=== PATIENT | female | born 1975 | race Caucasian/White ===

== ENCOUNTER 2019-07-29 11:54 | Inpatient (IN) | payer MEDICARE, MEDICAID, SELFPAY ==
[2019-07-29 12:06] VITALS: BP 152/84; PULSE 78; RESP 16; TEMP 36.3; O2SAT 100; BMI 25.4
--- NOTE | 2019-07-29 12:33 | ED_ITS ---
HPI - General Adult General: Chief complaint: General Medical Stated complaint: PAINS AND HEADACHE Time Seen by Provider: 07/29/19 12:10 Source: patient Mode of arrival: ambulatory Limitations: no limitations History of Present Illness: HPI narrative: Patient is a 43-year-old female who presents to ED today with complaints of muscle aches to her bilateral lower extremities and a headache that began yesterday; patient tells me she does have a history of migraine headaches; she has not noticed any swelling, weakness, color/temperature changes, numbness/tingling to her legs; reports they just feel achy ; patient denies fever/chills; she has no vomiting or diarrhea; reports previous history of kidney disease in which she follows up with Dr. Gonzáles, nephrology, for Onset (ago): day(s) (yesterday) Associated symptoms: Deny chest pain, dyspnea, malaise, nausea, rash, palpitations, syncope or vomiting Review of Systems Const: Denies: fever, chills, body aches, fatigue or malaise Eyes: Denies: change in vision or blurry vision ENMT: Denies: enlarged tonsils or painful swallowing Card: Denies: chest pain, palpitations, irregular heart rhythm, lightheadedness, syncope or shortness of breath on exertion Resp: Denies: shortness of breath, productive cough or pain on inspiration GI: Denies: abdominal pain, nausea, vomiting, heartburn/indigestion or diarrhea : Denies: difficulty urinating, painful urination, urinary frequency or urinary urgency Musc: Reports: extremity pain (bilateral LE achy ); Denies: neck pain, back pain or joint pain Skin/Breast: Denies: rash PFSH ED PFSH: Statuses (acute, chronic, etc) shown below reflect problem list status as previously entered and may not be historically accurate Social History Smoking and tobacco status: never smoked Physical Exam Const: COMMON NORMALS: no apparent distress, average body habitus, oriented x 3, no limitations, healthy appearing, alert and well nourished ORIENTATION/CONSCIOUSNESS: Yes oriented to person, Yes oriented to place and Yes oriented to time HENMT: COMMON NORMALS: normocephalic and head/scalp atraumatic HEAD & S CALP: normocephalic and atraumatic Eye: COMMON NORMALS: no scleral icterus Neck/C-Spine: COMMON NORMALS: full ROM, no lymphadenopathy, supple and no meningeal signs Resp: COMMON NORMALS: normal respiratory effort and clear to auscultation bilaterally AUSCULTATION: clear to auscultation bilaterally Cardio: COMMON NORMALS: regular rate and regular rhythm RATE: regular rate RHYTHM: regular rhythm GI: COMMON NORMALS: normal to inspection, nondistended, normoactive bowel sounds, soft to palpation and non-tender PALPATION: Yes soft : COMMON NORMALS: Yes no CVA tenderness BLADDER/KIDNEY EXAM: Yes no CVA tenderness Back/Pelvis: COMMON NORMALS: no CVA tenderness and thoracic and lumbar spine normal to inspection Extremity: COMMON NORMALS: normal to inspection, full ROM, normal capillary refill, no joint enlargement, no clubbing, cyanosis or edema and no pedal edema OTHER: just reports legs feel achy ; no physical abnormalities noted Neuro: SUMI COMA SCALE: document GCS findings Sumi coma scale eye opening: Spontaneous Henderson coma scale verbal response: Orientated Sumi coma scale motor response: Obey commands Henderson coma scale total score: 15 COMMON NORMALS: oriented x3, CN's II-XII intact bilaterally, moves all extremities, no focal motor deficits and no sensory deficits noted SENSORIUM/ORIENTATION: Yes alert, Yes oriented to person, Yes oriented to place and Yes oriented to time MENINGEAL SIGNS: Yes no meningeal signs Skin: COMMON NORMALS: no rashes or lesions noted GENERAL SKIN EXAM: no rashes or lesions noted Course Vital Signs: Vital signs: Vital Signs Temperature 97.4 F L 07/29/19 12:06 Pulse Rate 78 07/29/19 12:06 Respiratory Rate 16 07/29/19 12:06 Blood Pressure 152/84 07/29/19 12:06 Pulse Oximetry 100 07/29/19 12:06 MDM - General Adult MDM Narrative: Medical decision making narrative: Patient noted to have a BUN/Cr of 74/6.2. She is hypercalcemic at 15.4. She has no EKG changes at this time. We will add an ionized calcium onto her lab work. Spoke to Dr. Main who will speak to hospitalist for admission. Lab Data: Labs: Lab Results 07/29/19 07/29/19 07/29/19 Range/Units 12:55 12:55 13:12 WBC 8.4 (4.0-10.0) 10^3/ uL RBC 3.18 L (4.1-5.3) 10^6/u L Hgb 8.5 L (11.5-15.3) g/dL Hct 27.4 L (37.0-47.0) % MCV 86.2 (81-99) fL MCH 26.7 L (28.0-34.0) pg MCHC 31.0 (30.0-36.0) g/dL RDW 13.2 (12.1-15.1) % Plt Count 299 (130-400) 10^3/c mm MPV 9.2 (7.4-10.4) fL Neut % (Auto) 73.5 % Lymph % (Auto) 10.9 % Montgomery % (Auto) 11.0 % Eos % (Auto) 3.9 % Baso % (Auto) 0.5 % Neut # (Auto) 6.2 (1.8-7.7) 10^3/u L Lymph # (Auto) 0.9 (0.8-4.8) 10^3/u L Montgomery # (Auto) 0.9 (0.2-0.9) 10^3/u L Eos # (Auto) 0.3 (0.0-0.8) 10^3/u L Baso # (Auto) 0.0 (0.0-0.1) 10^3/u L Nucleated RBC % (a uto) 0 % Nucleated RBCs # 0.0 /100WBC Sodium 134 L (136-145) mmol/L Potassium 5.1 (3.5-5.1) mmol/L Chloride 94 L (98-107) mmol/L Carbon Dioxide 24 (22-29) mmol/L Anion Gap 21.1 H (5-19) BUN 74 H (6-20) mg/dL Creatinine 6.2 H* (0.5-0.9) mg/dL GFR Calculation 7.3 L (90-130) mL/min Glucose 110 H (74-109) mg/dL Calcium 15.4 H* (8.5-10.5) mg/dL Ionized Calcium Me as (1.1-1.4) mmol/L Magnesium 2.8 H (1.7-2.3) mg/dL Total Bilirubin 0.3 (0.15-1.2) mg/dL AST 16 (0-32) U/L ALT 17 (0-33) U/L Alkaline Phosphata se 73 (35-105) IU/L Total Protein 9.1 H (6.6-8.7) g/dL Albumin 4.1 (3.5-5.2) g/dL Globulin 5.0 H (1.3-4.6) g/dL Urine Color Yellow (Yellow) Urine Appearance Sl hazy (CLEAR) Urine pH 8 H (5-7) Ur Specific Gravit y 1.010 (1.005-1.030) Urine Protein Trace (Negative) Urine Glucose (UA) 2+ (Normal) Urine Ketones Negative (Negative) Urine Occult Blood 2+ H (Negative) Urine Nitrate Negative (Negative) Urine Bilirubin Neg (NEGATIVE) Prot Sulfosalicyli c Acd Trace Urine Urobilinogen Norm (Negative) mg/dL Ur Leukocyte Diana ase Negative (Negative) Urine RBC None (0-2) /hpf Urine WBC None (0-5) /hpf Ur Squamous Epith Cells 10-15 H (0-5) Amorphous Sediment 1+ Urine Bacteria Trace (NONE) Urine Mucus Trace 07/29/19 Range/Units 14:13 WBC (4.0-10.0) 10^3/ uL RBC (4.1-5.3) 10^6/u L Hgb (11.5-15.3) g/dL Hct (37.0-47.0) % MCV (81-99) fL MCH (28.0-34.0) pg MCHC (30.0-36.0) g/dL RDW (12.1-15.1) % Plt Count (130-400) 10^3/c mm MPV (7.4-10.4) fL Neut % (Auto) % Lymph % (Auto) % Montgomery % (Auto) % Eos % (Auto) % Baso % (Auto) % Neut # (Auto) (1.8-7.7) 10^3/u L Lymph # (Auto) (0.8-4.8) 10^3/u L Montgomery # (Auto) (0.2-0.9) 10^3/u L Eos # (Auto) (0.0-0.8) 10^3/u L Baso # (Auto) (0.0-0.1) 10^3/u L Nucleated RBC % (a uto) % Nucleated RBCs # /100WBC Sodium (136-145) mmol/L Potassium (3.5-5.1) mmol/L Chloride (98-107) mmol/L Carbon Dioxide (22-29) mmol/L Anion Gap (5-19) BUN (6-20) mg/dL Creatinine (0.5-0.9) mg/dL GFR Calculation (90-130) mL/min Glucose (74-109) mg/dL Calcium (8.5-10.5) mg/dL Ionized Calcium Me as 1.8 H (1.1-1.4) mmol/L Magnesium (1.7-2.3) mg/dL Total Bilirubin (0.15-1.2) mg/dL AST (0-32) U/L ALT (0-33) U/L Alkaline Phosphata se (35-105) IU/L Total Protein (6.6-8.7) g/dL Albumin (3.5-5.2) g/dL Globulin (1.3-4.6) g/dL Urine Color (Yellow) Urine Appearance (CLEAR) Urine pH (5-7) Ur Specific Gravit y (1.005-1.030) Urine Protein (Negative) Urine Glucose (UA) (Normal) Urine Ketones (Negative) Urine Occult Blood (Negative) Urine Nitrate (Negative) Urine Bilirubin (NEGATIVE) Prot Sulfosalicyli c Acd Urine Urobilinogen (Negative) mg/dL Ur Leukocyte Diana ase (Negative) Urine RBC (0-2) /hpf Urine WBC (0-5) /hpf Ur Squamous Epith Cells (0-5) Amorphous Sediment Urine Bacteria (NONE) Urine Mucus Discharge Plan Discharge Patient Disposition: Admitted As Inpatient Clinical Impression: Hypercalcemia Acute renal failure Qualifiers: Acute renal failure type: unspecified Qualified Code(s): N17.9 - Acute kidney failure, unspecified Condition: Stable Coding Level of Care Code ED Profiling Machine Set Up Operator Tool for Jori Beasley Exam Problem Focused
[2019-07-29 13:25] LABS: Basophils % 0.5 %; Eosinophils # 0.3 10^3/uL (0.0-0.8); Eosinophils % 3.9 %; Hematocrit 27.4 % (37.0-47.0); Hemoglobin 8.5 g/dL (11.5-15.3); Lymphocytes # 0.9 10^3/uL (0.8-4.8); Lymphocytes % 10.9 %; Mean Corpuscular Hemoglobin 26.7 pg (28.0-34.0); Mean Corpuscular Volume 86.2 fL (81-99); Mean Platelet Volume 9.2 fL (7.4-10.4); Monocytes # 0.9 10^3/uL (0.2-0.9); Neutrophils # 6.2 10^3/uL (1.8-7.7); Neutrophils % 73.5 %; Nucleated Red Blood Cells % 0 %; Platelet Count 299 10^3/cmm (130-400); Red Blood Count 3.18 10^6/uL (4.1-5.3); Red Cell Distribution Width 13.2 % (12.1-15.1); White Blood Count 8.4 10^3/uL (4.0-10.0)
[2019-07-29] MEDS: sodium chloride 0.9% 1,000 ML 500 ML IV (13:35)
[2019-07-29 13:42] LABS: Alanine Aminotransferase 17 U/L (0-33); Albumin Level 4.1 g/dL (3.5-5.2); Alkaline Phosphatase 73 IU/L (35-105); Anion Gap 21.1 (5-19); Aspartate Amino Transferase 16 U/L (0-32); Blood Urea Nitrogen 74 mg/dL (6-20); Carbon Dioxide 24 mmol/L (22-29); Chloride 94 mmol/L (98-107); Glomerular Filtration Rate 7.3 mL/min (90-130); Glucose 110 mg/dL (74-109); Magnesium 2.8 mg/dL (1.7-2.3); Potassium 5.1 mmol/L (3.5-5.1); Sodium 134 mmol/L (136-145); Total Bilirubin 0.3 mg/dL (0.15-1.2); Total Protein 9.1 g/dL (6.6-8.7)
[2019-07-29 13:50] LABS: Calcium 15.4 mg/dL (8.5-10.5)
--- NOTE | 2019-07-29 13:53 | ECG_ITS ---
Measurements Intervals [place] Rate: 72 P: 63 ID: [id number] QRS: 11 QRSD: 89 T: 30 QT: 318 QTc: 349 SINUS RHYTHM LOW QRS VOLTAGE IN PRECORDIAL LEADS [QRS DEFLECTION < 1.0 mV IN CHEST LEADS] WARNING: DATA QUALITY MAY AFFECT INTERPRETATION INTERPRETATION BASED ON A DEFAULT AGE OF 40 YEARS No previous ECG available for comparison Electronically Signed On 07-30-2019 21:03:49 MANAGER STRATEGIC by Ariadna Myles M.D. [email or web address]
[2019-07-29 13:54] LABS: Urine Appearance SL Hazy (CLEAR); Urine Color Yellow (Yellow); pH Urine 8 (5-7)
[2019-07-29 13:55] LABS: Add Urine Microscopic? YES; Bilirubin Urine Neg (NEGATIVE); Blood Urine 2+ (Negative); Glucose Urine UA 2+ (Normal); Ketones Urine Negative (Negative); Leukocyte Esterase Urine Negative (Negative); Nitrate Urine Negative (Negative); Protein Urine Trace (Negative); Urobilinogen Urine Norm (Negative)
[2019-07-29 14:05] LABS: Sulfosalicylic Acid Urine Trace
[2019-07-29 14:06] LABS: Amorphous Sediment Urine 1+; Bacteria Urine TRACE; Mucus Urine TRACE
[2019-07-29 14:07] LABS: Add Urine Culture? No
[2019-07-29 14:30] LABS: Ionized Calcium 1.8 mmol/L (1.1-1.4)
[2019-07-29 15:34] VITALS: BP 148/63; PULSE 74; RESP 18; O2SAT 100
[2019-07-29 15:52] VITALS: BP 157/83; PULSE 80; RESP 20; TEMP 37.4; O2SAT 100
[2019-07-29] MEDS: sodium chloride 0.9% 1,000 ML 150 ML IV (16:23)
--- NOTE | 2019-07-29 19:30 | PC.NURSE ---
Introduction of staff and report received, aidet.
--- NOTE | 2019-07-29 19:36 | PM.HP ---
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 Patient is stating that her symptoms started yesterday when she started having diffuse muscle cramps, she thought she got flu, she was trying to hydrate herself but her symptoms were not getting better, she felt weaker, she lives alone and that is why she decided to come to ER for further evaluation. She is denying any fever, chest pain, shortness of breath, dysuria, change in bowel movements. However she had sinus congestion, her eyes are red which are not new she has a history of uveitis and glaucoma and uses eyedrops. Patient is stating that she just used her first dose of Simponi subcutaneous few days back which was prescribed by Dr. Malave examiner rating clerk. Diagnostics in ER showed normal hemodynamics, abnormal creatinine of 6 and calcium of 15, I will give her 2 L normal saline bolus Calcitonin 100 mg subcutaneous x1 Repeat BMP Review of Systems Const: Reports: body aches, fatigue and malaise; Denies: fever, chills or change in appetite Eyes: Reports: change in vision, blurry vision, photophobia, eye discharge and eye redness ENMT: Denies: throat pain Card: Denies: chest pain Resp: Denies: shortness of breath GI: Denies: abdominal pain, nausea or vomiting : Denies: flank pain or difficulty urinating Musc: Reports: muscle cramps and muscle weakness Skin/Breast: Denies: rash or itching Neuro: Denies: headache Psych: Denies: anxiety Endo: Denies: excessive urination Juan/Lymph: Denies: easy bruising All/Imm: Denies: hives Medications/Allergies Home Medications Medication Instructions Recorded Confirmed Last Taken Type Simponi See Rx Instructions .ROUTE .COMPLEX 07/29/19 07/29/19 Unknown History amlodipine 2.5 mg PO DAILY 07/29/19 07/29/19 07/28/19 History azathioprine 50 mg PO DAILY 07/29/19 07/29/19 07/28/19 History brimonidine-timolol [Combigan] 1 drp OPHTHALMIC (EYE) BID 07/29/19 07/29/19 07/29/19 History calcium carbonate-vitamin D3 1 tab PO DAILY 07/29/19 07/29/19 07/29/19 History [Calcium 500 + D] desipramine 50 mg PO BEDTIME 07/29/19 07/29/19 07/28/19 History desonide See Rx Instructions .ROUTE .COMPLEX 07/29/19 07/29/19 Unknown History gabapentin 300 mg PO BEDTIME 07/29/19 07/29/19 07/28/19 History loteprednol etabonate [Lotemax] 1 drp OPHTHALMIC (EYE) DAILY 07/29/19 07/29/19 07/29/19 History medroxyprogesterone See Rx Instructions .ROUTE .COMPLEX 07/29/19 07/29/19 Unknown History metoprolol tartrate 50 mg PO BID 07/29/19 07/29/19 07/29/19 History multivitamin [Multiple Vitamins] 1 tab PO DAILY 07/29/19 07/29/19 07/29/19 History olopatadine [Pataday] 1 drp OPHTHALMIC (EYE) DAILY 07/29/19 07/29/19 07/29/19 History omeprazole 10 mg PO DAILY 07/29/19 07/29/19 07/29/19 History sodium bicarbonate 1,950 mg PO BID 07/29/19 07/29/19 07/29/19 History venlafaxine 75 mg PO QAM 07/29/19 07/29/19 07/29/19 History Allergies Allergy/AdvReac Type Severity Reaction Status Date / Time Penicillins Allergy Intermediate swelling Verified 07/29/19 12:14 PFSH Acute PFSH: Statuses (acute, chronic, etc) shown below reflect problem list status as previously entered and may not be historically accurate Medical History (Updated 07/29/19 @ 19:49 by Buck Bennett MD) Avascular necrosis (Acute) Chronic kidney disease (Acute) Baseline creatinine 1.5-1.9 Depression (Acute) GERD (gastroesophageal reflux disease) (Acute) Juvenile rheumatoid arthritis (Acute) Diagnosed 1978 Migraine headache (Acute) Osteoarthritis of shoulder (Acute) Osteopenia (Acute) Uveitis (Acute) Surgical History (Updated 07/29/19 @ 19:41 by Buck Bennett MD) H/O foot surgery (Acute) H/O wrist surgery (Acute) Hx of total knee arthroplasty (Acute) Family History (Updated 07/29/19 @ 19:51 by Buck Bennett MD) Grandfather No problems noted. Father Stroke Father had Parkinson's and a stroke Other Hypertension Social History (Updated 07/29/19 @ 19:52 by Buck Bennett MD) Smoking and tobacco status: never smoked Alcohol intake: never Substance/Drug Use: never Vitals/I&O/Wt Last Vital Signs Temp 99.3 F 07/29/19 15:52 Pulse 80 07/29/19 15:52 Resp 20 H 07/29/19 15:52 BP 157/83 07/29/19 15:52 Pulse Ox 100 07/29/19 15:52 07/29/19 07/29/19 07/29/19 06:59 14:59 22:59 Intake Total 650 / 650 Balance 650 / 650 Weight last 48 hrs Weight 58.967 kg Physical Exam Narrative: EXAM NARRATIVE: Patient is lying comfortably in her bed She seems dehydrated with dry cracked lips She has scar garcia of multiple surgeries of her arms and hands and ankles She has joint deformities secondary to rheumatoid arthritis S1, S2 no signs of JVD or heart failure Saturating well on room air, breath sounds are clear to auscultation without adventitial sounds Abdomen soft nontender nondistended Lower extremity shows with deformity secondary to rheumatological disorder No active sign ischemia gangrene ulcer of lower extremity Hyperemic conjunctivo-patient is stating that these are chronic changes due to glaucoma and uveitis She has chronic visual changes Not able to feel any nodularity around thyroid gland Data : 07/29/19 12:55 07/29/19 12:55 A&P Assessment and plan (1) Hypercalcemia: Status: Acute Code(s): E83.52 - Hypercalcemia (2) Acute renal failure: Status: Acute Qualifiers: Acute renal failure type: unspecified Qualified Code(s): N17.9 - Acute kidney failure, unspecified Code(s): N17.9 - Acute kidney failure, unspecified Additional A&P Information Hypercalcemia with myalgias No signs of psychosis, abdominal pain, Previous calcium level was around 9 She has been taking vitamin D and calcium tablets Recently started Simponi, I checked literature Simponi is not associated with hypercalcemia I would hold calcium ottoman D tablets, check vitamin D, PTH, Recheck calcium today My target will be to give her 2 to 4 L of normal saline bolus With target urine output 150 mL/h Closely monitor for fluid overload and use Lasix after 10 to 12 hours if his calcium is not improving with fluid resuscitation I would use calcitonin twice a day Renal consult if calcium is not improving on above-mentioned regimen Acute on chronic kidney disease Chronic kidney disease secondary to use of methotrexate and Humira in the past She is voiding urine, her potassium is normal, she is not acidotic, Close monitor for electrolyte imbalance if her creatinine and calcium is worsening she will need hemodialysis History of uveitis and glaucoma Continue her eyedrops Juvenile rheumatoid arthritis: Currently she is on Simponi that was prescribed by Dr. Malave which is her examiner rating clerk DVT prophylaxis: Heparin Full code GI prophylaxis: Protonix Attestations Medical Necessity Statement*: Anticipating her stay to cross more than 2 midnights because of hypercalcemia and chronic kidney disease Time Spent in Patient Care: 60 Coding Level of Care Code Acute Emergency Room Specialist for Jori Beasley Diagnoses Hypercalcemia E83.52 Acute renal failure N17.9 Acute renal failure type: unspecified
[2019-07-29 20:00] VITALS: BP 144/78; PULSE 81; RESP 18; TEMP 37.1; O2SAT 100
[2019-07-29] MEDS: calcitonin,salmon 200 unit/mL SDV 2mL 100 UNIT SUBCUT (21:14)
[2019-07-29] MEDS: sodium chloride 0.9% 2,000 ML 999 ML IV (21:28)
[2019-07-29 21:30] LABS: Anion Gap 19.3 (5-19); Blood Urea Nitrogen 80 mg/dL (6-20); Calcium 13.4 mg/dL (8.5-10.5); Carbon Dioxide 21 mmol/L (22-29); Chloride 104 mmol/L (98-107); Glomerular Filtration Rate 7.3 mL/min (90-130); Glucose 103 mg/dL (74-109); Osmolality Calculated 290 mOsm/kg (285-295); Phosphorus 5.6 mg/dL (2.5-4.5); Potassium 4.3 mmol/L (3.5-5.1); Sodium 140 mmol/L (136-145)
[2019-07-29] MEDS: olopatadine 0.1% Op Soln 5 mL Btl 1 DROP EYE-BOTH (21:31)
[2019-07-29] MEDS: heparin 5,000 unit/mL INJ 1 mL 5000 UNIT SUBCUT (21:32)
[2019-07-29 22:13] LABS: Calcium 13.1 mg/dL (8.5-10.5)
[2019-07-29] MEDS: metoprolol tartrate 50 mg Tablet PO (22:53)
[2019-07-29 23:14] VITALS: RESP 17
[2019-07-29] MEDS: morphine IR 15 mg Tablet PO (23:14)
[2019-07-29] MEDS: amlodipine 5 mg Tablet 2.5 MG PO (23:45)
[2019-07-29] MEDS: pantoprazole DR 40 mg Tablet PO (23:45)
[2019-07-29] MEDS: sodium bicarbonate 650 mg Tablet 1950 MG PO (23:46)
[2019-07-30] VITALS: BP 142/80; PULSE 84; RESP 20; TEMP 36.8; O2SAT 97
[2019-07-30] MEDS: gabapentin 100 mg Capsule PO ×2 (00:33→21:17)
[2019-07-30 00:44] LABS: 25 Hydroxy Vitamin D 7 ng/mL (30-100)
[2019-07-30] MEDS: sodium chloride 0.9% 1,000 ML 200 ML IV ×5 (01:50→21:17)
[2019-07-30 04:00] VITALS: BP 136/72; PULSE 85; RESP 20; TEMP 36.6; O2SAT 100
[2019-07-30 05:27] LABS: Basophils % 0.4 %; Eosinophils # 0.3 10^3/uL (0.0-0.8); Eosinophils % 4.1 %; Hematocrit 24.4 % (37.0-47.0); Hemoglobin 7.1 g/dL (11.5-15.3); Lymphocytes # 0.8 10^3/uL (0.8-4.8); Lymphocytes % 10.4 %; Mean Corpuscular HGB Conc 29.1 g/dL (30.0-36.0); Mean Corpuscular Volume 89.4 fL (81-99); Mean Platelet Volume 9.4 fL (7.4-10.4); Monocytes # 0.9 10^3/uL (0.2-0.9); Monocytes % 11.7 %; Neutrophils # 5.5 10^3/uL (1.8-7.7); Nucleated Red Blood Cells % 0 %; Platelet Count 264 10^3/cmm (130-400); Red Blood Count 2.73 10^6/uL (4.1-5.3); Red Cell Distribution Width 13.4 % (12.1-15.1); White Blood Count 7.6 10^3/uL (4.0-10.0)
[2019-07-30 05:47] LABS: Anion Gap 18.4 (5-19); Blood Urea Nitrogen 61 mg/dL (6-20); Calcium 11.1 mg/dL (8.5-10.5); Carbon Dioxide 16 mmol/L (22-29); Chloride 110 mmol/L (98-107); Glomerular Filtration Rate 8.1 mL/min (90-130); Glucose 99 mg/dL (74-109); Osmolality Calculated 289 mOsm/kg (285-295); Potassium 4.4 mmol/L (3.5-5.1); Sodium 140 mmol/L (136-145)
[2019-07-30] MEDS: heparin 5,000 unit/mL INJ 1 mL 5000 UNIT SUBCUT ×3 (06:09→21:17)
--- NOTE | 2019-07-30 07:00 | XR_ITS ---
WS: [id number] CHEST XRAY TECHNIQUE: Portable chest. CLINICAL INFORMATION: fluid status COMPARISON: November 15, 2017 FINDINGS: Heart: Normal cardiac silhouette. Lungs: Chronic emphysematous changes. No acute pulmonary infiltrates. No focal pneumonia. Bones: Postoperative right TSA. XR/XR chest 1V portable [id number] IMPRESSION: No acute chest findings. No focal pneumonia.
[2019-07-30 07:45] VITALS: BP 128/78; PULSE 87; RESP 18; TEMP 36.7
[2019-07-30] MEDS: pantoprazole DR 40 mg Tablet PO (08:18)
[2019-07-30] MEDS: olopatadine 0.1% Op Soln 5 mL Btl 1 DROP EYE-BOTH (08:18)
[2019-07-30] MEDS: venlafaxine ER (24HR) 75 mg Capsule PO (08:18)
[2019-07-30] MEDS: metoprolol tartrate 50 mg Tablet PO ×2 (08:18→18:03)
[2019-07-30] MEDS: calcitonin,salmon 200 unit/mL SDV 2mL SUBCUT ×2 (09:06→18:02)
[2019-07-30 11:18] VITALS: BP 136/77; PULSE 85; RESP 16; TEMP 36.8
[2019-07-30 11:41] LABS: Thyroid Stimulating Hormone 1.96 uIU/mL (0.27-4.20)
[2019-07-30] MEDS: ondansetron 2 mg/ML SDV 2 mL 4 MG IVP ×2 (12:20→19:18)
--- NOTE | 2019-07-30 12:23 | PM.PN ---
Subjective Subjective: Interval history: Patient reports mild nonspecific across left and right chest pain that she thinks started yesterday and is constant without any alleviating or aggravating factors. She reports minimal shortness of breath. She denies abdominal pain or problems with bowel movement. Denies melena or hematochezia. Reports that in the last 2 days she noticed some burning on urination. Reports upper extremity swelling and she is getting her IV fluids through right arm. No erythema noted. Denies cough. PTH and vitamin D is low. She denies taking large amount of vitamin A. She does take 1 multivitamin tablet daily. Reports that she wants to go home as soon as possible as she is missing her dogs. Vitals/I&O/Wt Last Vital Signs Temp 98.2 F 07/30/19 11:18 Pulse 85 07/30/19 11:18 Resp 16 07/30/19 11:18 BP 136/77 07/30/19 11:18 Pulse Ox 100 07/30/19 04:00 07/29/19 07/30/19 07/30/19 22:59 06:59 14:59 Intake Total 1412.5 / 1412.5 4313.333 / 5725.833 430 / 430 Output Total 2320 / 2320 700 / 700 Balance 1412.5 / 1412.5 1993.333 / 3405.833 -270 / -270 Weight last 48 hrs Weight 64.728 kg Weight 63.276 kg Weight 58.967 kg Physical Exam Const: COMMON NORMALS: no apparent distress, oriented x3 and healthy appearing Resp: COMMON NORMALS: normal respiratory effort and clear to auscultation bilaterally AUSCULTATION: clear to auscultation bilaterally Cardio: COMMON NORMALS: regular rate, regular rhythm and S2 normal heart sound RATE: regular rate RHYTHM: regular rhythm HEART SOUNDS: S2 normal GI: COMMON NORMALS: normal to inspection, nondistended, normoactive bowel sounds, soft to palpation and non-tender PALPATION: Yes soft Extremity: OTHER: No lower extremity edema. Neuro: COMMON NORMALS: oriented x3 Data : 07/30/19 04:34 07/30/19 04:34 A&P Assessment and plan (1) Hypercalcemia: Check PTH related peptide, TSH, SPEP/UPEP and initial anemia work-up. Obtain CT scan of the chest. Malignancy and/or myeloma currently considered. Status: Acute Code(s): E83.52 - Hypercalcemia (2) Acute renal failure: Myeloma kidney is definitely of concern along with dehydration. I will request nephrology consultation. Status: Acute Qualifiers: Acute renal failure type: unspecified Qualified Code(s): N17.9 - Acute kidney failure, unspecified Code(s): N17.9 - Acute kidney failure, unspecified (3) Acute anemia: Check check initial anemia work-up as well as haptoglobin. GI bleed felt highly unlikely. Status: Acute Code(s): D64.9 - Anemia, unspecified Additional A&P Information Acute on chronic kidney disease Chronic kidney disease secondary to use of methotrexate and Humira in the past She is voiding urine, her potassium is normal, she is not acidotic, Close monitor for electrolyte imbalance if her creatinine and calcium is worsening she will need hemodialysis History of uveitis and glaucoma Continue her eyedrops Juvenile rheumatoid arthritis: Currently she is on Simponi that was prescribed by Dr. Malave which is her gambling broker DVT prophylaxis: Heparin Full code GI prophylaxis: Protonix Attestations Medical Necessity Statement*: Patient with hypercalcemia and acute kidney injury requires close inpatient monitoring and treatment Time Spent in Patient Care: Greater than 35 minutes Coding Level of Care Code Acute President Sales And Marketing for Chg Fwd Diagnoses Hypercalcemia E83.52 Acute renal failure N17.9 Acute renal failure type: unspecified Acute anemia D64.9
--- NOTE | 2019-07-30 12:28 | CT_ITS ---
WS: [id number] CT CHEST TECHNIQUE: Noncontrast CT of the chest with coronal and sagittal reformatted images. CLINICAL INFORMATION: Chest pain, concerning for malignancy and possible myeloma (hypercalcemia COMPARISON: None. DLP: 431.[address] scans at [facility] use at least one of these dose optimization techniques: automat ed exposure control; mA and/or kV adjustment per patient size (includes targeted exams where dose is matched to clinical indication); or iterative reconstruction. FINDINGS: Normal caliber thoracic aorta. No mediastinal or hilar lymphadenopathy. Mild chronic emphysematous ch anges. No acute pulmonary infiltrates. No suspicious pulmonary parenchymal opacities. Small right ple ural effusion. Subsegmental atelectasis right lung base. Trace left pleural fluid. No axillary lymphadenopathy. Mild thoracic kyphosis. Mild thoracic curve. Normal visualized bony stru ctures. No other significant findings. CT/CT chest wo con [id number] IMPRESSION: 1. Mild chronic emphysematous changes. No acute pulmonary infiltrates. 2. Small right greater than left pleural effusions with subsegmental atelectas is right lung base. 3. No focal pneumonia. 4. No mediastinal or hilar lymphadenopathy. 5. No evidence of myelomatous lesions.
[2019-07-30 13:14] LABS: Ferritin 155 ng/mL (15-150); Iron 53 ug/dL (37-145); Percent Saturation 25.1 % (20-50); Total Iron Binding Capacity 211 mcg/dl; Unsaturated Iron Binding 158 ug/dL (112-347)
--- NOTE | 2019-07-30 13:35 | PC.CHAP ---
Pastoral Care Encounter/Spiritual Assessment Type of Contact [] Declined pool finisher visit [] Patient/Family/Request visit [] Outpatient visit [] Follow-up visit [] Physician referral [] Code/Alert [x] Routine visit [] Staff referral [] Actively dying [] Patient sleeping [] Family support [] [] Out of room [] Palliative care [] [] Receiving care in room [] Pre-surgical visit [] Trauma [] Long length of stay [] ICU visit [] Other: Relational/Emotional Strength [] Patient feels connected with others/family/visitors/staff [] Distress [] Loneliness/isolation [] Abandonment Spirituality of Patient [] Person of Carrie [] Attends Scientology of their Carrie [] Believes in Prayer [] Reads Bible or Yazidi materials [] There are Spiritual issues to be addressed Tar Heater Interventions [] Prayer [x] Active listening [x] Non-anxious presence [] Spiritual/emotional support [] Crisis/trauma care [] Spiritual counseling [] Bereavement support [] Provided bereavement packet [] Provided Bible/devotional materials [] Provided toy/stuffed animal, coloring book to patient or family member [] Provided Communion [] Anointing/Abbott [] Salvation [] Completed spiritual assessment [] Other: Impact on Illness or Injury [] Angry [] Fearful [] Anxious [] Often cries [] Exhaustion [] Unable to work [] Unable to attend moravian [] Unable to walk/stand [] Unable to read [] Unable to drive [] Unable to eat/drink [] Unable to sleep [] Unable to be with family [] Patient intubated [] Other: Summary Patient declined prayer and stated that there wasn't anything that she wanted from the chaplains. Visited by Tar Heater Kyle Akers Time spent with patient 5 minutes
--- NOTE | 2019-07-30 13:57 | P.CONIM_ITS ---
Providers/Reason For Consult Consulting Physican/Specialty*: Nephrology Reason for Consult*: SEAN and hypercalcemia Attending Physician: Carson Sellers MD History of Present Illness History of Present Illness Dia Paredes is a 43 year old female Thank you for consultation. This pleasant lady came into our facility with c ramping which had occurred on Tuesday. The only recent change in her medical care is the introduction of the immunotherapy, Simponi. On arrival basic lab tests demonstrated that she did have is elevated serum creatinine of 6.2. This is in siddiqui contrast to the creatinine of 3.1 that we see back in March. She follows with Dr. Gonzáles in the outpatient nephrology clinic. She believes she has stage IV chronic kidney disease but she is not aware of the absolute numbers. She was also found to have an elevated calcium in the 15 range. She does take calcium/vitamin D pill daily and once every few days she takes Tums, however, does not use the supplements anymore than this. She attributes her chronic kidney disease to prime methotrexate exposure which has now been stopped. She's been on methotrexate for roughly 30 years, stopping at roughly the age of 39. She denies use of diuretics. She denies bone pain. She denies any history of parathyroid disease and her parathyroid level is low. She denies any extremity edema, shortness of breath or the volume associated symptoms. She denies any exposed to new potentially nephrotoxic substances, however she does take omeprazole. Review of Systems General: Reports: 10 or more systems reviewed and unremarkable except in HPI and below Meds/Allergies Home Medications and Allergies Home Medications Medication Instructions Recorded Confirmed Type Simponi See Rx Instructions .ROUTE .COMPLEX 07/29/19 07/29/19 History amlodipine 2.5 mg PO DAILY 07/29/19 07/29/19 History azathioprine 50 mg PO DAILY 07/29/19 07/29/19 History brimonidine-timolol [Combigan] 1 drp OPHTHALMIC (EYE) BID 07/29/19 07/29/19 History calcium carbonate-vitamin D3 1 tab PO DAILY 07/29/19 07/29/19 History [Calcium 500 + D] desipramine 50 mg PO BEDTIME 07/29/19 07/29/19 History desonide See Rx Instructions .ROUTE .COMPLEX 07/29/19 07/29/19 History gabapentin 300 mg PO BEDTIME 07/29/19 07/29/19 History loteprednol etabonate [Lotemax] 1 drp OPHTHALMIC (EYE) DAILY 07/29/19 07/29/19 History medroxyprogesterone See Rx Instructions .ROUTE .COMPLEX 07/29/19 07/29/19 History metoprolol tartrate 50 mg PO BID 07/29/19 07/29/19 History multivitamin [Multiple Vitamins] 1 tab PO DAILY 07/29/19 07/29/19 History olopatadine [Pataday] 1 drp OPHTHALMIC (EYE) DAILY 07/29/19 07/29/19 History omeprazole 10 mg PO DAILY 07/29/19 07/29/19 History sodium bicarbonate 1,950 mg PO BID 07/29/19 07/29/19 History venlafaxine 75 mg PO QAM 07/29/19 07/29/19 History Allergies Allergy/AdvReac Type Severity Reaction Status Date / Time Penicillins Allergy Intermediate swelling Verified 07/29/19 12:14 Current Medications Current Medications Generic Name Dose Route Start Last Admin Trade Name Freq PRN Reason Stop Dose Admin Amlodipine Besylate 2.5 mg 07/29/19 23:15 07/29/19 23:45 Norvasc PO 2.5 mg QPM CHRISSY Administration Calcitonin [place] 200 unit 07/30/19 09:00 07/30/19 09:06 Miacalcin SUBCUT 200 unit BID CHRISSY Administration Gabapentin 100 mg 07/30/19 00:08 07/30/19 00:33 Neurontin PO 100 mg DAILY@2100 CHRISSY Administration Heparin Sodium (Beef Lung) 5,000 unit 07/29/19 20:00 07/30/19 12:20 Heparin SUBCUT 5,000 unit Q8H CHRISSY Administration Sodium Chloride 1,000 mls @ 200 mls/hr 07/29/19 20:00 07/30/19 08:21 Sodium Chloride 0.9% IV 200 mls/hr .Q5H CHRISSY Administration Metoprolol Tartrate 50 mg 07/30/19 09:00 07/30/19 08:18 Lopressor PO 50 mg BID CHRISSY Administration Olopatadine HCl 1 drop 07/29/19 20:30 07/30/19 08:18 Patanol EYE-BOTH 1 applic DAILY CHRISSY Administration Ondansetron HCl 4 mg 07/30/19 12:02 07/30/19 12:20 Zofran IVP 4 mg Q4H PRN Administration NAUSEA AND VOMITING Pantoprazole Sodium 40 mg 07/29/19 23:15 07/30/19 08:18 Protonix PO 40 mg DAILY CHRISSY Administration Venlafaxine HCl 75 mg 07/30/19 09:00 07/30/19 08:18 Effexor Xr PO 75 mg DAILY CHRISSY Administration PFSH Acute PFSH: Statuses (acute, chronic, etc) shown below reflect problem list status as previously entered and may not be historically accurate Medical History (Updated 07/30/19 @ 12:30 by Carson Sellers MD) Avascular necrosis (Acute) Chronic kidney disease (Acute) Baseline creatinine 1.5-1.9 Depression (Acute) GERD (gastroesophageal reflux disease) (Acute) Juvenile rheumatoid arthritis (Acute) Diagnosed 1978 Migraine headache (Acute) Osteoarthritis of shoulder (Acute) Osteopenia (Acute) Uveitis (Acute) Surgical History (Updated 07/29/19 @ 19:41 by Buck Bennett MD) H/O foot surgery (Acute) H/O wrist surgery (Acute) Hx of total knee arthroplasty (Acute) Family History (Updated 07/29/19 @ 19:51 by Buck Bennett MD) Grandfather No problems noted. Father Stroke Father had Parkinson's and a stroke Other Hypertension Social History (Updated 07/29/19 @ 19:52 by Buck Bennett MD) Smoking and tobacco status: never smoked Alcohol intake: never Substance/Drug Use: never Vitals/I&O/Wt Last Vital Signs Temp 98.2 F 07/30/19 11:18 Pulse 85 07/30/19 11:18 Resp 16 07/30/19 11:18 BP 136/77 07/30/19 11:18 Pulse Ox 100 07/30/19 04:00 07/29/19 07/30/19 07/30/19 22:59 06:59 14:59 Intake Total 1412.5 / 1412.5 4313.333 / 5725.833 430 / 430 Output Total 2320 / 2320 700 / 700 Balance 1412.5 / 1412.5 1993.333 / 3405.833 -270 / -270 Weight last 48 hrs Weight 64.728 kg Weight 63.276 kg Weight 58.967 kg Physical Exam Const: COMMON NORMALS: no apparent distress and average body habitus Chest: COMMONS NORMALS: inspection of chest normal and palpation of chest normal Resp: COMMON NORMALS: normal respiratory effort, no retractions and no use of accessory muscles GI: COMMON NORMALS: normal to inspection, nondistended, normoactive bowel sounds INSPECTION: Yes normal to inspection Extremity: COMMON NORMALS: normal to inspection and no clubbing, cyanosis or edema GENERAL: Yes normal exam except as noted A&P Additional A&P Information 1. Acute on chronic kidney disease. It appears a baseline serum creatinine is 3.1, with the acute component likely secondary to hypercalcemia. Hypercalcemia causes both vasoconstriction and natriuresis to cause an acute kidney injury. Currently her creatinine is slowly drifting down and she has an excellent urine output and so she has no indication for hemodialysis today. As her renal function is improving, no further testing is required at this time for the acute kidney injury per se. Further testing for hypercalcemia as outlined below. Of note Simponi is not known to cause hypercalcemia or acute kidney injury. Avoid the usual nephrotoxic agents continue aggressive IV hydration with saline at 200 mL/hr dose medications for GFR less than 15 2. Hypercalcemia - unclear etiology, with some worrisome findings. She does have a very large gamma gap, raising the possibility of monoclonal gammopathy with bone involvement. Given her chronic inflammation this may also account for large iraida. Parathyroid levels are properly suppressed. It appears that exogenous intake is been relatively low to typically cause this. I agree with serum protein electrophoresis, CT scan of abdomen and pelvis. Would consider bone scan, parathyroid hormone -related peptide, would also consider vit D profile as well. 3. Hypertension. Blood pressure looks well-controlled at this time. Consult Attestations Medical Necessity Statement: eval for renal failure and hyperCa Coding Level of Care Code Acute Hotel Maintenance Technician for Jori Beasley
[2019-07-30 15:17] VITALS: BP 125/67; PULSE 91; RESP 16; TEMP 36.9; O2SAT 97
[2019-07-30] MEDS: amlodipine 5 mg Tablet 2.5 MG PO (18:03)
--- NOTE | 2019-07-30 19:00 | PC.NURSE ---
Introduction of staff and report received, aidet.
[2019-07-30 20:00] VITALS: BP 134/74; PULSE 90; RESP 16; TEMP 36.9; O2SAT 97
[2019-07-31] VITALS (9 sets, daily range): BP systolic 133–165; BP diastolic 71–84; PULSE 86–102; RESP 14–32; TEMP 36.5–36.9; O2SAT 92–99
[2019-07-31] MEDS: ondansetron 2 mg/ML SDV 2 mL 4 MG IVP ×3 (00:57→12:07)
[2019-07-31] MEDS: sodium chloride 0.9% 1,000 ML 200 ML IV ×5 (02:07→20:27)
[2019-07-31] MEDS: heparin 5,000 unit/mL INJ 1 mL 5000 UNIT SUBCUT (04:57)
[2019-07-31 09:33] LABS: PROTEIN, TOTAL 6.2 g/dL (6.1-8.1)
[2019-07-31] MEDS: olopatadine 0.1% Op Soln 5 mL Btl 1 DROP EYE-BOTH (10:02)
[2019-07-31] MEDS: calcitonin,salmon 200 unit/mL SDV 2mL SUBCUT ×2 (10:02→17:39)
[2019-07-31] MEDS: metoprolol tartrate 50 mg Tablet PO ×2 (10:03→17:38)
[2019-07-31] MEDS: pantoprazole 40 mg SDV IVP ×2 (10:03→21:00)
[2019-07-31] MEDS: venlafaxine ER (24HR) 75 mg Capsule PO (10:03)
[2019-07-31] MEDS: sodium bicarbonate 650 mg Tablet 1950 MG PO (10:04)
[2019-07-31 10:07] LABS: Basophils % 0.5 %; Eosinophils # 0.1 10^3/uL (0.0-0.8); Eosinophils % 1.5 %; Hematocrit 26.3 % (37.0-47.0); Hemoglobin 7.8 g/dL (11.5-15.3); Lymphocytes # 0.8 10^3/uL (0.8-4.8); Lymphocytes % 11.1 %; Mean Corpuscular HGB Conc 29.7 g/dL (30.0-36.0); Mean Corpuscular Hemoglobin 27.9 pg (28.0-34.0); Mean Corpuscular Volume 93.9 fL (81-99); Mean Platelet Volume 8.7 fL (7.4-10.4); Monocytes # 0.6 10^3/uL (0.2-0.9); Monocytes % 7.5 %; Neutrophils # 5.9 10^3/uL (1.8-7.7); Neutrophils % 78.9 %; Nucleated Red Blood Cells % 0 %; Platelet Count 254 10^3/cmm (130-400); Red Cell Distribution Width 14.1 % (12.1-15.1); White Blood Count 7.5 10^3/uL (4.0-10.0)
[2019-07-31 10:17] LABS: Alanine Aminotransferase 17 U/L (0-33); Albumin Level 3.7 g/dL (3.5-5.2); Alkaline Phosphatase 56 IU/L (35-105); Anion Gap 20.6 (5-19); Aspartate Amino Transferase 21 U/L (0-32); Blood Urea Nitrogen 44 mg/dL (6-20); Calcium 10.4 mg/dL (8.5-10.5); Carbon Dioxide 13 mmol/L (22-29); Chloride 117 mmol/L (98-107); Creatinine Clr Calc Pharmacy 13.0934; Globulin 4.5 g/dL (1.3-4.6); Glomerular Filtration Rate 10.4 mL/min (90-130); Glucose 102 mg/dL (74-109); Potassium 4.6 mmol/L (3.5-5.1); Sodium 146 mmol/L (136-145); Total Bilirubin 0.2 mg/dL (0.15-1.2); Total Protein 8.2 g/dL (6.6-8.7)
--- NOTE | 2019-07-31 12:11 | PC.NURSE ---
Pt with small emesis x1. PRN zofran given
--- NOTE | 2019-07-31 12:18 | P.PN_ITS ---
Subjective Subjective: Interval history: Feels fine, wants to go home. Eating and drinking ok with some mild nausea this morning. No edema and no other volume assoc Sx. Vitals/I&O/Wt Last Vital Signs Temp 98.2 F 07/31/19 11:11 Pulse 86 07/31/19 11:11 Resp 14 07/31/19 11:11 BP 153/80 07/31/19 11:11 Pulse Ox 97 07/31/19 11:11 07/30/19 07/31/19 07/31/19 22:59 06:59 14:59 Intake Total 1000 / 2430 2303.334 / 4733.334 1470 / 1470 Output Total 750 / 2450 3320 / 5770 1000 / 1000 Balance 250 / -20 -1016.666 / -1036.666 470 / 470 Weight last 48 hrs Weight 65.227 kg Weight 64.609 kg Weight 64.728 kg Weight 63.276 kg Physical Exam Const: COMMON NORMALS: no apparent distress and average body habitus Chest: COMMONS NORMALS: inspection of chest normal and palpation of chest normal Resp: COMMON NORMALS: normal respiratory effort, no retractions and no use of accessory muscles GI: COMMON NORMALS: normal to inspection, nondistended, normoactive bowel sounds INSPECTION: Yes normal to inspection Extremity: COMMON NORMALS: normal to inspection and no clubbing, cyanosis or edema GENERAL: Yes normal exam except as noted Data : 07/31/19 09:50 07/31/19 09:50 A&P Additional A&P Information 1. Acute on chronic kidney disease. It appears a baseline serum creatinine is 3.1, with the acute component likely secondary to hypercalcemia. Hypercalcemia causes both vasoconstriction and natriuresis to cause an acute kidney injury. Currently her creatinine is slowly drifting down and she has an excellent urine output and so she has no indication for hemodialysis today. As her renal function is improving, no further testing is required at this time for the acute kidney injury per se. Further testing for hypercalcemia as outlined below. Of note Simponi is not known to cause hypercalcemia or acute kidney injury. Avoid the usual nephrotoxic agents Renal function is getting better and so no n dose medications for GFR less than 15 2. Hypercalcemia - unclear etiology, with some worrisome findings. She does have a very large gamma gap, raising the possibility of monoclonal gammopathy with bone involvement. Given her chronic inflammation this may also account for large iraida. Parathyroid levels are properly suppressed and vit D levels are low. It appears that exogenous intake is been relatively low to typically cause this but may have contributed. I agree with serum protein electrophoresis and this is pending. CT scans have not been so far revealing. 3. Hypertension. Blood pressure looks well-controlled at this time. - renal function is dropping and so acute renal issues are resolving. I will follow peripherally at this time. - thanks Attestations Medical Necessity Statement*: shanti for SEAN Coding Level of Care Code Acute Forest Fire Warden for Jori Beasley
[2019-07-31] MEDS: HYDROcodone-acetaminophen 5-325 mg Tablet 1 TAB PO ×2 (13:07→17:43)
--- NOTE | 2019-07-31 13:17 | ANES.PREANE2 ---
Pre-Anesthetic Assessment Pre-Anesthetic Assessment: Height/Weight: Height 1.52 m Weight 65.227 kg Temp Pulse Resp BP Pulse Ox 98.2 F 86 14 153/80 97 07/31/19 11:11 07/31/19 11:11 07/31/19 11:11 07/31/19 11:11 07/31/19 11:11 Preop Diagnosis: Gi bleed Proposed Procedure: EGD/ Colon Familial anesthetic complications: Hx of difficult intubation in 2005 Social: Social History: No alcohol and No tobacco Exam: Pre-Anes Outpt Exam: alert, oriented x 3, clear to auscultation bilaterally and regular rate & rhythm Airway: Cervical ROM: Other (RA since age 2 - s/p occiptal-cervical fusion with minor subluxations of C4 on 5 and C5 on C6 seen on CT neck in 2008) MP: 4 Additional comments: missing teeth Pulmonary: Comments: I have small lungs hx of bronchitis, not on oxygen, no SOB, infrequent use of inhalers CV/HEM: CV/HEM: None reported Comments: anemia - concern for possible GI bleed : : Chronic renal failure Comments: SEAN on CKD stage IV due to terminal worker methotrexate use Hepatic: Hepatic: None reported GI: GI: GERD Comments: currently vomiting with nausea Metabolic: Metabolic: None reported Comments: hypercalcemia Musc/skel: Musc/skel: RA Comments: Severe RA affecting neck and hands Neuropsych: Comments: denies numbness, tingling Anesthetic Plan: ASA status: IV Other: Patient has note stating she is difficult airway from [facility], no mention of difficult mask ventilation. She has fused upper cervical vertebrae and minor subluxation of lower cervical vertebrae per CT scan in 2008. She will need to have any procedure performed in OR, preferably earlier in the day when adequate help is more likely to be available. If she is not actively vomiting, EGD/colon may be attempted with MAC in OR with difficult airway equipment availlable in room. If she is still nauseated, she is aspiration risk and would thus likely require intubation. Patient declining to sign any anesthesia consents at the moment until she has better idea of what will be done.. Meds/Allergies Current Medications: Current Medications Generic Name Dose Route Start Last Admin Trade Name Freq PRN Reason Stop Dose Admin Hydrocodone Bitart /Acetaminophen 1 tab 07/31/19 12:41 07/31/19 13:07 [place] 5-325 Mg PO 1 tab Q4H PRN Administration MODERATE PAIN Amlodipine Besylat e 2.5 mg 07/29/19 23:15 07/30/19 18:03 Norvasc PO 2.5 mg QPM CHRISSY Administration Calcitonin [place] 200 unit 07/30/19 09:00 07/31/19 10:02 Miacalcin SUBCUT 200 unit BID CHRISSY Administration Gabapentin 100 mg 07/30/19 00:08 07/30/19 21:17 Neurontin PO 100 mg DAILY@2100 CHRISSY Administration Sodium Chloride 1,000 mls @ 200 m ls/hr 07/29/19 20:00 07/31/19 10:09 Sodium Chloride 0.9% IV 200 mls/hr .Q5H CHRISSY Administration Metoprolol Tartrat e 50 mg 07/30/19 09:00 07/31/19 10:03 Lopressor PO 50 mg BID CHRISSY Administration Non-Formulary Medi cation 1 drop 07/30/19 09:00 07/31/19 10:08 Brimonidine-[place] lol [Combigan] EYE-BOTH Not Given BID CHRISSY Non-Formulary Medi cation 50 mg 07/29/19 21:00 07/30/19 21:25 Desipramine PO Not Given BEDTIME CHRISSY Non-Formulary Medi cation 1 drop 07/30/19 09:00 07/31/19 10:08 Loteprednol Etab libby [Lotemax] ophthalmic (eye) Not Given DAILY CHRISSY Olopatadine HCl 1 drop 07/29/19 20:30 07/31/19 10:02 Patanol EYE-BOTH 1 applic DAILY CHRISSY Administration Ondansetron HCl 4 mg 07/30/19 12:02 07/31/19 12:07 Zofran IVP 4 mg Q4H PRN Administration NAUSEA AND VOMITI NG Pantoprazole [place] m 40 mg 07/31/19 09:00 07/31/19 10:03 Protonix IVP 40 mg Q12H CHRISSY Administration Sodium Bicarbonate 1,950 mg 07/31/19 09:00 07/31/19 10:04 Sodium Bicarbona te PO 1,950 mg DAILY CHRISSY Administration Venlafaxine HCl 75 mg 07/30/19 09:00 07/31/19 10:03 Effexor Xr PO 75 mg DAILY CHRISSY Administration PFSH Anesthesia PFSH: Medical History (Updated 07/30/19 @ 12:30 by Carson Sellers MD) Avascular necrosis (Acute) Chronic kidney disease (Acute) Baseline creatinine 1.5-1.9 Depression (Acute) GERD (gastroesophageal reflux disease) (Acute) Juvenile rheumatoid arthritis (Acute) Diagnosed 1978 Migraine headache (Acute) Osteoarthritis of shoulder (Acute) Osteopenia (Acute) Uveitis (Acute) Surgical History (Updated 07/29/19 @ 19:41 by Buck Bennett MD) H/O foot surgery (Acute) H/O wrist surgery (Acute) Hx of total knee arthroplasty (Acute) Family History (Updated 07/29/19 @ 19:51 by Buck Bennett MD) Grandfather No problems noted. Father Stroke Father had Parkinson's and a stroke Other Hypertension Social History (Updated 07/29/19 @ 19:52 by Buck Bennett MD) Smoking and tobacco status: never smoked Alcohol intake: never Substance/Drug Use: never Data Anesthesia CBC & Chem 7: 07/31/19 09:50 07/31/19 09:50 Other Labs: Laboratory Results - last 48 hr 07/29/19 07/29/19 07/29/19 12:55 12:55 13:12 WBC 8.4 RBC 3.18 L Hgb 8.5 L Hct 27.4 L MCV 86.2 MCH 26.7 L MCHC 31.0 RDW 13.2 Plt Count 299 MPV 9.2 Neut % (Auto) 73.5 Lymph % (Auto) 10.9 [place] % (Auto) 11.0 Eos % (Auto) 3.9 Baso % (Auto) 0.5 Neut # (Auto) 6.2 Lymph # (Auto) 0.9 [place] # (Auto) 0.9 Eos # (Auto) 0.3 Baso # (Auto) 0.0 Nucleated RBC % (auto) 0 Nucleated RBCs # 0.0 Haptoglobin Sodium 134 L Potassium 5.1 Chloride 94 L Carbon Dioxide 24 Anion Gap 21.1 H BUN 74 H Creatinine 6.2 H* GFR Calculation 7.3 L Glucose 110 H Calculated Osmolality Calcium 15.4 H* Ionized Calcium Hema Phosphorus Magnesium 2.8 H Iron TIBC % Saturation Unsat Iron Binding Ferritin Total Bilirubin 0.3 AST 16 ALT 17 Alkaline Phosphatase 73 Total Protein 9.1 H Albumin 4.1 Globulin 5.0 H 25-OH Vitamin D Total TSH PTH Intact Calcium (PTH Intact) Urine Color Yellow Urine Appearance Sl hazy Urine pH 8 H Ur Specific Check 1.010 Urine Protein Trace Urine Glucose (UA) 2+ Urine Ketones Negative Urine Occult Blood 2+ H Urine Nitrate Negative Urine Bilirubin Neg Prot Sulfosalicylic Acd Trace Urine Urobilinogen Norm Ur Leukocyte Esterase Negative Urine RBC None Urine WBC None Ur Squamous Epith Cells 10-15 H Amorphous Sediment 1+ Urine Bacteria Trace Urine Mucus Trace 07/29/19 07/29/19 07/29/19 14:13 20:38 20:38 WBC RBC Hgb Hct MCV MCH MCHC RDW Plt Count MPV Neut % (Auto) Lymph % (Auto) [place] % (Auto) Eos % (Auto) Baso % (Auto) Neut # (Auto) Lymph # (Auto) [place] # (Auto) Eos # (Auto) Baso # (Auto) Nucleated RBC % (auto) Nucleated RBCs # Haptoglobin Sodium Potassium Chloride Carbon Dioxide Anion Gap BUN Creatinine GFR Calculation Glucose Calculated Osmolality Calcium Ionized Calcium Hema 1.8 H Phosphorus Magnesium Iron TIBC % Saturation Unsat Iron Binding Ferritin Total Bilirubin AST ALT Alkaline Phosphatase Total Protein Albumin Globulin 25-OH Vitamin D Total 7 L TSH PTH Intact 6.0 L Calcium (PTH Intact) 13.1 H Urine Color Urine Appearance Urine pH Ur Specific Check Urine Protein Urine Glucose (UA) Urine Ketones Urine Occult Blood Urine Nitrate Urine Bilirubin Prot Sulfosalicylic Acd Urine Urobilinogen Ur Leukocyte Esterase Urine RBC Urine WBC Ur Squamous Epith Cells Amorphous Sediment Urine Bacteria Urine Mucus 07/29/19 07/30/19 07/30/19 20:38 04:34 04:34 WBC 7.6 RBC 2.73 L Hgb 7.1 L Hct 24.4 L MCV 89.4 MCH 26.0 L MCHC 29.1 L D RDW 13.4 Plt Count 264 MPV 9.4 Neut % (Auto) 73.0 Lymph % (Auto) 10.4 [place] % (Auto) 11.7 Eos % (Auto) 4.1 Baso % (Auto) 0.4 Neut # (Auto) 5.5 Lymph # (Auto) 0.8 [place] # (Auto) 0.9 Eos # (Auto) 0.3 Baso # (Auto) 0.0 Nucleated RBC % (auto) 0 Nucleated RBCs # 0.0 Haptoglobin Sodium 140 140 Potassium 4.3 4.4 Chloride 104 110 H Carbon Dioxide 21 L 16 L Anion Gap 19.3 H 18.4 BUN 80 H 61 H Creatinine 6.2 H* 5.7 H* GFR Calculation 7.3 L 8.1 L Glucose 103 99 Calculated Osmolality 290 289 Calcium 13.4 H 11.1 H Ionized Calcium Hema Phosphorus 5.6 H Magnesium Iron TIBC % Saturation Unsat Iron Binding Ferritin Total Bilirubin AST ALT Alkaline Phosphatase Total Protein Albumin Globulin 25-OH Vitamin D Total TSH PTH Intact Calcium (PTH Intact) Urine Color Urine Appearance Urine pH Ur Specific Check Urine Protein Urine Glucose (UA) Urine Ketones Urine Occult Blood Urine Nitrate Urine Bilirubin Prot Sulfosalicylic Acd Urine Urobilinogen Ur Leukocyte Esterase Urine RBC Urine WBC Ur Squamous Epith Cells Amorphous Sediment Urine Bacteria Urine Mucus 07/30/19 07/30/19 07/30/19 04:34 12:33 12:33 WBC RBC Hgb Hct MCV MCH MCHC RDW Plt Count MPV Neut % (Auto) Lymph % (Auto) [place] % (Auto) Eos % (Auto) Baso % (Auto) Neut # (Auto) Lymph # (Auto) [place] # (Auto) Eos # (Auto) Baso # (Auto) Nucleated RBC % (auto) Nucleated RBCs # Haptoglobin 264.0 H Sodium Potassium Chloride Carbon Dioxide Anion Gap BUN Creatinine GFR Calculation Glucose Calculated Osmolality Calcium Ionized Calcium Hema Phosphorus Magnesium Iron 53 TIBC 211 % Saturation 25.1 Unsat Iron Binding 158 Ferritin 155 H Total Bilirubin AST ALT Alkaline Phosphatase Total Protein 6.2 Albumin Globulin 25-OH Vitamin D Total TSH 1.96 PTH Intact Calcium (PTH Intact) Urine Color Urine Appearance Urine pH Ur Specific Check Urine Protein Urine Glucose (UA) Urine Ketones Urine Occult Blood Urine Nitrate Urine Bilirubin Prot Sulfosalicylic Acd Urine Urobilinogen Ur Leukocyte Esterase Urine RBC Urine WBC Ur Squamous Epith Cells Amorphous Sediment Urine Bacteria Urine Mucus 07/31/19 07/31/19 09:50 09:50 WBC 7.5 RBC 2.80 L Hgb 7.8 L Hct 26.3 L MCV 93.9 MCH 27.9 L MCHC 29.7 L RDW 14.1 Plt Count 254 MPV 8.7 Neut % (Auto) 78.9 Lymph % (Auto) 11.1 [place] % (Auto) 7.5 Eos % (Auto) 1.5 Baso % (Auto) 0.5 Neut # (Auto) 5.9 Lymph # (Auto) 0.8 [place] # (Auto) 0.6 Eos # (Auto) 0.1 Baso # (Auto) 0.0 Nucleated RBC % (auto) 0 Nucleated RBCs # 0.0 Haptoglobin Sodium 146 H Potassium 4.6 Chloride 117 H Carbon Dioxide 13 L Anion Gap 20.6 H BUN 44 H Creatinine 4.6 H GFR Calculation 10.4 L Glucose 102 Calculated Osmolality Calcium 10.4 Ionized Calcium Hema Phosphorus Magnesium Iron TIBC % Saturation Unsat Iron Binding Ferritin Total Bilirubin 0.2 AST 21 ALT 17 Alkaline Phosphatase 56 Total Protein 8.2 Albumin 3.7 Globulin 4.5 25-OH Vitamin D Total TSH PTH Intact Calcium (PTH Intact) Urine Color Urine Appearance Urine pH Ur Specific Check Urine Protein Urine Glucose (UA) Urine Ketones Urine Occult Blood Urine Nitrate Urine Bilirubin Prot Sulfosalicylic Acd Urine Urobilinogen Ur Leukocyte Esterase Urine RBC Urine WBC Ur Squamous Epith Cells Amorphous Sediment Urine Bacteria Urine Mucus Cardiac Studies: No Data to Display
[2019-07-31 14:26] LABS: ALPHA 1 GLOBULIN 0.4 g/dL (0.2-0.3); ALPHA 2 GLOBULIN 0.8 g/dL (0.5-0.9); BETA 1 GLOBULIN 0.4 g/dL (0.4-0.6); BETA 2 GLOBULIN 0.5 g/dL (0.2-0.5); GAMMA GLOBULIN 1.1 g/dL (0.8-1.7)
[2019-07-31 14:56] LABS: KAPPA LIGHT CHAIN, FREE, SERUM 88.9 mg/L (3.3-19.4); KAPPA/LAMBDA LIGHT CHAINS FREE 1.44 (0.26-1.65); LAMBDA LIGHT CHAIN, FREE, SERU 61.9 mg/L (5.7-26.3)
--- NOTE | 2019-07-31 15:46 | PM.PN ---
Subjective Subjective: Interval history: Patient denies shortness of breath or chest pain this morning. She denies abdominal pain. Her hemoglobin is up to 7.8. Creatinine and calcium further improved. Light chain ratio is in normal limits. Patient reports that long time ago she had FINISHER MACHINE related bleeding episodes which was controlled with Depo shot. She denies any vaginal bleeding currently. Denies melena or hematochezia. We did discuss potential GI bleed and she agrees for further evaluation with EGD and colonoscopy. She had history of difficult airway and therefore anesthesiology was consulted and patient was evaluated by Dr. Browne. Discussed case with Dr. Sandoval who will proceed with EGD colonoscopy tomorrow. Vitals/I&O/Wt Last Vital Signs Temp 98.2 F 07/31/19 11:11 Pulse 86 07/31/19 11:11 Resp 14 07/31/19 11:11 BP 153/80 07/31/19 11:11 Pulse Ox 97 07/31/19 11:11 07/31/19 07/31/19 07/31/19 06:59 14:59 22:59 Intake Total 2303.334 / 4733.334 1950 / 1950 Output Total 3320 / 5770 1000 / 1000 Balance -1016.666 / -1036.666 950 / 950 Weight last 48 hrs Weight 65.227 kg Weight 64.609 kg Weight 64.728 kg Weight 63.276 kg Physical Exam Const: COMMON NORMALS: no apparent distress and oriented x3 Resp: COMMON NORMALS: normal respiratory effort and clear to auscultation bilaterally AUSCULTATION: clear to auscultation bilaterally Cardio: COMMON NORMALS: regular rate, regular rhythm and S2 normal heart sound RATE: regular rate RHYTHM: regular rhythm HEART SOUNDS: S2 normal OTHER: No lower extremity edema GI: COMMON NORMALS: normal to inspection, nondistended, normoactive bowel sounds, soft to palpation and non-tender PALPATION: Yes soft Neuro: COMMON NORMALS: oriented x3 and no focal motor deficits Data : 07/31/19 09:50 07/31/19 09:50 A&P Assessment and plan (1) Hypercalcemia: Check PTH related peptide, TSH, SPEP/UPEP and initial anemia work-up. Obtain CT scan of the chest. Malignancy and/or myeloma currently considered. Status: Acute Code(s): E83.52 - Hypercalcemia (2) Acute renal failure: Myeloma kidney is definitely of concern along with dehydration. I will request nephrology consultation. Status: Acute Qualifiers: Acute renal failure type: unspecified Qualified Code(s): N17.9 - Acute kidney failure, unspecified Code(s): N17.9 - Acute kidney failure, unspecified (3) Acute anemia: Check check initial anemia work-up as well as haptoglobin. GI bleed felt highly unlikely. Status: Acute Code(s): D64.9 - Anemia, unspecified Additional A&P Information Acute on chronic kidney disease Chronic kidney disease secondary to use of methotrexate and Humira in the past Continue aggressive IV hydration. History of uveitis and glaucoma Continue her eyedrops Juvenile rheumatoid arthritis: Currently she is on Simponi that was prescribed by Dr. 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 Coding Level of Care Code Acute Traffic Operator for g Fwd Diagnoses Hypercalcemia E83.52 Acute renal failure N17.9 Acute renal failure type: unspecified Acute anemia D64.9
[2019-07-31 16:40] LABS: Creatinine, Random Urine 17 mg/dL (20-275); Protein, Total, Random 38 mg/dL (5-24); Protein/Creatinine Ratio 2.235 (0.021-0.161); Protein/Creatinine Ratio 2235 mg/g creat (21-161)
[2019-07-31] MEDS: amlodipine 5 mg Tablet 2.5 MG PO (17:39)
[2019-07-31] MEDS: hydrocortisone 1% cream 28 gm 1 APPLIC TOPICAL (17:40)
--- NOTE | 2019-07-31 19:00 | PC.NURSE ---
INTRODUCTION OF STAFF AND REPORT RECEIVED, AIDET.
[2019-07-31] MEDS: gabapentin 100 mg Capsule PO (20:26)
[2019-08-01] VITALS (10 sets, daily range): BP systolic 136–173; BP diastolic 74–94; PULSE 78–88; RESP 18–24; TEMP 36.3–36.8; O2SAT 92–97; BMI 29.0
[2019-08-01] MEDS: sodium chloride 0.9% 1,000 ML 200 ML IV ×4 (01:20→22:59)
[2019-08-01] MEDS: HYDROcodone-acetaminophen 5-325 mg Tablet 1 TAB PO ×4 (03:47→20:02)
--- NOTE | 2019-08-01 04:46 | PC.NURSE ---
Pt wants to talk to the Dr who will do the EGD, states she really doesn't want to do the scope. states no one here knows how to put to put the tube in my throat right. Explained to pt that the Dr's would be in to talk to her about the procedures before they do them. pt has not had orders to be prepped as of yet.
--- NOTE | 2019-08-01 09:50 | PC.SOCIAL ---
Pg 2 of IMM Pg 2 of IMM was explained to and signed by patient, copy was provided, and form placed in chart. She verbalized understanding and had no questions.
[2019-08-01 09:58] LABS: Basophils % 0.3 %; Eosinophils # 0.2 10^3/uL (0.0-0.8); Eosinophils % 1.7 %; Hematocrit 26.7 % (37.0-47.0); Hemoglobin 7.5 g/dL (11.5-15.3); Lymphocytes % 10.3 %; Mean Corpuscular HGB Conc 28.1 g/dL (30.0-36.0); Mean Corpuscular Hemoglobin 26.8 pg (28.0-34.0); Mean Corpuscular Volume 95.4 fL (81-99); Mean Platelet Volume 8.9 fL (7.4-10.4); Monocytes # 0.9 10^3/uL (0.2-0.9); Monocytes % 9.3 %; Neutrophils # 7.4 10^3/uL (1.8-7.7); Nucleated Red Blood Cells % 0 %; Platelet Count 257 10^3/cmm (130-400); Red Cell Distribution Width 14.3 % (12.1-15.1); White Blood Count 9.5 10^3/uL (4.0-10.0)
[2019-08-01] MEDS: NON-FORMULARY MEDICATION (Brimonidine-Timolol [Combigan] 1 DROP) 1 EACH EYE-BOTH ×2 (10:05→18:50)
[2019-08-01] MEDS: LOTEPREDNOL ETABONATE 1 EACH ophthalmic (eye) (10:06)
[2019-08-01] MEDS: calcitonin,salmon 200 unit/mL SDV 2mL SUBCUT ×2 (10:06→18:50)
[2019-08-01] MEDS: hydrocortisone 1% cream 28 gm 1 APPLIC TOPICAL ×2 (10:07→18:51)
[2019-08-01] MEDS: metoprolol tartrate 50 mg Tablet PO ×2 (10:08→18:48)
[2019-08-01] MEDS: pantoprazole 40 mg SDV IVP ×2 (10:08→21:19)
[2019-08-01] MEDS: venlafaxine ER (24HR) 75 mg Capsule PO (10:08)
[2019-08-01] MEDS: sodium bicarbonate 650 mg Tablet 1950 MG PO (10:08)
[2019-08-01] MEDS: olopatadine 0.1% Op Soln 5 mL Btl 1 DROP EYE-BOTH (10:09)
[2019-08-01 10:16] LABS: Alanine Aminotransferase 16 U/L (0-33); Albumin Level 3.6 g/dL (3.5-5.2); Alkaline Phosphatase 63 IU/L (35-105); Anion Gap 22.4 (5-19); Aspartate Amino Transferase 21 U/L (0-32); Blood Urea Nitrogen 38 mg/dL (6-20); Calcium 9.8 mg/dL (8.5-10.5); Carbon Dioxide 10 mmol/L (22-29); Chloride 116 mmol/L (98-107); Globulin 4.5 g/dL (1.3-4.6); Glomerular Filtration Rate 11.8 mL/min (90-130); Glucose 94 mg/dL (65-115); Potassium 4.4 mmol/L (3.5-5.1); Sodium 144 mmol/L (136-145); Total Bilirubin 0.3 mg/dL (0.15-1.2); Total Protein 8.1 g/dL (6.6-8.7)
--- NOTE | 2019-08-01 12:33 | PM.CONSULT ---
Providers/Reason For Consult Consulting Physican/Specialty*: Dr. Sellers hospitalist service Reason for Consult*: Anemia for panendoscopy Attending Physician: Carson Sellers MD History of Present Illness History of Present Illness Dia Paredes is a 43 year old female who presented to the ER with muscle cramps. Patient has a history of polyarticular rheumatoid arthritis. She was noted to have acute renal failure and was therefore admitted for further management. During work-up she was noted to be anemic. Patient denies any abdominal pain, nausea, vomiting, hematemesis, melena or hematochezia. No prior EGD or colonoscopy. Denies any history of peptic ulcer disease. She had been previously treated with controls for heavy periods Review of Systems General: Reports: 10 or more systems reviewed and unremarkable except in HPI and below Meds/Allergies Home Medications and Allergies Home Medications Medication Instructions Recorded Confirmed Type Simponi See Rx Instructions .ROUTE .COMPLEX 07/29/19 07/29/19 History amlodipine 2.5 mg PO DAILY 07/29/19 07/29/19 History azathioprine 50 mg PO DAILY 07/29/19 07/29/19 History brimonidine-timolol [Combigan] 1 drp OPHTHALMIC (EYE) BID 07/29/19 07/29/19 History calcium carbonate-vitamin D3 1 tab PO DAILY 07/29/19 07/29/19 History [Calcium 500 + D] desipramine 50 mg PO BEDTIME 07/29/19 07/29/19 History desonide See Rx Instructions .ROUTE .COMPLEX 07/29/19 07/29/19 History gabapentin 300 mg PO BEDTIME 07/29/19 07/29/19 History loteprednol etabonate [Lotemax] 1 drp OPHTHALMIC (EYE) DAILY 07/29/19 07/29/19 History medroxyprogesterone See Rx Instructions .ROUTE .COMPLEX 07/29/19 07/29/19 History metoprolol tartrate 50 mg PO BID 07/29/19 07/29/19 History multivitamin [Multiple Vitamins] 1 tab PO DAILY 07/29/19 07/29/19 History olopatadine [Pataday] 1 drp OPHTHALMIC (EYE) DAILY 07/29/19 07/29/19 History omeprazole 10 mg PO DAILY 07/29/19 07/29/19 History sodium bicarbonate 1,950 mg PO BID 07/29/19 07/29/19 History venlafaxine 75 mg PO QAM 07/29/19 07/29/19 History Allergies Allergy/AdvReac Type Severity Reaction Status Date / Time Penicillins Allergy Intermediate swelling Verified 07/29/19 12:14 Current Medications Current Medications Generic Name Dose Route Start Last Admin Trade Name Freq PRN Reason Stop Dose Admin Hydrocodone Bitart/Acetaminophen 1 tab 07/31/19 12:41 08/01/19 11:57 [place] 5-325 Mg PO 1 tab Q4H PRN Administration MODERATE PAIN Amlodipine Besylate 2.5 mg 07/29/19 23:15 07/31/19 17:39 Norvasc PO 2.5 mg QPM CHRISSY Administration Calcitonin [place] 200 unit 07/30/19 09:00 08/01/19 10:06 Miacalcin SUBCUT 200 unit BID CHRISSY Administration Gabapentin 100 mg 07/30/19 00:08 07/31/19 20:26 Neurontin PO 100 mg DAILY@2100 CHRISSY Administration Hydrocortisone 1 applic 07/31/19 18:00 08/01/19 10:07 Hydrocortisone 1% TOPICAL 1 applic BID CHRISSY Administration Sodium Chloride 1,000 mls @ 200 mls/hr 07/29/19 20:00 08/01/19 06:29 Sodium Chloride 0.9% IV 200 mls/hr .Q5H CHRISSY Administration Metoprolol Tartrate 50 mg 07/30/19 09:00 08/01/19 10:08 Lopressor PO 50 mg BID CHRISSY Administration Non-Formulary Medication 1 drop 07/30/19 09:00 08/01/19 10:05 Brimonidine-Timolol [Combigan] EYE-BOTH 1 drop BID CHRISSY Administration Non-Formulary Medication 50 mg 07/29/19 21:00 08/01/19 01:21 Desipramine PO Not Given BEDTIME CHRISSY Non-Formulary Medication 1 drop 07/30/19 09:00 08/01/19 10:06 Loteprednol Etabonate [Lotemax] ophthalmic (eye) 1 drop DAILY CHRISSY Administration Olopatadine HCl 1 drop 07/29/19 20:30 08/01/19 10:09 Patanol EYE-BOTH 1 applic DAILY CHRISSY Administration Ondansetron HCl 4 mg 07/30/19 12:02 07/31/19 12:07 Zofran IVP 4 mg Q4H PRN Administration NAUSEA AND VOMITING Pantoprazole Sodium 40 mg 07/31/19 09:00 08/01/19 10:08 Protonix IVP 40 mg Q12H CHRISSY Administration Sodium Bicarbonate 1,950 mg 07/31/19 09:00 08/01/19 10:08 Sodium Bicarbonate PO 1,950 mg DAILY CHRISSY Administration Venlafaxine HCl 75 mg 07/30/19 09:00 08/01/19 10:08 Effexor Xr PO 75 mg DAILY CHRISSY Administration PFSH Acute PFSH: Statuses (acute, chronic, etc) shown below reflect problem list status as previously entered and may not be historically accurate Medical History Avascular necrosis (Acute) Chronic kidney disease (Acute) Baseline creatinine 1.5-1.9 Depression (Acute) GERD (gastroesophageal reflux disease) (Acute) Juvenile rheumatoid arthritis (Acute) Diagnosed 1977 Migraine headache (Acute) Osteoarthritis of shoulder (Acute) Osteopenia (Acute) Uveitis (Acute) Surgical History H/O foot surgery (Acute) H/O wrist surgery (Acute) Hx of total knee arthroplasty (Acute) Family History Grandfather No problems noted. Father Stroke Father had Parkinson's and a stroke Other Hypertension Social History Smoking and tobacco status: never smoked Alcohol intake: never Substance/Drug Use: never Vitals/I&O/Wt Last Vital Signs Temp 98.3 F 08/01/19 12:00 Pulse 79 08/01/19 12:00 Resp 20 H 08/01/19 12:00 BP 146/79 08/01/19 12:00 Pulse Ox 92 08/01/19 12:00 07/31/19 08/01/19 08/01/19 22:59 06:59 14:59 Intake Total 3103.333 / 7030.000 1976.667 / 7030.000 Output Total 1500 / 5100 2600 / 5100 1000 / 1000 Balance 1603.333 / 1930.000 -623.333 / 1930.000 -1000 / -1000 Weight last 48 hrs Weight 148 lb 6 oz Weight 148 lb 6 oz Weight 143 lb 12.8 oz Weight 142 lb 7 oz Physical Exam Narrative: EXAM NARRATIVE: HEENT: Normocephalic Eye: Sclera /conjunctiva normal Respiratory and chest: Bilateral clear breath sounds on auscultation Cardiovascular: Normal S1 and S2 heart sounds Abdomen: Soft to palpation Neurological: Oriented to place person and time Skin: Intact, no lesions appreciated on gross exam A&P Assessment and plan (1) Acute anemia: Plan for EGD/colonoscopy under MAC tomorrow Procedure, risks, benefits and alternatives have been discussed with the patient who wishes to proceed with surgery. Status: Acute Code(s): D64.9 - Anemia, unspecified Coding Level of Care Code Acute Hotbed Operator for [facility] Diagnoses Acute anemia D64.9
--- NOTE | 2019-08-01 13:07 | P.PN_ITS ---
Subjective Subjective: Interval history: Patient reports being short of breath with movements. Her hemoglobin is down to 7.5. I have discussed with patient regarding blood transfusion given the fact that she is short of breath with minimal movement and she agreed to proceed. Risks and benefits including potential infection although risk of infection is quite low were discussed with patient. Plan is to proceed with preparation and EGD/colonoscopy in the morning. Creatinine further improved and down to 4.1. Patient shows no evidence of iron deficiency. Patient reports that [place] improves her back pain but does not last long. We have discussed that she can always request more if pain comes back. Vitals/I&O/Wt Last Vital Signs Temp 98.3 F 08/01/19 12:00 Pulse 79 08/01/19 12:00 Resp 20 H 08/01/19 12:00 BP 146/79 08/01/19 12:00 Pulse Ox 92 08/01/19 12:00 07/31/19 08/01/19 08/01/19 22:59 06:59 14:59 Intake Total 3103.333 / 5053.333 1976.667 / 7030.000 Output Total 1500 / 2500 2600 / 5100 1000 / 1000 Balance 1603.333 / 2553.333 -623.333 / 1930.000 -1000 / -1000 Weight last 48 hrs Weight 67.302 kg Weight 67.302 kg Weight 65.227 kg Weight 64.609 kg Physical Exam Const: COMMON NORMALS: no apparent distress, oriented x3 and healthy appearing Resp: COMMON NORMALS: normal respiratory effort and clear to auscultation bilaterally AUSCULTATION: clear to auscultation bilaterally Cardio: COMMON NORMALS: regular rate, regular rhythm and S2 normal heart sound RATE: regular rate RHYTHM: regular rhythm HEART SOUNDS: S2 normal OTHER: No lower extremity edema GI: COMMON NORMALS: normal to inspection, nondistended, normoactive bowel sounds, soft to palpation and non-tender PALPATION: Yes soft Extremity: OTHER: No lower extremity edema. Neuro: COMMON NORMALS: oriented x3 and no focal motor deficits Data : 08/01/19 09:48 08/01/19 09:48 A&P Assessment and plan (1) Hypercalcemia: Check PTH related peptide, TSH, SPEP/UPEP and initial anemia work-up. Obtain CT scan of the chest. Malignancy and/or myeloma currently considered. Status: Acute Code(s): E83.52 - Hypercalcemia (2) Acute renal failure: Myeloma kidney is definitely of concern along with dehydration. I will request nephrology consultation. Status: Acute Qualifiers: Acute renal failure type: unspecified Qualified Code(s): N17.9 - Acute kidney failure, unspecified Code(s): N17.9 - Acute kidney failure, unspecified (3) Acute anemia: I have discussed with patient regarding potential causes of acute anemia and although initially GI bleed felt unlikely I think it is important to have EGD and colonoscopy performed for further evaluation and patient agreed to proceed. She does understand potential anesthesia/procedure related complications especially in view of underlying rheumatoid arthritis. We have discussed regarding alternatives including monitoring and not doing procedure if patient has any concerns and she will let us know. At this point she is okay to proceed with colon preparation. She does not have gross hematuria. So far I do not have any other explanations of acute drop of hemoglobin from 11.5 on admission to 7.5 today. Medication induced including Simponi related anemia felt highly unlikely. Status: Acute Code(s): D64.9 - Anemia, unspecified Additional A&P Information Acute on chronic kidney disease Chronic kidney disease secondary to use of methotrexate and Humira in the past Continue aggressive IV hydration. History of uveitis and glaucoma Continue her eyedrops Juvenile rheumatoid arthritis: Currently she is on Simponi that was prescribed by Dr. 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 Time Spent in Patient Care: Greater than 35 minutes Coding Level of Care Code Acute Trade Union Secretary for Chg Fwd Diagnoses Hypercalcemia E83.52 Acute renal failure N17.9 Acute renal failure type: unspecified Acute anemia D64.9
[2019-08-01] MEDS: magnesium citrate Btl 296 mL PO ×2 (14:55→20:07)
[2019-08-01] MEDS: bisacodyl 5 mg Tablet 40 MG PO (14:56)
[2019-08-01 16:47] LABS: Albumin,Urine Random 19 %; Alpha-1-Globulins Urine Random 4 %; Alpha-2-Globulins Urine Random 23 %; Beta-Globulin,Urine Random 13 %; Gamma Globulin,Urine Random 41 %
[2019-08-01] MEDS: amlodipine 5 mg Tablet 2.5 MG PO (18:48)
[2019-08-01] MEDS: sodium chloride 0.9% 100 ML 150 ML (18:48)
--- NOTE | 2019-08-01 19:00 | PC.NURSE ---
Introduction of staff and report received, aidet.
[2019-08-01] MEDS: gabapentin 100 mg Capsule PO (20:01)
[2019-08-02] VITALS (20 sets, daily range): BP systolic 146–184; BP diastolic 78–112; PULSE 81–99; RESP 18–27; TEMP 36.4–37.5; O2SAT 87–100
[2019-08-02] MEDS: HYDROcodone-acetaminophen 5-325 mg Tablet 1 TAB PO ×2 (00:10→04:26)
[2019-08-02] MEDS: lanolin oint 7 gm 1 APPLIC TOPICAL (01:04)
[2019-08-02] MEDS: sodium chloride 0.9% 1,000 ML 200 ML IV ×2 (04:28→12:36)
[2019-08-02] MEDS: NON-FORMULARY MEDICATION (Brimonidine-Timolol [Combigan] 1 DROP) 1 EACH EYE-BOTH ×2 (09:03→17:55)
[2019-08-02] MEDS: olopatadine 0.1% Op Soln 5 mL Btl 1 DROP EYE-BOTH (09:05)
[2019-08-02] MEDS: LOTEPREDNOL ETABONATE 1 EACH ophthalmic (eye) (09:06)
[2019-08-02] MEDS: hydrocortisone 1% cream 28 gm 1 APPLIC TOPICAL ×2 (09:07→17:56)
[2019-08-02] MEDS: pantoprazole 40 mg SDV IVP (09:08)
[2019-08-02] MEDS: metoprolol tartrate 50 mg Tablet PO ×2 (09:12→17:57)
[2019-08-02 09:53] LABS: OR HCG Qualitative Urine Negative (Negative)
[2019-08-02] MEDS: sodium chloride 0.9% 1,000 ML 30 ML (10:04)
[2019-08-02] MEDS: ipratropium 0.5 mg/2.5 mL Neb INHALATION (11:03)
--- NOTE | 2019-08-02 12:01 | PC.NURSE ---
Patient arrived to [facility] from GI Lab at approximately 1200. Upon entering room, patient stated she needed to pee. Patient was unable to void and returned to bed. Patient began having stridor, audible wheezing, and labored breathing. VS were obtained. O2 saturations were 88% on RA, patient was placed on 2L NC and recovered to 98%. Patient took a drink of water and wheezing subsided. BP was 171/ 101. Dr. Coy was notified. Physician instructed nurse to recheck in 30 minutes. Patient continued to be unable to void. Nurse called physician and received verbal order to bladder scan and straight cath patient prn. 600 ml of urine scanned. patient was straight cath'd with a return 550 ml of urine. BP now 172/97. Patient now in chair eating lunch. Nurse to continue to monitor.
--- NOTE | 2019-08-02 12:05 | SUR.PHASEI ---
1056 PT TO PACU AWAKE UP IN BED AUDIBLE WHEEZES PT WAS A MAC BUT IMMEDIATE ALBUTEROL TX STARTED IN PACU PT REFUSED TO KEEP MASK ON PT UP IN BED STATES (I HAVE TO PEE NOW!!) STILL WITH AUDIBLE INSP STRIDOR AND EXP WHEEZE 1103 PT ASSISTED ON BEDPAN, ATROVENT ADDED TO NEBULIZER ORDERED BY DR REID AT BEDSIDE RESP RAPID AND AUDIBLE STRIDOR NOTED ANESTHESIA AT BEDSIDE DECADRON 10MG IVP GIVEN PER ANESTH. 1015 PT OFF BEDPAN, PT WITH APPROX 30 ML URINE AND BM NOTED JUAN CARE GIVEN, PT BACK UP IN BED AT 45 DEGREES RESP LESS LABORED AND ONLY OCC STRIDOR NOTED PT TAKING ICE CHIPS AND STATES THAT (HELPS) 1030 PT ON RA SITTING UP IN BED ALERT STRIDOR GONE, PT TAKING ICE CHIPS SATS 98% ON RA. REPORT CALLED AND PT TO FLOOR NO FAMILY IN WR. 1045 PT TO ROOM UP AND WALKED TO BR, PT ALERT AND TALKATIVE WITH NURSE CALIX IN ROOM
[2019-08-02] MEDS: sodium bicarbonate 650 mg Tablet 1950 MG PO (12:36)
[2019-08-02] MEDS: venlafaxine ER (24HR) 75 mg Capsule PO (12:37)
[2019-08-02 12:53] LABS: Basophils % 0.4 %; Eosinophils # 0.1 10^3/uL (0.0-0.8); Eosinophils % 0.7 %; Hematocrit 33.8 % (37.0-47.0); Lymphocytes # 0.5 10^3/uL (0.8-4.8); Lymphocytes % 5.4 %; Mean Corpuscular HGB Conc 29.6 g/dL (30.0-36.0); Mean Corpuscular Hemoglobin 27.8 pg (28.0-34.0); Mean Corpuscular Volume 93.9 fL (81-99); Mean Platelet Volume 9.1 fL (7.4-10.4); Monocytes # 0.3 10^3/uL (0.2-0.9); Monocytes % 3.1 %; Neutrophils # 7.5 10^3/uL (1.8-7.7); Neutrophils % 89.9 %; Nucleated Red Blood Cells % 0 %; Platelet Count 238 10^3/cmm (130-400); Red Cell Distribution Width 15.4 % (12.1-15.1); White Blood Count 8.4 10^3/uL (4.0-10.0)
[2019-08-02 13:20] LABS: Albumin Level 4.3 g/dL (3.5-5.2); Alkaline Phosphatase 96 IU/L (35-105); Blood Urea Nitrogen 40 mg/dL (6-20); Calcium 9.2 mg/dL (8.5-10.5); Chloride 123 mmol/L (98-107); Globulin 3.7 g/dL (1.3-4.6); Glomerular Filtration Rate 11.8 mL/min (90-130); Glucose 74 mg/dL (65-115); Sodium 146 mmol/L (136-145); Total Bilirubin 0.3 mg/dL (0.15-1.2)
[2019-08-02 13:21] LABS: Alanine Aminotransferase 25 U/L (0-33); Anion Gap 20.3 (5-19); Aspartate Amino Transferase 38 U/L (0-32); Potassium 5.3 mmol/L (3.5-5.1)
[2019-08-02 13:26] LABS: Carbon Dioxide 8 mmol/L (22-29)
[2019-08-02 15:32] LABS: Vit D 1,25 (Oh)2, Total 53 pg/mL (18-72); Vit D2 1,25 (Oh)2 <8 pg/mL; Vit D3 1,25 (Oh)2 53 pg/mL
[2019-08-02] MEDS: FUROsemide 10 mg/mL SDV 2mL 20 MG IVP (15:48)
--- NOTE | 2019-08-02 16:14 | PM.PN ---
Subjective Subjective: Interval history: Patient today seen post EGD. She denies of having any nausea, vomiting, headache, dizziness but patient reports being short of breath with movements. She is complaining of mild lower abdominal pain. Bladder scan shows urine retention of more than 600 cc. Labs reviewed. Hemoglobin improved to 10 today. Creatinine stable at 4.1 but metabolic acidosis slightly worsened today. Patient shows no evidence of iron deficiency. Patient reports that [place] improves her back pain but does not last long. We have discussed that she can always request more if pain comes back. Vitals/I&O/Wt Last Vital Signs Temp 97.8 F 08/02/19 14:55 Pulse 95 08/02/19 14:55 Resp 24 H 08/02/19 14:55 BP 159/89 08/02/19 14:55 Pulse Ox 94 08/02/19 14:55 08/02/19 08/02/19 08/02/19 06:59 14:59 22:59 Intake Total 2310 / 4826.666 1906.667 / 1906.667 155 / 2061.667 Output Total 1500 / 3960 1250 / 1250 675 / 1925 Balance 810 / 866.666 656.667 / 656.667 -520 / 136.667 Weight last 48 hrs Weight 66.877 kg Weight 67.302 kg Weight 67.302 kg Physical Exam Narrative: EXAM NARRATIVE: General: No acute distress, AO x3 HEENT: PERRLA, pupils bilaterally equal and reactive Chest: Normal vesicular breath sounds, lower zone fine crackles, equal good air entry bilaterally CVS: S1-S2 regular, no murmurs, no tachycardia, no gallops, no rubs Abdomen: Soft, nontender, no organomegaly, bowel sounds present Neuro: No focal deficits, no facial deformity, AO x3, power 5/5 in all limbs Urinary Catheter Management^: Duncan: Cath Placed During This Visit: yes Urethral Indwelling: Yes Reason for Continuing Indwelling Catheter: Acute Urinary Retention or Obstruction Urinary Catheter Date of Insertion: 08/02/19 Urinary Catheter Time of Insertion: 15:50 Data : 08/02/19 12:39 08/02/19 12:39 A&P Assessment and plan (1) Hypercalcemia: Check PTH related peptide, TSH, SPEP/UPEP and initial anemia work-up. Obtain CT scan of the chest. Malignancy and/or myeloma currently considered. Status: Acute Code(s): E83.52 - Hypercalcemia (2) Acute renal failure: Myeloma kidney is definitely of concern along with dehydration. I will request nephrology consultation. 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 Given her chronic inflammation this may also account for large iraida. Parathyroid levels are properly suppressed and vit D levels are low. It appears that exogenous intake is been relatively low to typically cause this but may have contributed. Calcium today morning improving to 9.2. Continue with calcitonin for now. We will discuss with nephrology for discharge planning. Urinary retention: Most likely due to MAC for EGD having extended effect due to CKD and hypercalcemia. We will do straight cath for now and rescan later in the day. If still more than 300 will go ahead and do Duncan catheter and reassess for removal tomorrow morning. Acute on chronic kidney disease/hyponatremia/metabolic acidosis: Chronic kidney disease secondary to use of methotrexate and Humira in the past We will decrease IV hydration to 50 cc/h given the shortness of breath. We will switch IV fluids to half NS in view of hypernatremia. Continue with sodium bicarbonate at current dose. We will reconsult nephrology. Anemia: Patient is post EGD. No active bleed on EGD. Hemoglobin today 10. Iron panel reviewed and within normal limits. Continue with Protonix at 40 mg daily p.o. Shortness of breath: Most likely due to mild fluid overload given aggressive hydration. We will decrease the IV fluid rate to 50 cc/h. IV Lasix 20 mg stat as patient is Lasix na?ve. Strict intake and output charting. History of uveitis and glaucoma Continue her eye drops Juvenile rheumatoid arthritis: Currently she is on Simponi that was prescribed by Dr. 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 DVT prophylaxis: SCDs. We will hold off on therapeutic prophylaxis given anemia. Full code GI prophylaxis: Protonix Attestations Medical Necessity Statement*: Needs controlled hospitalization for resolving hypercalcemia and acute on chronic disease. Time Spent in Patient Care: Greater than 35 minutes Coding Level of Care Code Acute Certified Hearing Instrument Dispenser for Chg Fwd Diagnoses Hypercalcemia E83.52 Acute renal failure N17.9 Acute renal failure type: unspecified Acute anemia D64.9
[2019-08-02] MEDS: amlodipine 5 mg Tablet 2.5 MG PO (17:55)
[2019-08-02] MEDS: calcitonin,salmon 200 unit/mL SDV 2mL SUBCUT (17:56)
[2019-08-02] MEDS: gabapentin 100 mg Capsule PO (22:00)
[2019-08-03] VITALS: BP 165/94; PULSE 88; RESP 19; TEMP 36.9; O2SAT 93
[2019-08-03 04:00] VITALS: BP 169/82; PULSE 89; RESP 18; TEMP 36.5; O2SAT 100
[2019-08-03 07:43] LABS: Alanine Aminotransferase 35 U/L (0-33); Albumin Level 3.9 g/dL (3.5-5.2); Alkaline Phosphatase 106 IU/L (35-105); Anion Gap 26.6 (5-19); Aspartate Amino Transferase 39 U/L (0-32); Blood Urea Nitrogen 39 mg/dL (6-20); Chloride 113 mmol/L (98-107); Globulin 3.3 g/dL (1.3-4.6); Glomerular Filtration Rate 11.8 mL/min (90-130); Glucose 80 mg/dL (65-115); Potassium 4.6 mmol/L (3.5-5.1); Sodium 141 mmol/L (136-145); Total Bilirubin 0.3 mg/dL (0.15-1.2); Total Protein 7.2 g/dL (6.6-8.7)
[2019-08-03 07:44] LABS: Basophils % 0.2 %; Eosinophils % 0.2 %; Hematocrit 34.3 % (37.0-47.0); Hemoglobin 10.2 g/dL (11.5-15.3); Lymphocytes # 1.1 10^3/uL (0.8-4.8); Lymphocytes % 9.1 %; Mean Corpuscular HGB Conc 29.7 g/dL (30.0-36.0); Mean Corpuscular Volume 90.7 fL (81-99); Mean Platelet Volume 9.6 fL (7.4-10.4); Monocytes # 1.4 10^3/uL (0.2-0.9); Monocytes % 11.5 %; Neutrophils # 9.4 10^3/uL (1.8-7.7); Neutrophils % 78.3 %; Nucleated Red Blood Cells % 0 %; Platelet Count 231 10^3/cmm (130-400); Red Blood Count 3.78 10^6/uL (4.1-5.3); Red Cell Distribution Width 15.4 % (12.1-15.1)
[2019-08-03 07:46] LABS: Carbon Dioxide 6 mmol/L (22-29)
--- NOTE | 2019-08-03 08:29 | PC.NURSE ---
Upon 0700 rounding, patient states, my family is on the way to come get me you need to take this catheter and IV out of me. Nurse explained the risks of leaving AMA to patient and notified physician. Patient verbalized understanding of the risk and verbalized she didn't care and was going to leave regardless.
--- NOTE | 2019-08-03 08:40 | PM.PN ---
Subjective Subjective: Interval history: Patient left AMA before will be seen today morning. Nursing staff taking care of the patient in morning today cried multiple times to ask patient to stay till seen by the physician. But patient was reluctant to stay and signed AMA. It was reported to me that patient did not have any overnight events. Vitals/I&O/Wt Last Vital Signs Temp 97.7 F 08/03/19 04:00 Pulse 89 08/03/19 04:00 Resp 18 08/03/19 04:00 BP 169/82 08/03/19 04:00 Pulse Ox 100 08/03/19 04:00 08/02/19 08/03/19 08/03/19 22:59 06:59 14:59 Intake Total 575 / 2481.667 1999 / 4481.667 Output Total 2125 / 3375 1900 / 5275 Balance -1550 / -893.333 100 / -793.333 Weight last 48 hrs Weight 66.877 kg Weight 67.302 kg Physical Exam Narrative: EXAM NARRATIVE: Left before could be seen today Urinary Catheter Management^: Duncan: Cath Placed During This Visit: yes, but has since been removed by the nurse Urethral Indwelling: Yes Reason for Continuing Indwelling Catheter: Acute Urinary Retention or Obstruction Urinary Catheter Date of Insertion: 08/02/19 Urinary Catheter Time of Insertion: 15:50 Date Urinary Catheter Removed: 08/03/19 Time Urinary Catheter Discontinued: 08:29 Data : 08/03/19 06:43 08/03/19 06:43 A&P Assessment and plan (1) Hypercalcemia: Check PTH related peptide, TSH, SPEP/UPEP and initial anemia work-up. Obtain CT scan of the chest. Malignancy and/or myeloma currently considered. Status: Acute Code(s): E83.52 - Hypercalcemia (2) Acute renal failure: Myeloma kidney is definitely of concern along with dehydration. I will request nephrology consultation. 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 Given her chronic inflammation this may also account for large iraida. Parathyroid levels are properly suppressed and vit D levels are low. It appears that exogenous intake is been relatively low to typically cause this but may have contributed. Calcium today morning improving to 9.2. Continue with calcitonin for now. We will discuss with nephrology for discharge planning. Urinary retention: Most likely due to MAC for EGD having extended effect due to CKD and hypercalcemia. We will do straight cath for now and rescan later in the day. If still more than 300 will go ahead and do Duncan catheter and reassess for removal tomorrow morning. Acute on chronic kidney disease/hyponatremia/metabolic acidosis: Chronic kidney disease secondary to use of methotrexate and Humira in the past We will decrease IV hydration to 50 cc/h given the shortness of breath. We will switch IV fluids to half NS in view of hypernatremia. Continue with sodium bicarbonate at current dose. We will reconsult nephrology. Anemia: Patient is post EGD. No active bleed on EGD. Hemoglobin today 10. Iron panel reviewed and within normal limits. Continue with Protonix at 40 mg daily p.o. Shortness of breath: Most likely due to mild fluid overload given aggressive hydration. We will decrease the IV fluid rate to 50 cc/h. IV Lasix 20 mg stat as patient is Lasix na?ve. Strict intake and output charting. History of uveitis and glaucoma Continue her eye drops Juvenile rheumatoid arthritis: Currently she is on Simponi that was prescribed by Dr. Malave which is her automation manager. DVT prophylaxis: SCDs. We will hold off on therapeutic prophylaxis given anemia. Full code GI prophylaxis: Protonix Attestations Medical Necessity Statement*: Left AMA Coding Level of Care Code Acute Deputy Sheriff Lieutenant for Chg Fwd Diagnoses Hypercalcemia E83.52 Acute renal failure N17.9 Acute renal failure type: unspecified Acute anemia D64.9
--- NOTE | 2019-08-03 13:20 | P.DS_ITS ---
Discharge Providers Date of Admission: 07/29/19 14:26 Date of Discharge: Aug 03 2019 Attending Provider at Admission: Carson Sellers MD Attending Provider at Discharge: Chava Coy MD Diagnoses at Discharge Discharge Diagnosis (1) Hypercalcemia: Status: Acute (2) Acute renal failure: Status: Acute Qualifiers: Acute renal failure type: unspecified Qualified Code(s): N17.9 - Acute kidney failure, unspecified (3) Acute anemia: Status: Acute Reason for Visit Reason for Visit: Reason For Visit: PAINS AND HEADACHE Hospital Course 2 Discharge Summary: See my progress note from the day Physical Exam Urinary Catheter Management^: Duncan: Cath Placed During This Visit: yes, but has since been removed by the nurse Urethral Indwelling: Yes Reason for Continuing Indwelling Catheter: Acute Urinary Retention or Obstruction Urinary Catheter Date of Insertion: 08/02/19 Urinary Catheter Time of Insertion: 15:50 Date Urinary Catheter Removed: 08/03/19 Time Urinary Catheter Discontinued: 08:29 Discharge Data Data Completed and Pending: Completed Studies During Hospitalization Category Date Time Status CT chest wo con 7 1250 Routine Cat Scan 07/30/19 12:28 Completed XR chest 1V bradley ble [id number] Routine Exams 07/30/19 07:00 Completed Vitals: Last Vital Signs Temp 97.7 F 08/03/19 04:00 Pulse 89 08/03/19 04:00 Resp 18 08/03/19 04:00 BP 169/82 08/03/19 04:00 Pulse Ox 100 08/03/19 04:00 Discharge Plan Discharge Patient Disposition: Left Against Medical Advice Condition: Fair Prescriptions: No Action venlafaxine 75 mg capsule,extended release 24hr 75 mg PO QAM Qty: 30 RF: 2 Multiple Vitamins Tablet 1 tab PO DAILY RF: 0 desonide 0.05 % cream See Rx Instructions .ROUTE .COMPLEX RF: 0 amlodipine 2.5 mg tablet 2.5 mg PO DAILY RF: 0 azathioprine 50 mg tablet 50 mg PO DAILY RF: 0 omeprazole 10 mg capsule,delayed release(DR/EC) 10 mg PO DAILY RF: 0 desipramine 50 mg tablet 50 mg PO BEDTIME RF: 0 sodium bicarbonate 650 mg tablet 1,950 mg PO BID RF: 0 metoprolol tartrate 50 mg tablet 50 mg PO BID RF: 0 gabapentin 300 mg capsule 300 mg PO BEDTIME RF: 0 medroxyprogesterone 150 mg/mL suspension See Rx Instructions .ROUTE .COMPLEX RF: 0 Calcium 500 + D 500 mg(1,250mg) -200 unit Tablet 1 tab PO DAILY RF: 0 Pataday 0.2 % Drops 1 drp OPHTHALMIC (EYE) DAILY RF: 0 Combigan 0.2-0.5 % drops 1 drp ophthalmic (eye) BID RF: 0 Lotemax 0.5 % drops,gel 1 drp ophthalmic (eye) DAILY RF: 0 Simponi See Rx Instructions .ROUTE .COMPLEX RF: 0 Discharge Date/Time: 08/03/19 08:15 Discharge Attestations Time Spent in Discharge Care*: less than 30 min Quality Metrics Clinical Quality Measures During this hospital stay, did patient experience: None Coding Level of Care Code Acute Nuclear Criticality Safety Engineer for Chg Fwd Diagnoses Hypercalcemia E83.52 Acute renal failure N17.9 Acute renal failure type: unspecified Acute anemia D64.9
[2019-08-03 16:06] LABS: PTH Related Peptide (Protein) 20 pg/mL (14-27)
== END 2019-08-03 08:15 | disposition left against medical advice (07) | DRG 641 ==
LOC: ER 14:20 → MEDSURG 14:57
PROVIDERS: Anesthesiology; Family Medicine; Internal Medicine; Surgery; Admitting Provider Internal Medicine; Emergency Provider Physician Assistant; Visit Provider Student in an Organized Health Care Education/Training Program
PROC: 0DJD8ZZ Inspection of Lower Intestinal Tract, Via Natural or Artificial Opening Endoscopic (ICD-10-PCS; CPT 45378; principal; 2019-08-02 10:00)
PROC: 0DJ08ZZ Inspection of Upper Intestinal Tract, Via Natural or Artificial Opening Endoscopic (ICD-10-PCS; CPT 43235; 2019-08-02 10:00)
DX: E83.52 Hypercalcemia (principal); N17.9 Acute kidney failure, unspecified; R07.9 Chest pain, unspecified; N18.9 Chronic kidney disease, unspecified; H40.9 Unspecified glaucoma; M08.00 Unspecified juvenile rheumatoid arthritis of unspecified site; D64.9 Anemia, unspecified; Z79.899 Other long term (current) drug therapy; Z88.0 Allergy status to penicillin; M19.019 Primary osteoarthritis, unspecified shoulder
CPT/HCPCS: 12345; 36415; 36416; 36430; 51702; 51798; 71045; 71250; 80048; 80053; 81001; 82306; 82310; 82330; 82542; 82652; 82728; 83010; 83540; 83550; 83735; 83883; 83970; 84100; 84155; 84165; 84443; 84703; 85025; 86850; 86900; 93005; 96360; 96361; 96365; 96372; 96375; 99283; A9270; C9113; J0630; J1644; J1940; J2001; J2250; J2405; J2704; J3490; J7030; J7611; J7644; P9016; Q3014

== ENCOUNTER → 2019-08-10 11:36 | Outpatient (BNVA) | payer MEDICARE, MEDICAID, SELFPAY | PROVIDERS: PCP Nurse Practitioner Family; Referring Provider Family Medicine; Visit Provider Nurse Practitioner Family | DX: I10 Essential (primary) hypertension (principal); J90 Pleural effusion, not elsewhere classified | CPT/HCPCS: 71046; 80053; 85025 ==

== ENCOUNTER → 2019-08-17 14:30 | Outpatient (BNVA) | payer MEDICARE, MEDICAID, SELFPAY | PROVIDERS: PCP Nurse Practitioner Family; Visit Provider Nurse Practitioner Family | DX: J10.1 Influenza due to other identified influenza virus with other respiratory manifestations (principal); N17.9 Acute kidney failure, unspecified; R05 Cough | CPT/HCPCS: 87804 ==

== ENCOUNTER → 2019-10-10 11:32 | Outpatient (BNVA) | payer MEDICARE, MEDICAID, SELFPAY | PROVIDERS: PCP Nurse Practitioner Family; Visit Provider Internal Medicine Rheumatology | DX: M08.00 Unspecified juvenile rheumatoid arthritis of unspecified site (principal); Z79.899 Other long term (current) drug therapy; Z11.59 Encounter for screening for other viral diseases; L40.9 Psoriasis, unspecified; Z72.89 Other problems related to lifestyle | CPT/HCPCS: 36415; 80076; 82565; 85025; 85651; 86140; 86480; 86704; 86803; 87340 ==

== ENCOUNTER → 2019-11-14 15:37 | Outpatient (BNVA) | payer MEDICARE, MEDICAID, SELFPAY | PROVIDERS: PCP Nurse Practitioner Family; Visit Provider Internal Medicine Rheumatology | DX: M08.00 Unspecified juvenile rheumatoid arthritis of unspecified site (principal); Z79.899 Other long term (current) drug therapy; L40.8 Other psoriasis; M19.212 Secondary osteoarthritis, left shoulder; N18.5 Chronic kidney disease, stage 5 | CPT/HCPCS: 80076; 82565; 85025; 85651; 86140; G0463 ==

== ENCOUNTER → 2020-01-16 09:34 | Outpatient (BNVA) | payer MEDICARE, MEDICAID, SELFPAY | PROVIDERS: PCP Nurse Practitioner Family; Visit Provider Nurse Practitioner Women's Health | DX: Z01.419 Encounter for gynecological examination (general) (routine) without abnormal findings (principal); N93.9 Abnormal uterine and vaginal bleeding, unspecified | CPT/HCPCS: 88175 ==

== ENCOUNTER 2020-02-19 09:52 | Outpatient (CLI) | payer MEDICARE, MEDICAID, SELFPAY ==
--- NOTE | 2020-02-19 09:59 | MM_ITS ---
WS: [id number] SCREENING DIGITAL MAMMOGRAM WITH CAD HISTORY: SCREENING COMPARISON: 09/12/2018 and 08/08/2017 Bilateral CC and MLO views submitted. Computer aided detection analyzed. Breast composition: The breasts are heterogeneously dense, which may obscure small masses. No suspici ous masses, microcalcifications or architectural distortion. Dense coarse calcification upper-outer q uadrant LEFT breast. MM/[place] [id number] IMPRESSION: BI-RADS: 2-Benign FOLLOW UP: 1 Year Follow-up
== END 2020-02-19 09:53 | disposition home or self-care (01) ==
LOC: RADSHAW 09:56
PROVIDERS: PCP Nurse Practitioner Family; Visit Provider Nurse Practitioner Women's Health
DX: Z12.31 Encounter for screening mammogram for malignant neoplasm of breast (principal)
CPT/HCPCS: 77067

== ENCOUNTER → 2020-02-29 11:04 | Outpatient (BNVA) | payer MEDICARE, MEDICAID, SELFPAY | PROVIDERS: PCP Nurse Practitioner Family; Visit Provider Nurse Practitioner Family | DX: I10 Essential (primary) hypertension (principal) | CPT/HCPCS: 80053; 80061; 84443; 85025 ==

== ENCOUNTER → 2020-04-29 14:42 | Outpatient (BNVA) | payer MEDICARE, MEDICAID, SELFPAY | PROVIDERS: PCP Nurse Practitioner Family; Visit Provider Internal Medicine Rheumatology | DX: Z79.899 Other long term (current) drug therapy (principal) | CPT/HCPCS: 36415; 80076; 82565; 85025; 85651; 86140 ==

== ENCOUNTER 2020-05-26 09:34 | Observation (INO) | payer MEDICARE, MEDICAID, SELFPAY ==
[2020-05-26] VITALS (15 sets, daily range): BP systolic 114–153; BP diastolic 64–83; PULSE 73–84; RESP 16–22; TEMP 36.6–37.3; O2SAT 97–100; BMI 26.4
--- NOTE | 2020-05-26 10:01 | US_ITS ---
WS: [id number] ULTRASOUND PELVIS TECHNIQUE: Transabdominal and transvaginal. ULTRASOUND PELVIS TECHNIQUE: Transabdominal. CLINICAL INFORMATION: pelvic pain LMP: 5 years : No. COMPARISON: FINDINGS: Retroverted uterus Orientation: Anteverted. Size: 6.8 cm x 5.4 cm x 4.3 cm. Cervix: 2.8 cm. Endometrium: Abnormally thickened and heterogeneous measuring up to 21 mm with cystic change. Finding s suspicious for neoplasia/hyperplasia. Endometrium thickness: 2.1 cm. Adnexa: Normal. Right ovary size: 2.6 cm x 1.9 cm x 1.3 cm. Right ovary volume: 3.3 ccm3. Left ovary size: 3.5 cm x 3.2 cm x 1.5 cm. Left ovary volume: 8.9 ccm3 Free fluid: None. Other findings: None. US/US pelvic with transvaginal IMPRESSION: 1. Retroverted uterus. 2. Abnormal thickened heterogeneous lobulated endometrium measuring 21 mm with cystic change. Recommend further evaluation with hysteroscopy to evaluate for neoplasia/hyperplasia. 3. Normal ovaries bilaterally.
[2020-05-26 10:26] LABS: Basophils % 0.3 %; Eosinophils # 0.4 10^3/uL (0.0-0.8); Lymphocytes # 1.3 10^3/uL (0.8-4.8); Lymphocytes % 11.1 %; Mean Corpuscular HGB Conc 29.9 g/dL (30.0-36.0); Mean Corpuscular Hemoglobin 27.4 pg (28.0-34.0); Mean Corpuscular Volume 91.5 fL (81-99); Mean Platelet Volume 9.2 fL (7.4-10.4); Monocytes # 0.8 10^3/uL (0.2-0.9); Monocytes % 6.4 %; Neutrophils # 9.16 10^3/uL (1.8-7.7); Neutrophils % 78.6 %; Nucleated Red Blood Cells % 0 %; Platelet Count 285 10^3/cmm (130-400); Red Blood Count 2.23 10^6/uL (4.1-5.3); Red Cell Distribution Width 13.8 % (12.1-15.1); White Blood Count 11.7 10^3/uL (4.0-10.0)
[2020-05-26 10:34] LABS: Hematocrit 20.4 % (37.0-47.0); Hemoglobin 6.1 g/dL (11.5-15.3)
[2020-05-26 10:46] LABS: Add Urine Microscopic? YES; Bilirubin Urine Neg (Negative); Blood Urine 3+ (Negative); Glucose Urine UA 2+ (Normal); Ketones Urine Negative (Negative); Leukocyte Esterase Urine Negative (Negative); Nitrate Urine Negative (Negative); Protein Urine 1+ (Negative); RBC Urine 25-40 /hpf (0-2); Squamous Epithelial Cell Urine RARE /hpf (0-5); Urine Appearance Clear (CLEAR); Urine Color Straw (Yellow); Urobilinogen Urine Norm (Negative); WBC Urine 0-4 /hpf (0-5); pH Urine 9 (5-7)
[2020-05-26 10:47] LABS: Add Urine Culture? Yes; Bacteria Urine TRACE /hpf; Sulfosalicylic Acid Urine Positive (Negative)
[2020-05-26 10:48] LABS: Alanine Aminotransferase 16 U/L (0-33); Albumin Level 4.3 g/dL (3.5-5.2); Alkaline Phosphatase 83 IU/L (35-105); Anion Gap 18.2 (5-19); Aspartate Amino Transferase 14 U/L (0-32); Blood Urea Nitrogen 53 mg/dL (6-20); Calcium 9.6 mg/dL (8.5-10.5); Carbon Dioxide 21 mmol/L (22-29); Chloride 100 mmol/L (98-107); Globulin 3.7 g/dL (1.3-4.6); Glomerular Filtration Rate 10.1 mL/min (90-130); Glucose 92 mg/dL (65-115); Osmolality Calculated 294 mOsm/kg (285-295); Potassium 4.2 mmol/L (3.5-5.1); Sodium 135 mmol/L (136-145); Total Bilirubin 0.2 mg/dL (0.15-1.2)
--- NOTE | 2020-05-26 11:04 | ED_ITS ---
HPI - Female Genitourinary General: Chief complaint: Vaginal Bleeding Stated complaint: Menstrual Bleeding for 5 weeks Time Seen by Provider: 05/26/20 09:36 Source: patient Mode of arrival: ambulatory Limitations: no limitations History of Present Illness: HPI Narrative: 44-year-old female patient presents to the emergency department complaining of vaginal bleeding x5 weeks. Patient states she has seen her physician for this and states that they put her on some medicine to slow the bleeding down but states it is just progressively worsened over the last 5 weeks. Patient states she is very weak dizzy and lightheaded. Patient states she is in end-stage renal failure. Patient denies any abdominal pain but does states she has some pelvic cramping and fullness. Patient denies any urinary symptoms. Patient denies any chest pain or shortness of breath. Patient denies any back pain or flank pain. MD elicited complaint: vaginal bleeding Associated symptoms: Deny abdominal pain, headache(s), nausea or syncope Date of Last Menstrual Period: 05/26/20 Review of Systems Const: Denies: fever(s), chills or body aches Eyes: Denies: change in vision ENMT: Denies: throat pain Card: Reports: lightheadedness; Denies: chest pain, palpitations, irregular heart rhythm, swelling of feet/ankles, syncope or dyspnea on exertion Resp: Denies: dyspnea, productive cough, wheezing, stridor or pain on inspiration GI: Reports: bloating; Denies: abdominal pain, nausea, vomiting, hematemesis, coffee ground emesis, dysphagia or heartburn : Reports: vaginal bleeding and change in menstrual flow; Denies: flank pain, difficulty voiding, dysuria or urinary frequency Musc: Denies: neck pain or back pain Skin/Breast: Denies: rash Neuro: Reports: dizziness; Denies: headache(s), numbness in extremities or weakness in extremities Psych: Denies: anxiety, depression, suicidal ideation or homicidal ideation PFSH ED PFSH: Medical History Avascular necrosis Osteoarthritis of shoulder Surgical History H/O cataract extraction both eyes H/O esophagogastroduodenoscopy 08/02/2019: Normal H/O foot surgery H/O joint surgery Due to arthritis Neck, knees, shoulder, knuckle, wrists H/O wrist surgery Hx of total knee arthroplasty both Status post colonoscopy 08/02/2019: Poor prep, normal Family History Grandfather No problems noted. Father Stroke Father had Parkinson's and a stroke Hypertension Mother Hypertension Family/Other Breast cancer Cousin Ovarian cancer Maternal aunt Family history of thyroid problem Maternal aunt Other CAD (coronary artery disease) Chronic kidney disease (CKD) Rheumatoid arthritis Denies family history of Colon cancer Diabetes Hyperlipidemia Systemic lupus erythematosus (SLE) in adult Uterine cancer Social History Smoking and tobacco status: never smoked Alcohol intake: never Lives independently: Yes Marital status: Single History of recent travel: No Additional social history: - Tobacco use: Denies Alcohol use: Denies Drug use: Denies Female Reproductive History: Date of last menstrual period: 05/26/20 Physical Exam Const: COMMON NORMALS: no acute distress, average body habitus, patient oriented x3, no limitations and alert; negative for healthy appearing HENMT: COMMON NORMALS: normocephalic and atraumatic HEAD & SCALP: normocephalic and atraumatic Eye: COMMON NORMALS: Equal, round and reactive pupils present, EOMs intact bilaterally, conjunctivae normal and no scleral icterus (Jaundice sclera) CONJUNCTIVA: Yes conjunctivae normal PUPIL: Yes Equal, round and reactive pupils present Neck/C-Spine: COMMON NORMALS: full ROM, no lymphadenopathy, supple and no meningeal signs Resp: COMMON NORMALS: normal respiratory effort, No retractions, No use of accessory muscles and clear to auscultation bilaterally AUSCULTATION: clear to auscultation bilaterally Cardio: COMMON NORMALS: regular rate and regular rhythm RATE: regular rate RHYTHM: regular rhythm GI: COMMON NORMALS: Normal to inspection, nondistended, normoactive bowel sounds present, Soft to palpation, non-tender and No hepatosplenomegaly present PALPATION: Yes Soft to palpation and Yes No hepatosplenomegaly present : COMMON NORMALS: Yes no CVA tenderness BLADDER/KIDNEY EXAM: Yes no CVA tenderness Back/Pelvis: COMMON NORMALS: no CVA tenderness, thoracic and lumbar spine normal to inspection, no thoracic nor lumbar tenderness and thoraco-lumbar ROM normal Extremity: COMMON NORMALS: normal to inspection (Patient has rheumatoid arthritis and has contractures to upper extremity) and capillary refill normal Neuro: COMMON NORMALS: patient oriented x3, CN's II-XII intact bilaterally, moves all extremities, no focal motor deficits and no sensory deficits noted SENSORIUM/ORIENTATION: Yes alert MENINGEAL SIGNS: Yes no meningeal signs Psych: COMMON NORMALS: denies homicidal ideation and denies suicidal ideation Skin: COMMON NORMALS: no rashes or lesions noted and no wounds GENERAL SKIN EXAM: no rashes or lesions noted Course Vital Signs: Vital signs: Vital Signs Temperature 98.2 F 05/26/20 09:43 Pulse Rate 77 05/26/20 09:43 Respiratory Rate 18 05/26/20 09:43 Blood Pressure 137/75 05/26/20 09:43 Pulse Oximetry 100 05/26/20 09:43 MDM - Female MDM Narrative: Medical decision making narrative: Patient presents with lightheadedness and dizziness as well as 5 weeks of menstrual bleeding. Patient is end-stage renal failure. Patient's hemoglobin reveals 6.1 given these findings I will type and screen patient and start 2 units of packed red blood cells. I will hand over care to Dr. Vasquez at this time as patient will need to be admitted. I discussed findings of ultrasound with patient and advised patient will need to have a PAPER WOOD CUTTER follow-up regarding these findings. Lab Data: Labs: Lab Results 05/26/20 05/26/20 05/26/20 Range/Units 10:12 10:12 10:16 WBC 11.7 H (4.0-10.0) 10^3/ uL RBC 2.23 L (4.1-5.3) 10^6/u L Hgb 6.1 L* (11.5-15.3) g/dL Hct 20.4 L* (37.0-47.0) % MCV 91.5 (81-99) fL MCH 27.4 L (28.0-34.0) pg MCHC 29.9 L (30.0-36.0) g/dL RDW 13.8 (12.1-15.1) % Plt Count 285 (130-400) 10^3/c mm MPV 9.2 (7.4-10.4) fL Neut % (Auto) 78.6 % Lymph % (Auto) 11.1 % Travis % (Auto) 6.4 % Eos % (Auto) 3.0 % Baso % (Auto) 0.3 % Neut # (Auto) 9.16 H (1.8-7.7) 10^3/u L Lymph # (Auto) 1.3 (0.8-4.8) 10^3/u L Travis # (Auto) 0.8 (0.2-0.9) 10^3/u L Eos # (Auto) 0.4 (0.0-0.8) 10^3/u L Baso # (Auto) 0.0 (0.0-0.1) 10^3/u L Nucleated RBC % (a uto) 0 % Nucleated RBCs # 0.0 /100WBC Sodium 135 L (136-145) mmol/L Potassium 4.2 (3.5-5.1) mmol/L Chloride 100 (98-107) mmol/L Carbon Dioxide 21 L (22-29) mmol/L Anion Gap 18.2 (5-19) BUN 53 H (6-20) mg/dL Creatinine 4.7 H (0.5-0.9) mg/dL GFR Calculation 10.1 L (90-130) mL/min Glucose 92 (65-115) mg/dL Calculated Osmolal ity 294 (285-295) mOsm/k g Calcium 9.6 (8.5-10.5) mg/dL Total Bilirubin 0.2 (0.15-1.2) mg/dL AST 14 (0-32) U/L ALT 16 (0-33) U/L Alkaline Phosphata se 83 (35-105) IU/L Total Protein 8.0 (6.6-8.7) g/dL Albumin 4.3 (3.5-5.2) g/dL Globulin 3.7 (1.3-4.6) g/dL Urine Color Straw (Yellow) Urine Appearance Clear (CLEAR) Urine pH 9 H (5-7) Ur Specific Gravit y 1.010 (1.005-1.030) Urine Protein 1+ H (Negative) Urine Glucose (UA) 2+ (Normal) Urine Ketones Negative (Negative) Urine Blood 3+ H (Negative) Urine Nitrate Negative (Negative) Urine Bilirubin Neg (Negative) Prot Sulfosalicyli c Acd Positive (Negative) Urine Urobilinogen Norm (Negative) mg/dL Ur Leukocyte Diana ase Negative (Negative) Urine RBC 25-40 H (0-2) /hpf Urine WBC 0-4 H (0-5) /hpf Ur Squamous Epith Cells Rare (0-5) /hpf Amorphous Sediment Not Reportable Urine Bacteria Trace (NONE) /hpf Blood Type Rho(D) Type Antibody Screen Crossmatch 05/26/20 Range/Units 11:10 WBC (4.0-10.0) 10^3/ uL RBC (4.1-5.3) 10^6/u L Hgb (11.5-15.3) g/dL Hct (37.0-47.0) % MCV (81-99) fL MCH (28.0-34.0) pg MCHC (30.0-36.0) g/dL RDW (12.1-15.1) % Plt Count (130-400) 10^3/c mm MPV (7.4-10.4) fL Neut % (Auto) % Lymph % (Auto) % Travis % (Auto) % Eos % (Auto) % Baso % (Auto) % Neut # (Auto) (1.8-7.7) 10^3/u L Lymph # (Auto) (0.8-4.8) 10^3/u L Travis # (Auto) (0.2-0.9) 10^3/u L Eos # (Auto) (0.0-0.8) 10^3/u L Baso # (Auto) (0.0-0.1) 10^3/u L Nucleated RBC % (a uto) % Nucleated RBCs # /100WBC Sodium (136-145) mmol/L Potassium (3.5-5.1) mmol/L Chloride (98-107) mmol/L Carbon Dioxide (22-29) mmol/L Anion Gap (5-19) BUN (6-20) mg/dL Creatinine (0.5-0.9) mg/dL GFR Calculation (90-130) mL/min Glucose (65-115) mg/dL Calculated Osmolal ity (285-295) mOsm/k g Calcium (8.5-10.5) mg/dL Total Bilirubin (0.15-1.2) mg/dL AST (0-32) U/L ALT (0-33) U/L Alkaline Phosphata se (35-105) IU/L Total Protein (6.6-8.7) g/dL Albumin (3.5-5.2) g/dL Globulin (1.3-4.6) g/dL Urine Color (Yellow) Urine Appearance (CLEAR) Urine pH (5-7) Ur Specific Gravit y (1.005-1.030) Urine Protein (Negative) Urine Glucose (UA) (Normal) Urine Ketones (Negative) Urine Blood (Negative) Urine Nitrate (Negative) Urine Bilirubin (Negative) Prot Sulfosalicyli c Acd (Negative) Urine Urobilinogen (Negative) mg/dL Ur Leukocyte Diana ase (Negative) Urine RBC (0-2) /hpf Urine WBC (0-5) /hpf Ur Squamous Epith Cells (0-5) /hpf Amorphous Sediment Urine Bacteria (NONE) /hpf Blood Type O Positive Rho(D) Type Positive Antibody Screen Negative Crossmatch See Detail Discharge Plan Discharge Prescriptions: No Action famotidine [Pepcid] 40 mg tablet 40 mg PO BID Qty: 60 RF: 2 medroxyprogesterone 150 mg/mL suspension See Rx Instructions .ROUTE .COMPLEX Qty: 1 RF: 3 desipramine 50 mg tablet 50 mg PO BEDTIME Qty: 30 RF: 5 venlafaxine 75 mg capsule,extended release 24hr See Rx Instructions .ROUTE .COMPLEX Qty: 90 RF: 1 amlodipine 2.5 mg tablet 2.5 mg PO DAILY Qty: 90 RF: 1 metoprolol tartrate 50 mg tablet 50 mg PO BID Qty: 180 RF: 1 Simponi 50 mg/0.5 mL pen injector 50 mg SUBCUT .Qmonthly Qty: 0.5 RF: 0 gabapentin 300 mg capsule 300 mg PO BEDTIME Qty: 30 RF: 0 sodium bicarbonate 650 mg tablet See Rx Instructions .ROUTE .COMPLEX Qty: 270 RF: 1 estradiol 0.5 mg tablet 0.5 mg PO DAILY Qty: 30 RF: 0 multivitamin [Multiple Vitamins] Tablet 1 tab PO DAILY RF: 0 triamcinolone acetonide 0.1 % ointment See Rx Instructions .ROUTE .COMPLEX RF: 0 Otezla 30 mg tablet 30 mg PO BID RF: 0 timolol maleate 0.5 % drops See Rx Instructions .ROUTE .COMPLEX RF: 0 Coding Level of Care Code ED Machine Rope Maker for Jori Beasley
[2020-05-26] MEDS: sodium chloride 0.9% 1,000 ML 999 ML IV (13:12)
--- NOTE | 2020-05-26 18:06 | PM.HP ---
Providers/Chief Complaint Admitting Physician: Jack Barrera Primary Care Provider: GHADA Nam Chief Complaint: Menstrual Bleeding for 5 weeks History of Present Illness Very pleasant 44-year-old lady comes into ER with recurrent/persistent vaginal bleeding which she states started with spotting about 5 weeks previously, but I see prior to condition on and off since 2015. She has been treated by her service worker helper with combined oral contraceptives with improvement, but bleeding appears to have come back. Subsequently transition to Depo-Provera in April 2017. She denies any abdominal pain. Denies use of any blood thinners or antiplatelet medications. In ER her hemoglobin is 6.1. She is transfused 1 unit, and another unit is ordered. She is assessed by gynecology. Placement to obseravation for blood transfusion, reassessment of hemoglobin is requested from ER. Gynecology is going to adjust her medications. Would like to see her in office to reassess and discuss more definitive therapy. Review of Systems Const: Denies: fever(s), chills, body aches or malaise Eyes: Denies: change in vision or eye redness ENMT: Denies: throat pain, oral sores or ear or mastoid pain Card: Denies: chest pain, edema, pre-syncope or dyspnea on exertion Resp: Denies: dyspnea, productive cough, change in phlegm color or hemoptysis GI: Denies: abdominal pain, nausea, vomiting, diarrhea, constipation, hematochezia or melena : Reports: vaginal bleeding; Denies: flank pain, urinary frequency or hematuria Musc: Denies: back pain, joint swelling or joint redness Skin/Breast: Denies: rash, sores or new lesions Neuro: Denies: headache(s), numbness in extremities, weakness in extremities, dizziness, confusion or seizure-like activity Endo: Denies: polyuria or polydipsia Juan/Lymph: Denies: easy bleeding or purpura All/Imm: Denies: urticaria, throat swelling or tongue swelling Medications/Allergies Home Medications Medication Instructions Recorded Confirmed Last Taken Type multivitamin [Multiple Vitamins] 1 tab PO DAILY 07/29/19 05/26/20 05/26/20 History medroxyprogesterone 150 mg/mL See Rx Instructions .ROUTE 01/16/20 05/26/20 05/03/20 Rx intramuscular suspension .COMPLEX #1 ml amlodipine 2.5 mg tablet 2.5 mg PO DAILY #90 tab 02/29/20 05/26/20 05/25/20 Rx desipramine 50 mg tablet 50 mg PO BEDTIME #30 tab 02/29/20 05/26/20 05/25/20 Rx metoprolol tartrate 50 mg tablet 50 mg PO BID #180 tab 02/29/20 05/26/20 05/26/20 Rx venlafaxine 75 mg capsule,extended See Rx Instructions .ROUTE 02/29/20 05/26/20 05/26/20 Rx release 24 hr .COMPLEX #90 cap golimumab 50 mg/0.5 mL 50 mg SUBCUT .Qmonthly #0.5 ml 05/05/20 05/26/20 Unknown Rx subcutaneous pen injector famotidine 40 mg tablet 40 mg PO BID #60 tab 05/09/20 05/26/20 05/26/20 Rx gabapentin 300 mg capsule 300 mg PO BEDTIME #30 cap 05/19/20 05/26/20 05/25/20 Rx sodium bicarbonate 650 mg tablet See Rx Instructions .ROUTE 05/19/20 05/26/20 05/26/20 Rx .COMPLEX #270 tab estradiol 0.5 mg tablet 0.5 mg PO DAILY #30 tab 05/21/20 05/26/20 05/26/20 Rx apremilast [Otezla] 30 mg PO BID 05/26/20 05/26/20 05/26/20 History timolol maleate See Rx Instructions .ROUTE .COMPLEX 05/26/20 05/26/20 05/26/20 History triamcinolone acetonide See Rx Instructions .ROUTE .COMPLEX 05/26/20 05/26/20 Unknown History Allergies Allergy/AdvReac Type Severity Reaction Status Date / Time Penicillins Allergy Intermediate swelling Verified 05/26/20 09:49 PFSH Acute PFSH: Medical History (Updated 05/26/20 @ 18:11 by Jack Barrera MD) Avascular necrosis Osteoarthritis of shoulder Surgical History H/O cataract extraction both eyes H/O esophagogastroduodenoscopy 08/02/2019: Normal H/O foot surgery H/O joint surgery Due to arthritis Neck, knees, shoulder, knuckle, wrists H/O wrist surgery Hx of total knee arthroplasty both Status post colonoscopy 08/02/2019: Poor prep, normal Family History Grandfather No problems noted. Father Stroke Father had Parkinson's and a stroke Hypertension Mother Hypertension Family/Other Breast cancer Cousin Ovarian cancer Maternal aunt Family history of thyroid problem Maternal aunt Other CAD (coronary artery disease) Chronic kidney disease (CKD) Rheumatoid arthritis Denies family history of Colon cancer Diabetes Hyperlipidemia Systemic lupus erythematosus (SLE) in adult Uterine cancer Social History Smoking and tobacco status: never smoked Alcohol intake: never Lives independently: Yes Marital status: Single History of recent travel: No Additional social history: - Tobacco use: Denies Alcohol use: Denies Drug use: Denies Female Reproductive History: Date of last menstrual period: 05/26/20 Vitals/I&O/Wt Last Vital Signs Temp 98.3 F 05/26/20 18:00 Pulse 77 05/26/20 18:00 Resp 16 05/26/20 18:00 BP 131/83 05/26/20 18:00 Pulse Ox 100 05/26/20 18:00 05/26/20 05/26/20 05/26/20 06:59 14:59 22:59 Intake Total 0 / 0 470 / 470 Balance 0 / 0 470 / 470 Weight last 48 hrs Weight 61.235 kg Physical Exam Const: COMMON NORMALS: no acute distress, patient oriented x3 and alert ORIENTATION/CONSCIOUSNESS: Yes awake OTHER: Pleasant, conversant. HENMT: COMMON NORMALS: oropharynx normal Neck/C-Spine: COMMON NORMALS: no JVD Resp: COMMON NORMALS: normal respiratory effort and clear to auscultation bilaterally AUSCULTATION: clear to auscultation bilaterally Cardio: COMMON NORMALS: no JVD, regular rhythm, S1 normal heart sound present, S2 normal heart sound present and No murmurs present (Cardio) RHYTHM: regular rhythm HEART SOUNDS: S1 normal heart sound present and S2 normal heart sound present GI: COMMON NORMALS: Normal to inspection, nondistended, normoactive bowel sounds present, Soft to palpation and non-tender PALPATION: Yes Soft to palpation Extremity: COMMON NORMALS: no joint enlargement and no pedal edema OTHER: Short limbs. Neuro: COMMON NORMALS: patient oriented x3 and moves all extremities Skin: COMMON NORMALS: no rashes or lesions noted GENERAL SKIN EXAM: no rashes or lesions noted Data : 05/26/20 10:12 05/26/20 10:12 A&P Assessment and plan (1) Acute blood loss anemia: Recurrent uterine bleeding, on Depo-Provera, estradiol. Hemoglobin 6.1. Received 20 is not transfusion in ER. Request is made for placement to outpatient bed to allow for additional unit. Received transfusion, reassessment of hemoglobin. In ER she is seen by gynecology as well. Her medications will be adjusted for abnormal uterine bleeding and they would like to see her back in office for reassessment and considerations of definitive therapy. She does not take any antiplatelets or anticoagulation. Does not take NSAIDs. She is on quite a few medications. Her RA medication should not be contributing to hemorrhage. However, venlafaxine in some instances can cause hemorrhage. This is not necessarily the cause in this instance, but consideration may be given to taper off this medication to avoid contribution. She has been on it since 2019, same dose of 75 mg, and so this would need to be done slowly. Discussed with her also other possible causes of bleeding may be uremic platelet dysfunction given progressive renal failure. She states she follows with Dr. Aquino in [place], and they begin considering hemodialysis, but states she has not required it yet. Her BUN appears to be similar and actually less than previous at 53. I am not sure that this is high enough to cause uremic bleeding, however, this may need to be kept under consideration. Status: Acute (2) Abnormal uterine bleeding (AUB): Status: Acute (3) Chronic kidney disease: Status: Acute Qualifiers: Chronic kidney disease stage: stage 4 (severe) Qualified Code(s): N18.4 - Chronic kidney disease, stage 4 (severe) Additional A&P Information Rheumatoid arthritis Psoriasis Depression HTN Migraine headaches Other chronic conditions noted. Attestations Medical Necessity Statement*: Observation for blood transfusion for acute blood loss anemia, recheck hemomglobin. Coding Level of Care Code Acute Quantitative Analyst Marketing for [facility] Diagnoses Acute blood loss anemia D62 Abnormal uterine bleeding (AUB) N93.9 Chronic kidney disease N18.4 Chronic kidney disease stage: stage 4 (severe)
--- NOTE | 2020-05-26 19:24 | PC.NURSE ---
ROUNDING Resting quietly. Denies pain or SOB. Says was a little dizzy when she got up this am but denies now. Has 2nd unit of PRBC's infusing. Tells me she has had vaginal bleeding for about 5 weeks. Says started as spotting then just kept getting heavier with some clots. Denies abd tenderness. Says really just here for blood and will go home in the morning. Instructed on need to monitor I&O.
[2020-05-26] MEDS: gabapentin 300 mg Capsule PO (20:18)
--- NOTE | 2020-05-26 20:49 | P.CONIM_ITS ---
Providers/Reason For Consult Consulting Physican/Specialty*: Sherly Maldonado/ OB-AUDIO VISUAL DIRECTOR Reason for Consult*: Chronic vaginal bleeding with anemia Attending Physician: Jack Barrera Primary Care Provider: GHADA Nam History of Present Illness History of Present Illness HISTORY AND PHYSICAL: ER consult for vaginal bleeding and anemia Chief Complaint: I am having persistent vaginal bleeding History of present illness: Ms. Paredes is a 44-year-old nulligravida with an LMP of March 2020 who presented to the ER for further management of not feeling well and persistent vaginal bleeding. She states that she has been on Depo-Provera since 2015 and really has not had any vaginal bleeding. She states that she started bleeding in March for the first time and contacted her primary electrogalvanizing machine operator nurse practitioner Heather Rodrigues. Because of the longstanding duration of being on Depo-Provera this bleeding was thought to be due to breakthrough bleeding and she was given estrogen tablets. She took the estrogen and while this did decrease some of the bleeding she has continued to bleed although less heavily. She has been bleeding for about 6 weeks right now. She presented to the emergency room because she was not feeling well and felt that she needed a blood transfusion. History significant for chronic kidney disease and she states that she is going to be scheduled for starting dialysis. She has been chronically anemic with a hemoglobin usually between 8 and 10. -She states that in the last 48 hours she has may be saturated 1 pad a day. Obstetric History: Nulligravida Gynecological history: see below Past medical history: -Chronic kidney disease-Per patient she is going to be scheduled for dialysis -Chronic hypertension -Chronic anemia likely secondary to chronic renal disease -Rheumatoid arthritis Physical exam: General: well developed, small, Neuro/Psych: alert, oriented to time, place and person. Neck: No thyromegaly Heart: S1-S2 heard, regular rate and rhythm. Lungs: Clear to auscultation bilaterally. Breast: Patient declined Legs: Trace bilateral pitting pedal edema no calf tenderness. Negative Homans sign Back: No CVA tenderness Skin: Normal over abdomen Pelvic exam: patient declined pelvic exam today as she is not bleeding heavily Assessment and Plan: 1) acute vaginal bleeding: --- Based on her history of bleeding is likely secondary to breakthrough bleeding from Depo-Provera and it sounds like they estrogen that she was taking is already started working and her bleeding is already very minimal at this time. I think her hemoglobin is low at this time because of her chronic anemia with superimposed acute bleeding. She is already receiving a blood transfusion to the emergency room and from a bleeding standpoint does not require any admission. No indication to perform surgery or for high-dose estrogen given that bleeding is minimal at this time. -She will definitely require follow-up as an outpatient with Heather Rodrigues to maybe adjust the kind of progesterone that she is on to decrease some of this breakthrough bleeding. -Patient has questions about her hysterectomy and I discussed that this is not indicated at this time especially since her bleeding is better. Discussed the difference between planned an emergency hysterectomy and the risk of complications and all her questions were answered -Patient to continue estrogen for now and follow-up in the next 1 week with women's health care -Continue transfusion as per ER and management of chronic kidney disease as per hospitalist -No indication for admission from a vaginal bleeding standpoint I spent a total of 40 minutes with the patient and in coordination of care today Review of Systems General: Reports: 10 or more systems reviewed and unremarkable except in HPI and below Const: Denies: fever(s), chills, change in appetite, change in weight, fatigue, malaise or change in sleep pattern Eyes: Denies: change in vision, eye discomfort, eye discharge or seeing flashes ENMT: Denies: throat pain, odynophagia, hoarseness, bleeding gums, ear discharge, nasal discharge or nasal congestion Card: Denies: chest pain, irregular heart rhythm, edema, swelling of feet/ankles, dyspnea on exertion or leg pain with exertion Resp: Denies: dyspnea, productive cough, wheezing or chest congestion GI: Denies: abdominal pain, nausea, vomiting, heartburn, diarrhea, constipation, change in bowel habits or hematochezia : Reports: vaginal bleeding, dysmenorrhea and change in menstrual flow; Denies: flank pain, dysuria, urinary frequency, urinary urgency, urinary incontinence, genital lesions, vaginal odor, vaginal discharge, prolapse symptoms, dyspareunia or sexual dysfunction Musc: Denies: neck pain, back pain, joint pain, joint swelling or muscle cramps Skin/Breast: Denies: rash, pruritus, breast tenderness, nipple discharge or breast mass Neuro: Denies: headache(s), numbness in extremities or seizure-like activity Psych: Denies: anxiety, depression, mood swings or change in appetite Endo: Denies: cold intolerance, flushing, hot flashes or change in body appearance Juan/Lymph: Denies: easy bruising, easy bleeding or enlarged lymph nodes All/Imm: Denies: urticaria, tongue swelling, acute wheezing or itchy eyes Meds/Allergies Home Medications and Allergies Home Medications Medication Instructions Recorded Confirmed Last Taken Type multivitamin [Multiple Vitamins] 1 tab PO DAILY 07/29/19 05/30/20 05/26/20 History amlodipine 2.5 mg tablet 2.5 mg PO DAILY #90 tab 02/29/20 05/30/20 05/25/20 Rx desipramine 50 mg tablet 50 mg PO BEDTIME #30 tab 02/29/20 05/30/20 05/25/20 Rx venlafaxine 75 mg capsule,extended See Rx Instructions .ROUTE 02/29/20 05/30/20 05/26/20 Rx release 24 hr .COMPLEX #90 cap famotidine 40 mg tablet 40 mg PO BID #60 tab 05/09/20 05/30/20 05/26/20 Rx sodium bicarbonate 650 mg tablet See Rx Instructions .ROUTE 05/19/20 05/30/20 05/26/20 Rx .COMPLEX #270 tab Otezla 30 mg PO BID 05/26/20 05/30/20 05/26/20 History timolol maleate See Rx Instructions .ROUTE .COMPLEX 05/26/20 05/30/20 05/26/20 History triamcinolone acetonide See Rx Instructions .ROUTE .COMPLEX 05/26/20 05/30/20 Unknown History norethindrone acetate 5 mg tablet 5 mg PO DAILY #30 tab 05/31/20 05/31/20 Unknown Rx gabapentin 300 mg capsule 300 mg PO BEDTIME #30 cap 06/18/20 Unknown Rx golimumab 50 mg/0.5 mL 50 mg SUBCUT .Qmonthly #0.5 ml 06/18/20 Unknown Rx subcutaneous pen injector metoprolol tartrate 50 mg tablet 50 mg PO BID #180 tab 06/23/20 Unknown Rx Allergies Allergy/AdvReac Type Severity Reaction Status Date / Time Penicillins Allergy Intermediate swelling Verified 06/05/20 09:11 Current Medications Current Medications Generic Name Dose Route Start Last Admin Trade Name Freq PRN Reason Stop Dose Admin Gabapentin 300 mg 05/26/20 21:00 05/26/20 20:18 Gabapentin 300 Mg Capsule PO 300 mg BEDTIME CHRISSY Administration Non-Formulary Medication 30 mg 05/26/20 18:47 05/26/20 19:23 Apremilast [Otezla] PO 30 mg BID CHRISSY Administration PFSH Acute PFSH: Medical History (Updated 07/06/20 @ 12:44 by Sherly Townsend MD) Chronic anterior uveitis of both eyes Chronic kidney disease Seropositive rheumatoid arthritis of multiple sites Surgical History H/O cataract extraction both eyes H/O esophagogastroduodenoscopy 08/02/2019: Normal H/O foot surgery H/O joint surgery Due to arthritis Neck, knees, shoulder, knuckle, wrists H/O wrist surgery Hx of total knee arthroplasty both Status post colonoscopy 08/02/2019: Poor prep, normal Family History Grandfather No problems noted. Father Stroke Father had Parkinson's and a stroke Hypertension Hypercholesteremia Mother Hypertension Hypercholesteremia Family/Other Breast cancer Cousin-- dx age unknown Ovarian cancer Maternal aunt-- dx age unknown Diabetes Maternal Aunt/Uncle Denies family history of Colon cancer Uterine cancer Social History Additional social history: - Tobacco use: Denies Alcohol use: Denies Drug use: Denies Female Reproductive History: Date of last menstrual period: 05/26/20 PFSH: Medical History (Updated 07/06/20 @ 12:44 by Sherly Townsend MD) Chronic anterior uveitis of both eyes Chronic kidney disease Seropositive rheumatoid arthritis of multiple sites Surgical History H/O cataract extraction both eyes H/O esophagogastroduodenoscopy 08/02/2019: Normal H/O foot surgery H/O joint surgery Due to arthritis Neck, knees, shoulder, knuckle, wrists H/O wrist surgery Hx of total knee arthroplasty both Status post colonoscopy 08/02/2019: Poor prep, normal Family History Grandfather No problems noted. Father Stroke Father had Parkinson's and a stroke Hypertension Hypercholesteremia Mother Hypertension Hypercholesteremia Family/Other Breast cancer Cousin-- dx age unknown Ovarian cancer Maternal aunt-- dx age unknown Diabetes Maternal Aunt/Uncle Denies family history of Colon cancer Uterine cancer Social History Additional social history: - Tobacco use: Denies Alcohol use: Denies Drug use: Denies Other Female Reproductive History: Menstrual History Comment: Menarche: 15 years old Length: 28 days Duration: 4 days Sexual History: Sexual History Comment: Lifetime partners: 1 Currently active: no Preference: Heterosexual STD History Comment: None Contraception: Contraception History Comment: She has used control pills for several years, she then started bleeding in between her cycles and was eventually transitioned onto Depo provera. She has been amenorrheic with this. She has been on depo provera since Apr 2017. Vitals/I&O/Wt Last Vital Signs Temp 98.1 F 05/26/20 20:19 Pulse 74 05/26/20 20:19 Resp 20 H 05/26/20 20:19 BP 144/77 05/26/20 20:19 Pulse Ox 97 05/26/20 20:19 05/26/20 05/26/20 05/26/20 06:59 14:59 22:59 Intake Total 0 / 0 470 / 470 Balance 0 / 0 470 / 470 Weight last 48 hrs Weight 135 lb Coding Level of Care Code Acute All Round Logger for Chg Fwd Results PAP 01/16/2020--([facility])--- NILM, NEG HPV 02/25/2017: NILM 02/06/16: NILM 2014: Normal AUDIO VISUAL DIRECTOR Ultrasound 05/26/2020--[facility]-----> AUB-------------------------> 1. Retroverted uterus. 2. Abnormal thickened heterogeneous lobulated endometrium measuring 21 mm with cystic change. Recommend further evaluation with hysteroscopy to evaluate for neoplasia/hyperplasia. 3. Normal ovaries bilaterally. 06/16/16: ([facility])---Menorrhagia PRELIMINARY Uterus measures 6.63 x 3.6 x 5.03 cm. Endometrial lining measures 0.8mm. Rt ovary measures 3.36 x 1.6 x 1.48 cm. Lt ovary measures 2.6 x 1.16 x 1.45 cm. Potential debris vs polyp within the cervix. FF present. Mammogram 02/19/2020: BI-RADS: 2-Benign; Follow ip in one year 08/15/2018: BI-RADS: 2-Benign; Follow up: 1 Year Follow-up 08/08/2017: BI-RADS: 2-Benign; Follow up: 1 Year Follow-up 02/17/16: BI-RADS 2 benign History History History 0 Term 0 Miscarriages/Ectopic 0 0 Living Children 0
[2020-05-26] MEDS: sodium chloride 0.9% 1,000 ML 150 ML IV (21:10)
[2020-05-26] MEDS: sodium bicarbonate 650 mg Tablet 1950 MG PO (21:13)
[2020-05-26] MEDS: famotidine 20 mg Tablet 40 MG PO (21:13)
[2020-05-26] MEDS: timolol 0.5% Op Soln 5 mL Btl EYE-BOTH (21:14)
[2020-05-26 23:10] LABS: Hemoglobin 8.7 g/dL (11.5-15.3)
[2020-05-27 00:19] VITALS: BP 131/67; PULSE 68; RESP 18; TEMP 37.1; O2SAT 97
[2020-05-27] MEDS: sodium chloride 0.9% 1,000 ML 150 ML IV ×2 (00:54→08:28)
[2020-05-27 04:00] VITALS: BP 135/74; PULSE 72; RESP 18; TEMP 37.1; O2SAT 98
[2020-05-27 05:28] LABS: Basophils # 0.1 10^3/uL (0.0-0.1); Basophils % 0.6 %; Eosinophils # 0.4 10^3/uL (0.0-0.8); Hemoglobin 8.4 g/dL (11.5-15.3); Lymphocytes # 1.5 10^3/uL (0.8-4.8); Lymphocytes % 17.7 %; Mean Corpuscular HGB Conc 31.5 g/dL (30.0-36.0); Mean Corpuscular Hemoglobin 28.1 pg (28.0-34.0); Mean Corpuscular Volume 89.3 fL (81-99); Mean Platelet Volume 8.9 fL (7.4-10.4); Monocytes # 0.7 10^3/uL (0.2-0.9); Neutrophils % 69.2 %; Nucleated Red Blood Cells % 0 %; Platelet Count 207 10^3/cmm (130-400); Red Blood Count 2.99 10^6/uL (4.1-5.3); Red Cell Distribution Width 14.5 % (12.1-15.1); White Blood Count 8.7 10^3/uL (4.0-10.0)
[2020-05-27 05:39] LABS: Hematocrit 26.7 % (37.0-47.0)
[2020-05-27 05:50] LABS: Anion Gap 16.3 (5-19); Blood Urea Nitrogen 45 mg/dL (6-20); Calcium 8.3 mg/dL (8.5-10.5); Carbon Dioxide 18 mmol/L (22-29); Chloride 110 mmol/L (98-107); Glomerular Filtration Rate 11.1 mL/min (90-130); Glucose 101 mg/dL (65-115); Osmolality Calculated 304 mOsm/kg (285-295); Potassium 3.3 mmol/L (3.5-5.1); Sodium 141 mmol/L (136-145)
--- NOTE | 2020-05-27 06:09 | PC.NURSE ---
SHIFT SUMMARY Has rested well tonight. Small amt vag bleeding on pads. Received total 2 units PRBC's 05/26/20. Hmg this am 8.4. Says is supposed to be going home today. Has denied any pain or discomfort. IV fluids infusing at 150ml/hr rate. Urinating well
[2020-05-27 07:08] VITALS: BP 132/78; PULSE 77; RESP 17; TEMP 37.3; O2SAT 99
[2020-05-27] MEDS: estradiol 1 mg Tablet 0.5 MG PO (08:29)
[2020-05-27] MEDS: sodium bicarbonate 650 mg Tablet 1950 MG PO (08:30)
[2020-05-27] MEDS: famotidine 20 mg Tablet 40 MG PO (08:31)
[2020-05-27] MEDS: venlafaxine ER (24HR) 75 mg Capsule PO (08:31)
[2020-05-27] MEDS: timolol 0.5% Op Soln 5 mL Btl EYE-BOTH (08:33)
--- NOTE | 2020-05-27 10:05 | PC.CHAP ---
Pastoral Care Encounter/Spiritual Assessment Type of Contact [] Declined it infrastructure consultant visit [] Patient/Family/Request visit [] Outpatient visit [] Follow-up visit [] Physician referral [] Code/Alert [] Routine visit [] Staff referral [] Actively dying [] Patient sleeping [] Family support [] [] Out of room [] Palliative care [] [] Receiving care in room [] Pre-surgical visit [] Trauma [] Long length of stay [] ICU visit [] Other: Relational/Emotional Strength [] Patient feels connected with others/family/visitors/staff [] Distress [] Loneliness/isolation [] Abandonment Spirituality of Patient [] Person of Carrie [] Attends Tenriism of their [place] [] Believes in Prayer [] Reads Bible or Latter Day materials [] There are Spiritual issues to be addressed Religion Department Chair Interventions [] Prayer [] Active listening [] Non-anxious presence [] Spiritual/emotional support [] Crisis/trauma care [] Spiritual counseling [] Bereavement support [] Provided bereavement packet [] Provided Bible/devotional materials [] Provided toy/stuffed animal, coloring book to patient or family member [] Provided Communion [] Anointing/[place] [] Salvation [] Completed spiritual assessment [] Other: Impact on Illness or Injury [] Angry [] Fearful [] Anxious [] Often cries [] Exhaustion [] Unable to work [] Unable to attend congregational [] Unable to walk/stand [] Unable to read [] Unable to drive [] Unable to eat/drink [] Unable to sleep [] Unable to be with family [] Patient intubated [] Other: Summary refused prayer Time spent with patient 10 min
[2020-05-27 11:09] VITALS: BP 138/73; PULSE 82; RESP 18; TEMP 36.8; O2SAT 97
--- NOTE | 2020-05-27 11:24 | PM.DCS ---
Discharge Providers Date of Admission: 05/26/20 15:18 Date of Discharge: May 27, 2020 Attending Provider at Admission: Jack Barrera Attending Provider at Discharge: Jack Barrera Primary Care Provider: GHADA Nam Diagnoses at Discharge Discharge Diagnosis (1) Acute blood loss anemia: Status: Acute (2) Abnormal uterine bleeding (AUB): Status: Acute Permanent problem details: With noted US finding of Abnormal thickened heterogeneous lobulated endometrium measuring 21 mm with cystic change. Recommend further evaluation with hysteroscopy to evaluate for neoplasia/hyperplasia. (3) Chronic kidney disease: Status: Acute Qualifiers: Chronic kidney disease stage: stage 4 (severe) Qualified Code(s): N18.4 - Chronic kidney disease, stage 4 (severe) Reason for Visit Reason for Visit: Menstrual Bleeding for 5 weeks Hospital Course Hospital Course Very pleasant 44-year-old lady with recurrent vaginal bleeding following with gynecology returned to the hospital due to symtpmatic anemia. She received 2 units PRBC transfusion with improvement in hemoglobin up to 8.4. Resolution of symptoms. Today she is feeling well, feels ready to return home. She was seen by gynecology yesterday in ER to discuss recurrent anemia and additional findings of abnormal thickened heterogenous lobulated endometrium on ultrasound, 21 mm thickness with cystic change. This will need additional evaluation. Difficulty would like to see her in office. Her medications will be adjusted as per gynecology recommendations with increase in estradiol dose to 1 mg/day, request for her to make an appointment with them 5-7 days in gynecology clinic. Discussed with her also consideration may be given if case of recurrent bleeding despite gynecologic assessment intervention to tapering off venlafaxine which in rare cases may have adverse effect of bleeding, although in this case probably less likely given alternative cause is available. At this time she would like to continue. Given she has been on the medication long-term this would have to be done slowly. Physical Exam Const: COMMON NORMALS: no acute distress, patient oriented x3 and alert ORIENTATION/CONSCIOUSNESS: Yes awake OTHER: Pleasant, conversant. No complaints today. Asking to go home. HENMT: COMMON NORMALS: oropharynx normal Neck/C-Spine: COMMON NORMALS: no JVD Resp: COMMON NORMALS: normal respiratory effort and clear to auscultation bilaterally AUSCULTATION: clear to auscultation bilaterally Cardio: COMMON NORMALS: no JVD, regular rhythm, S1 normal heart sound present, S2 normal heart sound present and No murmurs present (Cardio) RHYTHM: regular rhythm HEART SOUNDS: S1 normal heart sound present and S2 normal heart sound present GI: COMMON NORMALS: Normal to inspection, nondistended, normoactive bowel sounds present, Soft to palpation and non-tender PALPATION: Yes Soft to palpation Extremity: COMMON NORMALS: no joint enlargement and no pedal edema OTHER: Short limbs. Neuro: COMMON NORMALS: patient oriented x3 and moves all extremities SENSORIUM/ORIENTATION: Yes alert Skin: COMMON NORMALS: no rashes or lesions noted GENERAL SKIN EXAM: no rashes or lesions noted Discharge Data Data Completed and Pending: Completed Studies During Hospitalization Category Date Time Status US pelvic with tr ansvaginal Urgent Ultrasound 05/26/20 10:01 Completed Pending at discharge Category Date Time Status Urine Culture Sta t Lab 05/26/20 10:16 Received Labs from last 24 hours 05/27/20 05/27/20 05/26/20 04:57 04:57 23:00 WBC 8.7 RBC 2.99 L Hgb 8.4 L 8.7 L D Hct 26.7 L D MCV 89.3 MCH 28.1 MCHC 31.5 D RDW 14.5 Plt Count 207 MPV 8.9 Neut % (Auto) 69.2 Lymph % (Auto) 17.7 [place] % (Auto) 8.0 Eos % (Auto) 4.0 Baso % (Auto) 0.6 Neut # (Auto) 6.00 Lymph # (Auto) 1.5 [place] # (Auto) 0.7 Eos # (Auto) 0.4 Baso # (Auto) 0.1 Nucleated RBC % (a uto) 0 Nucleated RBCs # 0.0 Sodium 141 Potassium 3.3 L Chloride 110 H Carbon Dioxide 18 L Anion Gap 16.3 BUN 45 H Creatinine 4.3 H GFR Calculation 11.1 L Glucose 101 Calculated Osmolal ity 304 H Calcium 8.3 L Blood Type Rho(D) Type Antibody Screen Crossmatch 05/26/20 11:10 WBC RBC Hgb Hct MCV MCH MCHC RDW Plt Count MPV Neut % (Auto) Lymph % (Auto) [place] % (Auto) Eos % (Auto) Baso % (Auto) Neut # (Auto) Lymph # (Auto) [place] # (Auto) Eos # (Auto) Baso # (Auto) Nucleated RBC % (a uto) Nucleated RBCs # Sodium Potassium Chloride Carbon Dioxide Anion Gap BUN Creatinine GFR Calculation Glucose Calculated Osmolal ity Calcium Blood Type O Positive Rho(D) Type Positive Antibody Screen Negative Crossmatch See Detail Vitals: Last Vital Signs Temp 98.3 F 05/27/20 11:09 Pulse 82 05/27/20 11:09 Resp 18 05/27/20 11:09 BP 138/73 05/27/20 11:09 Pulse Ox 97 05/27/20 11:09 Discharge Plan Discharge Patient Disposition: Home Condition: Stable Prescriptions: Continued famotidine [Pepcid] 40 mg tablet 40 mg PO BID Qty: 60 RF: 2 medroxyprogesterone 150 mg/mL suspension See Rx Instructions .ROUTE .COMPLEX Qty: 1 RF: 3 desipramine 50 mg tablet 50 mg PO BEDTIME Qty: 30 RF: 5 venlafaxine 75 mg capsule,extended release 24hr See Rx Instructions .ROUTE .COMPLEX Qty: 90 RF: 1 amlodipine 2.5 mg tablet 2.5 mg PO DAILY Qty: 90 RF: 1 metoprolol tartrate 50 mg tablet 50 mg PO BID Qty: 180 RF: 1 Simponi 50 mg/0.5 mL pen injector 50 mg SUBCUT .Qmonthly Qty: 0.5 RF: 0 gabapentin 300 mg capsule 300 mg PO BEDTIME Qty: 30 RF: 0 sodium bicarbonate 650 mg tablet See Rx Instructions .ROUTE .COMPLEX Qty: 270 RF: 1 multivitamin [Multiple Vitamins] Tablet 1 tab PO DAILY RF: 0 triamcinolone acetonide 0.1 % ointment See Rx Instructions .ROUTE .COMPLEX RF: 0 Otezla 30 mg tablet 30 mg PO BID RF: 0 timolol maleate 0.5 % drops See Rx Instructions .ROUTE .COMPLEX RF: 0 Changed estradiol 0.5 mg tablet 1 mg PO DAILY Qty: 30 RF: 0 Discharge Orders: Discharge Order (Routine); Ordered 05/27/20 Ordered By: Jack Barrera Referrals: Sherly Townsend MD [Physician] - 4-7 days Hyacinth Fernández FNP [Primary Care Provider] - 4-7 days Ruben Thorpe MD [Referring] - 1 week (CKD, recurrent bleeding) Discharge Diet: Usual diet Discharge Activity: Increase activity as tolerated Patient Instructions: Anemia, Abnormal Uterine Bleeding Activity Restrictions/Additional Instructions: If you experience heavy bleeding, feel lightheaded or faint, have shortness of breath, chest pain, or any other concerning symptoms please call 911. If bleeding is recurrent despite gynecologic intervention, discuss also with your primary care doctor consideration of tapering off venlafaxine which ins some rare instances can be a cause of bleeding. call gynecology office for appointment within 5-7 days. Increase estradiol to 1mg per day. Discharge Attestations Time Spent in Discharge Care*: greater than 30 min Quality Metrics Clinical Quality Measures During this hospital stay, did patient experience: None Coding Level of Care Code Acute Animal Ecologist for Chg Fwd Exam Comprehensive Diagnoses Acute blood loss anemia D62 Abnormal uterine bleeding (AUB) N93.9 Chronic kidney disease N18.4 Chronic kidney disease stage: stage 4 (severe)
[2020-05-27] MEDS: potassium chloride ER 20 mEq Tablet 40 MEQ PO (11:25)
[2020-05-27 12:39] VITALS: BP 138/73; PULSE 82; RESP 18; TEMP 36.8; O2SAT 97
--- NOTE | 2020-05-27 13:06 | PC.NURSE ---
Patient anxious to discharge. Her ride is waiting on her downstairs. Patient requested that she be able to call and make her own follow up appointments to be seen. Patient is alert and oriented x4 and capable of doing so. Discharge paperwork provided with education.
== END 2020-05-27 13:24 | disposition home or self-care (01) ==
LOC: ER 15:27 → MEDSURG 15:54
PROVIDERS: Registered Nurse; Admitting Provider Internal Medicine; Emergency Provider Family Medicine; PCP Nurse Practitioner Family; Visit Provider Internal Medicine
DX: D62 Acute posthemorrhagic anemia (principal); N93.9 Abnormal uterine and vaginal bleeding, unspecified; N18.4 Chronic kidney disease, stage 4 (severe)
CPT/HCPCS: 12345; 36415; 36430; 76830; 76856; 80048; 80053; 81001; 85018; 85025; 86850; 86900; 86920; 87086; 96360; 96361; 99283; 99285; 99291; G0378; J7030; J8499; P9016

== ENCOUNTER → 2020-05-30 16:31 | Outpatient (BNVA) | payer MEDICARE, MEDICAID, SELFPAY | PROVIDERS: PCP Nurse Practitioner Family; Visit Provider Nurse Practitioner Women's Health | DX: N93.9 Abnormal uterine and vaginal bleeding, unspecified (principal) | CPT/HCPCS: 88305 ==

== ENCOUNTER → 2020-06-05 08:47 | Outpatient (BNVA) | payer MEDICARE, MEDICAID, SELFPAY | PROVIDERS: PCP Nurse Practitioner Family; Visit Provider Internal Medicine Rheumatology | DX: M08.00 Unspecified juvenile rheumatoid arthritis of unspecified site (principal); H20.13 Chronic iridocyclitis, bilateral; H21.501 Unspecified adhesions of iris, right eye; M19.212 Secondary osteoarthritis, left shoulder; Z79.899 Other long term (current) drug therapy; N18.5 Chronic kidney disease, stage 5 | CPT/HCPCS: 99215 ==

== ENCOUNTER 2020-07-09 12:29 | Outpatient (CLI) | payer MEDICARE, MEDICAID, SELFPAY ==
[2020-07-09 12:40] VITALS: PULSE 80; RESP 16; TEMP 37.2; O2SAT 99
[2020-07-09] MEDS: diphenhydrAMINE 25 mg Capsule PO (12:45)
--- NOTE | 2020-07-09 13:31 | PC.NURSE ---
1312 Infusion started at 16ml/hr.
--- NOTE | 2020-07-09 13:32 | PC.NURSE ---
Infusion increased to 20ml/hr. Tolerating without complaints. Resting in recliner.
--- NOTE | 2020-07-09 13:57 | PC.NURSE ---
Infusion increased to 80ml/hr
--- NOTE | 2020-07-09 14:11 | PC.NURSE ---
increased rate to 150ml/hr
[2020-07-09 14:25] VITALS: BP 127/68; PULSE 79; RESP 16
[2020-07-09 14:30] VITALS: BMI 25.2
--- NOTE | 2020-07-09 14:31 | PC.NURSE ---
Infusion increased to 200ml/hr
--- NOTE | 2020-07-09 15:24 | PC.NURSE ---
Infusion complete. Pt reading in recliner. Denies complaints.
[2020-07-09 15:47] VITALS: BP 137/78; PULSE 83; RESP 16; O2SAT 98
== END 2020-07-09 12:30 | disposition home or self-care (01) ==
LOC: RHEOACUTE 12:31
PROVIDERS: PCP Nurse Practitioner Family; Visit Provider Internal Medicine Rheumatology
DX: H20.13 Chronic iridocyclitis, bilateral (principal); M08.00 Unspecified juvenile rheumatoid arthritis of unspecified site
CPT/HCPCS: 96365; 96366; 96375; J1745; J2920; J7050

== ENCOUNTER 2020-07-30 10:46 | Outpatient (CLI) | payer MEDICARE, MEDICAID, SELFPAY ==
[2020-07-30] VITALS (7 sets, daily range): BP systolic 124–138; BP diastolic 68–74; PULSE 75–89; RESP 16; TEMP 36.5–37.3; O2SAT 99–100
[2020-07-30] MEDS: sodium chloride 0.9% 250 ML 999 ML IV (11:28)
[2020-07-30] MEDS: diphenhydrAMINE 25 mg Capsule PO (11:30)
[2020-07-30 11:44] LABS: Basophils # 0.1 10^3/uL (0.0-0.1); Basophils % 0.7 %; Eosinophils # 0.2 10^3/uL (0.0-0.8); Eosinophils % 2.5 %; Hematocrit 27.4 % (37.0-47.0); Hemoglobin 8.2 g/dL (11.5-15.3); Lymphocytes # 1.2 10^3/uL (0.8-4.8); Lymphocytes % 12.5 %; Mean Corpuscular HGB Conc 29.9 g/dL (30.0-36.0); Mean Corpuscular Hemoglobin 26.1 pg (28.0-34.0); Mean Corpuscular Volume 87.3 fL (81-99); Mean Platelet Volume 9.1 fL (7.4-10.4); Monocytes # 0.7 10^3/uL (0.2-0.9); Monocytes % 6.8 %; Neutrophils # 7.38 10^3/uL (1.8-7.7); Neutrophils % 77.1 %; Nucleated Red Blood Cells % 0 %; Platelet Count 374 10^3/cmm (130-400); Red Blood Count 3.14 10^6/uL (4.1-5.3); Red Cell Distribution Width 13.7 % (12.1-15.1); White Blood Count 9.6 10^3/uL (4.0-10.0)
[2020-07-30 12:20] LABS: Alanine Aminotransferase 153 U/L (0-33); Aspartate Amino Transferase 70 U/L (0-32); Glomerular Filtration Rate 9.6 mL/min (90-130)
--- NOTE | 2020-08-26 08:38 | PC.NURSE ---
Due to an administrative issue we are doing a late entry for clarity of the medical record. The infusion case was routine and the approximate stop time was 1350 based upon the start time of 1150.
== END 2020-07-30 10:47 | disposition home or self-care (01) ==
PROVIDERS: Internal Medicine Rheumatology; PCP Nurse Practitioner Family; Visit Provider Internal Medicine Medical Oncology
DX: M05.79 Rheumatoid arthritis with rheumatoid factor of multiple sites without organ or systems involvement (principal); H20.13 Chronic iridocyclitis, bilateral; R93.89 Abnormal findings on diagnostic imaging of other specified body structures
CPT/HCPCS: 76830; 82565; 84450; 84460; 85025; 96365; 96366; 96375; J1745; J2920; J7050

== ENCOUNTER 2020-08-27 10:52 | Outpatient (CLI) | payer MEDICARE, MEDICAID, SELFPAY ==
[2020-08-27 11:05] VITALS: BP 145/70; PULSE 71; RESP 18; TEMP 37.1; O2SAT 95
[2020-08-27] MEDS: sodium chloride 0.9% (100 ml) 100 ML 75 ML (11:53)
[2020-08-27 14:00] VITALS: BP 129/76; PULSE 80; RESP 18; TEMP 37.1; O2SAT 99
[2020-08-27] MEDS: diphenhydrAMINE 25 mg Capsule PO (15:57)
== END 2020-08-27 10:53 | disposition home or self-care (01) ==
LOC: ONCMED 10:55
PROVIDERS: PCP Nurse Practitioner Family; Visit Provider Internal Medicine Rheumatology
DX: M08.00 Unspecified juvenile rheumatoid arthritis of unspecified site (principal); H20.13 Chronic iridocyclitis, bilateral
CPT/HCPCS: 96365; 96366; 96375; J1745; J2920; J7050

== ENCOUNTER → 2020-08-28 11:30 | Outpatient (BNVA) | payer MEDICARE, MEDICAID, SELFPAY | PROVIDERS: PCP Nurse Practitioner Family; Visit Provider Nurse Practitioner Family | DX: I10 Essential (primary) hypertension (principal); N18.4 Chronic kidney disease, stage 4 (severe); F32.9 Major depressive disorder, single episode, unspecified; L40.9 Psoriasis, unspecified; N18.5 Chronic kidney disease, stage 5; K21.9 Gastro-esophageal reflux disease without esophagitis | CPT/HCPCS: 80053; 80061; 82310; 83970; 84100; 84443; 85025 ==

== ENCOUNTER 2020-08-31 16:27 | Emergency (ER) | payer MEDICARE, MEDICAID, SELFPAY ==
[2020-08-31 16:30] VITALS: BP 145/83; PULSE 103; RESP 18; TEMP 36.6; O2SAT 99; BMI 24.4
--- NOTE | 2020-08-31 17:27 | XRR_ITS ---
PROCEDURE INFORMATION: Exam: XR Chest Exam date and time: 08/31/2020 5:35 PM Age: 44 years old Clinical indication: Cough; Additional info: Cough, chills TECHNIQUE: Imaging protocol: XR of the chest Views: 1 view. COMPARISON: CR XR chest 2V* [id number] 08/10/2019 11:41 AM FINDINGS: The lungs are clear of infiltrate. There are no pleural effusions or pneumothorax. The heart size and pulmonary vascularity are normal. Again noted is a right shoulder replacement as well as degenerative changes of the left shoulder. XR/XR chest 1V portable [id number] IMPRESSION: No active disease.
--- NOTE | 2020-08-31 17:27 | W.ED.GENADLT ---
HPI - General Adult General: Chief complaint: Nausea/Vomiting/Diarrhea Stated complaint: N/V, throwing up all day Time Seen by Provider: 08/31/20 17:23 History of Present Illness: HPI narrative: His chronic renal failure patient that has had a sore throat for a couple of days. Started with vomiting this morning. Has chills. Denies any exposure to any sickness. Does have sinus drainage. Onset (ago): day(s) Associated symptoms: Reports cough and fevers/chills; Deny chest pain, dyspnea, headache(s), nausea, rash or vomiting Review of Systems Const: Reports: chills; Denies: fever(s) or body aches Eyes: Denies: change in vision or blurry vision ENMT: Reports: throat pain and nasal congestion Card: Denies: chest pain or dyspnea on exertion Resp: Reports: non-productive cough; Denies: dyspnea or productive cough GI: Denies: abdominal pain, nausea or vomiting Musc: Denies: extremity pain Skin/Breast: Denies: rash Neuro: Denies: headache(s) Psych: Denies: anxiety or depression Juan/Lymph: Denies: easy bruising PFSH ED PFSH: Medical History Chronic anterior uveitis of both eyes Chronic kidney disease Seropositive rheumatoid arthritis of multiple sites Surgical History H/O cataract extraction both eyes H/O esophagogastroduodenoscopy 08/02/2019: Normal H/O foot surgery H/O joint surgery Due to arthritis Neck, knees, shoulder, knuckle, wrists H/O wrist surgery Hx of total knee arthroplasty both Status post colonoscopy 08/02/2019: Poor prep, normal Family History Grandfather No problems noted. Father Stroke Father had Parkinson's and a stroke Hypertension Hypercholesteremia Mother Hypertension Hypercholesteremia Family/Other Breast cancer Cousin-- dx age unknown Ovarian cancer Maternal aunt-- dx age unknown Diabetes Maternal Aunt/Uncle Denies family history of Colon cancer Uterine cancer Social History Smoking and tobacco status: never smoked Second hand smoke exposure: No Alcohol intake: never Lives independently: Yes Marital status: Single service: No Current occupational status: disabled History of recent travel: No Current gender identity: Female Additional social history: - Tobacco use: Denies Alcohol use: Denies Drug use: Denies Female Reproductive History: Date of last menstrual period: 05/26/20 Physical Exam Const: COMMON NORMALS: no acute distress, average body habitus and patient oriented x3 HENMT: COMMON NORMALS: normocephalic HEAD & SCALP: normal to inspection and normocephalic FACE & SINUS: normal facial exam Eye: COMMON NORMALS: conjunctivae normal GENERAL EYE: appearance normal, both eyes and all related structures CONJUNCTIVA: Yes conjunctivae normal Neck/C-Spine: COMMON NORMALS: no JVD Chest: COMMONS NORMALS: normal inspection of the chest Resp: COMMON NORMALS: normal respiratory effort and clear to auscultation bilaterally AUSCULTATION: clear to auscultation bilaterally Cardio: COMMON NORMALS: no JVD, regular rate and regular rhythm RATE: regular rate RHYTHM: regular rhythm GI: COMMON NORMALS: Normal to inspection, nondistended, normoactive bowel sounds present Extremity: COMMON NORMALS: normal to inspection and full ROM Neuro: COMMON NORMALS: patient oriented x3 Course Vital Signs: Vital signs: Vital Signs Temperature 98.4 F 08/31/20 20:23 Pulse Rate 85 08/31/20 21:27 Respiratory Rate 16 08/31/20 21:27 Blood Pressure 135/79 08/31/20 21:27 Pulse Oximetry 100 08/31/20 21:27 MDM - General Adult MDM Narrative: Medical decision making narrative: Patient with history of chronic renal disease. Has a possible nephritis based on CT and urine lab results some mild elevation of white count patient's BUN/creatinine consistent with the previous labs. Patient tolerating fluids well will follow primary care provider on Tuesday or Tuesday Lab Data: Labs: Lab Results 08/31/20 08/31/20 08/31/20 Range/Units 18:15 18:25 19:26 WBC (4.0-10.0) 10^3/ uL RBC (4.1-5.3) 10^6/u L Hgb (11.5-15.3) g/dL Hct (37.0-47.0) % MCV (81-99) fL MCH (28.0-34.0) pg MCHC (30.0-36.0) g/dL RDW (12.1-15.1) % Plt Count (130-400) 10^3/c mm MPV (7.4-10.4) fL Neut % (Auto) % Lymph % (Auto) % [place] % (Auto) % Eos % (Auto) % Baso % (Auto) % Neut # (Auto) (1.8-7.7) 10^3/u L Lymph # (Auto) (0.8-4.8) 10^3/u L [place] # (Auto) (0.2-0.9) 10^3/u L Eos # (Auto) (0.0-0.8) 10^3/u L Baso # (Auto) (0.0-0.1) 10^3/u L Nucleated RBC % (a uto) % Nucleated RBCs # /100WBC Sodium (136-145) mmol/L Potassium (3.5-5.1) mmol/L Chloride (98-107) mmol/L Carbon Dioxide (22-29) mmol/L Anion Gap (5-19) BUN (6-20) mg/dL Creatinine (0.5-0.9) mg/dL GFR Calculation (90-130) mL/min Glucose (65-115) mg/dL POC Glucose 100 (70-110) mg/dL Calculated Osmolal ity (285-295) mOsm/k g Calcium (8.5-10.5) mg/dL Total Bilirubin (0.15-1.2) mg/dL AST (0-32) U/L ALT (0-33) U/L Alkaline Phosphata se (35-105) IU/L Total Protein (6.6-8.7) g/dL Albumin (3.5-5.2) g/dL Globulin (1.3-4.6) g/dL Lipase (13-60) U/L Urine Color Straw (Yellow) Urine Appearance Sl hazy (CLEAR) Urine pH 7 (5-7) Ur Specific Gravit y 1.005 (1.005-1.030) Urine Protein 1+ H (Negative) Urine Glucose (UA) 2+ (Normal) Urine Ketones 1+ H (Negative) Urine Blood 3+ H (Negative) Urine Nitrate Negative (Negative) Urine Bilirubin Neg (Negative) Urine Urobilinogen Norm (Negative) mg/dL Ur Leukocyte Diana ase Negative (Negative) Urine RBC 10-15 H (0-2) /hpf Urine WBC 5-10 H (0-5) /hpf Ur Squamous Epith Cells 0-4 H (0-5) /hpf Amorphous Sediment Not Reportable Urine Bacteria 1+ H (NONE) /hpf Urine Mucus Trace /hpf Group A Strep Rapi d Negative (Negative) 08/31/20 08/31/20 Range/Units 19:28 19:28 WBC 16.0 H (4.0-10.0) 10^3/ uL RBC 3.70 L (4.1-5.3) 10^6/u L Hgb 9.3 L (11.5-15.3) g/dL Hct 31.6 L (37.0-47.0) % MCV 85.4 (81-99) fL MCH 25.1 L (28.0-34.0) pg MCHC 29.4 L (30.0-36.0) g/dL RDW 14.6 (12.1-15.1) % Plt Count 352 (130-400) 10^3/c mm MPV 8.6 (7.4-10.4) fL Neut % (Auto) 86.8 % Lymph % (Auto) 6.5 % [place] % (Auto) 4.8 % Eos % (Auto) 1.1 % Baso % (Auto) 0.3 % Neut # (Auto) 13.89 H (1.8-7.7) 10^3/u L Lymph # (Auto) 1.0 (0.8-4.8) 10^3/u L [place] # (Auto) 0.8 (0.2-0.9) 10^3/u L Eos # (Auto) 0.2 (0.0-0.8) 10^3/u L Baso # (Auto) 0.0 (0.0-0.1) 10^3/u L Nucleated RBC % (a uto) 0 % Nucleated RBCs # 0.0 /100WBC Sodium 139 (136-145) mmol/L Potassium 4.3 (3.5-5.1) mmol/L Chloride 106 (98-107) mmol/L Carbon Dioxide 20 L (22-29) mmol/L Anion Gap 17.3 (5-19) BUN 41 H (6-20) mg/dL Creatinine 4.1 H (0.5-0.9) mg/dL GFR Calculation 11.8 L (90-130) mL/min Glucose 88 (65-115) mg/dL POC Glucose (70-110) mg/dL Calculated Osmolal ity 298 H (285-295) mOsm/k g Calcium 9.1 (8.5-10.5) mg/dL Total Bilirubin 0.2 (0.15-1.2) mg/dL AST 37 H (0-32) U/L ALT 94 H (0-33) U/L Alkaline Phosphata se 72 (35-105) IU/L Total Protein 8.4 (6.6-8.7) g/dL Albumin 4.2 (3.5-5.2) g/dL Globulin 4.2 (1.3-4.6) g/dL Lipase 91 H (13-60) U/L Urine Color (Yellow) Urine Appearance (CLEAR) Urine pH (5-7) Ur Specific Gravit y (1.005-1.030) Urine Protein (Negative) Urine Glucose (UA) (Normal) Urine Ketones (Negative) Urine Blood (Negative) Urine Nitrate (Negative) Urine Bilirubin (Negative) Urine Urobilinogen (Negative) mg/dL Ur Leukocyte Diana ase (Negative) Urine RBC (0-2) /hpf Urine WBC (0-5) /hpf Ur Squamous Epith Cells (0-5) /hpf Amorphous Sediment Urine Bacteria (NONE) /hpf Urine Mucus /hpf Group A Strep Rapi d (Negative) Discharge Plan Discharge Patient Disposition: Home Clinical Impression: Pyelonephritis Condition: Stable Prescriptions: New Zofran 4 mg tablet 4 mg PO Q8H 3 Days Qty: 9 RF: 0 Keflex 500 mg capsule 500 mg PO TID 7 Days Qty: 21 RF: 0 No Action Remicade 100 mg recon soln IV RF: 0 amlodipine 2.5 mg tablet 2.5 mg PO DAILY Qty: 90 RF: 1 desipramine 50 mg tablet 50 mg PO BEDTIME Qty: 30 RF: 5 sodium bicarbonate 650 mg tablet See Rx Instructions .ROUTE .COMPLEX Qty: 270 RF: 1 venlafaxine 75 mg capsule,extended release 24hr See Rx Instructions .ROUTE .COMPLEX Qty: 90 RF: 1 metoprolol tartrate 50 mg tablet 50 mg PO BID Qty: 180 RF: 1 famotidine [Pepcid] 40 mg tablet 40 mg PO BID Qty: 60 RF: 2 ferrous sulfate 325 mg (65 mg iron) tablet 325 mg PO DAILY Qty: 90 RF: 3 norethindrone acetate 5 mg tablet 5 mg PO DAILY Qty: 30 RF: 5 gabapentin 300 mg capsule 300 mg PO BEDTIME Qty: 30 RF: 3 multivitamin [Multiple Vitamins] Tablet 1 tab PO DAILY RF: 0 triamcinolone acetonide 0.1 % ointment See Rx Instructions .ROUTE .COMPLEX RF: 0 Otezla 30 mg tablet 30 mg PO BID RF: 0 timolol maleate 0.5 % drops See Rx Instructions .ROUTE .COMPLEX RF: 0 Discharge Orders: Discharge ED (Routine); Ordered 08/31/20 Ordered By: Sebastien Rose Referrals: Hyacinth Fernández FNP [Primary Care Provider] - Discharge Diet: Usual diet Discharge Activity: Resume usual activity Patient Instructions: Acute Pyelonephritis (ED) Activity Restrictions/Additional Instructions: Follow-up with medical provider as directed. Take medications as prescribed. Return to the ER or your medical provider if condition worsens. Please read and understand discharge instructions. If any questions ask please. Follow-up your primary care provider first next week and get a repeat urine sample and make sure that you are doing okay can return here for condition worsens. Coding Level of Care Code ED Technical Services Specialist for Jori Beasley Exam Comprehensive
[2020-08-31 18:48] LABS: Protein Urine 1+ (Negative); Specific Gravity, Urine 1.005 (1.005-1.030); Urine Appearance SL Hazy (CLEAR); Urine Color Straw (Yellow); pH Urine 7 (5-7)
[2020-08-31 18:49] LABS: Add Urine Microscopic? YES; Bilirubin Urine Neg (Negative); Blood Urine 3+ (Negative); Glucose Urine UA 2+ (Normal); Ketones Urine 1+ (Negative); Leukocyte Esterase Urine Negative (Negative); Nitrate Urine Negative (Negative); Urobilinogen Urine Norm (Negative)
[2020-08-31 18:51] LABS: Bacteria Urine 1+ /hpf; Mucus Urine TRACE /hpf; Squamous Epithelial Cell Urine 0-4 /hpf (0-5)
[2020-08-31 18:52] LABS: Add Urine Culture? Yes
[2020-08-31 18:53] LABS: Rapid Strep A Test Negative (Negative)
[2020-08-31] MEDS: ondansetron 4 MG Tablet PO (19:20)
[2020-08-31 19:30] LABS: Glucose Point of Care 100 mg/dL (70-110)
[2020-08-31 19:32] LABS: Basophils % 0.3 %; Eosinophils # 0.2 10^3/uL (0.0-0.8); Eosinophils % 1.1 %; Hematocrit 31.6 % (37.0-47.0); Hemoglobin 9.3 g/dL (11.5-15.3); Lymphocytes % 6.5 %; Mean Corpuscular HGB Conc 29.4 g/dL (30.0-36.0); Mean Corpuscular Hemoglobin 25.1 pg (28.0-34.0); Mean Corpuscular Volume 85.4 fL (81-99); Mean Platelet Volume 8.6 fL (7.4-10.4); Monocytes # 0.8 10^3/uL (0.2-0.9); Monocytes % 4.8 %; Neutrophils # 13.89 10^3/uL (1.8-7.7); Neutrophils % 86.8 %; Nucleated Red Blood Cells % 0 %; Platelet Count 352 10^3/cmm (130-400); Red Cell Distribution Width 14.6 % (12.1-15.1)
[2020-08-31 19:49] LABS: Alanine Aminotransferase 94 U/L (0-33); Albumin Level 4.2 g/dL (3.5-5.2); Alkaline Phosphatase 72 IU/L (35-105); Anion Gap 17.3 (5-19); Aspartate Amino Transferase 37 U/L (0-32); Blood Urea Nitrogen 41 mg/dL (6-20); Calcium 9.1 mg/dL (8.5-10.5); Carbon Dioxide 20 mmol/L (22-29); Chloride 106 mmol/L (98-107); Globulin 4.2 g/dL (1.3-4.6); Glomerular Filtration Rate 11.8 mL/min (90-130); Glucose 88 mg/dL (65-115); Lipase 91 U/L (13-60); Osmolality Calculated 298 mOsm/kg (285-295); Potassium 4.3 mmol/L (3.5-5.1); Sodium 139 mmol/L (136-145); Total Bilirubin 0.2 mg/dL (0.15-1.2); Total Protein 8.4 g/dL (6.6-8.7)
--- NOTE | 2020-08-31 19:54 | CTR_ITS ---
PROCEDURE INFORMATION: Exam: CT Abdomen And Pelvis Without Contrast Exam date and time: 08/31/2020 8:13 PM Age: 44 years old Clinical indication: Nausea and vomiting; Additional info: Elevated lipase, n/v TECHNIQUE: Imaging protocol: Computed tomography of the abdomen and pelvis without contrast. Radiation optimization: All CT scans at this facility use at least one of these dose optimization techniques: automated exposure control; mA and/or kV adjustment per patient size (includes targeted exams where dose is matched to clinical indication); or iterative reconstruction. COMPARISON: No relevant prior studies available. RADIATION DOSE METRICS: Total DLP (mGy-cm): 749.87 FINDINGS: The lung bases are clear. There are degenerative changes of the spine. There is no liver mass. There is no intrahepatic biliary dilatation. No gallstones are seen within the gallbladder. The pancreas is unremarkable. No peripancreatic fat stranding is identified. The spleen is unremarkable. There is no adrenal mass. There is bilateral perinephric fat stranding. Nonobstructing renal calculi are present. There is no renal mass or hydronephrosis. The ureters are normal in caliber. No calculi are seen along the course of the ureters. The aorta is normal in caliber. The IVC is normal in caliber. Small retroperitoneal lymph nodes are present. There is no mesenteric adenopathy. There is a small hiatal hernia. There is no gastric wall thickening. The small bowel loops in the upper abdomen are nondistended with no bowel wall thickening. Feces is seen throughout the colon. There is no thickening of the wall of the ascending, transverse or descending colons. Within the pelvis: A normal appendix is seen within the right lower quadrant. The bladder is unremarkable. The uterus is unremarkable. There are no adnexal masses. There is no free fluid within the pelvis. There is no inguinal adenopathy. There is no pelvic adenopathy. The bowel loops within the pelvis are unremarkable. CT/CT abdomen wo con [id number] IMPRESSION: 1. No CT evidence for pancreatitis. 2. Bilateral perinephric fat stranding. No hydronephrosis is seen. There are bilateral nonobstructing renal calculi. Please correlate clinically for pyelonephritis. Radiation Dose CTDIVOL = (mGy): DLP = 749.87 (mGy-cm)
[2020-08-31 20:23] VITALS: BP 141/76; PULSE 85; RESP 16; TEMP 36.9; O2SAT 100
[2020-08-31] MEDS: cephALEXin 500 mg Capsule PO (21:20)
[2020-08-31 21:27] VITALS: BP 135/79; PULSE 85; RESP 16; O2SAT 100
== END 2020-08-31 21:29 | disposition home or self-care (01) ==
PROVIDERS: Emergency Medicine; Emergency Provider Nurse Practitioner Family; PCP Nurse Practitioner Family
DX: N12 Tubulo-interstitial nephritis, not specified as acute or chronic (principal)
CPT/HCPCS: 36415; 36416; 71045; 74150; 80053; 81001; 82962; 83690; 85025; 87081; 87086; 87880; 99283; Q0162

== ENCOUNTER → 2020-10-06 09:20 | Outpatient (BNVA) | payer MEDICARE, MEDICAID, SELFPAY | PROVIDERS: PCP Nurse Practitioner Family; Visit Provider Internal Medicine Rheumatology | DX: M05.79 Rheumatoid arthritis with rheumatoid factor of multiple sites without organ or systems involvement (principal); Z79.899 Other long term (current) drug therapy | CPT/HCPCS: 36415; 80076; 82565; 85025; 86140 ==

== ENCOUNTER → 2020-10-21 13:57 | Outpatient (BNVA) | payer MEDICARE, MEDICAID, SELFPAY | PROVIDERS: PCP Nurse Practitioner Family; Visit Provider Internal Medicine Rheumatology | DX: M05.79 Rheumatoid arthritis with rheumatoid factor of multiple sites without organ or systems involvement (principal); N18.5 Chronic kidney disease, stage 5; Z79.899 Other long term (current) drug therapy; H21.509 Unspecified adhesions of iris and ciliary body, unspecified eye; H20.13 Chronic iridocyclitis, bilateral; L40.9 Psoriasis, unspecified | CPT/HCPCS: 99214 ==

== ENCOUNTER → 2020-10-24 16:44 | Outpatient (BNVA) | payer MEDICARE, MEDICAID, SELFPAY | PROVIDERS: PCP Nurse Practitioner Family; Visit Provider Surgery | DX: Z01.812 Encounter for preprocedural laboratory examination (principal); Z20.822 Contact with and (suspected) exposure to COVID-19 | CPT/HCPCS: 87635 ==

== ENCOUNTER 2020-11-19 10:57 | Outpatient (CLI) | payer MEDICARE, MEDICAID, SELFPAY ==
[2020-11-19 11:20] VITALS: BP 138/73; PULSE 75; RESP 16; TEMP 36.8; O2SAT 91
[2020-11-19] MEDS: sodium chloride 0.9% 250 ML 75 ML IV (12:15)
[2020-11-19] MEDS: diphenhydrAMINE 25 mg Capsule PO (12:20)
[2020-11-19] MEDS: acetaminophen 325 mg Tablet 975 MG PO (12:20)
[2020-11-19 14:36] VITALS: BP 124/75; PULSE 76; RESP 16; TEMP 36.9; O2SAT 99
== END 2020-11-19 10:58 | disposition home or self-care (01) ==
PROVIDERS: PCP Nurse Practitioner Family; Visit Provider Internal Medicine Rheumatology
DX: M05.79 Rheumatoid arthritis with rheumatoid factor of multiple sites without organ or systems involvement (principal); H20.13 Chronic iridocyclitis, bilateral
CPT/HCPCS: 96365; 96366; 96375; J1745; J2920; J7050

== ENCOUNTER → 2020-12-02 09:44 | Outpatient (BNVA) | payer MEDICARE, MEDICAID, SELFPAY | PROVIDERS: PCP Nurse Practitioner Family; Visit Provider Internal Medicine | DX: N18.5 Chronic kidney disease, stage 5 (principal); R80.9 Proteinuria, unspecified; D63.1 Anemia in chronic kidney disease; Z94.0 Kidney transplant status; Z79.899 Other long term (current) drug therapy | CPT/HCPCS: 80048; 81003; 82310; 82570; 82728; 83036; 83550; 83735; 83970; 84100; 84156; 84550 ==

== ENCOUNTER → 2021-01-30 10:54 | Outpatient (BNVA) | payer MEDICARE, MEDICAID, SELFPAY | PROVIDERS: PCP Nurse Practitioner Family; Visit Provider Nurse Practitioner | DX: Z01.812 Encounter for preprocedural laboratory examination (principal); Z20.822 Contact with and (suspected) exposure to COVID-19 | CPT/HCPCS: 87635 ==

== ENCOUNTER 2021-02-04 10:19 | Observation (INO) | payer MEDICARE, MEDICAID, SELFPAY ==
[2021-02-04] VITALS (7 sets, daily range): BP systolic 139–152; BP diastolic 63–79; PULSE 73–89; RESP 16–20; TEMP 36.7–36.9; O2SAT 96–100; BMI 22.4
--- NOTE | 2021-02-04 10:42 | ECG_ITS ---
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 Measurements Intervals [place] Rate: 73 P: 68 NC: 179 QRS: 0 QRSD: 101 T: 31 QT: 336 QTc: 371 Interpretive Statements SINUS RHYTHM Compared to ECG 07/29/2019 14:02:54 No significant changes Electronically Signed On 02-05-2021 7:38:08 CDT by Delia Scruggs M.D. [id number]
--- NOTE | 2021-02-04 10:42 | XR_ITS ---
WS: [id number] Portable AP upright chest, 02/04/2021 Clinical Data: dyspnea/cough Comparison: Portable chest, 08/31/2020. Findings: No nodules, masses or effusions are seen. The heart is slightly enlarged. The pulmonary vas cularity is not increased. No pneumonia or pneumothorax is seen. There is a dextroscoliosis of the lo wer thoracic spine. There is a right shoulder prosthesis. XR/XR chest 1V portable [id number] Impression: Minimal cardiomegaly.
--- NOTE | 2021-02-04 10:42 | W.ED.GENADLT ---
HPI - General Adult General: Chief complaint: General Medical Stated complaint: SEVERE LEG PAINS AND H/A Time Seen by Provider: 02/04/21 10:34 History of Present Illness: HPI narrative: 45-year-old female presents emergency room complaining of systemic myalgias. She has a history of rheumatoid arthritis.She is on biologicals. She was previously on methotrexate which led to renal failure she has a fistula in the right arm that is maturing with the plan to do dialysis at some point. He denies any fever sweats chills cough or shortness of breath. She states the last time she felt like this her calcium was elevated. Onset (ago): day(s) Severity: moderate Quality: aching Pain Consistency: constant Relieving factors: none Exacerbating factors: none Associated symptoms: Deny chest pain, confusion, cough, diaphoresis, decreased appetite, dyspnea, fevers/chills, headache(s), malaise, nausea, rash, palpitations, seizures, short of breath, syncope, vomiting or weakness Treatments prior to arrival: none Review of Systems Const: Denies: malaise or diaphoresis ENMT: Denies: throat pain, ear or mastoid pain, nasal discharge or nasal congestion Card: Denies: chest pain, palpitations or syncope Resp: Denies: dyspnea GI: Denies: nausea or vomiting : Denies: flank pain, difficulty voiding, dysuria, urinary frequency or urinary urgency Skin/Breast: Denies: rash Neuro: Denies: headache(s) or confusion PFSH ED PFSH: Medical History AV fistula Chronic anterior uveitis of both eyes Chronic kidney disease Dr. Aquino in [facility] [place] Seropositive rheumatoid arthritis of multiple sites Surgical History H/O cataract extraction both eyes H/O esophagogastroduodenoscopy 08/02/2019: Normal H/O foot surgery H/O joint surgery Due to arthritis Neck, knees, shoulder, knuckle, wrists H/O wrist surgery Hx of total knee arthroplasty both Status post colonoscopy 08/02/2019: Poor prep, normal Family History Grandfather No problems noted. Father Stroke Father had Parkinson's and a stroke Hypertension Hypercholesteremia Mother Hypertension Hypercholesteremia Family/Other Breast cancer Cousin-- dx age unknown Ovarian cancer Maternal aunt-- dx age unknown Diabetes Maternal Aunt/Uncle Denies family history of Colon cancer Uterine cancer Social History Smoking and tobacco status: never smoked Second hand smoke exposure: No Alcohol intake: never Lives independently: Yes Marital status: Single service: No Current occupational status: disabled History of recent travel: No Current gender identity: Female Special laisha needs: No Additional social history: - Tobacco use: Denies Alcohol use: Denies Drug use: Denies Female Reproductive History: Date of last menstrual period: 05/26/20 Physical Exam Const: COMMON NORMALS: no acute distress GENERAL APPEARANCE: cooperative and comfortable ORIENTATION/CONSCIOUSNESS: Yes awake, Yes oriented to person, Yes oriented to place and Yes oriented to time HENMT: COMMON NORMALS: normocephalic, atraumatic and hearing grossly normal bilaterally HEAD & SCALP: normocephalic and atraumatic Neck/C-Spine: COMMON NORMALS: no JVD Resp: COMMON NORMALS: normal respiratory effort, No retractions, No use of accessory muscles and clear to auscultation bilaterally AUSCULTATION: clear to auscultation bilaterally Cardio: COMMON NORMALS: no JVD, regular rate, regular rhythm and No murmurs present (Cardio) RATE: regular rate RHYTHM: regular rhythm GI: COMMON NORMALS: Soft to palpation and No hepatosplenomegaly present AUSCULTATION: Yes normoactive bowel sounds PALPATION: Yes Soft to palpation, No Tenderness to palpation present (GI), No Guarding due to palpation present (GI) and Yes No hepatosplenomegaly present Extremity: COMMON NORMALS: normal to inspection, capillary refill normal, no clubbing, cyanosis or edema, no calf tenderness and no pedal edema Neuro: SENSORIUM/ORIENTATION: Yes oriented to person, Yes oriented to place and Yes oriented to time Skin: COMMON NORMALS: no rashes or lesions noted GENERAL SKIN EXAM: no rashes or lesions noted Course Vital Signs: Vital signs: Vital Signs Temperature 98.1 F 02/04/21 10:26 Pulse Rate 86 02/04/21 17:04 Respiratory Rate 16 02/04/21 17:04 Blood Pressure 147/79 02/04/21 11:05 Pulse Oximetry 100 02/04/21 17:04 MDM - General Adult MDM Narrative: Medical decision making narrative: Reviewed lab and imaging findings with the patient. Also reviewed her electrolytes. He will need to be admitted acute worsening of her chronic renal failure with hypercalcemia-for magnesiumia Lab Data: Labs: Lab Results 02/04/21 02/04/21 02/04/21 Range/Units 10:33 11:13 11:13 WBC 13.2 H (4.0-10.0) 10^3/ uL RBC 3.15 L (4.1-5.3) 10^6/u L Hgb 7.9 L (11.5-15.3) g/dL Hct 26.2 L (37.0-47.0) % MCV 83.2 (81-99) fL MCH 25.1 L (28.0-34.0) pg MCHC 30.2 (30.0-36.0) g/dL RDW 15.9 H (12.1-15.1) % Plt Count 388 (130-400) 10^3/c mm MPV 9.2 (7.4-10.4) fL Neut % (Auto) 85.7 % Lymph % (Auto) 7.5 % [place] % (Auto) 5.4 % Eos % (Auto) 0.6 % Baso % (Auto) 0.3 % Neut # (Auto) 11.27 H (1.8-7.7) 10^3/u L Lymph # (Auto) 1.0 (0.8-4.8) 10^3/u L [place] # (Auto) 0.7 (0.2-0.9) 10^3/u L Eos # (Auto) 0.1 (0.0-0.8) 10^3/u L Baso # (Auto) 0.0 (0.0-0.1) 10^3/u L Nucleated RBC % (a uto) 0 % Nucleated RBCs # 0.0 /100WBC Sodium 134 L (136-145) mmol/L Potassium 4.3 (3.5-5.1) mmol/L Chloride 95 L (98-107) mmol/L Carbon Dioxide 21 L (22-29) mmol/L Anion Gap 22.3 H (5-19) BUN 64 H (6-20) mg/dL Creatinine 5.6 H* (0.5-0.9) mg/dL GFR Calculation 8.2 L (90-130) mL/min Glucose 84 (65-115) mg/dL Calculated Osmolal ity 296 H (285-295) mOsm/k g Calcium 12.6 H (8.5-10.5) mg/dL Phosphorus (2.5-4.5) mg/dL Magnesium 2.9 H (1.7-2.3) mg/dL Total Bilirubin 0.2 (0.15-1.2) mg/dL AST 23 (0-32) U/L ALT 35 H (0-33) U/L Alkaline Phosphata se 50 (35-105) IU/L Total Protein 8.4 (6.6-8.7) g/dL Albumin 4.1 (3.5-5.2) g/dL Globulin 4.3 (1.3-4.6) g/dL Vitamin B12 (232-1245) pg/mL Folate (4.8-37.3) ng/mL PTH Intact (15-65) pg/mL Calcium (PTH Intac t) (8.5-10.5) mg/dL Urine Color Yellow (Yellow) Urine Appearance Clear (CLEAR) Urine pH 7 (5-7) Ur Specific Gravit y 1.005 (1.005-1.030) Urine Protein 1+ H (Negative) Urine Glucose (UA) 2+ (Normal) Urine Ketones Negative (Negative) Urine Blood Neg (Negative) Urine Nitrate Negative (Negative) Urine Bilirubin Neg (Negative) Urine Urobilinogen Neg (Negative) mg/dL Ur Leukocyte Diana ase Negative (Negative) 02/04/21 02/04/21 02/04/21 Range/Units 11:13 11:13 11:13 WBC (4.0-10.0) 10^3/ uL RBC (4.1-5.3) 10^6/u L Hgb (11.5-15.3) g/dL Hct (37.0-47.0) % MCV (81-99) fL MCH (28.0-34.0) pg MCHC (30.0-36.0) g/dL RDW (12.1-15.1) % Plt Count (130-400) 10^3/c mm MPV (7.4-10.4) fL Neut % (Auto) % Lymph % (Auto) % [place] % (Auto) % Eos % (Auto) % Baso % (Auto) % Neut # (Auto) (1.8-7.7) 10^3/u L Lymph # (Auto) (0.8-4.8) 10^3/u L [place] # (Auto) (0.2-0.9) 10^3/u L Eos # (Auto) (0.0-0.8) 10^3/u L Baso # (Auto) (0.0-0.1) 10^3/u L Nucleated RBC % (a uto) % Nucleated RBCs # /100WBC Sodium (136-145) mmol/L Potassium (3.5-5.1) mmol/L Chloride (98-107) mmol/L Carbon Dioxide (22-29) mmol/L Anion Gap (5-19) BUN (6-20) mg/dL Creatinine (0.5-0.9) mg/dL GFR Calculation (90-130) mL/min Glucose (65-115) mg/dL Calculated Osmolal ity (285-295) mOsm/k g Calcium (8.5-10.5) mg/dL Phosphorus 7.4 H (2.5-4.5) mg/dL Magnesium (1.7-2.3) mg/dL Total Bilirubin (0.15-1.2) mg/dL AST (0-32) U/L ALT (0-33) U/L Alkaline Phosphata se (35-105) IU/L Total Protein (6.6-8.7) g/dL Albumin (3.5-5.2) g/dL Globulin (1.3-4.6) g/dL Vitamin B12 (232-1245) pg/mL Folate 16.0 (4.8-37.3) ng/mL PTH Intact 13.1 L (15-65) pg/mL Calcium (PTH Intac t) 12.1 H (8.5-10.5) mg/dL Urine Color (Yellow) Urine Appearance (CLEAR) Urine pH (5-7) Ur Specific Gravit y (1.005-1.030) Urine Protein (Negative) Urine Glucose (UA) (Normal) Urine Ketones (Negative) Urine Blood (Negative) Urine Nitrate (Negative) Urine Bilirubin (Negative) Urine Urobilinogen (Negative) mg/dL Ur Leukocyte Diana ase (Negative) 02/04/21 Range/Units 11:13 WBC (4.0-10.0) 10^3/ uL RBC (4.1-5.3) 10^6/u L Hgb (11.5-15.3) g/dL Hct (37.0-47.0) % MCV (81-99) fL MCH (28.0-34.0) pg MCHC (30.0-36.0) g/dL RDW (12.1-15.1) % Plt Count (130-400) 10^3/c mm MPV (7.4-10.4) fL Neut % (Auto) % Lymph % (Auto) % [place] % (Auto) % Eos % (Auto) % Baso % (Auto) % Neut # (Auto) (1.8-7.7) 10^3/u L Lymph # (Auto) (0.8-4.8) 10^3/u L [place] # (Auto) (0.2-0.9) 10^3/u L Eos # (Auto) (0.0-0.8) 10^3/u L Baso # (Auto) (0.0-0.1) 10^3/u L Nucleated RBC % (a uto) % Nucleated RBCs # /100WBC Sodium (136-145) mmol/L Potassium (3.5-5.1) mmol/L Chloride (98-107) mmol/L Carbon Dioxide (22-29) mmol/L Anion Gap (5-19) BUN (6-20) mg/dL Creatinine (0.5-0.9) mg/dL GFR Calculation (90-130) mL/min Glucose (65-115) mg/dL Calculated Osmolal ity (285-295) mOsm/k g Calcium (8.5-10.5) mg/dL Phosphorus (2.5-4.5) mg/dL Magnesium (1.7-2.3) mg/dL Total Bilirubin (0.15-1.2) mg/dL AST (0-32) U/L ALT (0-33) U/L Alkaline Phosphata se (35-105) IU/L Total Protein (6.6-8.7) g/dL Albumin (3.5-5.2) g/dL Globulin (1.3-4.6) g/dL Vitamin B12 546 (232-1245) pg/mL Folate (4.8-37.3) ng/mL PTH Intact (15-65) pg/mL Calcium (PTH Intac t) (8.5-10.5) mg/dL Urine Color (Yellow) Urine Appearance (CLEAR) Urine pH (5-7) Ur Specific Gravit y (1.005-1.030) Urine Protein (Negative) Urine Glucose (UA) (Normal) Urine Ketones (Negative) Urine Blood (Negative) Urine Nitrate (Negative) Urine Bilirubin (Negative) Urine Urobilinogen (Negative) mg/dL Ur Leukocyte Diana ase (Negative) Discharge Plan Discharge Patient Disposition: Admitted As Inpatient Admit Provider: Buck Bennett Clinical Impression: Hypercalcemia, Chronic kidney disease, Chronic anemia, Hypertension, Hypermagnesemia, Suspected 2019-nCoV infection Condition: Stable Coding Level of Care Code ED Volunteer Services Coordinator for Chg Fwd Exam Comprehensive
[2021-02-04 11:20] LABS: Basophils % 0.3 %; Eosinophils # 0.1 10^3/uL (0.0-0.8); Eosinophils % 0.6 %; Hematocrit 26.2 % (37.0-47.0); Hemoglobin 7.9 g/dL (11.5-15.3); Lymphocytes % 7.5 %; Mean Corpuscular HGB Conc 30.2 g/dL (30.0-36.0); Mean Corpuscular Hemoglobin 25.1 pg (28.0-34.0); Mean Corpuscular Volume 83.2 fL (81-99); Mean Platelet Volume 9.2 fL (7.4-10.4); Monocytes # 0.7 10^3/uL (0.2-0.9); Monocytes % 5.4 %; Neutrophils # 11.27 10^3/uL (1.8-7.7); Neutrophils % 85.7 %; Nucleated Red Blood Cells % 0 %; Platelet Count 388 10^3/cmm (130-400); Red Blood Count 3.15 10^6/uL (4.1-5.3); Red Cell Distribution Width 15.9 % (12.1-15.1); White Blood Count 13.2 10^3/uL (4.0-10.0)
[2021-02-04] MEDS: morphine 4 mg/mL SDV 1 mL IVP (11:20)
[2021-02-04 11:28] LABS: Add Urine Microscopic? NO; Charge for UA Resulting for Rev
[2021-02-04 11:41] LABS: Protein Urine 1+ (Negative); Specific Gravity, Urine 1.005 (1.005-1.030); Urine Appearance Clear (CLEAR); Urine Color Yellow (Yellow); pH Urine 7 (5-7)
[2021-02-04 11:42] LABS: Bilirubin Urine Neg (Negative); Blood Urine Neg (Negative); Glucose Urine UA 2+ (Normal); Ketones Urine Negative (Negative); Leukocyte Esterase Urine Negative (Negative); Nitrate Urine Negative (Negative); Urobilinogen Urine Neg (Negative)
[2021-02-04 12:16] LABS: Alanine Aminotransferase 35 U/L (0-33); Albumin Level 4.1 g/dL (3.5-5.2); Alkaline Phosphatase 50 IU/L (35-105); Anion Gap 22.3 (5-19); Aspartate Amino Transferase 23 U/L (0-32); Blood Urea Nitrogen 64 mg/dL (6-20); Calcium 12.6 mg/dL (8.5-10.5); Carbon Dioxide 21 mmol/L (22-29); Chloride 95 mmol/L (98-107); Globulin 4.3 g/dL (1.3-4.6); Glomerular Filtration Rate 8.2 mL/min (90-130); Glucose 84 mg/dL (65-115); Magnesium 2.9 mg/dL (1.7-2.3); Osmolality Calculated 296 mOsm/kg (285-295); Potassium 4.3 mmol/L (3.5-5.1); Sodium 134 mmol/L (136-145); Total Bilirubin 0.2 mg/dL (0.15-1.2); Total Protein 8.4 g/dL (6.6-8.7)
--- NOTE | 2021-02-04 14:06 | PM.HP ---
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 Patient is stating that since May she has not noticed any vaginal bleeding, she has not noticed any active GI bleed as well. Today she has been feeling very lethargic fatigue and her symptoms are associated with leg cramps and headache. She did nursemaids any chest pain, fever, nausea, vomiting. She is vaccinated with both doses of messenger RNA vaccine for COVID-19. She has a fistula of right arm which was placed around October, she is not getting dialysis at this point. Her oyster buyer recommended her calcium supplementation secondary to chronic kidney disease. Patient is stating that her last dose was roughly 4 nights ago. She has not been diagnosed with multiple myeloma. Diagnosis in the ER revealed hemoglobin 7.9 calcium 12 creatinine 5.6 potassium 4.3, I have requested Covid PCR, phosphorus level and PTH Review of Systems Const: Reports: chills, body aches, change in weight, fatigue and malaise; Denies: fever(s) Eyes: Denies: change in vision ENMT: Reports: throat pain Card: Denies: chest pain Resp: Denies: dyspnea GI: Reports: nausea; Denies: abdominal pain or vomiting : Denies: flank pain Musc: Denies: neck pain Skin/Breast: Reports: lesions Neuro: Denies: headache(s) Psych: Denies: anxiety Endo: Denies: polyuria Juan/Lymph: Denies: easy bruising All/Imm: Denies: urticaria Medications/Allergies Home Medications Medication Instructions Recorded Confirmed Last Taken Type Otezla 30 mg PO BID 05/26/20 02/04/21 02/04/21 07:00 History timolol maleate 1 drp OPHTHALMIC (EYE) BID 05/26/20 02/04/21 05/26/20 History triamcinolone acetonide 1 applic TOPICAL PRN 05/26/20 02/04/21 Unknown History infliximab 100 mg intravenous See Rx Instructions .ROUTE .COMPLEX 08/28/20 02/04/21 Unknown History solution gabapentin 300 mg capsule 300 mg PO BEDTIME #30 cap 10/21/20 02/04/21 02/03/21 Rx desipramine 50 mg tablet 50 mg PO BEDTIME #30 tab 12/22/20 02/04/21 02/03/21 Rx metoprolol tartrate 50 mg tablet 50 mg PO BID #180 tab 12/22/20 02/04/21 02/04/21 07:00 Rx prednisone 10 mg tablet See Rx Instructions PO .COMPLEX 01/19/21 02/04/21 02/04/21 Rx #30 tab albuterol sulfate [ProAir HFA] 2 puff INHALATION Q4H PRN 02/04/21 02/04/21 Unknown History amlodipine 2.5 mg PO BEDTIME 02/04/21 02/04/21 02/03/21 History famotidine 40 mg PO BID 02/04/21 02/04/21 02/04/21 07:00 History ketoconazole 1 applic TOPICAL . DIRECTED 02/04/21 02/04/21 Unknown History norethindrone (contraceptive) 0.35 mg PO DAILY 02/04/21 02/04/21 02/04/21 07:00 History [Sahra] sodium bicarbonate 1,950 mg PO BID 02/04/21 02/04/21 02/04/21 07:00 History venlafaxine 75 mg PO QAM 02/04/21 02/04/21 02/04/21 07:00 History Allergies Allergy/AdvReac Type Severity Reaction Status Date / Time Penicillins Allergy Intermediate swelling Verified 02/04/21 12:22 PFSH Acute PFSH: Medical History AV fistula Chronic anterior uveitis of both eyes Chronic kidney disease Dr. Aquino in [place] Seropositive rheumatoid arthritis of multiple sites Surgical History H/O cataract extraction both eyes H/O esophagogastroduodenoscopy 08/02/2019: Normal H/O foot surgery H/O joint surgery Due to arthritis Neck, knees, shoulder, knuckle, wrists H/O wrist surgery Hx of total knee arthroplasty both Status post colonoscopy 08/02/2019: Poor prep, normal Family History Grandfather No problems noted. Father Stroke Father had Parkinson's and a stroke Hypertension Hypercholesteremia Mother Hypertension Hypercholesteremia Family/Other Breast cancer Cousin-- dx age unknown Ovarian cancer Maternal aunt-- dx age unknown Diabetes Maternal Aunt/Uncle Denies family history of Colon cancer Uterine cancer Social History Smoking and tobacco status: never smoked Second hand smoke exposure: No Alcohol intake: never Lives independently: Yes Marital status: Single service: No Current occupational status: disabled History of recent travel: No Current gender identity: Female Special laisha needs: No Additional social history: - Tobacco use: Denies Alcohol use: Denies Drug use: Denies Female Reproductive History: Date of last menstrual period: 05/26/20 Vitals/I&O/Wt Last Vital Signs Temp 98.1 F 02/04/21 10:26 Pulse 79 02/04/21 11:05 Resp 16 02/04/21 11:20 BP 147/79 02/04/21 11:05 Pulse Ox 100 02/04/21 11:20 Weight last 48 hrs Weight 52.163 kg Physical Exam Narrative: EXAM NARRATIVE: Patient was sitting comfortably in her bed Awake alert oriented x3 Appears stated age Appears euvolemic Right arm fistula S1, S2 sinus rhythm No murmur appreciated Abdomen soft nontender bowel sound present Lower extremity no edema Rheumatoid arthritis arthropathy noted Patient is awake alert oriented x3 EOMI, PERRLA No neurological deficits Bilateral breath sounds no adventitious rhonchi or crackles Data : 02/04/21 11:13 02/04/21 11:13 A&P Assessment and plan (1) Hypercalcemia: Status: Acute (2) AV fistula: Status: Acute (3) Chronic kidney disease: Status: Acute Qualifiers: Chronic kidney disease stage: stage 5, not on chronic dialysis Qualified Code(s): N18.5 - Chronic kidney disease, stage 5 (4) Seropositive rheumatoid arthritis of multiple sites: Status: Acute (5) Chronic anterior uveitis of both eyes: Status: Acute (6) Migraine headache: Status: Acute (7) Anemia in chronic kidney disease (CKD): Status: Acute Additional A&P Information Symptomatic anemia Patient's hemoglobin is 7.9 her baseline seems to be around 8.1-9 Would transfuse if hemoglobin less than 7 No active hemodynamic instability No active GI bleed As per the patient her vaginal bleed stopped since initiation of estrogen by her VULCANIZING MACHINE OPERATOR Check B12 folic acid level, add iron supplementation This seems to be anemia of chronic disease Symptomatic hypercalcemia Leg cramps, headache, lethargy and fatigue consistent with hypercalcemia Check PTH Patient has been taking calcium supplementation last dose 4 nights ago We will use IV fluids, calcitonin for now She is not sure whether she has been diagnosed with multiple myeloma she is attributing her chronic kidney disease to use of methotrexate I would not pursue multiple myeloma work-up at this point since she follows up with a oyster buyer Migraine headache Cannot use NSAIDs because of worsening creatinine Tylenol for now Full code Renal dialysis diet DVT prophylaxis Heparin Attestations Medical Necessity Statement*: Anticipating discharge within 48 hours need management for symptomatic hypercalcemia Time Spent in Patient Care: 16 - 35 minutes Coding Level of Care Code Acute Slate Splitting Supervisor for Chg Fwd Diagnoses Hypercalcemia E83.52 AV fistula I77.0 Chronic kidney disease N18.5 Chronic kidney disease stage: stage 5, not on chronic dialysis Seropositive rheumatoid arthritis of multiple sites M05.79 Chronic anterior uveitis of both eyes H20.13 Migraine headache G43.909 Anemia in chronic kidney disease (CKD) N18.9; D63.1
[2021-02-04 14:48] LABS: Phosphorus 7.4 mg/dL (2.5-4.5)
[2021-02-04 14:57] LABS: Calcium 12.1 mg/dL (8.5-10.5); Parathyroid Hormone 13.1 pg/mL (15-65)
[2021-02-04 16:20] LABS: Vitamin B12 546 pg/mL (232-1245)
[2021-02-04] MEDS: metoprolol tartrate 50 mg Tablet PO (18:03)
[2021-02-04] MEDS: famotidine 20 mg Tablet 40 MG PO (18:03)
[2021-02-04] MEDS: sodium bicarbonate 650 mg Tablet 1950 MG PO (18:03)
[2021-02-04] MEDS: calcitonin,salmon 200 unit/mL SDV 2mL 100 UNIT SUBCUT (18:05)
[2021-02-04] MEDS: sodium chloride 0.9% 1,000 ML 30 ML IV (18:05)
[2021-02-04 19:34] LABS: 25 Hydroxy Vitamin D 61 ng/mL (30-100)
[2021-02-04] MEDS: amlodipine 5 mg Tablet 2.5 MG PO (20:14)
[2021-02-04 20:33] LABS: Hemoglobin 7.8 g/dL (11.5-15.3)
[2021-02-05] VITALS (10 sets, daily range): BP systolic 126–168; BP diastolic 69–82; PULSE 73–86; RESP 17–18; TEMP 36.4–37.1; O2SAT 93–100
[2021-02-05] MEDS: ondansetron 2 mg/ML SDV 2 mL 4 MG IVP (01:18)
[2021-02-05 05:33] LABS: Basophils % 0.4 %; Eosinophils % 0.2 %; Hematocrit 25.2 % (37.0-47.0); Hemoglobin 7.6 g/dL (11.5-15.3); Mean Corpuscular HGB Conc 30.2 g/dL (30.0-36.0); Mean Corpuscular Hemoglobin 24.9 pg (28.0-34.0); Mean Corpuscular Volume 82.6 fL (81-99); Mean Platelet Volume 9.2 fL (7.4-10.4); Monocytes # 0.9 10^3/uL (0.2-0.9); Monocytes % 8.9 %; Neutrophils # 7.82 10^3/uL (1.8-7.7); Nucleated Red Blood Cells % 0 %; Platelet Count 381 10^3/cmm (130-400); Red Blood Count 3.05 10^6/uL (4.1-5.3); White Blood Count 9.8 10^3/uL (4.0-10.0)
[2021-02-05 06:07] LABS: Anion Gap 20.1 (5-19); Blood Urea Nitrogen 66 mg/dL (6-20); Calcium 11.6 mg/dL (8.5-10.5); Carbon Dioxide 19 mmol/L (22-29); Chloride 103 mmol/L (98-107); Glomerular Filtration Rate 7.4 mL/min (90-130); Glucose 105 mg/dL (65-115); Osmolality Calculated 305 mOsm/kg (285-295); Potassium 4.1 mmol/L (3.5-5.1); Sodium 138 mmol/L (136-145)
[2021-02-05] MEDS: metoprolol tartrate 50 mg Tablet PO ×2 (08:20→17:28)
[2021-02-05] MEDS: sevelamer 800 mg Tablet PO ×2 (08:20→15:58)
[2021-02-05] MEDS: famotidine 20 mg Tablet 40 MG PO ×2 (08:20→17:28)
[2021-02-05] MEDS: sodium bicarbonate 650 mg Tablet 1950 MG PO ×2 (08:20→17:29)
[2021-02-05] MEDS: calcitonin,salmon 200 unit/mL SDV 2mL 100 UNIT SUBCUT (10:00)
--- NOTE | 2021-02-05 10:39 | PC.CHAP ---
Pastoral Care Encounter/Spiritual Assessment Type of Contact [] Declined rn peritoneal dialysis visit [] Patient/Family/Request visit [] Outpatient visit [] Follow-up visit [] Physician referral [] Code/Alert [] Routine visit [] Staff referral [] Actively dying [] Patient sleeping [] Family support [] [] Out of room [] Palliative care [] [] Receiving care in room [] Pre-surgical visit [] Trauma [] Long length of stay [] ICU visit [x] Other: Islation Relational/Emotional Strength [] Patient feels connected with others/family/visitors/staff [] Distress [] Loneliness/isolation [] Abandonment Spirituality of Patient [] Person of Carrie [] Attends Rastafarian of their Carrie [] Believes in Prayer [] Reads Bible or Orthodox materials [] There are Spiritual issues to be addressed Physical Therapy Nurse Interventions [] Prayer [] Active listening [] Non-anxious presence [] Spiritual/emotional support [] Crisis/trauma care [] Spiritual counseling [] Bereavement support [] Provided bereavement packet [] Provided Bible/devotional materials [] Provided toy/stuffed animal, coloring book to patient or family member [] Provided Communion [] Anointing/[place] [] Salvation [] Completed spiritual assessment [] Other: Impact on Illness or Injury [] Angry [] Fearful [] Anxious [] Often cries [] Exhaustion [] Unable to work [] Unable to attend methodist [] Unable to walk/stand [] Unable to read [] Unable to drive [] Unable to eat/drink [] Unable to sleep [] Unable to be with family [] Patient intubated [] Other: Summary Islation Time spent with patient 5 mins
--- NOTE | 2021-02-05 12:33 | PM.DCS ---
Discharge Providers Date of Admission: 02/04/21 14:17 Date of Discharge: February 05, 2021 Attending Provider at Admission: Buck Bennett MD Attending Provider at Discharge: Buck Bennett MD Primary Care Provider: Izabel Head MD Diagnoses at Discharge Discharge Diagnosis (1) Hypercalcemia: Status: Acute (2) AV fistula: Status: Acute (3) Chronic kidney disease: Status: Acute Permanent problem details: Dr. 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 Patient is stating that since May she has not noticed any vaginal bleeding, she has not noticed any active GI bleed as well. She came to the ER today because she has been feeling very lethargic fatigued. her symptoms are associated with leg cramps and headache. She denied any chest pain, fever, nausea, or vomiting. She is vaccinated with both doses of messenger RNA vaccine for COVID-19. She has a fistula of right arm which was placed around October, she is not getting dialysis at this point. Patient is stating that she needs revision of her fistula and that surgery has not been done yet. Diagnosis in the ER revealed hemoglobin 7.9 calcium 12 creatinine 5.6 potassium 4.3, I have requested Covid PCR, phosphorus level and PTH Hospital course Patient was admitted for management of symptomatic anemia, her hemoglobin trickled down from 7.9----> 7.6, no active bleeding noticed, she was started on iron supplementation, for her hypercalcemia she received 2 doses of calcitonin, received IV fluids overnight, calcium next day 11.6, patient is stating that she has been taking calcium supplementation as per household refrigeration mechanic recommendation, her last dose was roughly 4 nights ago. Next day her creatinine increased to 6.1 potassium 4.1, calcium 11.6, PTH 13.1, phosphorus 7.4, she was given sevelamer, 1 unit of PRBC, patient is eager to go home to take care of her dogs and does not want to stay in the hospital for further evaluation and management of her electrolyte imbalance. She would like to follow-up with her household refrigeration mechanic. I have called [facility] to get in touch with Dr. Aquino who is on vacation this week, requested code enforcement officer to call Ms. Paredes and schedule her appointment within the next week. She has an appointment on March 12 which I have requested to be changed to earlier date possibly next 1 week. Will fax my discharge summary to [facility] nephrology office. At the time of discharge Covid PCR is pending She will be discharged on iron supplementation for anemia, sevelamer for hyperphosphatemia and Lasix for hypercalcemia Patient was asked not to take calcium supplementation for now until she is evaluated by household refrigeration mechanic Because of worsening of her creatinine I have discontinued her desipramine and gabapentin for now Physical Exam Narrative: EXAM NARRATIVE: Patient was sitting comfortably in her bed Awake alert oriented x3 Appears stated age Appears euvolemic Right arm fistula S1, S2 sinus rhythm No murmur appreciated Abdomen soft nontender bowel sound present Lower extremity no edema Rheumatoid arthritis arthropathy noted Patient is awake alert oriented x3 EOMI, PERRLA No neurological deficits Bilateral breath sounds, no adventitious rhonchi or crackles Discharge Data Data Completed and Pending: Completed Studies During Hospitalization Category Date Time Status XR chest 1V bradley ble [id number] Stat Exams 02/04/21 10:42 Completed Pending at discharge Category Date Time Status Coronavirus Test [facility] Lab 02/04/21 Received Leukocyte Reduced RBC Routine Lab 02/05/21 07:39 Results Type and Screen R outine Lab 02/04/21 20:07 Results Labs from last 24 hours 02/05/21 02/05/21 02/04/21 04:56 04:56 Unknown WBC 9.8 RBC 3.05 L Hgb 7.6 L Hct 25.2 L MCV 82.6 MCH 24.9 L MCHC 30.2 RDW 16.0 H Plt Count 381 MPV 9.2 Neut % (Auto) 80.0 Lymph % (Auto) 10.0 Dolores % (Auto) 8.9 Eos % (Auto) 0.2 Baso % (Auto) 0.4 Neut # (Auto) 7.82 H Lymph # (Auto) 1.0 Dolores # (Auto) 0.9 Eos # (Auto) 0.0 Baso # (Auto) 0.0 Nucleated RBC % (a uto) 0 Nucleated RBCs # 0.0 Sodium 138 Potassium 4.1 Chloride 103 Carbon Dioxide 19 L Anion Gap 20.1 H BUN 66 H Creatinine 6.1 H* GFR Calculation 7.4 L Glucose 105 Calculated Osmolal ity 305 H Calcium 11.6 H Phosphorus Vitamin B12 25-OH Vitamin D To inge Folate PTH Intact Calcium (PTH Intac t) Nasal/Oral COVID-1 9 PCR Pending Blood Type Rho(D) Type Antibody Screen Crossmatch 02/04/21 02/04/21 02/04/21 20:07 20:07 11:13 WBC RBC Hgb 7.8 L Hct 27.0 L MCV MCH MCHC RDW Plt Count MPV Neut % (Auto) Lymph % (Auto) Dolores % (Auto) Eos % (Auto) Baso % (Auto) Neut # (Auto) Lymph # (Auto) Dolores # (Auto) Eos # (Auto) Baso # (Auto) Nucleated RBC % (a uto) Nucleated RBCs # Sodium Potassium Chloride Carbon Dioxide Anion Gap BUN Creatinine GFR Calculation Glucose Calculated Osmolal ity Calcium Phosphorus Vitamin B12 546 25-OH Vitamin D To inge Folate PTH Intact Calcium (PTH Intac t) Nasal/Oral COVID-1 9 PCR Blood Type O Positive Rho(D) Type Positive / 4+ Antibody Screen Negative Crossmatch See Detail 02/04/21 02/04/21 02/04/21 11:13 11:13 11:13 WBC RBC Hgb Hct MCV MCH MCHC RDW Plt Count MPV Neut % (Auto) Lymph % (Auto) Dolores % (Auto) Eos % (Auto) Baso % (Auto) Neut # (Auto) Lymph # (Auto) Dolores # (Auto) Eos # (Auto) Baso # (Auto) Nucleated RBC % (a uto) Nucleated RBCs # Sodium Potassium Chloride Carbon Dioxide Anion Gap BUN Creatinine GFR Calculation Glucose Calculated Osmolal ity Calcium Phosphorus 7.4 H Vitamin B12 25-OH Vitamin D To inge Folate 16.0 PTH Intact 13.1 L Calcium (PTH Intac t) 12.1 H Nasal/Oral COVID-1 9 PCR Blood Type Rho(D) Type Antibody Screen Crossmatch 02/04/21 11:12 WBC RBC Hgb Hct MCV MCH MCHC RDW Plt Count MPV Neut % (Auto) Lymph % (Auto) Dolores % (Auto) Eos % (Auto) Baso % (Auto) Neut # (Auto) Lymph # (Auto) Dolores # (Auto) Eos # (Auto) Baso # (Auto) Nucleated RBC % (a uto) Nucleated RBCs # Sodium Potassium Chloride Carbon Dioxide Anion Gap BUN Creatinine GFR Calculation Glucose Calculated Osmolal ity Calcium Phosphorus Vitamin B12 25-OH Vitamin D To inge 61 Folate PTH Intact Calcium (PTH Intac t) Nasal/Oral COVID-1 9 PCR Blood Type Rho(D) Type Antibody Screen Crossmatch Vitals: Last Vital Signs Temp 97.9 F 02/05/21 11:45 Pulse 80 02/05/21 11:45 Resp 17 02/05/21 11:45 BP 168/73 02/05/21 11:45 Pulse Ox 98 02/05/21 11:45 Discharge Plan Discharge Patient Disposition: Home Condition: Stable Prescriptions: New sevelamer carbonate 800 mg Tablet 800 mg PO TID 10 Days Qty: 30 RF: 0 Iron (ferrous sulfate) 325 mg (65 mg iron) tablet 325 mg PO DAILY Qty: 30 RF: 0 Lasix 20 mg tablet 10 mg PO DAILY Qty: 10 RF: 0 Continued Remicade 100 mg recon soln See Rx Instructions .ROUTE .COMPLEX RF: 0 metoprolol tartrate 50 mg tablet 50 mg PO BID Qty: 180 RF: 1 prednisone 10 mg tablet See Rx Instructions PO .COMPLEX Qty: 30 RF: 1 triamcinolone acetonide 0.1 % ointment 1 applic topical PRN RF: 0 Otezla 30 mg tablet 30 mg PO BID RF: 0 timolol maleate 0.5 % drops 1 drp ophthalmic (eye) BID RF: 0 ketoconazole 2 % shampoo 1 applic TOPICAL . DIRECTED RF: 0 ProAir HFA 90 mcg/actuation Hfa Aerosol Inhaler 2 puff INHALATION Q4H PRN (Reason: Shortness Of Breath) RF: 0 venlafaxine 75 mg capsule,extended release 24hr 75 mg PO QAM RF: 0 famotidine 40 mg tablet 40 mg PO BID RF: 0 amlodipine 2.5 mg tablet 2.5 mg PO BEDTIME RF: 0 Sahar 0.35 mg tablet 0.35 mg PO DAILY RF: 0 Changed sodium bicarbonate 650 mg tablet 1,950 mg PO BID 10 Days Qty: 30 RF: 0 Discontinued desipramine 50 mg tablet 50 mg PO BEDTIME Qty: 30 RF: 5 gabapentin 300 mg capsule 300 mg PO BEDTIME Qty: 30 RF: 3 Discharge Orders: Discharge Order (Routine); Ordered 02/05/21 Ordered By: Bukc Bennett Referrals: Izabel Head MD [Primary Care Provider] - 02/09/21 1:40 pm Discharge Diet: As Directed Discharge Activity: Increase activity as tolerated Patient Instructions: Anemia, Iron Supplements (By mouth), Furosemide (By mouth), Sevelamer (By mouth), Chronic Kidney Disease (GEN), Opioid Safety Activity Restrictions/Additional Instructions: Renal diet Added sevelamer secondary to high calcium Stop taking your calcium supplementation for now Follow-up with household refrigeration mechanic as were important For high calcium you can take Lasix, you will need multiple myeloma work-up, follow-up with nephrology Discharge Attestations Time Spent in Discharge Care*: less than 30 min Quality Metrics Clinical Quality Measures During this hospital stay, did patient experience: None Coding Level of Care Code Acute Chg DC note Diagnoses Hypercalcemia E83.52 AV fistula I77.0 Chronic kidney disease N18.9 Seropositive rheumatoid arthritis of multiple sites M05.79 Chronic anterior uveitis of both eyes H20.13 Migraine headache G43.909 Anemia in chronic kidney disease (CKD) N18.9; D63.1
--- NOTE | 2021-02-05 14:18 | PC.SOCIAL ---
Pharmacy called on Sevelamer ins doesn't approve the generic and the brand name Renvela is $200 co pay. At [facility] under 340B they cant just order 30 tablets and dont use this much. Called our pharmacy and brand name under 340b is 11.52 and the generic is 15.03 Dr Bennett agreeable to dispense the Brand name. Called to Evelia in pharmacy and updated nurse as well as patient that it should be brought up today and nurse can provide this at time of discharge and the co pay amount. She understands this is much cheaper and is aware the other two will be at [facility].
[2021-02-05 15:41] LABS: Coronavirus Test Green County Not Detected
[2021-02-05] MEDS: sodium chloride 0.9% (100 ml) 100 ML (15:59)
== END 2021-02-05 18:27 | disposition home or self-care (01) ==
LOC: ER 10:41 → MEDSURG 16:49
PROVIDERS: Admitting Provider Internal Medicine; Emergency Provider Family Medicine; PCP Family Medicine; Visit Provider Internal Medicine
DX: E83.52 Hypercalcemia (principal); I77.0 Arteriovenous fistula, acquired; N18.9 Chronic kidney disease, unspecified; D63.1 Anemia in chronic kidney disease; M05.79 Rheumatoid arthritis with rheumatoid factor of multiple sites without organ or systems involvement; H20.13 Chronic iridocyclitis, bilateral; G43.909 Migraine, unspecified, not intractable, without status migrainosus
CPT/HCPCS: 36415; 71045; 80048; 80053; 81003; 82306; 82310; 82607; 82746; 83735; 83970; 84100; 85014; 85018; 85025; 86850; 86900; 86920; 87635; 93005; 96361; 96372; 96374; 96375; 99285; G0378; J0630; J2270; J2405; J7030; P9016

== ENCOUNTER → 2021-02-09 14:52 | Outpatient (BNVA) | payer MEDICARE, MEDICAID, SELFPAY | PROVIDERS: PCP Family Medicine; Visit Provider Family Medicine | DX: N18.9 Chronic kidney disease, unspecified (principal); D63.1 Anemia in chronic kidney disease; E83.41 Hypermagnesemia; E83.52 Hypercalcemia; N93.9 Abnormal uterine and vaginal bleeding, unspecified; Z09 Encounter for follow-up examination after completed treatment for conditions other than malignant neoplasm | CPT/HCPCS: 80053; 83540; 83735; 84100; 85025 ==

== ENCOUNTER → 2021-02-16 11:32 | Outpatient (BNVA) | payer MEDICARE, MEDICAID, SELFPAY | PROVIDERS: PCP Family Medicine; Visit Provider Internal Medicine | DX: E83.52 Hypercalcemia (principal); N18.9 Chronic kidney disease, unspecified; E83.41 Hypermagnesemia; K21.9 Gastro-esophageal reflux disease without esophagitis; Z79.899 Other long term (current) drug therapy | CPT/HCPCS: 83883; 84156; 84260; 86335 ==

== ENCOUNTER 2021-02-17 11:28 | Outpatient (CLI) | payer MEDICARE, MEDICAID, SELFPAY ==
[2021-02-17 11:41] VITALS: BP 124/64; PULSE 80; RESP 16; TEMP 37.3; O2SAT 100
[2021-02-17] MEDS: diphenhydrAMINE 25 mg Capsule PO (13:44)
[2021-02-17] MEDS: acetaminophen 325 mg Tablet 975 MG PO (13:44)
[2021-02-17 14:02] LABS: Basophils # 0.1 10^3/uL (0.0-0.1); Basophils % 0.6 %; Eosinophils # 0.2 10^3/uL (0.0-0.8); Eosinophils % 2.4 %; Hematocrit 27.3 % (37.0-47.0); Hemoglobin 8.4 g/dL (11.5-15.3); Lymphocytes # 1.4 10^3/uL (0.8-4.8); Lymphocytes % 13.9 %; Mean Corpuscular HGB Conc 30.8 g/dL (30.0-36.0); Mean Corpuscular Hemoglobin 26.1 pg (28.0-34.0); Mean Corpuscular Volume 84.8 fl (81-99); Mean Platelet Volume 9.3 fL (7.4-10.4); Monocytes % 9.4 %; Neutrophils # 7.44 10^3/uL (1.8-7.7); Nucleated Red Blood Cells % 0 %; Platelet Count 316 10^3/cmm (130-400); Red Blood Count 3.22 10^6/uL (4.1-5.3); Red Cell Distribution Width 16.7 % (12.1-15.1); White Blood Count 10.2 10^3/uL (4.0-10.0)
[2021-02-17] MEDS: sodium chloride 0.9% 250 ML 75 ML IV (14:06)
[2021-02-17 14:25] LABS: Alanine Aminotransferase 40 U/L (0-33); Aspartate Amino Transferase 20 U/L (0-32); Glomerular Filtration Rate 9.5 mL/min (90-130)
[2021-02-17 15:15] VITALS: BP 132/70; PULSE 81; RESP 16; TEMP 37.5; O2SAT 100
== END 2021-02-17 11:29 | disposition home or self-care (01) ==
PROVIDERS: PCP Family Medicine; Visit Provider Internal Medicine Rheumatology
DX: M05.79 Rheumatoid arthritis with rheumatoid factor of multiple sites without organ or systems involvement (principal); H20.13 Chronic iridocyclitis, bilateral
CPT/HCPCS: 82565; 84450; 84460; 85025; 96365; 96375; J1745; J2920; J7050

== ENCOUNTER → 2021-02-24 12:51 | Outpatient (BNVA) | payer MEDICARE, MEDICAID, SELFPAY | PROVIDERS: PCP Family Medicine; Visit Provider Internal Medicine Rheumatology | DX: M05.79 Rheumatoid arthritis with rheumatoid factor of multiple sites without organ or systems involvement (principal); M19.212 Secondary osteoarthritis, left shoulder; N18.5 Chronic kidney disease, stage 5; Z79.899 Other long term (current) drug therapy; H21.509 Unspecified adhesions of iris and ciliary body, unspecified eye; H20.13 Chronic iridocyclitis, bilateral; L40.9 Psoriasis, unspecified; M25.373 Other instability, unspecified ankle; Z71.89 Other specified counseling | CPT/HCPCS: 99214 ==

== ENCOUNTER → 2021-03-03 09:01 | Outpatient (BNVA) | payer MEDICARE, MEDICAID, SELFPAY | PROVIDERS: PCP Family Medicine | DX: Z01.812 Encounter for preprocedural laboratory examination (principal); Z20.822 Contact with and (suspected) exposure to COVID-19 | CPT/HCPCS: 87635 ==

== ENCOUNTER 2021-03-04 12:32 | Outpatient (CLI) | payer MEDICARE, MEDICAID, SELFPAY ==
--- NOTE | 2021-03-04 13:00 | MM_ITS ---
WS: [id number] BILATERAL DIGITAL SCREENING MAMMOGRAM WITH CAD CLINICAL INFORMATION: Z12.39 - Encounter for other screening for malignant neop... HISTORY: Screening mammogram. No current complaints. COMPARISON: February 19, 2020 TECHNIQUE: Bilateral CC and MLO. FINDINGS: The breast are composed of extremely dense tissue, which can limit the detection of small underlying mass lesions. No suspicious focal mass, asymmetry, calcifications, or architectural distortion. No ev idence of malignancy. Calcified fibroid adenoma left breast unchanged. MM/[place] [id number] IMPRESSION: BI-RADS: 2-Benign FOLLOW UP: 1 Year Follow-up Recommend return to annual screening mammography.
== END 2021-03-04 12:33 | disposition home or self-care (01) ==
LOC: RADSHAW 12:35
PROVIDERS: PCP Family Medicine; Visit Provider Nurse Practitioner Women's Health
DX: Z12.31 Encounter for screening mammogram for malignant neoplasm of breast (principal)
CPT/HCPCS: 77067

== ENCOUNTER 2021-03-08 16:31 | Emergency (ER) | payer MEDICARE, MEDICAID, SELFPAY ==
--- NOTE | 2021-03-08 16:43 | XRR_ITS ---
PROCEDURE INFORMATION: Exam: XR Chest Exam date and time: 03/08/2021 4:43 PM Age: 45 years old Clinical indication: Device placement; Other: Ecent dialysis cath placement, chest; Prior surgery; Additional info: Recent dialysis cath placement, chest TECHNIQUE: Imaging protocol: XR of the chest. Views: 1 view. COMPARISON: CR XR chest 1V portable [id number] 02/04/2021 10:42 AM FINDINGS: Lungs: Unremarkable. No consolidation. Pleural spaces: Unremarkable. No pleural effusion. No pneumothorax. Heart/Mediastinum: Unremarkable. No cardiomegaly. Bones/joints: Right shoulder arthroplasty. Severe arthritis of left shoulder. XR/XR chest 1V portable [id number] IMPRESSION: No focal acute pulmonary disease identified.
[2021-03-08 16:56] VITALS: BP 125/64; PULSE 75; RESP 16; TEMP 37.1; O2SAT 96; BMI 22.4
[2021-03-08 21:02] VITALS: BP 155/78; PULSE 73; O2SAT 96
--- NOTE | 2021-03-08 21:27 | ED_ITS ---
HPI - Skin/Abscess/Foreign Bdy General: Chief complaint: Skin/Abscess/Foreign Body Stated complaint: ARM SWELLING/ NUMB Time Seen by Provider: 03/08/21 21:08 History of Present Illness: HPI narrative: Patient is a 45-year-old female comes to the ED via EMS for right arm swelling and pain. Patient says that 3 days ago she had a fistula placed in her right arm for dialysis. Patient has no started dialysis yet. Over the past 3 days she has had increased swelling and pain to the surgical site. Reports some mild numbness/tingling to posterior aspect of forearm. Denies any loss of sensation numbness tingling or loss of movement in hand or fingers. Most of the pain is on the superior aspect of surgical incision near the upper right arm. Denies any drainage from surgical site. Associated symptoms: Deny chills, fever(s), nausea or vomiting Review of Systems Const: Denies: fever(s), chills or fatigue Eyes: Denies: change in vision or eye discomfort ENMT: Denies: throat pain, odynophagia, nasal discharge or nasal congestion Card: Denies: chest pain, palpitations, edema, swelling of feet/ankles, dyspnea on exertion or orthopnea Resp: Denies: dyspnea, productive cough or non-productive cough GI: Denies: abdominal pain, nausea, vomiting, diarrhea, constipation or hematochezia : Denies: flank pain, dysuria or hematuria Musc: Denies: neck pain, back pain or extremity swelling Skin/Breast: Reports: surgical incision (Pain and swelling around right upper arm fistula surgical site); Denies: rash or new lesions Neuro: Denies: headache(s), numbness in extremities or weakness in extremities PFSH ED PFSH: Medical History Anemia in chronic kidney disease (CKD) AV fistula Chronic anemia Chronic anterior uveitis of both eyes Chronic kidney disease Dr. [place] Hypermagnesemia Hypertension Migraine headache Seropositive rheumatoid arthritis of multiple sites Surgical History H/O cataract extraction both eyes H/O esophagogastroduodenoscopy 08/02/2019: Normal H/O foot surgery H/O joint surgery Due to arthritis Neck, knees, shoulder, knuckle, wrists H/O wrist surgery Hx of total knee arthroplasty both Status post colonoscopy 08/02/2019: Poor prep, normal Family History Grandfather No problems noted. Father Stroke Father had Parkinson's and a stroke Hypertension Hypercholesteremia Mother Hypertension Hypercholesteremia Family/Other Breast cancer Cousin-- dx age unknown Ovarian cancer Maternal aunt-- dx age unknown Diabetes Maternal Aunt/Uncle Denies family history of Colon cancer Uterine cancer Social History Smoking and tobacco status: never smoked Second hand smoke exposure: No Alcohol intake: never Lives independently: Yes Marital status: Single service: No Current occupational status: disabled History of recent travel: No Current gender identity: Female Special laisha needs: No Additional social history: - Tobacco use: Denies Alcohol use: Denies Drug use: Denies Female Reproductive History: Date of last menstrual period: 05/26/20 Physical Exam Const: COMMON NORMALS: no acute distress, patient oriented x3, healthy appearing and alert GENERAL APPEARANCE: cooperative and comfortable HENMT: COMMON NORMALS: normocephalic HEAD & SCALP: normocephalic MOUTH: Normal oral and palatal mucosa present THROAT: posterior oropharynx normal and uvula midline Eye: COMMON NORMALS: Equal, round and reactive pupils present PUPIL: Yes Equal, round and reactive pupils present Neck/C-Spine: COMMON NORMALS: supple GENERAL: Yes normal visual inspection Resp: COMMON NORMALS: normal respiratory effort, No retractions, No use of accessory muscles and clear to auscultation bilaterally AUSCULTATION: clear to auscultation bilaterally Cardio: COMMON NORMALS: regular rate, regular rhythm, S1 normal heart sound present, S2 normal heart sound present, No gallops present (Cardio), No clicks present (Cardio), No murmurs present (Cardio) and Peripheral pulses 2+ throughout RATE: regular rate RHYTHM: regular rhythm HEART SOUNDS: S1 normal heart sound present and S2 normal heart sound present PERIPHERAL PULSES: Peripheral pulses 2+ throughout GI: COMMON NORMALS: Normal to inspection, nondistended, normoactive bowel sounds present, Soft to palpation, non-tender and no masses PALPATION: Yes Soft to palpation : COMMON NORMALS: Yes no CVA tenderness BLADDER/KIDNEY EXAM: Yes no CVA tenderness Back/Pelvis: COMMON NORMALS: no CVA tenderness Extremity: NARRATIVE EXTREMITY EXAM: Right upper arm?surgical site incision starts from the medial aspect of the elbow and extends over three fourths of the way up patient's right upper arm. No purulent drainage noted. There is some erythema and ecchymosis noted but no warmth. Mild tenderness on the superior aspect of incision site on right upper arm. Radial pulse 2+ and neurovascular intact. GENERAL: Yes normal exam except as noted Neuro: COMMON NORMALS: patient oriented x3 and moves all extremities SENSORIUM/ORIENTATION: Yes alert Skin: NARRATIVE SKIN EXAM: Right upper arm?surgical site incision starts from the medial aspect of the elbow and extends over three fourths of the way up patient's right upper arm. No purulent drainage noted. There is some erythema and ecchymosis noted but no warmth. Mild tenderness on the superior aspect of incision site on right upper arm. Radial pulse 2+ and neurovascular intact. GENERAL SKIN EXAM: dry skin Course Vital Signs: Vital signs: Vital Signs Temperature 98.7 F 03/08/21 16:56 Pulse Rate 83 03/09/21 00:19 Respiratory Rate 16 03/09/21 00:19 Blood Pressure 140/73 03/09/21 00:19 Pulse Oximetry 100 03/09/21 00:19 MDM - Skin/Abscess/Foreign Bdy MDM Narrative: Medical decision making narrative: Patient is a 45-year-old female comes to the ED with some pain and numbness right arm post fistula placement on Tuesday. Patient had a fistula placed for dialysis which she will be starting in the next couple weeks. [facility]ula [facility] [place]. She has no other acute complaints such as weakness or chest pain. She has a history of chronic anemia. Fistula incision site on right arm has a little bit of ecchymosis and some swelling and mild tenderness. No visible drainage or erythema or warmth noted. Neurovascular intact distally. Patient's hemoglobin level here was 7.7 but she has a history of chronic anemia and her last hemoglobin level was 8.4 on February 17. Her creatinine was 4.4 which is around her baseline. Chest x-ray shows no acute findings. Ultrasound venous duplex right upper extremity showed no clots or DVTs. I did note that there is a patent hemodialysis circuit seen. Patient diagnosed with post surgical pain and numbness and anemia. She was told to follow-up with her PCP in a couple days to recheck her hemoglobin level. She is also told to contact her surgeon to place the fistula tomorrow morning to discuss postop symptoms and to be reevaluated. Patient understood and agreed with plan. Return to ED precautions given. Lab Data: Attestation: I reviewed the patient's lab results. Labs: Lab Results 03/08/21 03/08/21 Range/Units 21:43 21:43 WBC 9.1 (4.0-10.0) 10^3/ uL RBC 2.98 L (4.1-5.3) 10^6/u L Hgb 7.7 L (11.5-15.3) g/dL Hct 26.0 L (37.0-47.0) % MCV 87.2 (81-99) fl MCH 25.8 L (28.0-34.0) pg MCHC 29.6 L (30.0-36.0) g/dL RDW 18.6 H (12.1-15.1) % Plt Count 332 (130-400) 10^3/c mm MPV 8.9 (7.4-10.4) fL Neut % (Auto) 64.9 % Lymph % (Auto) 21.5 % [place] % (Auto) 9.8 % Eos % (Auto) 3.0 % Baso % (Auto) 0.5 % Neut # (Auto) 5.92 (1.8-7.7) 10^3/u L Lymph # (Auto) 2.0 (0.8-4.8) 10^3/u L [place] # (Auto) 0.9 (0.2-0.9) 10^3/u L Eos # (Auto) 0.3 (0.0-0.8) 10^3/u L Baso # (Auto) 0.1 (0.0-0.1) 10^3/u L Nucleated RBC % (a uto) 0 % Nucleated RBCs # 0.0 /100WBC Sodium 139 (136-145) mmol/L Potassium 4.5 (3.5-5.1) mmol/L Chloride 106 (98-107) mmol/L Carbon Dioxide 18 L (22-29) mmol/L Anion Gap 19.5 H (5-19) BUN 34 H (6-20) mg/dL Creatinine 4.4 H (0.5-0.9) mg/dL GFR Calculation 10.8 L (90-130) mL/min Glucose 76 (65-115) mg/dL Calculated Osmolal ity 294 (285-295) mOsm/k g Calcium 8.0 L (8.5-10.5) mg/dL Imaging Data^: CXR: Attestation: I personally reviewed and interpreted this imaging study as follows: Radiologist's impression: [facility] [employer] [place], [place] [address]SHyk ReportSigned Patient: Dia Paredes #: [id number]: 1975Acct#:[id number]/Sex: 45 / FADM Date: 03/08/21Loc: ERRoom/Bed:Attending Dr: Ordering Provider/Ordering MD: Chika Rose Sr, [facility] Date of Service: 03/08/21 Procedure(s): XR chest 1V portable [id number] Accession Number(s): [id number] Report Number: [id number] PROCEDURE INFORMATION: Exam: XR Chest Exam date and time: 03/08/2021 4:43 PM Age: 45 years old Clinical indication: Device placement; Other: Ecent dialysis cath placement, chest; Prior surgery; Additional info: Recent dialysis cath placement, chest TECHNIQUE: Imaging protocol: XR of the chest. Views: 1 view. COMPARISON: CR XR chest 1V portable [id number] 02/04/2021 10:42 AM FINDINGS: Lungs: Unremarkable. No consolidation. Pleural spaces: Unremarkable. No pleural effusion. No pneumothorax. Heart/Mediastinum: Unremarkable. No cardiomegaly. Bones/joints: Right shoulder arthroplasty. Severe arthritis of left shoulder. XR/XR chest 1V portable [id number] IMPRESSION: No focal acute pulmonary disease identified. Dictated By:Rachel Morrow By:Rachel Morrow Date/Time:03/08/21 1853DD/ 185 Vascular: Attestation: I personally reviewed and interpreted this imaging study as follows: Radiologist's impression: [facility], [place] [address]Ddzcqmdemr ReportSigned Patient: Dia Paredes #: [id number]: 1975Acct#:[id number]/Sex: 45 / FADM Date: 03/08/21Loc: ERRoom/Bed:Attending Dr: Ordering Provider/Ordering MD: Clarence Galeano Date of Service: 03/08/21 Procedure(s): [place] [id number] Accession Number(s): [id number] Report Number: [id number] PROCEDURE INFORMATION: Exam: US Duplex Right Upper Extremity Veins, Limited Exam date and time: 03/08/2021 9:25 PM Age: 45 years old Clinical indication: Other: Numbness; Prior surgery; Surgery date: 3-7 days post-operative; Surgery type: Dialysis fistula; Additional info: Swellin and pain, post fistula placement 3days ago TECHNIQUE: Imaging protocol: Real-time Duplex ultrasound of the Right Upper Extremity with 2-D howard scale, color Doppler flow and spectral waveform analysis with image documentation. Limited exam focused on the right upper extremity veins. COMPARISON: No relevant prior studies available. FINDINGS: Right deep veins: Unremarkable. Axillary and brachial veins are patent throughout without thrombus. Normal Doppler waveforms. Normal compressibility and/or augmentation response. Visualized internal jugular and subclavian veins are patent. Right superficial veins: Unremarkable. Visualized cephalic and basilic veins are patent without thrombus. Soft tissues: Scattered subcutaneous soft tissue edema. Other findings: There is a patent hemodialysis access circuit which has patent flow on color and spectral Doppler waveform analysis but is otherwise incompletely assessed. [place] [id number] IMPRESSION: 1. Negative for right upper extremity deep or superficial venous system thrombosis. 2. Patent hemodialysis access circuit. Dictated By:Rachel Morrow By:Rachel Morrow Date/Time:03/08/212254DD/ 53 Discharge Plan Discharge Patient Disposition: Home Clinical Impression: Post-operative pain, Post surgical numbness Anemia Qualifiers: Anemia type: due to chronic kidney disease Chronic kidney disease stage: unspecified stage Qualified Code(s): N18.9 - Chronic kidney disease, unspecified Condition: Stable Prescriptions: No Action Remicade 100 mg recon soln See Rx Instructions .ROUTE .COMPLEX RF: 0 metoprolol tartrate 50 mg tablet 50 mg PO BID Qty: 180 RF: 1 Aygestin 5 mg tablet 5 mg PO DAILY Qty: 30 RF: 10 prednisone 10 mg tablet See Rx Instructions PO .COMPLEX Qty: 30 RF: 0 gabapentin 300 mg capsule 300 mg PO .HS Qty: 30 RF: 3 triamcinolone acetonide 0.1 % ointment 1 applic topical PRN RF: 0 Otezla 30 mg tablet 30 mg PO BID RF: 0 timolol maleate 0.5 % drops 1 drp ophthalmic (eye) BID RF: 0 ketoconazole 2 % shampoo 1 applic TOPICAL . DIRECTED RF: 0 ProAir HFA 90 mcg/actuation Hfa Aerosol Inhaler 2 puff INHALATION Q4H PRN (Reason: Shortness Of Breath) RF: 0 venlafaxine 75 mg capsule,extended release 24hr 75 mg PO QAM RF: 0 famotidine 40 mg tablet 40 mg PO BID RF: 0 amlodipine 2.5 mg tablet 2.5 mg PO BEDTIME RF: 0 sodium bicarbonate 650 mg tablet 1,950 mg PO BID 10 Days Qty: 30 RF: 0 Iron (ferrous sulfate) 325 mg (65 mg iron) tablet 325 mg PO DAILY Qty: 30 RF: 0 Discharge Orders: Discharge ED (Routine); Ordered 03/08/21 Ordered By: Clarence Galeano Referrals: Izabel Head MD [Primary Care Provider] - Discharge Diet: Regular Discharge Activity: Increase activity as tolerated Patient Instructions: Anemia (ED) Activity Restrictions/Additional Instructions: Follow-up with medical provider as directed. Contact the surgeon who placed the fistula tomorrow morning to discuss symptoms and recent ED visit. Set up an appointment for fistula to be evaluated by surgeon. Follow-up with PCP in the next 3 to 5 days to be reevaluated and to check your hemoglobin levels. Continue taking home medications as prescribed. Return to the ER or your medical provider if condition worsens. Please read and understand discharge instructions. Thank you for choosing [facility] for your healthcare needs today. Please realize this is an emergency room and that we are providing you with a medical screening exam and this may not be complete and all inclusive of all the testing and or work up that you may need to determine your ailment or severity of your illness. It is very important that you follow up as instructed or that you return to the Emergency Department should you have concerns or if your condition changes or worsens in any way. Coding Level of Care Code ED Nail Specialist for Jori Beasley Exam Comprehensive
[2021-03-08 22:08] LABS: Basophils # 0.1 10^3/uL (0.0-0.1); Basophils % 0.5 %; Eosinophils # 0.3 10^3/uL (0.0-0.8); Hemoglobin 7.7 g/dL (11.5-15.3); Lymphocytes % 21.5 %; Mean Corpuscular HGB Conc 29.6 g/dL (30.0-36.0); Mean Corpuscular Hemoglobin 25.8 pg (28.0-34.0); Mean Corpuscular Volume 87.2 fl (81-99); Mean Platelet Volume 8.9 fL (7.4-10.4); Monocytes # 0.9 10^3/uL (0.2-0.9); Monocytes % 9.8 %; Neutrophils # 5.92 10^3/uL (1.8-7.7); Neutrophils % 64.9 %; Nucleated Red Blood Cells % 0 %; Platelet Count 332 10^3/cmm (130-400); Red Blood Count 2.98 10^6/uL (4.1-5.3); Red Cell Distribution Width 18.6 % (12.1-15.1); White Blood Count 9.1 10^3/uL (4.0-10.0)
[2021-03-08 22:41] LABS: Anion Gap 19.5 (5-19); Blood Urea Nitrogen 34 mg/dL (6-20); Carbon Dioxide 18 mmol/L (22-29); Chloride 106 mmol/L (98-107); Glomerular Filtration Rate 10.8 mL/min (90-130); Glucose 76 mg/dL (65-115); Osmolality Calculated 294 mOsm/kg (285-295); Potassium 4.5 mmol/L (3.5-5.1); Sodium 139 mmol/L (136-145)
[2021-03-09 00:19] VITALS: BP 140/73; PULSE 83; RESP 16; O2SAT 100
== END 2021-03-09 00:21 | disposition home or self-care (01) ==
PROVIDERS: Nurse Practitioner Family; Emergency Provider Physician Assistant; PCP Family Medicine
DX: G89.18 Other acute postprocedural pain (principal); R20.0 Anesthesia of skin; N18.9 Chronic kidney disease, unspecified; M79.601 Pain in right arm
CPT/HCPCS: 71045; 80048; 85025; 93971; 99283

== ENCOUNTER 2021-03-29 15:10 | Emergency (ER) | payer MEDICARE, MEDICAID, SELFPAY ==
[2021-03-29 15:25] VITALS: PULSE 74
[2021-03-29 15:33] VITALS: BP 128/72; PULSE 81; RESP 18; TEMP 37.1; O2SAT 100; BMI 21.4
--- NOTE | 2021-03-29 15:47 | ED_ITS ---
Documented by User: JOSE Cisneros 03/30/21 07:09 HPI - Extremity Problem General: Chief complaint: Extremity Injury, Upper Stated complaint: right arm incision pain Time Seen by Provider: 03/29/21 15:39 History of Present Illness: HPI Narrative: Patient is a 45-year-old female comes to the ED with right arm pain. Patient recently had dialysis fistula placed in right arm proximally 1 month ago. Patient's fistula incision site is healing well but she does have some upper arm tenderness and pain. She rates the pain an 8 out of 10 and describes it as a throbbing pain. Associated symptoms: Deny chest pain, fever(s) or rash Review of Systems Const: Denies: fever(s), chills or fatigue Eyes: Denies: change in vision or eye discomfort ENMT: Denies: throat pain, odynophagia, nasal discharge or nasal congestion Card: Denies: chest pain, palpitations, edema, swelling of feet/ankles, dyspnea on exertion or orthopnea Resp: Denies: dyspnea, productive cough or non-productive cough GI: Denies: abdominal pain, nausea, vomiting, diarrhea, constipation or hematochezia : Denies: flank pain, dysuria or hematuria Musc: Reports: extremity pain (Right upper arm ); Denies: neck pain, back pain or extremity swelling Skin/Breast: Reports: surgical incision (Dialysis fistula incision site-right upper arm); Denies: rash or new lesions Neuro: Denies: headache(s), numbness in extremities or weakness in extremities PFSH ED PFSH: Medical History Anemia in chronic kidney disease (CKD) AV fistula Chronic anemia Chronic anterior uveitis of both eyes Chronic kidney disease Dr. Aquino in [facility] [place] Hypermagnesemia Hypertension Migraine headache Seropositive rheumatoid arthritis of multiple sites Surgical History H/O cataract extraction both eyes H/O esophagogastroduodenoscopy 08/02/2019: Normal H/O foot surgery H/O joint surgery Due to arthritis Neck, knees, shoulder, knuckle, wrists H/O wrist surgery Hx of total knee arthroplasty both Status post colonoscopy 08/02/2019: Poor prep, normal Family History Grandfather No problems noted. Father Stroke Father had Parkinson's and a stroke Hypertension Hypercholesteremia Mother Hypertension Hypercholesteremia Family/Other Breast cancer Cousin-- dx age unknown Ovarian cancer Maternal aunt-- dx age unknown Diabetes Maternal Aunt/Uncle Denies family history of Colon cancer Uterine cancer Social History Smoking and tobacco status: never smoked Second hand smoke exposure: No Alcohol intake: never Lives independently: Yes Marital status: Single service: No Current occupational status: disabled History of recent travel: No Current gender identity: Female Special laisha needs: No Additional social history: - Tobacco use: Denies Alcohol use: Denies Drug use: Denies Female Reproductive History: Date of last menstrual period: 05/26/20 Physical Exam Const: COMMON NORMALS: patient oriented x3 HENMT: COMMON NORMALS: normocephalic HEAD & SCALP: normocephalic MOUTH: Normal oral and palatal mucosa present THROAT: posterior oropharynx normal and uvula midline Neck/C-Spine: COMMON NORMALS: supple GENERAL: Yes normal visual inspection Resp: COMMON NORMALS: normal respiratory effort, No retractions, No use of accessory muscles and clear to auscultation bilaterally AUSCULTATION: clear to auscultation bilaterally Cardio: COMMON NORMALS: regular rate, regular rhythm, S1 normal heart sound present, S2 normal heart sound present, No gallops present (Cardio), No clicks p resent (Cardio), No murmurs present (Cardio) and Peripheral pulses 2+ throughout RATE: regular rate RHYTHM: regular rhythm HEART SOUNDS: S1 normal heart sound present and S2 normal heart sound present PERIPHERAL PULSES: Peripheral pulses 2+ throughout GI: COMMON NORMALS: Normal to inspection, nondistended, normoactive bowel sounds present, Soft to palpation, non-tender and no masses PALPATION: Yes Soft to palpation : COMMON NORMALS: Yes no CVA tenderness BLADDER/KIDNEY EXAM: Yes no CVA tenderness Back/Pelvis: COMMON NORMALS: no CVA tenderness Neuro: COMMON NORMALS: patient oriented x3 and moves all extremities Course Vital Signs: Vital signs: Vital Signs Temperature 98.7 F 03/29/21 15:33 Pulse Rate 76 03/29/21 16:44 Respiratory Rate 18 03/29/21 16:44 Blood Pressure 144/74 03/29/21 16:44 Pulse Oximetry 97 03/29/21 16:44 Discharge Plan Discharge Patient Disposition: Home Clinical Impression: Pain at surgical incision Condition: Stable Prescriptions: No Action Remicade 100 mg recon soln See Rx Instructions .ROUTE .COMPLEX RF: 0 metoprolol tartrate 50 mg tablet 50 mg PO BID Qty: 180 RF: 1 Aygestin 5 mg tablet 5 mg PO DAILY Qty: 30 RF: 10 prednisone 10 mg tablet See Rx Instructions PO .COMPLEX Qty: 30 RF: 0 gabapentin 300 mg capsule 300 mg PO .HS Qty: 30 RF: 3 ferrous sulfate [FeroSul] 325 mg (65 mg iron) tablet See Rx Instructions .ROUTE .COMPLEX Qty: 30 RF: 5 sodium bicarbonate 650 mg tablet 1,950 mg PO BID 30 Days Qty: 180 RF: 3 triamcinolone acetonide 0.1 % ointment 1 applic topical PRN RF: 0 Otezla 30 mg tablet 30 mg PO BID RF: 0 timolol maleate 0.5 % drops 1 drp ophthalmic (eye) BID RF: 0 ketoconazole 2 % shampoo 1 applic TOPICAL . DIRECTED RF: 0 ProAir HFA 90 mcg/actuation Hfa Aerosol Inhaler 2 puff INHALATION Q4H PRN (Reason: Shortness Of Breath) RF: 0 venlafaxine 75 mg capsule,extended release 24hr 75 mg PO QAM RF: 0 famotidine 40 mg tablet 40 mg PO BID RF: 0 amlodipine 2.5 mg tablet 2.5 mg PO BEDTIME RF: 0 Discharge Orders: Discharge ED (Routine); Ordered 03/29/21 Ordered By: Radha Puri Referrals: Izabel Head MD [Primary Care Provider] - Activity Restrictions/Additional Instructions: As we discussed please follow-up with your vascular surgeon for further evaluation. You need to return to the emergency department for redness, warmth, discharge from the incision, bleeding, severe hand pain, coolness/paleness to the extremity, decreased sensation, or decreased use of the extremity, or any other concerns you may have. Hope you begin to feel better soon. Sign Out Sign Out Data: Patient Sign Out occurred on 03/29/21 at 17:10. Patient's care was discussed, and care was transferred from to JOSE Kiser. Coding Level of Care Code ED Investment Strategist for Chg Fwd Exam Comprehensive Documented by User: JOSE Kiser 03/29/21 17:35 HPI - Extremity Problem General: Chief complaint: Extremity Injury, Upper Stated complaint: right arm incision pain Time Seen by Provider: 03/29/21 15:39 PFSH ED PFSH: Medical History Anemia in chronic kidney disease (CKD) AV fistula Chronic anemia Chronic anterior uveitis of both eyes Chronic kidney disease Dr. Aquino in [place] Hypermagnesemia Hypertension Migraine headache Seropositive rheumatoid arthritis of multiple sites Surgical History H/O cataract extraction both eyes H/O esophagogastroduodenoscopy 08/02/2019: Normal H/O foot surgery H/O joint surgery Due to arthritis Neck, knees, shoulder, knuckle, wrists H/O wrist surgery Hx of total knee arthroplasty both Status post colonoscopy 08/02/2019: Poor prep, normal Family History Grandfather No problems noted. Father Stroke Father had Parkinson's and a stroke Hypertension Hypercholesteremia Mother Hypertension Hypercholesteremia Family/Other Breast cancer Cousin-- dx age unknown Ovarian cancer Maternal aunt-- dx age unknown Diabetes Maternal Aunt/Uncle Denies family history of Colon cancer Uterine cancer Social History Smoking and tobacco status: never smoked Second hand smoke exposure: No Alcohol intake: never Lives independently: Yes Marital status: Single service: No Current occupational status: disabled History of recent travel: No Current gender identity: Female Special laisha needs: No Additional social history: - Tobacco use: Denies Alcohol use: Denies Drug use: Denies Physical Exam Extremity: OTHER: healed scar noted to R volar arm from dialysis fistula; thrill present; no redness/warmth/streaking/discharge; no lymphadenopathy; patient complains of tenderness to proximal portion of incision Course Vital Signs: Vital signs: Vital Signs Temperature 98.7 F 03/29/21 15:33 Pulse Rate 76 03/29/21 16:44 Respiratory Rate 18 03/29/21 16:44 Blood Pressure 144/74 03/29/21 16:44 Pulse Oximetry 97 03/29/21 16:44 MDM - Extremity (Nontraumatic) MDM Narrative: Medical decision making narrative: Patient is a nice 45-year-old female here for complaints of some tenderness to the proximal portion of her dialysis fistula incision. Ultrasound is negative. Clinically she has no evidence for infection. There is no rupture of bleeding. Ultrasound does not show any evidence for aneurysm/pseudoaneurysm. She does not complain of symptoms consistent with a dialysis access steal syndrome such as hand pain, coolness, or decreased motor/sensory. Recommend followup with her vascular surgeon if possible for further evaluation. Return to ED precautions given. Imaging Data^: R UE venous US: Radiologist's impression: [address] [id number] ReportSigned with Addenda Patient: iDa Paredes #: [id number]: [id number]#:[id number]/Sex: 45 / FADM Date: 03/29/21Loc: ERRoom/Bed:Attending Dr: Ordering Provider/Ordering MD: Clarence Galeano Date of Service: 03/29/21 Procedure(s): [place] [id number] Accession Number(s): [id number] Report Number: [id number] ADDENDUM US/[place] [id number] Above exam is of the right upper extremity, impression is still the same. Upper extremity vessels as well as a fistula appear patent. Addendum Dictated By: Jaleel White MDAddendum Signed By: Jaleel White MDSigned Date/Time:03/29/21 1729Addendum Cosigned By: PROCEDURE INFORMATION: Exam: US Duplex Right Lower Extremity Veins, Limited Exam date and time: 03/29/2021 3:51 PM Age: 45 years old Clinical indication: Pain; Arm, upper; Prior surgery; Surgery date: <1 month; Surgery type: Fistula placed - right upper arm (appx mar 05 or 2020); Additional info: Tender nodule upper arm, recent dialysis fistula placed TECHNIQUE: Imaging protocol: Real-time Duplex ultrasound of the Right Lower Extremity with 2-D howard scale, color Doppler flow and spectral waveform analysis with image documentation. Limited exam was focused on the right lower extremity veins. COMPARISON: [place] [id number] 03/08/2021 10:25 PM FINDINGS: Right deep veins: Unremarkable. The common femoral, femoral, proximal profunda femoral and popliteal veins are patent without thrombus. Normal Doppler waveforms. Normal compressibility and/or augmentation response. Right superficial veins: Unremarkable. Saphenofemoral junction is patent without thrombus. Soft tissues: Negative for mass or fluid collection seen in the area of the lump and tenderness as denoted by the patient. [place] [id number] IMPRESSION: 1. Negative for deep venous thrombosis. 2. Negative for mass or fluid collection seen in the area of the lump and tenderness as denoted by the patient. Dictated By:Jaleel White MDSigned By:Jaleel White MDSigned Date/Time:03/29/211716DD/ 14 Discharge Plan Discharge Patient Disposition: Home Clinical Impression: Pain at surgical incision Condition: Stable Prescriptions: No Action Remicade 100 mg recon soln See Rx Instructions .ROUTE .COMPLEX RF: 0 metoprolol tartrate 50 mg tablet 50 mg PO BID Qty: 180 RF: 1 Aygestin 5 mg tablet 5 mg PO DAILY Qty: 30 RF: 10 prednisone 10 mg tablet See Rx Instructions PO .COMPLEX Qty: 30 RF: 0 gabapentin 300 mg capsule 300 mg PO .HS Qty: 30 RF: 3 ferrous sulfate [FeroSul] 325 mg (65 mg iron) tablet See Rx Instructions .ROUTE .COMPLEX Qty: 30 RF: 5 sodium bicarbonate 650 mg tablet 1,950 mg PO BID 30 Days Qty: 180 RF: 3 triamcinolone acetonide 0.1 % ointment 1 applic topical PRN RF: 0 Otezla 30 mg tablet 30 mg PO BID RF: 0 timolol maleate 0.5 % drops 1 drp ophthalmic (eye) BID RF: 0 ketoconazole 2 % shampoo 1 applic TOPICAL . DIRECTED RF: 0 ProAir HFA 90 mcg/actuation Hfa Aerosol Inhaler 2 puff INHALATION Q4H PRN (Reason: Shortness Of Breath) RF: 0 venlafaxine 75 mg capsule,extended release 24hr 75 mg PO QAM RF: 0 famotidine 40 mg tablet 40 mg PO BID RF: 0 amlodipine 2.5 mg tablet 2.5 mg PO BEDTIME RF: 0 Discharge Orders: Discharge ED (Routine); Ordered 03/29/21 Ordered By: Radha Puri Referrals: Izabel Head MD [Primary Care Provider] - Activity Restrictions/Additional Instructions: As we discussed please follow-up with your vascular surgeon for further evaluat ion. You need to return to the emergency department for redness, warmth, discharge from the incision, bleeding, severe hand pain, coolness/paleness to the extremity, decreased sensation, or decreased use of the extremity, or any other concerns you may have. Hope you begin to feel better soon. Sign Out Sign Out Data: Patient Sign Out occurred on 03/29/21 at 17:10. Patient's care was discussed, and care was transferred from to OJSE Kiser. Coding Level of Care Code ED Investment Strategist for Jori Fwelvia Exam Comprehensive
--- NOTE | 2021-03-29 15:51 | USR_ITS ---
PROCEDURE INFORMATION: Exam: US Duplex Right Lower Extremity Veins, Limited Exam date and time: 03/29/2021 3:51 PM Age: 45 years old Clinical indication: Pain; Arm, upper; Prior surgery; Surgery date: <1 month; Surgery type: Fistula placed - right upper arm (appx mar 05 or 2020); Additional info: Tender nodule upper arm, recent dialysis fistula placed TECHNIQUE: Imaging protocol: Real-time Duplex ultrasound of the Right Lower Extremity with 2-D howard scale, color Doppler flow and spectral waveform analysis with image documentation. Limited exam was focused on the right lower extremity veins. COMPARISON: [place] [id number] 03/08/2021 10:25 PM FINDINGS: Right deep veins: Unremarkable. The common femoral, femoral, proximal profunda femoral and popliteal veins are patent without thrombus. Normal Doppler waveforms. Normal compressibility and/or augmentation response. Right superficial veins: Unremarkable. Saphenofemoral junction is patent without thrombus. Soft tissues: Negative for mass or fluid collection seen in the area of the lump and tenderness as denoted by the patient. US/[place] [id number] IMPRESSION: 1. Negative for deep venous thrombosis. 2. Negative for mass or fluid collection seen in the area of the lump and tenderness as denoted by the patient.
[2021-03-29 16:44] VITALS: BP 144/74; PULSE 76; RESP 18; O2SAT 97
--- NOTE | 2021-03-29 16:46 | PC.NURSE ---
waiting for u/s results. pt denies needs.
== END 2021-03-29 17:41 | disposition home or self-care (01) ==
PROVIDERS: Emergency Provider Physician Assistant; PCP Family Medicine
DX: G89.18 Other acute postprocedural pain (principal); I10 Essential (primary) hypertension
CPT/HCPCS: 93971; 99282

== ENCOUNTER → 2021-03-30 12:20 | Outpatient (BNVA) | payer MEDICARE, MEDICAID, SELFPAY | PROVIDERS: PCP Family Medicine; Visit Provider Family Medicine | DX: M08.00 Unspecified juvenile rheumatoid arthritis of unspecified site (principal); D64.9 Anemia, unspecified; N18.9 Chronic kidney disease, unspecified; D63.1 Anemia in chronic kidney disease | CPT/HCPCS: 80053; 84155; 84165; 84260; 85025 ==

== ENCOUNTER 2021-04-21 12:25 | Outpatient (CLI) | payer MEDICARE, MEDICAID, SELFPAY ==
[2021-04-21 12:41] VITALS: BP 145/70; PULSE 82; RESP 18; TEMP 36.8; O2SAT 100
[2021-04-21] MEDS: diphenhydrAMINE 25 mg Capsule PO (13:08)
[2021-04-21] MEDS: acetaminophen 325 mg Tablet 975 MG PO (13:08)
[2021-04-21] MEDS: sodium chloride 0.9% 250 ML 75 ML IV (13:10)
[2021-04-21 13:19] LABS: Basophils # 0.1 10^3/uL (0.0-0.1); Basophils % 0.5 %; Eosinophils # 0.3 10^3/uL (0.0-0.8); Eosinophils % 2.9 %; Hematocrit 25.2 % (37.0-47.0); Hemoglobin 7.5 g/dL (11.5-15.3); Lymphocytes # 1.3 10^3/uL (0.8-4.8); Lymphocytes % 13.2 %; Mean Corpuscular HGB Conc 29.8 g/dL (30.0-36.0); Mean Corpuscular Hemoglobin 26.3 pg (28.0-34.0); Mean Corpuscular Volume 88.4 fl (81-99); Mean Platelet Volume 8.8 fL (7.4-10.4); Monocytes # 0.7 10^3/uL (0.2-0.9); Monocytes % 7.1 %; Neutrophils # 7.49 10^3/uL (1.8-7.7); Neutrophils % 75.5 %; Nucleated Red Blood Cells % 0 %; Platelet Count 312 10^3/cmm (130-400); Red Blood Count 2.85 10^6/uL (4.1-5.3); Red Cell Distribution Width 15.1 % (12.1-15.1); White Blood Count 9.9 10^3/uL (4.0-10.0)
[2021-04-21 13:41] LABS: Alanine Aminotransferase 27 U/L (0-33); Aspartate Amino Transferase 20 U/L (0-32); Glomerular Filtration Rate 10.3 mL/min (90-130)
[2021-04-21] MEDS: diphenhydrAMINE 50 mg/mL SDV 1mL 25 MG IVP (13:59)
[2021-04-21 14:08] VITALS: BP 130/71; PULSE 79; RESP 18; TEMP 36.8; O2SAT 96
[2021-04-21 15:03] VITALS: BP 136/72; PULSE 84; RESP 18; TEMP 36.3; O2SAT 100
== END 2021-04-21 12:26 | disposition home or self-care (01) ==
PROVIDERS: PCP Family Medicine; Visit Provider Internal Medicine Rheumatology
DX: M05.79 Rheumatoid arthritis with rheumatoid factor of multiple sites without organ or systems involvement (principal); H20.13 Chronic iridocyclitis, bilateral
CPT/HCPCS: 82565; 84450; 84460; 85025; 96365; 96375; J1200; J1745; J2920; J7050

== ENCOUNTER → 2021-05-13 11:30 | Outpatient (BNVA) | payer MEDICARE, MEDICAID, SELFPAY | PROVIDERS: PCP Family Medicine; Visit Provider Nurse Practitioner Family | DX: N18.9 Chronic kidney disease, unspecified (principal); D63.1 Anemia in chronic kidney disease | CPT/HCPCS: 82728; 83550; 85025 ==

== ENCOUNTER → 2021-05-18 13:46 | Outpatient (BNVA) | payer MEDICARE, MEDICAID, SELFPAY | PROVIDERS: PCP Nurse Practitioner Family; Visit Provider Internal Medicine Rheumatology | DX: M05.9 Rheumatoid arthritis with rheumatoid factor, unspecified (principal); M19.212 Secondary osteoarthritis, left shoulder; Z79.899 Other long term (current) drug therapy; H21.509 Unspecified adhesions of iris and ciliary body, unspecified eye; N18.5 Chronic kidney disease, stage 5; D63.1 Anemia in chronic kidney disease | CPT/HCPCS: 99214 ==

== ENCOUNTER → 2021-06-03 11:30 | Outpatient (BNVA) | payer MEDICARE, MEDICAID, SELFPAY | PROVIDERS: PCP Nurse Practitioner Family; Visit Provider Nurse Practitioner Family | DX: N18.9 Chronic kidney disease, unspecified (principal); D63.1 Anemia in chronic kidney disease; E83.41 Hypermagnesemia; E83.52 Hypercalcemia | CPT/HCPCS: 80048; 82310; 82728; 83550; 83735; 83970; 84100; 84550; 85025 ==

== ENCOUNTER 2021-06-16 12:42 | Outpatient (CLI) | payer MEDICARE, MEDICAID, SELFPAY ==
[2021-06-16 12:54] VITALS: BP 146/78; PULSE 91; RESP 18; TEMP 37.6; O2SAT 99
[2021-06-16] MEDS: acetaminophen 325 mg Tablet 650 MG PO (13:11)
[2021-06-16] MEDS: diphenhydrAMINE 50 mg/mL SDV 1mL 25 MG IV (13:13)
[2021-06-16] MEDS: sodium chloride 0.9% 250 ML 75 ML IV (13:13)
[2021-06-16 13:26] LABS: Basophils # 0.1 10^3/uL (0.0-0.1); Basophils % 0.7 %; Eosinophils # 0.2 10^3/uL (0.0-0.8); Eosinophils % 2.3 %; Hematocrit 31.5 % (37.0-47.0); Hemoglobin 9.5 g/dL (11.5-15.3); Lymphocytes # 1.1 10^3/uL (0.8-4.8); Lymphocytes % 12.8 %; Mean Corpuscular HGB Conc 30.2 g/dL (30.0-36.0); Mean Corpuscular Hemoglobin 25.7 pg (28.0-34.0); Mean Corpuscular Volume 85.1 fl (81-99); Monocytes # 0.8 10^3/uL (0.2-0.9); Monocytes % 9.5 %; Neutrophils # 6.56 10^3/uL (1.8-7.7); Neutrophils % 74.4 %; Nucleated Red Blood Cells % 0 %; Platelet Count 357 10^3/cmm (130-400); Red Cell Distribution Width 13.2 % (12.1-15.1); White Blood Count 8.8 10^3/uL (4.0-10.0)
[2021-06-16 13:50] LABS: Alanine Aminotransferase 15 U/L (0-33); Albumin Level 3.9 g/dL (3.5-5.2); Alkaline Phosphatase 50 IU/L (35-105); Anion Gap 21.8 (5-19); Aspartate Amino Transferase 11 U/L (0-32); Blood Urea Nitrogen 64 mg/dL (6-20); C Reactive Protein 34.2 mg/L (0.0-4.9); Calcium 10.3 mg/dL (8.5-10.5); Carbon Dioxide 19 mmol/L (22-29); Chloride 100 mmol/L (98-107); Glomerular Filtration Rate 8.5 mL/min (90-130); Glucose 107 mg/dL (65-115); Osmolality Calculated 301 mOsm/kg (285-295); Potassium 4.8 mmol/L (3.5-5.1); Sodium 136 mmol/L (136-145); Total Bilirubin 0.2 mg/dL (0.15-1.2); Total Protein 7.9 g/dL (6.6-8.7)
[2021-06-16] MEDS: diphenhydrAMINE 50 mg/mL SDV 1mL 25 MG IVP (14:09)
[2021-06-16 14:54] VITALS: BP 153/77; PULSE 80; RESP 18; TEMP 37.6; O2SAT 99
== END 2021-06-16 12:43 | disposition home or self-care (01) ==
PROVIDERS: PCP Nurse Practitioner Family; Referring Provider Internal Medicine Rheumatology; Visit Provider Internal Medicine Rheumatology
DX: M05.79 Rheumatoid arthritis with rheumatoid factor of multiple sites without organ or systems involvement (principal); H20.13 Chronic iridocyclitis, bilateral
CPT/HCPCS: 80053; 85025; 86140; 96365; 96375; 96376; J1200; J1745; J2920; J7050

== ENCOUNTER → 2021-07-01 12:27 | Outpatient (BNVA) | payer MEDICARE, MEDICAID, SELFPAY | PROVIDERS: PCP Nurse Practitioner Family; Visit Provider Nurse Practitioner Family | DX: Z79.899 Other long term (current) drug therapy (principal); N18.4 Chronic kidney disease, stage 4 (severe); E83.52 Hypercalcemia; D63.1 Anemia in chronic kidney disease; N18.9 Chronic kidney disease, unspecified | CPT/HCPCS: 80048; 81003; 82040; 82310; 83970; 84100; 84550; 85018 ==

== ENCOUNTER → 2021-08-12 00:01 | Outpatient (BNVA) | payer MEDICARE, MEDICAID, SELFPAY | PROVIDERS: PCP Nurse Practitioner Family; Visit Provider Nurse Practitioner Family | DX: Z20.822 Contact with and (suspected) exposure to COVID-19 (principal); N18.9 Chronic kidney disease, unspecified; D63.1 Anemia in chronic kidney disease | CPT/HCPCS: 87635 ==

== ENCOUNTER 2021-08-25 10:23 | Outpatient (CLI) | payer MEDICARE, MEDICAID, SELFPAY ==
[2021-08-25 10:39] VITALS: BP 147/76; PULSE 80; RESP 18; TEMP 36.6; O2SAT 99
[2021-08-25 11:09] LABS: Basophils # 0.1 10^3/uL (0.0-0.1); Basophils % 0.9 %; Eosinophils # 0.2 10^3/uL (0.0-0.8); Eosinophils % 2.6 %; Hematocrit 34.5 % (37.0-47.0); Hemoglobin 10.5 g/dL (11.5-15.3); Lymphocytes # 1.3 10^3/uL (0.8-4.8); Lymphocytes % 13.5 %; Mean Corpuscular HGB Conc 30.4 g/dL (30.0-36.0); Mean Corpuscular Hemoglobin 25.2 pg (28.0-34.0); Mean Corpuscular Volume 82.9 fl (81-99); Monocytes # 0.8 10^3/uL (0.2-0.9); Monocytes % 9.1 %; Neutrophils % 73.6 %; Nucleated Red Blood Cells % 0 %; Platelet Count 340 10^3/cmm (130-400); Red Blood Count 4.16 10^6/uL (4.1-5.3); Red Cell Distribution Width 15.9 % (12.1-15.1); White Blood Count 9.2 10^3/uL (4.0-10.0)
[2021-08-25] MEDS: acetaminophen 325 mg Tablet 650 MG PO (11:10)
[2021-08-25] MEDS: sodium chloride 0.9% 250 ML 50 ML IV (11:10)
[2021-08-25] MEDS: diphenhydrAMINE 50 mg/mL SDV 1mL 25 MG IV (11:11)
[2021-08-25 11:34] LABS: Alanine Aminotransferase 28 U/L (0-33); Albumin Level 4.2 g/dL (3.5-5.2); Alkaline Phosphatase 40 IU/L (35-105); Anion Gap 18.6 (5-19); Aspartate Amino Transferase 25 U/L (0-32); Blood Urea Nitrogen 61 mg/dL (6-20); C Reactive Protein 19.5 mg/L (0.0-4.9); Calcium 9.8 mg/dL (8.5-10.5); Carbon Dioxide 21 mmol/L (22-29); Chloride 102 mmol/L (98-107); Globulin 3.3 g/dL (1.3-4.6); Glomerular Filtration Rate 9.3 mL/min (90-130); Glucose 125 mg/dL (65-115); Osmolality Calculated 303 mOsm/kg (285-295); Potassium 4.6 mmol/L (3.5-5.1); Sodium 137 mmol/L (136-145); Total Bilirubin 0.2 mg/dL (0.15-1.2); Total Protein 7.5 g/dL (6.6-8.7)
[2021-08-25] MEDS: diphenhydrAMINE 50 mg/mL SDV 1mL 25 MG IVP (11:38)
[2021-08-25 12:42] VITALS: BP 136/76; PULSE 82; RESP 18; TEMP 37.1; O2SAT 99
[2021-08-25 12:52] VITALS: BP 147/79; PULSE 84; RESP 18; TEMP 37.4; O2SAT 99
== END 2021-08-25 10:24 | disposition home or self-care (01) ==
PROVIDERS: PCP Nurse Practitioner Family; Referring Provider Internal Medicine Rheumatology; Visit Provider Internal Medicine Medical Oncology
DX: M05.79 Rheumatoid arthritis with rheumatoid factor of multiple sites without organ or systems involvement (principal); H20.13 Chronic iridocyclitis, bilateral
CPT/HCPCS: 80053; 85025; 86140; 96365; 96375; 96376; J1200; J1745; J2920; J7050

== ENCOUNTER → 2021-08-26 12:03 | Day surgery (SDC) | payer MEDICARE, MEDICAID, SELFPAY ==
[2021-08-26 12:13] VITALS: BP 156/77; PULSE 85; RESP 18; TEMP 36.4; O2SAT 100
[2021-08-26] MEDS: iron sucrose 200 MG in sodium chloride 0.9% (100 ml) 100 ML 220 MG IV (12:30)
== END ==
PROVIDERS: PCP Nurse Practitioner Family; Visit Provider Internal Medicine
DX: D50.9 Iron deficiency anemia, unspecified (principal)
CPT/HCPCS: 96365; J1756

== ENCOUNTER → 2021-09-02 11:26 | Day surgery (SDC) | payer MEDICARE, MEDICAID, SELFPAY ==
[2021-09-02 11:30] VITALS: BP 151/77; PULSE 82; RESP 18; TEMP 36.1; O2SAT 97
[2021-09-02] MEDS: iron sucrose 200 MG in sodium chloride 0.9% (100 ml) 100 ML 220 MG IV (12:00)
== END ==
PROVIDERS: PCP Nurse Practitioner Family; Visit Provider Internal Medicine
DX: D50.9 Iron deficiency anemia, unspecified (principal)
CPT/HCPCS: 96365; J1756

== ENCOUNTER → 2021-09-07 10:09 | Outpatient (BNVA) | payer MEDICARE, MEDICAID, SELFPAY | PROVIDERS: PCP Nurse Practitioner Family; Visit Provider Internal Medicine Rheumatology | DX: M05.9 Rheumatoid arthritis with rheumatoid factor, unspecified (principal); M19.212 Secondary osteoarthritis, left shoulder; Z79.899 Other long term (current) drug therapy; H21.509 Unspecified adhesions of iris and ciliary body, unspecified eye; N18.5 Chronic kidney disease, stage 5; D63.1 Anemia in chronic kidney disease | CPT/HCPCS: 99214 ==

== ENCOUNTER → 2021-09-09 11:27 | Day surgery (SDC) | payer MEDICARE, MEDICAID, SELFPAY ==
[2021-09-09 11:59] VITALS: BP 138/73; PULSE 77; RESP 18; TEMP 36.4; O2SAT 99
[2021-09-09] MEDS: iron sucrose 200 MG in sodium chloride 0.9% (100 ml) 100 ML 220 MG IV (12:05)
== END ==
PROVIDERS: PCP Nurse Practitioner Family; Visit Provider Internal Medicine
DX: D50.9 Iron deficiency anemia, unspecified (principal)
CPT/HCPCS: 96365; J1756

== ENCOUNTER → 2021-09-24 14:46 | Outpatient (BNVA) | payer MEDICARE, MEDICAID, SELFPAY | PROVIDERS: PCP Nurse Practitioner Family; Visit Provider Nurse Practitioner Family | DX: I10 Essential (primary) hypertension (principal); N18.9 Chronic kidney disease, unspecified; D63.1 Anemia in chronic kidney disease | CPT/HCPCS: 80048; 80053; 81000; 81003; 82310; 82728; 83540; 83550; 83735; 83970; 84100; 84550; 85025 ==

== ENCOUNTER 2021-10-08 13:18 | Outpatient (CLI) | payer MEDICARE, MEDICAID, SELFPAY ==
--- NOTE | 2021-10-08 13:25 | XR_ITS ---
WS: [id number] Right foot, 3 views, 10/08/2021 Clinical Data: M79.671 - Pain in right foot Comparison: Right ankle, 03/28/2019. Findings: No new fractures are seen. There is marked deformity of the metatarsals and phalanges. There is a fusion of the right first MTP joint. There are erosions and possible postsurgical changes of the heads of the second through fifth metatarsals with loss of the normal length. There are irregular articulations between the second thro ugh fifth MTP joints. The proximal phalanges of the second through fifth toes show deformity and shortening, especially of the third toe. There is osteoporosis of the tarsal bones. There is a probable bone infarct in the dis inge right tibia. There is soft tissue swelling over the lateral aspect of the foot. XR/XR foot RT min 3V* [id number] Impression: 1. Negative for fracture. 2. Marked deformity of the metatarsals and phalanges of the right foot.
--- NOTE | 2021-10-08 13:25 | XR_ITS ---
WS: [id number] Cervical spine, 4 views, 10/08/2021 Clinical Data: M54.2 - Cervicalgia Comparison: Cervical spine, 09/30/2011 Findings: The posterior occipital cervical fusion extending from posterior occiput to the pedicles an d lamina of the C2 and C3 vertebra appear to be intact. 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 No compression fractures ar e seen. The 0.2 cm subluxation on C4 and C5 is unchanged. There is anterior osteoarthritic change at C5, C6 and C7 with disc narrowing at C6-C7. No prevertebral soft tissue swelling is noted. On the AP view the odontoid is not visualized but there is no change in that anatomic region from before. The p acemaker generator and pacemaker wires are visible. XR/XR cervical spine 3V* [id number] Impression: 1. Intact cervical occiput posterior fusion unchanged. 2. Negative for new cervical spine fracture or subluxation. 3. Osteoarthritis C5-C7 with disc narrowing at C6-C7.
== END 2021-10-08 13:19 | disposition home or self-care (01) ==
PROVIDERS: PCP Nurse Practitioner Family; Visit Provider Nurse Practitioner Family
DX: M21.961 Unspecified acquired deformity of right lower leg (principal); M47.812 Spondylosis without myelopathy or radiculopathy, cervical region
CPT/HCPCS: 72040; 73630

== ENCOUNTER → 2021-11-27 11:50 | Day surgery (SDC) | payer MEDICARE, MEDICAID, SELFPAY ==
[2021-11-27 12:00] VITALS: BP 138/72; PULSE 77; RESP 18; TEMP 36.9; O2SAT 100
== END ==
PROVIDERS: PCP Nurse Practitioner Family; Visit Provider Nurse Practitioner Family
DX: Z95.828 Presence of other vascular implants and grafts (principal)
CPT/HCPCS: 96523

== ENCOUNTER → 2021-12-25 11:03 | Day surgery (SDC) | payer MEDICARE, MEDICAID, SELFPAY ==
[2021-12-25 11:15] VITALS: BP 134/74; PULSE 78; RESP 18; TEMP 36.2; O2SAT 98
[2021-12-25 14:32] LABS: Add Urine Microscopic? YES; Bilirubin Urine Neg (Negative); Blood Urine Neg (Negative); Glucose Urine UA 2+ (Normal); Ketones Urine Negative (Negative); Leukocyte Esterase Urine Negative (Negative); Nitrate Urine Negative (Negative); Protein Urine 1+ (Negative); Specific Gravity, Urine 1.005 (1.005-1.030); Urine Appearance Clear (CLEAR); Urine Color Yellow (Yellow); Urobilinogen Urine Norm (Negative); pH Urine 7 (5-7)
[2021-12-25 14:35] LABS: Basophils # 0.1 10^3/uL (0.0-0.1); Basophils % 0.6 %; Eosinophils # 0.2 10^3/uL (0.0-0.8); Eosinophils % 2.6 %; Hematocrit 34.2 % (37.0-47.0); Hemoglobin 10.6 g/dL (11.5-15.3); Lymphocytes # 1.1 10^3/uL (0.8-4.8); Lymphocytes % 13.5 %; Mean Corpuscular Hemoglobin 26.7 pg (28.0-34.0); Mean Corpuscular Volume 86.1 fl (81-99); Mean Platelet Volume 9.4 fL (7.4-10.4); Monocytes # 0.9 10^3/uL (0.2-0.9); Monocytes % 10.5 %; Neutrophils # 6.03 10^3/uL (1.8-7.7); Neutrophils % 72.4 %; Nucleated Red Blood Cells % 0 %; Platelet Count 320 10^3/cmm (130-400); Red Blood Count 3.97 10^6/uL (4.1-5.3); Red Cell Distribution Width 13.9 % (12.1-15.1); White Blood Count 8.3 10^3/uL (4.0-10.0)
[2021-12-25 14:39] LABS: Add Urine Culture? No; Bacteria Urine TRACE /hpf; RBC Urine 0-4 /hpf (0-2); Squamous Epithelial Cell Urine 0-4 /hpf (0-5)
[2021-12-25 15:12] LABS: Anion Gap 21.6 (5-19); Blood Urea Nitrogen 68 mg/dL (6-20); Calcium 8.7 mg/dL (8.5-10.5); Carbon Dioxide 21 mmol/L (22-29); Chloride 97 mmol/L (98-107); Glomerular Filtration Rate 9.1 mL/min (90-130); Glucose 81 mg/dL (65-115); Iron 38 ug/dL (37-145); Magnesium 3.3 mg/dL (1.7-2.3); Osmolality Calculated 299 mOsm/kg (285-295); Percent Saturation 15.5 % (20-50); Phosphorus 4.2 mg/dL (2.5-4.5); Potassium 4.6 mmol/L (3.5-5.1); Sodium 135 mmol/L (136-145); Total Iron Binding Capacity 245 mcg/dl; Unsaturated Iron Binding 207 ug/dL (112-347); Uric Acid 3.7 mg/dL (2.4-5.7)
[2021-12-25 15:13] LABS: Alanine Aminotransferase 38 U/L (0-33); Albumin Level 4.4 g/dL (3.5-5.2); Alkaline Phosphatase 51 IU/L (35-105); Aspartate Amino Transferase 22 U/L (0-32); Calcium 8.8 mg/dL (8.5-10.5); Globulin 3.1 g/dL (1.3-4.6); Glomerular Filtration Rate 9.1 mL/min (90-130); Total Bilirubin 0.2 mg/dL (0.15-1.2); Total Protein 7.5 g/dL (6.6-8.7)
[2021-12-25 15:18] LABS: Parathyroid Hormone 34.7 pg/mL (15-65)
[2021-12-26 11:07] LABS: Erythrocyte Sedimentation Rate 80 mm/hr (0-15)
== END ==
PROVIDERS: Internal Medicine; Internal Medicine Rheumatology; PCP Nurse Practitioner Family; Visit Provider Nurse Practitioner Family
DX: D63.1 Anemia in chronic kidney disease (principal); L40.9 Psoriasis, unspecified; M08.00 Unspecified juvenile rheumatoid arthritis of unspecified site; N18.9 Chronic kidney disease, unspecified; E83.41 Hypermagnesemia; I10 Essential (primary) hypertension; E83.52 Hypercalcemia; Z79.899 Other long term (current) drug therapy
CPT/HCPCS: 36591; 80048; 80076; 81001; 82310; 82565; 83540; 83550; 83735; 83970; 84100; 84550; 85025; 85651; 86140

== ENCOUNTER → 2022-01-11 10:50 | Outpatient (BNVA) | payer MEDICARE, MEDICAID, SELFPAY | PROVIDERS: PCP Nurse Practitioner Family; Visit Provider Internal Medicine Rheumatology | DX: M05.9 Rheumatoid arthritis with rheumatoid factor, unspecified (principal); H21.509 Unspecified adhesions of iris and ciliary body, unspecified eye; M19.212 Secondary osteoarthritis, left shoulder; L40.9 Psoriasis, unspecified; Z79.899 Other long term (current) drug therapy; N18.5 Chronic kidney disease, stage 5 | CPT/HCPCS: 99214 ==

== ENCOUNTER → 2022-01-20 11:45 | Day surgery (SDC) | payer MEDICARE, MEDICAID, SELFPAY ==
[2022-01-20 11:50] VITALS: BP 150/82; PULSE 83; RESP 18; TEMP 37.1; O2SAT 100
== END ==
PROVIDERS: PCP Nurse Practitioner Family; Visit Provider Nurse Practitioner Family
DX: N93.9 Abnormal uterine and vaginal bleeding, unspecified (principal)
CPT/HCPCS: 76830; 96523

== ENCOUNTER → 2022-02-11 11:09 | Day surgery (SDC) | payer MEDICARE, MEDICAID, SELFPAY ==
[2022-02-11 11:15] VITALS: BP 135/73; PULSE 74; RESP 18; TEMP 36.9; O2SAT 100
[2022-02-11 12:07] LABS: Hemoglobin 10.6 g/dL (11.5-15.3)
[2022-02-11 12:17] LABS: Protein Urine 1+ (Negative); Urine Appearance Clear (CLEAR); Urine Color Yellow (Yellow); pH Urine 8 (5-7)
[2022-02-11 12:18] LABS: Add Urine Microscopic? YES; Bilirubin Urine Neg (Negative); Blood Urine 2+ (Negative); Glucose Urine UA 4+ (Normal); Ketones Urine Negative (Negative); Leukocyte Esterase Urine Negative (Negative); Nitrate Urine Negative (Negative); Urobilinogen Urine Norm (Negative)
[2022-02-11 12:25] LABS: Bacteria Urine TRACE /hpf; RBC Urine 0-4 /hpf (0-2); WBC Urine 0-4 /hpf (0-5)
[2022-02-11 12:33] LABS: Calcium 10.5 mg/dL (8.5-10.5)
[2022-02-11 12:37] LABS: Creatinine Urine, Random 34 mg/dL (28-217); Total Protein, Random Urine 62.6 mg/dL (0.0-20.0)
[2022-02-11 12:40] LABS: Parathyroid Hormone 14.6 pg/mL (15-65)
[2022-02-11 12:53] LABS: Albumin Level 4.1 g/dL (3.5-5.2); Anion Gap 21.4 (5-19); Calcium 10.5 mg/dL (8.5-10.5); Carbon Dioxide 22 mmol/L (22-29); Chloride 94 mmol/L (98-107); Ferritin 403 ng/mL (15-150); Glomerular Filtration Rate 8.1 mL/min (90-130); Glucose 78 mg/dL (65-115); Iron 60 ug/dL (37-145); Magnesium 3.2 mg/dL (1.7-2.3); Osmolality Calculated 298 mOsm/kg (285-295); Phosphorus 5.5 mg/dL (2.5-4.5); Potassium 5.4 mmol/L (3.5-5.1); Sodium 132 mmol/L (136-145); Uric Acid 4.3 mg/dL (2.4-5.7)
[2022-02-11 13:00] LABS: Blood Urea Nitrogen 82 mg/dL (6-20)
--- NOTE | 2022-02-11 14:33 | PC.NURSE ---
Critical Bun and Creatnine called to JERI Raman/Dr. Ruben Thorpe, Nephrology.
== END ==
PROVIDERS: Internal Medicine; PCP Nurse Practitioner Family; Visit Provider Nurse Practitioner Family
DX: Z95.828 Presence of other vascular implants and grafts (principal)
CPT/HCPCS: 36591; 80048; 81001; 82040; 82310; 82575; 82728; 83540; 83735; 83970; 84100; 84156; 84550; 85018; A9270

== ENCOUNTER → 2022-02-16 13:18 | Outpatient (BNVA) | payer MEDICARE, MEDICAID, SELFPAY | PROVIDERS: PCP Nurse Practitioner Family; Visit Provider Podiatrist Foot & Ankle Surgery | DX: M08.00 Unspecified juvenile rheumatoid arthritis of unspecified site (principal); M20.41 Other hammer toe(s) (acquired), right foot; M20.42 Other hammer toe(s) (acquired), left foot; M25.371 Other instability, right ankle; Q72.899 Other reduction defects of unspecified lower limb | CPT/HCPCS: 99203; 99204 ==

== ENCOUNTER → 2022-02-24 12:16 | Day surgery (SDC) | payer MEDICARE, MEDICAID, SELFPAY ==
[2022-02-24 12:15] VITALS: BP 135/69; PULSE 78; RESP 18; TEMP 36.3; O2SAT 96
[2022-02-24 13:37] LABS: Potassium 4.2 mmol/L (3.5-5.1)
== END ==
PROVIDERS: Internal Medicine; PCP Nurse Practitioner Family; Visit Provider Nurse Practitioner Family
DX: E87.5 Hyperkalemia (principal); Z95.828 Presence of other vascular implants and grafts
CPT/HCPCS: 36591; 84132

== ENCOUNTER 2022-03-08 09:12 | Outpatient (CLI) | payer MEDICARE, MEDICAID, SELFPAY ==
--- NOTE | 2022-03-08 09:17 | MM_ITS ---
WS: [id number] BILATERAL SCREENING DIGITAL TOMOSYNTHESIS MAMMOGRAM WITH CAD HISTORY: Screening. COMPARISON: 03/04/2021 and 02/19/2020 Bilateral CC and MLO views with tomosynthesis and synthetic mammography submitted. Computer aided det ection analyzed. Breast composition: The breasts are heterogeneously dense, which may obscure small masses. No suspici ous masses, microcalcifications or architectural distortion. Benign calcifications in each breast. Co arse calcification in the LEFT breast is probably associated with a fibroadenoma. MM/[place] [id number] IMPRESSION: BI-RADS: 2-Benign FOLLOW UP: 1 Year Follow-up
== END 2022-03-08 09:13 | disposition home or self-care (01) ==
LOC: RAD 09:12
PROVIDERS: PCP Nurse Practitioner Family; Visit Provider Nurse Practitioner Family
DX: Z12.31 Encounter for screening mammogram for malignant neoplasm of breast (principal)
CPT/HCPCS: 77063; 77067

== ENCOUNTER → 2022-03-11 14:31 | Outpatient (BNVA) | payer MEDICARE, MEDICAID, SELFPAY | PROVIDERS: PCP Nurse Practitioner Family; Visit Provider Nurse Practitioner Family | DX: M25.531 Pain in right wrist (principal) | CPT/HCPCS: 73110 ==

== ENCOUNTER → 2022-03-17 14:37 | Outpatient (BNVA) | payer MEDICARE, MEDICAID, SELFPAY | PROVIDERS: PCP Nurse Practitioner Family; Referring Provider Nurse Practitioner Family; Visit Provider Orthopaedic Surgery | DX: M25.531 Pain in right wrist (principal) | CPT/HCPCS: 99203 ==

== ENCOUNTER → 2022-03-24 12:56 | Day surgery (SDC) | payer MEDICARE, MEDICAID, SELFPAY ==
[2022-03-24 13:00] VITALS: BP 151/76; PULSE 98; RESP 18; TEMP 36.4; O2SAT 99
== END ==
PROVIDERS: PCP Nurse Practitioner Family; Visit Provider Nurse Practitioner Family
DX: Z95.828 Presence of other vascular implants and grafts (principal)
CPT/HCPCS: 96523

== ENCOUNTER → 2022-04-22 12:01 | Day surgery (SDC) | payer MEDICARE, MEDICAID, SELFPAY ==
[2022-04-22 12:15] VITALS: BP 125/70; PULSE 79; RESP 18; TEMP 37; O2SAT 100
== END ==
PROVIDERS: PCP Nurse Practitioner Family; Visit Provider Nurse Practitioner Family
DX: E87.5 Hyperkalemia (principal)
CPT/HCPCS: 96523

== ENCOUNTER → 2022-04-26 12:56 | Outpatient (BNVA) | payer MEDICARE, MEDICAID, SELFPAY | PROVIDERS: PCP Nurse Practitioner Family; Visit Provider Internal Medicine Rheumatology | DX: M05.79 Rheumatoid arthritis with rheumatoid factor of multiple sites without organ or systems involvement (principal); L40.9 Psoriasis, unspecified; Z79.899 Other long term (current) drug therapy; D63.1 Anemia in chronic kidney disease; N18.5 Chronic kidney disease, stage 5; M19.212 Secondary osteoarthritis, left shoulder; M25.373 Other instability, unspecified ankle | CPT/HCPCS: 99214 ==

== ENCOUNTER 2022-04-27 10:42 | Day surgery (SDC) | payer MEDICARE, MEDICAID, SELFPAY ==
[2022-04-12 09:27] VITALS: BMI 21.4
[2022-04-26 14:16] VITALS: BMI 21.4
[2022-04-27] VITALS (11 sets, daily range): BP systolic 119–162; BP diastolic 68–89; PULSE 69–88; RESP 11–20; TEMP 36.3–37.2; O2SAT 99–100
--- NOTE | 2022-04-27 11:26 | ANES.PREANE2 ---
Pre-Anesthetic Assessment Height/Weight: Height 1.52 m Weight 49.895 kg Temp Pulse Resp BP Pulse Ox O2 Del Method 98.1 F 80 18 136/75 100 04/27/22 11:16 04/27/22 11:16 04/27/22 11:16 04/27/22 11:16 04/27/22 11:16 04/27/22 11:16 Preop Diagnosis: Gi bleed Operation Date: 04/27/22 12:25 Proposed Procedures p Hysteroscopy, dilation and curettage with Myosure, Novasure 79630, 79663, 69132,N93.9(Not Applicable) - Meri Daly MD s Dilation And Curettage (D&C)(Not Applicable) - Meri Daly MD s Hysteroscopy w/ Ablation w/ Novasure(Not Applicable) - Meri Daly MD Familial anesthetic complications: PONV, difficult airway (Patient has letter from [facility] stating she is difficult airway, but they were able to manage her airway) Was Beta Merry taken within 24 hours: N/A Was Clonidine taken within 24 hours: N/A Last intake: Intake Last Liquid Date 04/26/22 Last Liquid Time 23:30 Last Solid Date 04/26/22 Last Solid Time 18:00 Social No alcohol and No tobacco Exam alert, oriented x 3, clear to auscultation bilaterally and regular rate & rhythm Airway Cervical ROM: Other (limited) Mallampati: Class III Dentition: full CV/HEM Hypertension Chronic Renal Insufficiency GI Gastroesophageal Reflux Disease [facility] severe RA Anesthetic Plan ASA status: 4 Anesthesia: General Risk of > 500 ml blood loss (7ml/kg in children): No Medications/Allergies Home Medications Medication Instructions Recorded Confirmed Last Taken Type apremilast 30 mg tablet (Otezla) 30 mg PO BID 05/26/20 04/27/22 1 Day Ago History ~04/26/22 timolol maleate 0.5 % eye drops 1 drp ophthalmic (eye) BID 05/26/20 04/27/22 1 Day Ago History ~04/26/22 triamcinolone acetonide 0.1 % 1 applic topical PRN 05/26/20 04/27/22 2 Days Ago History topical ointment ~04/25/22 sodium bicarbonate 650 mg tablet 1,950 mg PO BID 30 days #180 tabs 03/18/21 04/27/22 1 Day Ago Rx ~04/26/22 albuterol sulfate 90 mcg/actuation 2 puff inhalation Q4H PRN 12/01/21 04/26/22 01/19/22 Rx aerosol inhaler (ProAir HFA) Shortness Of Breath #8.5 grams amlodipine 2.5 mg tablet 2.5 mg PO .QHS 12/25/21 04/27/22 1 Day Ago History ~04/26/22 famotidine 40 mg tablet 40 mg PO BID 12/25/21 04/27/22 1 Day Ago History ~04/26/22 venlafaxine 75 mg capsule,extended 75 mg PO QAM 12/25/21 04/27/22 1 Day Ago History release 24 hr ~04/26/22 desipramine 50 mg tablet See Rx Instructions .Route 12/29/21 04/27/22 1 Day Ago Rx .COMPLEX #30 tabs ~04/26/22 ferrous sulfate 325 mg (65 mg 325 mg PO BID #60 tabs 12/30/21 04/27/22 1 Day Ago Rx iron) tablet (FeroSul) ~04/26/22 epoetin shania-epbx [Retacrit] 1 unit SUBCUT DIRECTED 01/11/22 04/26/22 01/19/22 History norethindrone acetate 5 mg tablet 5 mg PO DAILY #30 tabs 01/26/22 04/27/22 1 Day Ago Rx (Aygestin) ~04/26/22 certolizumab pegol 400 mg/2 mL See Rx Instructions .Route 02/03/22 04/27/22 04/21/22 Rx (200 mg/mL x2) subcutaneous .COMPLEX #2 kits syringe kit (Cimzia) accommodative custom orthotics #1 ea 02/16/22 04/26/22 Unknown Rx Articulating AFO right lower #1 ea 02/22/22 04/26/22 Unknown Rx extremity gabapentin 300 mg capsule 300 mg PO BEDTIME 04/12/22 04/27/22 1 Day Ago History ~04/26/22 metoprolol tartrate 50 mg tablet 50 mg PO BID 04/12/22 04/27/22 04/27/22 07:00 History Allergies Allergy/AdvReac Type Severity Reaction Status Date / Time Penicillins Allergy Intermediate swelling Verified 04/27/22 10:56 COUNTS INCLUDE 234 BEDS AT THE [facility] Anesthesia Medical History Anemia in chronic kidney disease (CKD) AV fistula Chronic anemia Chronic anterior uveitis of both eyes Chronic kidney disease Dr. Aquino [place] Hypermagnesemia Hypertension Migraine headache No pertinent past medical history neghx: dm,thyroid,dvt/pe PCP: Cookie Fernández Seropositive rheumatoid arthritis of multiple sites Surgical History H/O cataract extraction both eyes H/O esophagogastroduodenoscopy 08/02/2019: Normal H/O foot surgery H/O joint surgery Due to arthritis Neck, knees, shoulder, knuckle, wrists H/O wrist surgery Hx of total knee arthroplasty both Status post colonoscopy 08/02/2019: Poor prep, normal Family History Father Stroke Father had Parkinson's and a stroke Hypertension Hypercholesteremia Mother Hypertension Hypercholesteremia Family/Other Breast cancer Maternal Cousin-- dx age unknown Ovarian cancer Maternal aunt-- dx age unknown Diabetes Maternal Aunt/Uncle Denies family history of Colon cancer Uterine cancer Social History Smoking and tobacco status: never smoked Additional social history: - Tobacco use: Denies Alcohol use: Denies Drug use: Denies Female Reproductive History Date of last menstrual period: 04/09/20 Data Anesthesia Cardiac Studies: No Data to Display
[2022-04-27 11:27] LABS: OR HCG Qualitative Urine Negative (Negative)
[2022-04-27] MEDS: sodium chloride 0.9% 1,000 ML 30 ML IV (11:28)
[2022-04-27 11:49] LABS: Basophils # 0.1 10^3/uL (0.0-0.1); Basophils % 0.8 %; Eosinophils # 0.3 10^3/uL (0.0-0.8); Eosinophils % 3.1 %; Hematocrit 37.9 % (37.0-47.0); Hemoglobin 11.7 g/dL (11.5-15.3); Lymphocytes # 1.3 10^3/uL (0.8-4.8); Mean Corpuscular HGB Conc 30.9 g/dL (30.0-36.0); Mean Corpuscular Hemoglobin 26.7 pg (28.0-34.0); Mean Corpuscular Volume 86.5 fl (81-99); Mean Platelet Volume 8.7 fL (7.4-10.4); Monocytes # 0.7 10^3/uL (0.2-0.9); Neutrophils # 6.17 10^3/uL (1.8-7.7); Neutrophils % 72.4 %; Nucleated Red Blood Cells % 0 %; Platelet Count 332 10^3/cmm (130-400); Red Blood Count 4.38 10^6/uL (4.1-5.3); Red Cell Distribution Width 15.9 % (12.1-15.1); White Blood Count 8.5 10^3/uL (4.0-10.0)
[2022-04-27 12:05] LABS: Anion Gap 20.3 (5-19); Blood Urea Nitrogen 64 mg/dL (6-20); Calcium 9.2 mg/dL (8.5-10.5); Carbon Dioxide 18 mmol/L (22-29); Chloride 103 mmol/L (98-107); Glomerular Filtration Rate 8.1 mL/min (90-130); Glucose 77 mg/dL (65-115); Osmolality Calculated 301 mOsm/kg (285-295); Potassium 4.3 mmol/L (3.5-5.1); Sodium 137 mmol/L (136-145)
--- NOTE | 2022-04-27 12:17 | SUR.PREOP ---
Received call from lab regarding critical lab result. Creatinine is 5.6. Notified RN and Dr. Browne of results
--- NOTE | 2022-04-27 13:23 | W.PM.OPSUD ---
Surgery/Procedure H&P Update DATE OF PROCEDURE: April 27, 2022 DATE H&P PERFORMED: 04/22/22 H&P UPDATE INFORMATION: I have reviewed H&P completed within last 30 days, I have examined patient prior to procedure and No changes to prior documentation PREOP DIAGNOSIS: Gi bleed PLANNED PROCEDURE: Operation Date: 04/27/22 12:25 Proposed Procedures p Hysteroscopy, dilation and curettage with Myosure, Novasure 34360, 96821, 48798,N93.9(Not Applicable) - Meri Daly MD s Dilation And Curettage (D&C)(Not Applicable) - Meri Daly MD s Hysteroscopy w/ Ablation w/ Novasure(Not Applicable) - Meri Daly MD Related Problem List Diagnoses (1) Abnormal uterine bleeding (AUB):
--- NOTE | 2022-04-27 14:40 | PM.OP ---
Operative Report Date of procedure: April 27, 2022 Pre-op diagnosis: Preop Diagnosis AUB Post-op diagnosis: same Post-op findings: Thickened endometrium Procedure done: hysteroscopy, dilation and curettage with myosure, novasure endometrial ablation Specimens removed/disposition: endometrial curettings to pathology Surgeon: Meri Daly Anesthesia: MAC Estimated blood loss (mL): 30 IV fluids (mL): 250 Complications: none Findings: 8 week sized uterus 660 hysteroscopy deficit Condition: stable Disposition: PACU Procedure: The patient was taken to the operating room where monitored anesthesia was administered and to be adequate. She was prepped and draped in the normal sterile fashion in the dorsal lithotomy position in [facility]. A weighted speculum was placed into the vagina and the anterior lip of the cervix grasped with a single-tooth tenaculum. The uterus was sounded to 8 cm. The cervix was dilated to 17 [place]. The hysteroscope was advanced into the endometrial cavity. There was excessive tissue visualized. The MyoSure device was activated and the tissue was removed. Attention was then turned to the NovaSure portion of the procedure. The NovaSure device was advanced into the endometrial cavity. The endometrial length was 4.5 and the endometrial width was 3.1. The NovaSure device was activated and burn time was 49 seconds. All instruments were removed. The patient tolerated the procedure well. Sponge lap and needle counts were correct x3. She was taken to the recovery room in stable condition. Pictures were taken pre and post procedure. All instruments were removed. The patient tolerated the procedure well. Sponge lap and needle counts were correct x3. She was taken to the recovery room in stable condition.
--- NOTE | 2022-04-27 14:45 | P.DS_ITS ---
Discharge Providers Date of Admission: 04/27/22 Date of Discharge: April 27, 2022 Attending Provider at Admission: Dr. Daly Attending Provider at Discharge: Meri Daly MD Primary Care Provider: GHADA Nam Diagnoses at Discharge Discharge Diagnosis (1) Abnormal uterine bleeding (AUB): Status: Acute Permanent problem details: With noted US finding of Abnormal thickened heterogeneous lobulated endometrium measuring 21 mm with cystic change. Recommend further evaluation with hysteroscopy to evaluate for neoplasia/hyperplasia. Hospital Course Hospital Course The patient was admitted for surgery. She did well postoperatively and was ready for discharge. Discharge Data Studies Completed and Pending Laboratory Results WBC 8.5 10^3/uL (4.0-10.0) 04/27/22 11:35 RBC 4.38 10^6/uL (4.1-5.3) 04/27/22 11:35 Hgb 11.7 g/dL (11.5-15.3) 04/27/22 11:35 Hct 37.9 % (37.0-47.0) 04/27/22 11:35 MCV 86.5 fl (81-99) 04/27/22 11:35 MCH 26.7 pg (28.0-34.0) L 04/27/22 11:35 MCHC 30.9 g/dL (30.0-36.0) 04/27/22 11:35 RDW 15.9 % (12.1-15.1) H 04/27/22 11:35 Plt Count 332 10^3/cmm (130-400) 04/27/22 11:35 MPV 8.7 fL (7.4-10.4) 04/27/22 11:35 Neut % (Auto) 72.4 % 04/27/22 11:35 Lymph % (Auto) 15.0 % 04/27/22 11:35 [place] % (Auto) 8.0 % 04/27/22 11:35 Eos % (Auto) 3.1 % 04/27/22 11:35 Baso % (Auto) 0.8 % 04/27/22 11:35 Neut # (Auto) 6.17 10^3/uL (1.8-7.7) 04/27/22 11:35 Lymph # (Auto) 1.3 10^3/uL (0.8-4.8) 04/27/22 11:35 [place] # (Auto) 0.7 10^3/uL (0.2-0.9) 04/27/22 11:35 Eos # (Auto) 0.3 10^3/uL (0.0-0.8) 04/27/22 11:35 Baso # (Auto) 0.1 10^3/uL (0.0-0.1) 04/27/22 11:35 Nucleated RBC % (auto) 0 % 04/27/22 11:35 Nucleated RBCs # 0.0 /100WBC 04/27/22 11:35 Sodium 137 mmol/L (136-145) 04/27/22 11:35 Potassium 4.3 mmol/L (3.5-5.1) 04/27/22 11:35 Chloride 103 mmol/L (98-107) 04/27/22 11:35 Carbon Dioxide 18 mmol/L (22-29) L 04/27/22 11:35 Anion Gap 20.3 (5-19) H 04/27/22 11:35 BUN 64 mg/dL (6-20) H 04/27/22 11:35 Creatinine 5.6 mg/dL (0.5-0.9) H* 04/27/22 11:35 GFR Calculation 8.1 mL/min (90-130) L 04/27/22 11:35 Glucose 77 mg/dL (65-115) 04/27/22 11:35 Calculated Osmolality 301 mOsm/kg (285-295) H 04/27/22 11:35 Calcium 9.2 mg/dL (8.5-10.5) 04/27/22 11:35 Urine HCG, Qual Negative (Negative) 04/27/22 11:26 Vitals Last Vital Signs Temp 98.1 F 04/27/22 11:16 Pulse 80 04/27/22 11:16 Resp 18 04/27/22 11:16 BP 136/75 04/27/22 11:16 Pulse Ox 100 04/27/22 11:16 O2 Del Method 04/27/22 11:16 Discharge Plan Discharge Patient Disposition: Home Condition: Stable Prescriptions: Continued epoetin shania-epbx [Retacrit] 1 unit SUBCUT DIRECTED Rx Instructions: once a week (DME) accommodative custom orthotics See Rx Instructions .Route .MEDSUPPLY Qty: 1 0RF Rx Instructions: As directed by [facility] (DME) Articulating AFO right lower extremity See Rx Instructions .Route .MEDSUPPLY Qty: 1 0RF Rx Instructions: As directed BY [facility] sodium bicarbonate 650 mg tablet 1,950 mg PO BID 30 Days Qty: 180 3RF albuterol sulfate [ProAir HFA] 90 mcg/actuation HFA aerosol inhaler 2 puff INHALATION Q4H PRN (Reason: Shortness Of Breath) Qty: 8.5 1RF desipramine 50 mg tablet See Rx Instructions .ROUTE .COMPLEX Qty: 30 5RF Dose Instruction: TAKE ONE TABLET BY MOUTH AT BEDTIME Rx Instructions: TAKE ONE TABLET BY MOUTH AT BEDTIME ferrous sulfate [FeroSul] 325 mg (65 mg iron) tablet 325 mg PO BID Qty: 60 2RF Rx Instructions: TAKE ONE TABLET BY MOUTH twice DAILY Aygestin 5 mg tablet 5 mg PO DAILY Qty: 30 10RF Cimzia 400 mg/2 mL (200 mg/mL x 2) syringe kit See Rx Instructions .ROUTE .COMPLEX Qty: 2 3RF Dose Instruction: INJECT 200mg SUBCUTANEOUSLY every TWO WEEKS Rx Instructions: INJECT 200mg SUBCUTANEOUSLY every TWO WEEKS triamcinolone acetonide 0.1 % ointment 1 applic topical PRN Otezla 30 mg tablet 30 mg PO BID timolol maleate 0.5 % drops 1 drp ophthalmic (eye) BID Rx Instructions: EACH EYE amlodipine 2.5 mg tablet 2.5 mg PO .QHS Rx Instructions: TAKE ONE TABLET BY MOUTH AT BEDTIME venlafaxine 75 mg capsule,extended release 24hr 75 mg PO QAM Rx Instructions: TAKE ONE CAPSULE BY MOUTH EVERY MORNING famotidine 40 mg tablet 40 mg PO BID Rx Instructions: TAKE ONE TABLET BY MOUTH TWICE DAILY metoprolol tartrate 50 mg tablet 50 mg PO BID gabapentin 300 mg capsule 300 mg PO BEDTIME Discharge Orders: Discharge Order (Routine); Ordered 04/27/22 Ordered By: Meri Daly Discharge Attestations Time Spent in Discharge Care*: less than 30 min Quality Metrics Clinical Quality Measures [ No reported AMI, CVA or VTE this stay] Coding Level of Care Code Acute Chg FW DC note Diagnoses Abnormal uterine bleeding (AUB) N93.9
--- NOTE | 2022-04-27 14:56 | SUR.PHASEI ---
1442 PT TO PACU 5 PT SLEEPS WITH LMA IN PLACE 8L MASK TO LMA, SATS 100% RESP EVEN AND UNLABORED, IV TO LT CHEST PORT SITE AT KVO RATE PER GRAVITY NS 800ML UP, MONITOR SR WITH NO ECTOPY, ID BRACELET TO RT WRIST, PT ID'D WITH 2 IDENTIFERS, ABDOMEN IS SOFT JUAN PAD D/I BILAT SCD S ON PT. 1455 PT AWAKES EASILY WITH NO DISTRESS, LMA OUT PER RN AT BEDSIDE , PT VERBALIZED NO PAIN OR NAUSEA, VSS
--- NOTE | 2022-04-27 15:03 | SUR.PHASEI ---
PT RESTING QUIETLY WITHOUT COMPLAINT, WARM BLANKETS TO PT X 2, VSS MONITOR UNCHANGED ABDOMEN SOFT WITH NO VAGINAL BLEEDING NOTED.
== END 2022-04-27 16:40 | disposition home or self-care (01) ==
PROVIDERS: Anesthesiology; PCP Nurse Practitioner Family; Visit Provider Obstetrics & Gynecology
PROC: 0UDB8ZZ Extraction of Endometrium, Via Natural or Artificial Opening Endoscopic (ICD-10-PCS; CPT 58558; principal; 2022-04-27 12:15)
PROC: (CPT 58120; 2022-04-27 12:15)
PROC: 0U598ZZ Destruction of Uterus, Via Natural or Artificial Opening Endoscopic (ICD-10-PCS; CPT 58563; 2022-04-27 12:15)
DX: N93.9 Abnormal uterine and vaginal bleeding, unspecified (principal); K21.9 Gastro-esophageal reflux disease without esophagitis; M06.9 Rheumatoid arthritis, unspecified; I12.9 Hypertensive chronic kidney disease with stage 1 through stage 4 chronic kidney disease, or unspecified chronic kidney disease; N18.9 Chronic kidney disease, unspecified
CPT/HCPCS: 58558; 36415; 80048; 81025; 84703; 85025; 88305; J1100; J1200; J2250; J2405; J2704; J3010; J7030

== ENCOUNTER → 2022-05-10 12:05 | Day surgery (SDC) | payer MEDICARE, MEDICAID, SELFPAY ==
[2022-05-10 12:25] VITALS: BP 133/71; PULSE 77; RESP 18; TEMP 37.1; O2SAT 100
[2022-05-10 12:58] LABS: Hemoglobin 11.8 g/dL (11.5-15.3)
[2022-05-10 13:21] LABS: Calcium 8.6 mg/dL (8.5-10.5)
[2022-05-10 13:23] LABS: Creatinine Urine, Random 38 mg/dL (28-217)
[2022-05-10 13:26] LABS: Albumin Level 3.9 g/dL (3.5-5.2); Anion Gap 20.1 (5-19); Blood Urea Nitrogen 59 mg/dL (6-20); Calcium 8.5 mg/dL (8.5-10.5); Carbon Dioxide 19 mmol/L (22-29); Chloride 98 mmol/L (98-107); Glomerular Filtration Rate 8.5 mL/min (90-130); Glucose 78 mg/dL (65-115); Magnesium 3.6 mg/dL (1.7-2.3); Osmolality Calculated 291 mOsm/kg (285-295); Phosphorus 4.6 mg/dL (2.5-4.5); Potassium 4.1 mmol/L (3.5-5.1); Sodium 133 mmol/L (136-145); Uric Acid 3.9 mg/dL (2.4-5.7)
[2022-05-10 13:27] LABS: Parathyroid Hormone 57.3 pg/mL (15-65)
[2022-05-10 13:29] LABS: Bilirubin Urine Neg (Negative); Blood Urine 3+ (Negative); Glucose Urine UA 2+ (Normal); Ketones Urine Negative (Negative); Nitrate Urine Negative (Negative); Protein Urine 1+ (Negative); Specific Gravity, Urine 1.005 (1.005-1.030); Urine Appearance Clear (CLEAR); Urine Color Straw (Yellow); pH Urine 8 (5-7)
[2022-05-10 13:30] LABS: Add Urine Microscopic? YES; Leukocyte Esterase Urine Negative (Negative); Sulfosalicylic Acid Urine Positive (Negative); Urobilinogen Urine Norm (Negative)
[2022-05-10 13:33] LABS: Urine Protein Random 80 mg/dL
[2022-05-10 13:37] LABS: RBC Urine 0-4 /hpf (0-2); WBC Urine 0-4 /hpf (0-5)
[2022-05-10 13:38] LABS: Add Urine Culture? No; Bacteria Urine 1+ /hpf
[2022-05-10 14:00] LABS: Ferritin 314 ng/mL (15-150); Iron 42 ug/dL (37-145); Percent Saturation 18.3 % (20-50); Total Iron Binding Capacity 229 mcg/dl; Unsaturated Iron Binding 187 ug/dL (112-347)
== END ==
PROVIDERS: Internal Medicine; PCP Nurse Practitioner Family; Visit Provider Nurse Practitioner Family
DX: N18.5 Chronic kidney disease, stage 5 (principal); E87.1 Hypo-osmolality and hyponatremia; E87.5 Hyperkalemia; E87.20 Acidosis, unspecified
CPT/HCPCS: 36591; 80048; 81001; 82040; 82310; 82575; 82728; 83540; 83550; 83735; 83970; 84100; 84156; 84550; 85018

== ENCOUNTER → 2022-07-13 12:01 | Outpatient (BNVA) | payer MEDICARE, MEDICAID, SELFPAY | PROVIDERS: PCP Nurse Practitioner Family; Visit Provider Nurse Practitioner Family | DX: R10.9 Unspecified abdominal pain (principal); R82.90 Unspecified abnormal findings in urine | CPT/HCPCS: 74018; 81003; 87086 ==

== ENCOUNTER → 2022-07-20 11:52 | Day surgery (SDC) | payer MEDICARE, MEDICAID, SELFPAY ==
[2022-07-20 12:30] VITALS: BP 134/71; PULSE 68; RESP 18; TEMP 36.4; O2SAT 99
[2022-07-20 13:27] LABS: Hepatitis B Core AB, Total Non-Reactive (Nonreactive); Hepatitis B Surface AB 3.5 (11.5-1000); Hepatitis B Surface Antigen Non-Reactive (Nonreactive); Hepatitis C Virus Antibody Non-Reactive (Nonreactive)
== END ==
PROVIDERS: PCP Nurse Practitioner Family; Visit Provider Internal Medicine
DX: Z11.59 Encounter for screening for other viral diseases (principal)
CPT/HCPCS: 36591; 86704; 86706; 86803; 87340

== ENCOUNTER 2022-07-22 11:29 | Emergency (ER) | payer MEDICARE, MEDICAID, SELFPAY ==
[2022-07-22 11:33] VITALS: BP 130/77; PULSE 70; RESP 16; TEMP 36.7; O2SAT 99; BMI 3121.3
--- NOTE | 2022-07-22 11:39 | ED_ITS ---
HPI - Headache General: Chief Complaint: Headache Stated Complaint: Stage 5 Kidney pt, muscles and head hurt Time Seen by Provider: 07/22/22 11:39 History of Present Illness: Ms. Paredes is a 46-year-old lady with history of CKD, hypertension, psoriasis, juvenile RA, AV fistula placement presenting to the emergency department for generalized illness. She reports onset of symptoms gradually approximately 3 days ago. She endorses generalized headache which is worse frontally and feels like a typical headache. This is not thunderclap and is not the worst headache of her life, she denies associated neurologic symptoms or changes with this headache. She reports also generalized malaise, a funny taste in her mouth, and generalized myalgias. She has had nausea but no vomiting. Denies respiratory symptoms. Intensity symptoms moderate. Course has mildly worsened. No other specific changes in health, exacerbating, or alleviating factors identified. Onset (ago): day(s) Onset description: gradually Location: frontal Severity: moderate Quality & Timing: aching and pressure Exacerbating factors: none Relieving factors: nothing Associated symptoms: Reports malaise and other (Myalgias) Review of Systems General: Reports: 10 or more systems reviewed and unremarkable except in HPI and below Const: Reports: malaise PFSH ED PFSH: Medical History Anemia in chronic kidney disease (CKD) AV fistula Chronic anemia Chronic anterior uveitis of both eyes Chronic kidney disease Dr. [place] in [place] Hypermagnesemia Hypertension Migraine headache No pertinent past medical history neghx: dm,thyroid,dvt/pe PCP: Cookie Fernández Seropositive rheumatoid arthritis of multiple sites Surgical History H/O cataract extraction both eyes H/O esophagogastroduodenoscopy 08/02/2019: Normal H/O foot surgery H/O joint surgery Due to arthritis Neck, knees, shoulder, knuckle, wrists H/O wrist surgery Hx of total knee arthroplasty both Status post colonoscopy 08/02/2019: Poor prep, normal Family History Father Stroke Father had Parkinson's and a stroke Hypertension Hypercholesteremia Mother Hypertension Hypercholesteremia Family/Other Breast cancer Maternal Cousin-- dx age unknown Ovarian cancer Maternal aunt-- dx age unknown Diabetes Maternal Aunt/Uncle Denies family history of Colon cancer Uterine cancer Social History Smoking and tobacco status: never smoked Additional social history: - Tobacco use: Denies Alcohol use: Denies Drug use: Denies Female Reproductive History: Date of last menstrual period: 04/09/20 Physical Exam Const: COMMON NORMALS: patient oriented x3 and alert GENERAL APPEARANCE: cooperative and well developed HENMT: COMMON NORMALS: normocephalic and atraumatic HEAD & SCALP: normocephalic and atraumatic OTHER: No evidence of thrush, mild posterior pharyngeal erythema without exudates. No tonsillar hypertrophy. No evidence of anatomy distortion or uvular deviation. No evidence of STRUCTURES TECHNICIAN or other deep tissue infection. Eye: COMMON NORMALS: conjunctivae normal CONJUNCTIVA: Yes conjunctivae normal SCLERA: sclerae normal Neck/C-Spine: COMMON NORMALS: supple GENERAL: Yes trachea midline Resp: COMMON NORMALS: clear to auscultation bilaterally EFFORT & INSPECTION: Yes able to speak in complete sentences AUSCULTATION: clear to auscultation bilaterally Cardio: COMMON NORMALS: regular rate and regular rhythm RATE: regular rate RHYTHM: regular rhythm GI: COMMON NORMALS: Soft to palpation PALPATION: Yes Soft to palpation and No Tenderness to palpation present (GI) Extremity: NARRATIVE EXTREMITY EXAM: Chronic deformities GENERAL: Yes normal exam except as noted and No edema Neuro: COMMON NORMALS: patient oriented x3, moves all extremities, no focal motor deficits and no sensory deficits noted SENSORIUM/ORIENTATION: Yes alert and No Orientation impaired Psych: COMMON NORMALS: mental status grossly normal and Normal thought process present THOUGHT PROCESS: Normal thought process present Course Vital Signs: Vital signs: Vital Signs Temperature 98.1 F 07/22/22 11:33 Pulse Rate 70 07/22/22 13:41 Respiratory Rate 16 07/22/22 13:41 Blood Pressure 152/88 07/22/22 13:41 Pulse Oximetry 100 07/22/22 13:41 Oxygen Delivery Me thod 07/22/22 13:41 MDM - Headache Medical Decision Making 46-year-old lady presenting with headache. Exam as above. Patient is nontoxic and there is no meningismus. Labs notable for no leukocytosis, normal hemoglobin and platelet count. Metabolic panel with perhaps mild evidence of dehydration/changes related to chronic kidney disease without acute need for dialysis. ALT is minimally elevated. No evidence of UTI. Rapid viral and strep testing are negative. Given complex past medical history as well as provided clinical history and feel that CT head is appropriate. CT negative for acute intracranial pathology. Patient had complete resolution of headache with Tylenol, Reglan, Benadryl, fluids, morphine. Most likely cause of patient symptoms is unspecified headache. This may be secondary to viral syndrome in the context of myalgias. The results of ED evaluation were discussed with the patient including presc riptions and/or symptomatic cares (if applicable) including appropriate and responsible use, followup plan, and return precautions. The patient verbalized understanding and felt safe for discharge. Medical Records I reviewed the patient's medical records. Lab Data I reviewed the patient's lab results. 07/22/22 12:00 07/22/22 12:[address] 07/22/22 13:12 IMPRESSION: 1. No evidence of intracranial hemorrhage or mass effect. 2. Prior postoperative changes occipital and suboccipital postoperative changes with craniotomy. Craniocervical fixation. 3. No acute intracranial findings. Laboratory Results WBC 8.0 10^3/uL (4.0-10.0) 07/22/22 12:00 RBC 4.48 10^6/uL (4.1-5.3) 07/22/22 12:00 Hgb 12.0 g/dL (11.5-15.3) 07/22/22 12:00 Hct 40.9 % (37.0-47.0) 07/22/22 12:00 MCV 91.3 fl (81-99) 07/22/22 12:00 MCH 26.8 pg (28.0-34.0) L 07/22/22 12:00 MCHC 29.3 g/dL (30.0-36.0) L 07/22/22 12:00 RDW 14.8 % (12.1-15.1) 07/22/22 12:00 Plt Count 251 10^3/cmm (130-400) 07/22/22 12:00 MPV 8.5 fL (7.4-10.4) 07/22/22 12:00 Neut % (Auto) 69.5 % 07/22/22 12:00 Lymph % (Auto) 16.3 % 07/22/22 12:00 [place] % (Auto) 9.5 % 07/22/22 12:00 Eos % (Auto) 3.6 % 07/22/22 12:00 Baso % (Auto) 0.6 % 07/22/22 12:00 Neut # (Auto) 5.53 10^3/uL (1.8-7.7) 07/22/22 12:00 Lymph # (Auto) 1.3 10^3/uL (0.8-4.8) 07/22/22 12:00 [place] # (Auto) 0.8 10^3/uL (0.2-0.9) 07/22/22 12:00 Eos # (Auto) 0.3 10^3/uL (0.0-0.8) 07/22/22 12:00 Baso # (Auto) 0.1 10^3/uL (0.0-0.1) 07/22/22 12:00 Nucleated RBC % (auto) 0 % 07/22/22 12:00 Nucleated RBCs # 0.0 /100WBC 07/22/22 12:00 Sodium 135 mmol/L (136-145) L 07/22/22 12:00 Potassium 4.6 mmol/L (3.5-5.1) 07/22/22 12:00 Chloride 99 mmol/L (98-107) 07/22/22 12:00 Carbon Dioxide 21 mmol/L (22-29) L 07/22/22 12:00 Anion Gap 19.6 (5-19) H 07/22/22 12:00 BUN 61 mg/dL (6-20) H 07/22/22 12:00 Creatinine 5.0 mg/dL (0.5-0.9) H 07/22/22 12:00 GFR Calculation 9.3 mL/min (90-130) L 07/22/22 12:00 Glucose 90 mg/dL (65-115) 07/22/22 12:00 Calculated Osmolality 297 mOsm/kg (285-295) H 07/22/22 12:00 Calcium 8.8 mg/dL (8.5-10.5) 07/22/22 12:00 Total Bilirubin 0.2 mg/dL (0.15-1.2) 07/22/22 12:00 AST 17 U/L (0-32) 07/22/22 12:00 ALT 36 U/L (0-33) H 07/22/22 12:00 Alkaline Phosphatase 76 U/L (35-105) 07/22/22 12:00 C-Reactive Protein 3.0 mg/L (0.0-4.9) 07/22/22 12:00 Total Protein 7.2 g/dL (6.6-8.7) 07/22/22 12:00 Albumin 4.0 g/dL (3.5-5.2) 07/22/22 12:00 Globulin 3.2 g/dL (1.3-4.6) 07/22/22 12:00 Procalcitonin 0.13 ng/mL (0-0.5) 07/22/22 12:00 Urine Color Yellow (Yellow) 07/22/22 13:20 Urine Appearance Cloudy (CLEAR) A 07/22/22 13:20 Urine pH 8 (5-7) H 07/22/22 13:20 Ur Specific [place] 1.010 (1.005-1.030) 07/22/22 13:20 Urine Protein 1+ (Negative) H 07/22/22 13:20 Urine Glucose (UA) 2+ (Normal) H 07/22/22 13:20 Urine Ketones Negative (Negative) 07/22/22 13:20 Urine Blood Neg (Negative) 07/22/22 13:20 Urine Nitrate Negative (Negative) 07/22/22 13:20 Urine Bilirubin Neg (Negative) 07/22/22 13:20 Prot Sulfosalicylic Acd Positive (Negative) 07/22/22 13:20 Urine Urobilinogen Norm mg/dL (Negative) 07/22/22 13:20 Ur Leukocyte Esterase Negative (Negative) 07/22/22 13:20 Urine RBC 0-4 /hpf (0-2) H 07/22/22 13:20 Urine WBC 0-4 /hpf (0-5) H 07/22/22 13:20 Ur Squamous Epith Cells 0-4 /hpf (0-5) H 07/22/22 13:20 Amorphous Sediment Not Reportable 07/22/22 13:20 Urine Bacteria Trace /hpf (NONE) 07/22/22 13:20 Influenza Type A Ag negative (Negative) 07/22/22 12:30 Influenza Type B Ag negative (Negative) 07/22/22 12:30 SARS-CoV-2 Ag (Rapid) Negative (Negative) 07/22/22 12:30 Group A Strep Rapid Negative (Negative) 07/22/22 12:30 Discharge Plan Discharge Patient Disposition: Home Clinical Impression: Headache, Chronic kidney disease, Myalgia Condition: Stable Prescriptions: No Action epoetin shania-epbx [Retacrit] 1 unit SUBCUT DIRECTED Rx Instructions: once a week (DME) accommodative custom orthotics See Rx Instructions .Route .MEDSUPPLY Qty: 1 0RF Rx Instructions: As directed by [facility] (DME) Articulating AFO right lower extremity See Rx Instructions .Route .MEDSUPPLY Qty: 1 0RF Rx Instructions: As directed BY [facility] gabapentin 400 mg capsule 400 mg PO BEDTIME Qty: 30 3RF doxycycline hyclate 100 mg capsule 100 mg PO BID Qty: 14 0RF sodium bicarbonate 650 mg tablet 1,950 mg PO BID 30 Days Qty: 180 3RF albuterol sulfate [ProAir HFA] 90 mcg/actuation HFA aerosol inhaler 2 puff INHALATION Q4H PRN (Reason: Shortness Of Breath) Qty: 8.5 1RF Aygestin 5 mg tablet 5 mg PO DAILY Qty: 30 10RF ferrous sulfate [FeroSul] 325 mg (65 mg iron) tablet See Rx Instructions .ROUTE .COMPLEX Qty: 60 2RF Dose Instruction: TAKE ONE TABLET BY MOUTH TWICE DAILY Rx Instructions: TAKE ONE TABLET BY MOUTH TWICE DAILY desipramine 50 mg tablet See Rx Instructions .ROUTE .COMPLEX Qty: 30 5RF Dose Instruction: TAKE ONE TABLET BY MOUTH AT BEDTIME Rx Instructions: TAKE ONE TABLET BY MOUTH AT BEDTIME amlodipine 2.5 mg tablet 2.5 mg PO .QHS Qty: 90 0RF Rx Instructions: TAKE ONE TABLET BY MOUTH AT BEDTIME famotidine 40 mg tablet 40 mg PO BID Qty: 180 0RF Rx Instructions: TAKE ONE TABLET BY MOUTH TWICE DAILY metoprolol tartrate 50 mg tablet 50 mg PO BID Qty: 180 0RF venlafaxine 75 mg capsule,extended release 24hr 75 mg PO QAM Qty: 90 0RF Rx Instructions: TAKE ONE CAPSULE BY MOUTH EVERY MORNING Cimzia 400 mg/2 mL (200 mg/mL x 2) syringe kit See Rx Instructions .ROUTE .COMPLEX Qty: 2 3RF Dose Instruction: INJECT 200mg SUBCUTANEOUSLY every TWO WEEKS Rx Instructions: INJECT 200mg SUBCUTANEOUSLY every TWO WEEKS triamcinolone acetonide 0.1 % ointment 1 applic topical PRN Otezla 30 mg tablet 30 mg PO BID timolol maleate 0.5 % drops 1 drp ophthalmic (eye) BID Rx Instructions: EACH EYE tramadol 50 mg tablet 50 mg PO Q8H Qty: 6 0RF Discharge Orders: Discharge ED (Routine); Ordered 07/22/22 Ordered By: Bogdan Stevenson Referrals: Hyacinth Fernández FNP [Primary Care Provider] - Discharge Diet: Usual diet Discharge Activity: Increase activity as tolerated Patient Instructions: Chronic Kidney Disease (ED), Acute Headache (ED), Viral Syndrome (ED) Activity Restrictions/Additional Instructions: Thank you for visiting the emergency department. You were seen and evaluated for headache and generalized aches. The exact cause of your symptoms is unclear however most likely related to viral syndrome. Your electrolyte panel looks similar to prior. Please continue follow-up with your primary care provider and export documents clerk. Return to the emergency department for uncontrolled symptoms, any new neurologic symptoms, or anything else that you are concerned about and feel needs emergency department evaluation. Coding Level of Care Code ED Desizing Machine Operator Head End for Jori Beasley Exam Comprehensive
[2022-07-22 12:16] LABS: Basophils # 0.1 10^3/uL (0.0-0.1); Basophils % 0.6 %; Eosinophils # 0.3 10^3/uL (0.0-0.8); Eosinophils % 3.6 %; Hematocrit 40.9 % (37.0-47.0); Lymphocytes # 1.3 10^3/uL (0.8-4.8); Lymphocytes % 16.3 %; Mean Corpuscular HGB Conc 29.3 g/dL (30.0-36.0); Mean Corpuscular Hemoglobin 26.8 pg (28.0-34.0); Mean Corpuscular Volume 91.3 fl (81-99); Mean Platelet Volume 8.5 fL (7.4-10.4); Monocytes # 0.8 10^3/uL (0.2-0.9); Monocytes % 9.5 %; Neutrophils # 5.53 10^3/uL (1.8-7.7); Neutrophils % 69.5 %; Nucleated Red Blood Cells % 0 %; Platelet Count 251 10^3/cmm (130-400); Red Blood Count 4.48 10^6/uL (4.1-5.3); Red Cell Distribution Width 14.8 % (12.1-15.1)
[2022-07-22] MEDS: metoclopramide 5 mg/mL SDV 2 mL IVP (12:24)
[2022-07-22] MEDS: diphenhydrAMINE 50 mg/mL SDV 1mL 12.5 MG IVP (12:24)
[2022-07-22] MEDS: acetaminophen 325 mg Tablet 650 MG PO (12:25)
[2022-07-22] MEDS: sodium chloride 0.9% 500 ML 999 ML IV (12:29)
[2022-07-22 12:35] LABS: Alanine Aminotransferase 36 U/L (0-33); Alkaline Phosphatase 76 U/L (35-105); Anion Gap 19.6 (5-19); Aspartate Amino Transferase 17 U/L (0-32); Blood Urea Nitrogen 61 mg/dL (6-20); Calcium 8.8 mg/dL (8.5-10.5); Carbon Dioxide 21 mmol/L (22-29); Chloride 99 mmol/L (98-107); Globulin 3.2 g/dL (1.3-4.6); Glomerular Filtration Rate 9.3 mL/min (90-130); Glucose 90 mg/dL (65-115); Osmolality Calculated 297 mOsm/kg (285-295); Potassium 4.6 mmol/L (3.5-5.1); Sodium 135 mmol/L (136-145); Total Bilirubin 0.2 mg/dL (0.15-1.2); Total Protein 7.2 g/dL (6.6-8.7)
[2022-07-22 12:42] LABS: Procalcitonin 0.13 ng/mL (0-0.5)
[2022-07-22 12:57] LABS: Rapid Strep A Test Negative (Negative)
[2022-07-22 13:04] LABS: Influenza A by IFA negative (Negative); Influenza B by IFA negative (Negative)
[2022-07-22 13:10] LABS: SARS Covid-2 Antigen Negative (Negative)
--- NOTE | 2022-07-22 13:12 | CT_ITS ---
WS: [id number] CT HEAD TECHNIQUE: Noncontrast CT of the head obtained from the skullbase to the vertex. CLINICAL INFORMATION: headache COMPARISON: CTA 8 10,016 DLP: 1044.[address] scans at [facility] use at least one of these dose optimization techniques: automated e xposure control; mA and/or kV adjustment per patient size (includes targeted exams where dose is matc hed to clinical indication); or iterative reconstruction. FINDINGS: No evidence of intracranial hemorrhage or mass effect. Ventricular system and basal cisterns are velasco nt. No extra-axial fluid collections. No evidence of mass or mass effect. No hydrocephalus. Prior pos toperative changes occipital and suboccipital postoperative changes with craniotomy. Craniocervical f ixation. Mild parenchymal volume loss slightly progressed compared to 2016. Mastoid air cells are well aerated. Mild mucosal thickening LEFT maxillary sinus. CT/CT head wo con* [id number] IMPRESSION: 1. No evidence of intracranial hemorrhage or mass effect. 2. Prior postoperative changes occipital and suboccipital postoperative change s with craniotomy. Craniocervical fixation. 3. No acute intracranial findings.
[2022-07-22 13:41] VITALS: BP 152/88; PULSE 70; RESP 16; O2SAT 100
[2022-07-22 14:03] LABS: Add Urine Microscopic? YES; Bacteria Urine TRACE /hpf; Bilirubin Urine Neg (Negative); Blood Urine Neg (Negative); Glucose Urine UA 2+ (Normal); Ketones Urine Negative (Negative); Leukocyte Esterase Urine Negative (Negative); Nitrate Urine Negative (Negative); Protein Urine 1+ (Negative); RBC Urine 0-4 /hpf (0-2); Squamous Epithelial Cell Urine 0-4 /hpf (0-5); Sulfosalicylic Acid Urine Positive (Negative); Urine Appearance Cloudy (CLEAR); Urine Color Yellow (Yellow); Urobilinogen Urine Norm (Negative); WBC Urine 0-4 /hpf (0-5); pH Urine 8 (5-7)
== END 2022-07-22 14:55 | disposition home or self-care (01) ==
PROVIDERS: Emergency Provider Emergency Medicine; PCP Nurse Practitioner Family
DX: R51.9 Headache, unspecified (principal); M79.10 Myalgia, unspecified site; I12.9 Hypertensive chronic kidney disease with stage 1 through stage 4 chronic kidney disease, or unspecified chronic kidney disease; N18.9 Chronic kidney disease, unspecified; Z20.822 Contact with and (suspected) exposure to COVID-19
CPT/HCPCS: 70450; 80053; 81001; 84145; 85025; 86140; 87081; 87426; 87804; 87880; 96361; 96374; 96375; 99285; J1200; J1642; J2765; J7040

== ENCOUNTER → 2022-08-11 13:18 | Outpatient (BNVA) | payer MEDICARE, MEDICAID, SELFPAY | PROVIDERS: PCP Nurse Practitioner Family; Visit Provider Internal Medicine Rheumatology | DX: M08.00 Unspecified juvenile rheumatoid arthritis of unspecified site (principal); L40.9 Psoriasis, unspecified; Z79.899 Other long term (current) drug therapy; N18.9 Chronic kidney disease, unspecified; D63.1 Anemia in chronic kidney disease; N18.5 Chronic kidney disease, stage 5; M19.212 Secondary osteoarthritis, left shoulder; M25.373 Other instability, unspecified ankle | CPT/HCPCS: 99214 ==

== ENCOUNTER 2022-11-28 03:42 | Emergency (ER) | payer MEDICARE, MEDICAID, SELFPAY ==
[2022-11-28 03:44] VITALS: BP 162/80; PULSE 75; RESP 16; TEMP 36.7; O2SAT 100; BMI 22.4
[2022-11-28 03:52] VITALS: BP 162/80; PULSE 76; RESP 16; O2SAT 99
[2022-11-28 05:12] VITALS: RESP 16
[2022-11-28] MEDS: morphine 4 mg/mL SDV 1 mL 2 MG IVP (05:12)
[2022-11-28] MEDS: dexamethasone 10 mg/mL INJ 6 MG IVP (05:17)
[2022-11-28] MEDS: ondansetron 2 mg/ML SDV 2 mL 4 MG IVP (05:17)
[2022-11-28 05:19] LABS: Basophils # 0.1 10^3/uL (0.0-0.1); Basophils % 0.6 %; Eosinophils # 0.4 10^3/uL (0.0-0.8); Eosinophils % 3.8 %; Hematocrit 34.2 % (37.0-47.0); Hemoglobin 10.1 g/dL (11.5-15.3); Lymphocytes # 1.5 10^3/uL (0.8-4.8); Lymphocytes % 15.1 %; Mean Corpuscular HGB Conc 29.5 g/dL (30.0-36.0); Mean Corpuscular Hemoglobin 28.9 pg (28.0-34.0); Mean Platelet Volume 8.7 fL (7.4-10.4); Monocytes # 1.1 10^3/uL (0.2-0.9); Monocytes % 11.8 %; Neutrophils # 6.58 10^3/uL (1.8-7.7); Neutrophils % 68.4 %; Nucleated Red Blood Cells % 0 %; Platelet Count 233 10^3/cmm (130-400); Red Blood Count 3.49 10^6/uL (4.1-5.3); Red Cell Distribution Width 17.3 % (12.1-15.1); White Blood Count 9.6 10^3/uL (4.0-10.0)
[2022-11-28] MEDS: clindamycin 900 MG/50 ML PREMIX 100 MG IV (05:19)
[2022-11-28 05:35] LABS: Alanine Aminotransferase 29 U/L (0-33); Albumin Level 4.1 g/dL (3.5-5.2); Alkaline Phosphatase 121 U/L (35-105); Anion Gap 17.9 (5-19); Aspartate Amino Transferase 32 U/L (0-32); Blood Urea Nitrogen 24 mg/dL (6-20); C Reactive Protein 7.4 mg/L (0.0-4.9); Calcium 9.4 mg/dL (8.5-10.5); Carbon Dioxide 28 mmol/L (22-29); Chloride 94 mmol/L (98-107); Globulin 3.5 g/dL (1.3-4.6); Glomerular Filtration Rate 12.4 mL/min (90-130); Glucose 98 mg/dL (65-115); Osmolality Calculated 284 mOsm/kg (285-295); Potassium 4.9 mmol/L (3.5-5.1); Sodium 135 mmol/L (136-145); Total Bilirubin 0.3 mg/dL (0.15-1.2); Total Protein 7.6 g/dL (6.6-8.7)
[2022-11-28 06:22] VITALS: BP 162/80; PULSE 76; RESP 16; TEMP 36.7; O2SAT 99
--- NOTE | 2022-11-28 15:53 | W.ED.HA ---
HPI - Headache General: Chief Complaint: Headache Stated Complaint: HEAD AND FACE PAIN Time Seen by Provider: 11/28/22 03:56 Source: patient History of Present Illness: 46yo female with hx of Rheumatoid arthritis. She presents with facial swelling and pain. No pain with eye movement. Some swelling of the cheek. No drainage. MD elicited complaint: headache Pertinent past history: other Onset (ago): day(s) Onset description: gradually Location: left, facial and retro-orbital Severity: moderate Quality & Timing: aching and throbbing Exacerbating factors: none Relieving factors: nothing Associated symptoms: Deny chest pain, confusion, cough, diaphoresis, eye pain, eye redness, fever(s), neck stiffness, rash, short of breath or vomiting Review of Systems Const: Denies: fever(s) or diaphoresis ENMT: Reports: mouth pain, swelling of lips/tongue, dental pain and sinus pain; Denies: throat pain, hoarseness, bleeding gums, ear discharge, nasal discharge or post nasal drip Card: Denies: chest pain Resp: Denies: dyspnea GI: Denies: vomiting Musc: Denies: neck pain Skin/Breast: Denies: rash Neuro: Denies: confusion PFSH ED PFSH: Medical History Anemia in chronic kidney disease (CKD) AV fistula Chronic anemia Chronic anterior uveitis of both eyes Chronic kidney disease Dr. Aquino in [place] Hypermagnesemia Hypertension Migraine headache No pertinent past medical history neghx: dm,thyroid,dvt/pe PCP: Cookie Fernández Seropositive rheumatoid arthritis of multiple sites Surgical History H/O cataract extraction both eyes H/O esophagogastroduodenoscopy 08/02/2019: Normal H/O foot surgery H/O joint surgery Due to arthritis Neck, knees, shoulder, knuckle, wrists H/O wrist surgery Hx of total knee arthroplasty both Status post colonoscopy 08/02/2019: Poor prep, normal Family History Father Stroke Father had Parkinson's and a stroke Hypertension Hypercholesteremia Mother Hypertension Hypercholesteremia Family/Other Breast cancer Maternal Cousin-- dx age unknown Ovarian cancer Maternal aunt-- dx age unknown Diabetes Maternal Aunt/Uncle Denies family history of Colon cancer Uterine cancer Social History Smoking and tobacco status: never smoked Substance/Drug Use: never Additional social history: - Tobacco use: Denies Alcohol use: Denies Drug use: Denies Physical Exam Const: COMMON NORMALS: no acute distress GENERAL APPEARANCE: cooperative; not ill appearing and not frail appearing HENMT: COMMON NORMALS: atraumatic and Normal external nose present HEAD & SCALP: atraumatic FACE & SINUS: face symmetric and edema (mild left); no ecchymosis and no erythema NOSE: Normal external nose present MOUTH: lip normal, tongue normal and Abnormal oral and palatal mucosa present erythematous TEETH & GINGIVA: Yes caries, Yes gingiva abnormal and Yes other (dental abscess) Eye: COMMON NORMALS: Equal, round and reactive pupils present and EOMs intact bilaterally PUPIL: Yes Equal, round and reactive pupils present Neck/C-Spine: GENERAL: Yes trachea midline Chest: CHEST: Yes Symmetrical chest wall rise Resp: COMMON NORMALS: normal respiratory effort, No retractions, No use of accessory muscles and clear to auscultation bilaterally AUSCULTATION: clear to auscultation bilaterally Cardio: COMMON NORMALS: regular rate and regular rhythm RATE: regular rate RHYTHM: regular rhythm GI: COMMON NORMALS: Normal to inspection, nondistended, normoactive bowel sounds present Extremity: COMMON NORMALS: no pedal edema Neuro: [place] COMA SCALE: document GCS findings [place] coma scale eye opening: Spontaneous [place] coma scale verbal response: Orientated [place] coma scale motor response: Obey commands [place] coma scale total score: 15 SENSORY EXAM: Yes extremities (intact) Psych: COMMON NORMALS: speech normal SPEECH: Yes normal speech Skin: COMMON NORMALS: no rashes or lesions noted GENERAL SKIN EXAM: no rashes or lesions noted Course Vital Signs: Vital signs: Vital Signs Temperature 98.1 F 11/28/22 06:22 Pulse Rate 76 11/28/22 06:22 Respiratory Rate 16 11/28/22 06:22 Blood Pressure 162/80 11/28/22 06:22 Pulse Oximetry 99 11/28/22 06:22 Oxygen Delivery Me thod Room Air 11/28/22 03:44 MDM - Headache Medical Decision Making Dental abscess present. She is afebrile. Laboratory is not remarkable. CRP is 7.4. She'll be treated with antibiotics, single dose of steroid here. She's improved after pain medication. Lab Data 11/28/22 05:11 11/28/22 05:11 Laboratory Results WBC 9.6 10^3/uL (4.0-10.0) 11/28/22 05:11 RBC 3.49 10^6/uL (4.1-5.3) L 11/28/22 05:11 Hgb 10.1 g/dL (11.5-15.3) L 11/28/22 05:11 Hct 34.2 % (37.0-47.0) L 11/28/22 05:11 MCV 98.0 fl (81-99) 11/28/22 05:11 MCH 28.9 pg (28.0-34.0) 11/28/22 05:11 MCHC 29.5 g/dL (30.0-36.0) L 11/28/22 05:11 RDW 17.3 % (12.1-15.1) H 11/28/22 05:11 Plt Count 233 10^3/cmm (130-400) 11/28/22 05:11 MPV 8.7 fL (7.4-10.4) 11/28/22 05:11 Neut % (Auto) 68.4 % 11/28/22 05:11 Lymph % (Auto) 15.1 % 11/28/22 05:11 Brantley % (Auto) 11.8 % 11/28/22 05:11 Eos % (Auto) 3.8 % 11/28/22 05:11 Baso % (Auto) 0.6 % 11/28/22 05:11 Neut # (Auto) 6.58 10^3/uL (1.8-7.7) 11/28/22 05:11 Lymph # (Auto) 1.5 10^3/uL (0.8-4.8) 11/28/22 05:11 Brantley # (Auto) 1.1 10^3/uL (0.2-0.9) H 11/28/22 05:11 Eos # (Auto) 0.4 10^3/uL (0.0-0.8) 11/28/22 05:11 Baso # (Auto) 0.1 10^3/uL (0.0-0.1) 11/28/22 05:11 Nucleated RBC % (auto) 0 % 11/28/22 05:11 Nucleated RBCs # 0.0 /100WBC 11/28/22 05:11 Sodium 135 mmol/L (136-145) L 11/28/22 05:11 Potassium 4.9 mmol/L (3.5-5.1) 11/28/22 05:11 Chloride 94 mmol/L (98-107) L 11/28/22 05:11 Carbon Dioxide 28 mmol/L (22-29) 11/28/22 05:11 Anion Gap 17.9 (5-19) 11/28/22 05:11 BUN 24 mg/dL (6-20) H 11/28/22 05:11 Creatinine 3.9 mg/dL (0.5-0.9) H 11/28/22 05:11 GFR Calculation 12.4 mL/min (90-130) L 11/28/22 05:11 Glucose 98 mg/dL (65-115) 11/28/22 05:11 Calculated Osmolality 284 mOsm/kg (285-295) L 11/28/22 05:11 Calcium 9.4 mg/dL (8.5-10.5) 11/28/22 05:11 Total Bilirubin 0.3 mg/dL (0.15-1.2) 11/28/22 05:11 AST 32 U/L (0-32) 11/28/22 05:11 ALT 29 U/L (0-33) 11/28/22 05:11 Alkaline Phosphatase 121 U/L (35-105) H 11/28/22 05:11 C-Reactive Protein 7.4 mg/L (0.0-4.9) H 11/28/22 05:11 Total Protein 7.6 g/dL (6.6-8.7) 11/28/22 05:11 Albumin 4.1 g/dL (3.5-5.2) 11/28/22 05:11 Globulin 3.5 g/dL (1.3-4.6) 11/28/22 05:11 Discharge Plan Discharge Patient Disposition: Home Clinical Impression: Headache, Abscess, dental Condition: Stable Prescriptions: New hydrocodone-acetaminophen 5-325 mg tablet 1 tab PO Q8H PRN (Reason: pain) Qty: 7 0RF clindamycin HCl 300 mg capsule 300 mg PO Q6H 10 Days Qty: 40 0RF Discontinued tramadol 50 mg tablet 50 mg PO Q8H Qty: 6 0RF No Action epoetin shania-epbx [Retacrit] 1 unit SUBCUT DIRECTED Rx Instructions: once a week clindamycin HCl 300 mg capsule 300 mg PO Q8H 10 Days Qty: 30 0RF mupirocin 2 % ointment 1 applic topical TID 10 Days Qty: 22 0RF (DME) accommodative custom orthotics See Rx Instructions .Route .MEDSUPPLY Qty: 1 0RF Rx Instructions: As directed by PAGE&O (MATEUS) Articulating AFO right lower extremity See Rx Instructions .Route .MEDSUPPLY Qty: 1 0RF Rx Instructions: As directed BY PAGE&O sodium bicarbonate 650 mg tablet 1,950 mg PO BID 30 Days Qty: 180 3RF albuterol sulfate [ProAir HFA] 90 mcg/actuation HFA aerosol inhaler 2 puff INHALATION Q4H PRN (Reason: Shortness Of Breath) Qty: 8.5 1RF Aygestin 5 mg tablet 5 mg PO DAILY Qty: 30 10RF ferrous sulfate [FeroSul] 325 mg (65 mg iron) tablet See Rx Instructions .ROUTE .COMPLEX Qty: 60 2RF Dose Instruction: TAKE ONE TABLET BY MOUTH TWICE DAILY Rx Instructions: TAKE ONE TABLET BY MOUTH TWICE DAILY desipramine 50 mg tablet See Rx Instructions .ROUTE .COMPLEX Qty: 30 5RF Dose Instruction: TAKE ONE TABLET BY MOUTH AT BEDTIME Rx Instructions: TAKE ONE TABLET BY MOUTH AT BEDTIME amlodipine 2.5 mg tablet See Rx Instructions .ROUTE .COMPLEX Qty: 90 0RF Dose Instruction: TAKE ONE TABLET BY MOUTH AT BEDTIME Rx Instructions: TAKE ONE TABLET BY MOUTH AT BEDTIME famotidine 40 mg tablet See Rx Instructions .ROUTE .COMPLEX Qty: 180 0RF Dose Instruction: TAKE ONE TABLET BY MOUTH TWICE DAILY Rx Instructions: TAKE ONE TABLET BY MOUTH TWICE DAILY metoprolol tartrate 50 mg tablet See Rx Instructions .ROUTE .COMPLEX Qty: 180 0RF Dose Instruction: TAKE ONE TABLET BY MOUTH TWICE DAILY Rx Instructions: TAKE ONE TABLET BY MOUTH TWICE DAILY venlafaxine 75 mg capsule,extended release 24hr See Rx Instructions .ROUTE .COMPLEX Qty: 90 0RF Dose Instruction: TAKE ONE CAPSULE BY MOUTH EVERY MORNING Rx Instructions: TAKE ONE CAPSULE BY MOUTH EVERY MORNING gabapentin 400 mg capsule See Rx Instructions .ROUTE .COMPLEX Qty: 30 3RF Dose Instruction: TAKE ONE CAPSULE BY MOUTH EVERY NIGHT AT BEDTIME Rx Instructions: TAKE ONE CAPSULE BY MOUTH EVERY NIGHT AT BEDTIME Cimzia 400 mg/2 mL (200 mg/mL x 2) syringe kit See Rx Instructions .ROUTE .COMPLEX Qty: 2 3RF Dose Instruction: INJECT 200mg SUBCUTANEOUSLY every TWO WEEKS Rx Instructions: INJECT 200mg SUBCUTANEOUSLY every TWO WEEKS triamcinolone acetonide 0.1 % ointment 1 applic topical PRN Otezla 30 mg tablet 30 mg PO BID timolol maleate 0.5 % drops 1 drp ophthalmic (eye) BID Rx Instructions: EACH EYE Discharge Orders: Discharge ED (Routine); Ordered 11/28/22 Ordered By: Pj Malave Referrals: Hyacinth Fernández FNP [Primary Care Provider] - 1-3 days Patient Instructions: Dental Abscess (ED), General Headache (ED), Opioid Safety, Pain Management Activity Restrictions/Additional Instructions: Antibiotics as directed. Return for worsening headache, vision changes, mental status changes, fever despite treatment. See a dentist next week. Coding Level of Care Code ED Therapeutic Recreation Specialist for Jori Beasley
== END 2022-11-28 06:23 | disposition home or self-care (01) ==
PROVIDERS: Emergency Provider Emergency Medicine; PCP Nurse Practitioner Family
DX: R51.9 Headache, unspecified (principal); K04.7 Periapical abscess without sinus
CPT/HCPCS: 80053; 85025; 86140; 96365; 96375; 99284; J1100; J1642; J2270; J2405; J3490

== ENCOUNTER 2022-12-07 11:44 | Emergency (ER) | payer MEDICARE, MEDICAID, SELFPAY ==
[2022-12-07 11:45] VITALS: BP 151/66; PULSE 81; RESP 18; TEMP 36.7; O2SAT 99; BMI 21.4
--- NOTE | 2022-12-07 12:02 | W.ED.FALL ---
HPI - Fall General: Chief Complaint: Fall Stated Complaint: Fall Time Seen by Provider: 12/07/22 11:53 Source: patient Limitations: no limitations History of Present Illness: This 47-year-old female with a history of end-stage renal disease on hemodialysis, presents to the ER for evaluation following a fall. She was walking up the steps when she fell backwards, hitting her head. She did not lose consciousness. She sustained laceration in the occipital scalp. She primarily complains of pain over the occipital scalp. She denies any other injuries. Associated symptoms-after fall: Reports headache(s) (head pain); Denies chest pain, lightheadedness or neck pain Review of Systems Const: Denies: chills, body aches or change in appetite Eyes: Denies: change in vision or eye discharge ENMT: Denies: throat pain, dental pain or nasal discharge Card: Denies: chest pain or lightheadedness : Denies: dysuria Musc: Denies: neck pain or back pain Neuro: Reports: headache(s) (head pain); Denies: weakness in extremities Psych: Denies: depression Juan/Lymph: Denies: easy bruising All/Imm: Denies: urticaria, tongue swelling or facial swelling PFSH ED PFSH: Medical History Anemia in chronic kidney disease (CKD) AV fistula Chronic anemia Chronic anterior uveitis of both eyes Chronic kidney disease Dr. Aquino in [facility] [place] Hypermagnesemia Hypertension Migraine headache No pertinent past medical history neghx: dm,thyroid,dvt/pe PCP: Cookie Fernández Seropositive rheumatoid arthritis of multiple sites Surgical History H/O cataract extraction both eyes H/O esophagogastroduodenoscopy 08/02/2019: Normal H/O foot surgery H/O joint surgery Due to arthritis Neck, knees, shoulder, knuckle, wrists H/O wrist surgery Hx of total knee arthroplasty both Status post colonoscopy 08/02/2019: Poor prep, normal Family History Father Stroke Father had Parkinson's and a stroke Hypertension Hypercholesteremia Mother Hypertension Hypercholesteremia Family/Other Breast cancer Maternal Cousin-- dx age unknown Ovarian cancer Maternal aunt-- dx age unknown Diabetes Maternal Aunt/Uncle Denies family history of Colon cancer Uterine cancer Social History Smoking and tobacco status: never smoked Substance/Drug Use: never Additional social history: - Tobacco use: Denies Alcohol use: Denies Drug use: Denies Physical Exam Const: COMMON NORMALS: no acute distress, patient oriented x3, no limitations and alert HENMT: COMMON NORMALS: normocephalic HEAD & SCALP: normocephalic HEAD IMAGES: 1. 4 centimeter transverse Laceration over the occiput. Bleeding is controlled. Eye: COMMON NORMALS: EOMs intact bilaterally Neck/C-Spine: COMMON NORMALS: full ROM and supple Chest: COMMONS NORMALS: normal inspection of the chest Resp: COMMON NORMALS: normal respiratory effort, No retractions, No use of accessory muscles and clear to auscultation bilaterally AUSCULTATION: clear to auscultation bilaterally Cardio: COMMON NORMALS: regular rate, regular rhythm and No murmurs present (Cardio) RATE: regular rate RHYTHM: regular rhythm GI: COMMON NORMALS: Normal to inspection, nondistended, normoactive bowel sounds present and non-tender : COMMON NORMALS: Yes no CVA tenderness BLADDER/KIDNEY EXAM: Yes no CVA tenderness Back/Pelvis: COMMON NORMALS: no CVA tenderness and no thoracic nor lumbar tenderness Extremity: GENERAL: Yes normal exam except as noted OTHER: Healed surgical scar on both anterior knee from previous knee replacements. Presence of AV fistula right arm. Neuro: COMMON NORMALS: patient oriented x3 and no focal motor deficits SENSORIUM/ORIENTATION: Yes alert Psych: COMMON NORMALS: mental status grossly normal and cooperative Procedures Laceration Laceration 1: Size (cm): 4 Local Anesthetic: lidocaine 1% and with epi Amount of anesthesia used (mL): 4 Pre-repair: wound explored and irrigated extensively Skin layer closed with: other ([place]) Course Vital Signs: Vital signs: Vital Signs Temperature 98.0 F 12/07/22 11:45 Pulse Rate 81 12/07/22 11:45 Respiratory Rate 18 12/07/22 11:45 Blood Pressure 151/66 12/07/22 11:45 Pulse Oximetry 99 12/07/22 11:45 Oxygen Delivery Me thod Room Air 12/07/22 11:45 MDM - Fall Medical Decision Making Medical decision making: Patient presents to the ER following a mechanical fall. She sustained a laceration in the occipital scalp which was closed with brian. CT brain is negative for any acute intracranial process. Wound care instructions were given and patient was advised to follow-up with her primary care physician for removal of brian. Reasons to return were discussed. Patient verbalized understanding and agrees with the plan. Lab Data Radiology Impressions Head CT 12/07/22 13:15 IMPRESSION: 1. No acute intracranial hemorrhage or edema. 2. Stable postoperative occipital and suboccipital craniotomy with craniocervical fixation. 3. No hydrocephalus or hemorrhage. Discharge Plan Discharge Patient Disposition: Home Clinical Impression: Laceration of occipital scalp, Closed head injury, Fall Condition: Stable Prescriptions: No Action epoetin shania-epbx [Retacrit] 1 unit SUBCUT DIRECTED Rx Instructions: once a week clindamycin HCl 300 mg capsule 300 mg PO Q8H 10 Days Qty: 30 0RF mupirocin 2 % ointment 1 applic topical TID 10 Days Qty: 22 0RF (DME) accommodative custom orthotics See Rx Instructions .Route .MEDSUPPLY Qty: 1 0RF Rx Instructions: As directed by PAGE&O (MATEUS) Articulating AFO right lower extremity See Rx Instructions .Route .MEDSUPPLY Qty: 1 0RF Rx Instructions: As directed BY PAGE&O sodium bicarbonate 650 mg tablet 1,950 mg PO BID 30 Days Qty: 180 3RF albuterol sulfate [ProAir HFA] 90 mcg/actuation HFA aerosol inhaler 2 puff INHALATION Q4H PRN (Reason: Shortness Of Breath) Qty: 8.5 1RF Aygestin 5 mg tablet 5 mg PO DAILY Qty: 30 10RF ferrous sulfate [FeroSul] 325 mg (65 mg iron) tablet See Rx Instructions .ROUTE .COMPLEX Qty: 60 2RF Dose Instruction: TAKE ONE TABLET BY MOUTH TWICE DAILY Rx Instructions: TAKE ONE TABLET BY MOUTH TWICE DAILY desipramine 50 mg tablet See Rx Instructions .ROUTE .COMPLEX Qty: 30 5RF Dose Instruction: TAKE ONE TABLET BY MOUTH AT BEDTIME Rx Instructions: TAKE ONE TABLET BY MOUTH AT BEDTIME amlodipine 2.5 mg tablet See Rx Instructions .ROUTE .COMPLEX Qty: 90 0RF Dose Instruction: TAKE ONE TABLET BY MOUTH AT BEDTIME Rx Instructions: TAKE ONE TABLET BY MOUTH AT BEDTIME famotidine 40 mg tablet See Rx Instructions .ROUTE .COMPLEX Qty: 180 0RF Dose Instruction: TAKE ONE TABLET BY MOUTH TWICE DAILY Rx Instructions: TAKE ONE TABLET BY MOUTH TWICE DAILY metoprolol tartrate 50 mg tablet See Rx Instructions .ROUTE .COMPLEX Qty: 180 0RF Dose Instruction: TAKE ONE TABLET BY MOUTH TWICE DAILY Rx Instructions: TAKE ONE TABLET BY MOUTH TWICE DAILY venlafaxine 75 mg capsule,extended release 24hr See Rx Instructions .ROUTE .COMPLEX Qty: 90 0RF Dose Instruction: TAKE ONE CAPSULE BY MOUTH EVERY MORNING Rx Instructions: TAKE ONE CAPSULE BY MOUTH EVERY MORNING gabapentin 400 mg capsule See Rx Instructions .ROUTE .COMPLEX Qty: 30 3RF Dose Instruction: TAKE ONE CAPSULE BY MOUTH EVERY NIGHT AT BEDTIME Rx Instructions: TAKE ONE CAPSULE BY MOUTH EVERY NIGHT AT BEDTIME Cimzia 400 mg/2 mL (200 mg/mL x 2) syringe kit See Rx Instructions .ROUTE .COMPLEX Qty: 2 3RF Dose Instruction: INJECT 200mg SUBCUTANEOUSLY every TWO WEEKS Rx Instructions: INJECT 200mg SUBCUTANEOUSLY every TWO WEEKS hydrocodone-acetaminophen 5-325 mg tablet 1 tab PO Q8H PRN (Reason: pain) 5 Days Qty: 15 0RF triamcinolone acetonide 0.1 % ointment 1 applic topical PRN Otezla 30 mg tablet 30 mg PO BID timolol maleate 0.5 % drops 1 drp ophthalmic (eye) BID Rx Instructions: EACH EYE clindamycin HCl 300 mg capsule 300 mg PO Q6H 10 Days Qty: 40 0RF Discharge Orders: Discharge ED (Routine); Ordered 12/07/22 Ordered By: Saida Cornelius Referrals: Hyacinth Fernández FNP [Primary Care Provider] - Discharge Diet: Usual diet Discharge Activity: Resume usual activity Patient Instructions: Opioid Safety, Pain Management Activity Restrictions/Additional Instructions: Keep wound clean and dry. Do not let water touch it for 24 hours. After that, you may wash your hair but dry it shortly afterwards. Take [id number] Tylenol as needed for pain. Follow-up with your primary care physician in 5 to 7 days for removal of brian. Return if you develop signs of infection like redness, swelling, fever or purulent discharge. Coding Level of Care Code ED Water Project Manager for Jori Beasley
[2022-12-07] MEDS: HYDROcodone-acetaminophen 5-325 mg Tablet 1 TAB PO (12:39)
[2022-12-07] MEDS: lidocaine-epi 1% 20 mL INJ 5 ML INJECTION (12:39)
[2022-12-07] MEDS: gabapentin 300 mg Capsule PO ×2 (12:50→12:54)
--- NOTE | 2022-12-07 13:15 | CT_ITS ---
WS: [id number] CT HEAD NONCONTRAST HISTORY: Fall, head injury. TECHNIQUE: Contiguous axial imaging performed through the brain in 3.0mm imaging. Bone and soft tissu e windows. Sagittal and coronal reformats reviewed. All CT scans at [facility] use at least o ne of these dose optimization techniques: automated exposure control; mA and/or kV adjustment per pat ient size (includes targeted exams where dose is matched to clinical indication); or iterative recons truction. DLP: 1471.88 mGy.cm COMPARISON: 07/22/2022 No acute intracranial hemorrhage, midline shift or mass effect. No atrophy or prior infarcts or herniation. Mild volume loss in the cerebellum due to the postsurgic al changes of a craniotomy. Ventricles: Normal size with no hydrocephalus. Paranasal sinuses: As visualized are clear. Mastoid air cells: Well pneumatized. Calvarium and scalp: Prior postoperative changes occipital and suboccipital craniotomies. Craniocervi willy fixation hardware. CT/CT head wo con* [id number] IMPRESSION: 1. No acute intracranial hemorrhage or edema. 2. Stable postoperative occipital and suboccipital craniotomy with craniocervi willy fixation. 3. No hydrocephalus or hemorrhage.
[2022-12-07 14:57] VITALS: BP 136/74; PULSE 83; RESP 16; O2SAT 100
== END 2022-12-07 14:59 | disposition home or self-care (01) ==
PROVIDERS: Emergency Provider Family Medicine; PCP Nurse Practitioner Family
DX: S09.8XXA Other specified injuries of head, initial encounter (principal); S01.01XA Laceration without foreign body of scalp, initial encounter; I12.0 Hypertensive chronic kidney disease with stage 5 chronic kidney disease or end stage renal disease; N18.6 End stage renal disease; Z99.2 Dependence on renal dialysis; W10.8XXA Fall (on) (from) other stairs and steps, initial encounter
CPT/HCPCS: 12002; 70450; 99284

== ENCOUNTER → 2022-12-08 12:38 | Outpatient (BNVA) | payer MEDICARE, MEDICAID, SELFPAY | PROVIDERS: PCP Nurse Practitioner Family; Visit Provider Internal Medicine Rheumatology | DX: M08.00 Unspecified juvenile rheumatoid arthritis of unspecified site (principal); M54.2 Cervicalgia; L40.9 Psoriasis, unspecified; Z79.899 Other long term (current) drug therapy; N18.9 Chronic kidney disease, unspecified; D63.1 Anemia in chronic kidney disease | CPT/HCPCS: 99214 ==

== ENCOUNTER 2022-12-09 10:29 | Outpatient (CLI) | payer MEDICARE, MEDICAID, SELFPAY ==
--- NOTE | 2022-12-09 10:42 | XR_ITS ---
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 FINDINGS: Examination is unchanged compared to 10/08/2021. Occipital to cervical spine fixation. Abnormal C1-C2 presumed related to rheumatoid arthritis and/or remote trauma. Surgical appliances are intact and in proper position and alignment and unchanged compared to 10/09/19 22. Joint space narrowing with moderate anterior osteophytes at C6-C7. No new findings. XR/XR cervical spine 3V* [id number] IMPRESSION: Stable postoperative cervical spine as above.
== END 2022-12-09 10:30 | disposition home or self-care (01) ==
LOC: RAD 10:31
PROVIDERS: PCP Nurse Practitioner Family; Visit Provider Internal Medicine Rheumatology
DX: M08.00 Unspecified juvenile rheumatoid arthritis of unspecified site (principal); M54.2 Cervicalgia; Z98.890 Other specified postprocedural states
CPT/HCPCS: 72040

== ENCOUNTER 2022-12-14 11:30 | Observation (INO) | payer MEDICARE, MEDICAID, SELFPAY ==
[2022-12-14] VITALS (9 sets, daily range): BP systolic 101–156; BP diastolic 60–82; PULSE 72–84; RESP 16–20; TEMP 36.6–37; O2SAT 98–100
--- NOTE | 2022-12-14 13:25 | ED_ITS ---
HPI - Headache General: Chief Complaint: Headache Stated Complaint: head pain, off balance Time Seen by Provider: 12/14/22 13:15 Source: patient Mode of arrival: ambulatory History of Present Illness: 47-year-old female presents emergency room complaining of a headache. She fell a week ago had a CT head and neck which were negative at that time done at this facility.. No recurrent trauma since then she is not on any anticoagulants. She has some recurrent dizziness and headache since then no vomiting. Patient has a history of end-stage renal disease normally gets dialysis Tuesday she did have her most recent dialysis on Tuesday today is Tuesday she missed dialysis today unfortunately. MD elicited complaint: headache Pertinent past history: recent trauma Onset (ago): day(s) Exacerbating factors: none Relieving factors: nothing Associated symptoms: Deny chest pain, confusion, cough, diaphoresis, eye pain, eye redness, fever(s), lightheadedness, loss of vision, malaise, nausea, neck stiffness, numbness, paresthesias, photophobia, pre-syncope, rash, seizures, short of breath, sound sensitivity, syncope, vomiting or weakness Treatments prior to arrival: none Review of Systems Const: Denies: fever(s), chills, fatigue, malaise or diaphoresis ENMT: Denies: throat pain, ear or mastoid pain, nasal discharge or nasal congestion Card: Denies: chest pain, lightheadedness, syncope or pre-syncope Resp: Denies: dyspnea, productive cough or non-productive cough GI: Denies: abdominal pain, nausea or vomiting : Denies: flank pain, difficulty voiding, dysuria, urinary frequency or urinary urgency Skin/Breast: Denies: rash or pruritus Neuro: Reports: headache(s); Denies: confusion PFSH ED PFSH: Medical History (Updated 12/14/22 @ 16:24 by Chad Lobato DO) Anemia in chronic kidney disease (CKD) AV fistula Chronic anemia Chronic anterior uveitis of both eyes Chronic kidney disease Dr. Aquino in [place] ESRD on dialysis Hypermagnesemia Hypertension Migraine headache No pertinent past medical history neghx: dm,thyroid,dvt/pe PCP: Cookie Fernández Seropositive rheumatoid arthritis of multiple sites Surgical History H/O cataract extraction both eyes H/O esophagogastroduodenoscopy 08/02/2019: Normal H/O foot surgery H/O joint surgery Due to arthritis Neck, knees, shoulder, knuckle, wrists H/O wrist surgery Hx of total knee arthroplasty both Status post colonoscopy 08/02/2019: Poor prep, normal Family History Father Stroke Father had Parkinson's and a stroke Hypertension Hypercholesteremia Mother Hypertension Hypercholesteremia Family/Other Breast cancer Maternal Cousin-- dx age unknown Ovarian cancer Maternal aunt-- dx age unknown Diabetes Maternal Aunt/Uncle Denies family history of Colon cancer Uterine cancer Social History Smoking and tobacco status: never smoked Substance/Drug Use: never Additional social history: - Tobacco use: Denies Alcohol use: Denies Drug use: Denies Physical Exam Const: GENERAL APPEARANCE: cooperative and comfortable ORIENTATION/CONSCIOUSNESS: Yes awake, Yes oriented to person, Yes oriented to place and Yes oriented to time HENMT: COMMON NORMALS: normocephalic, atraumatic, hearing grossly normal bilaterally, external ears normal, EAC's normal, TM's normal bilaterally, Normal nasal mucous membranes and turbinates present, moist oral mucous membranes and oropharynx normal HEAD & SCALP: normocephalic and atraumatic NOSE: Normal nasal mucous membranes and turbinates present EXTERNAL EAR: Yes external ears normal EXTERNAL AUDITORY CANAL: EAC's normal TYMPANIC MEMBRANE: TM's normal bilaterally Eye: COMMON NORMALS: Equal, round and reactive pupils present, EOMs intact bilaterally, conjunctivae normal and no scleral icterus CONJUNCTIVA: Yes conjunctivae normal PUPIL: Yes Equal, round and reactive pupils present DIRECT OPHTHALMOSCOPY: No photophobia Neck/C-Spine: COMMON NORMALS: full ROM, no lymphadenopathy, supple and no JVD Lymph: LYMPHATIC: no lymphadenopathy noted and no lymphedema noted Resp: COMMON NORMALS: normal respiratory effort, No retractions, No use of accessory muscles and clear to auscultation bilaterally AUSCULTATION: clear to auscultation bilaterally Cardio: COMMON NORMALS: no JVD, regular rate, regular rhythm and No murmurs present (Cardio) RATE: regular rate RHYTHM: regular rhythm GI: COMMON NORMALS: Soft to palpation and No hepatosplenomegaly present AUSCULTATION: Yes normoactive bowel sounds PALPATION: Yes Soft to palpation, No Tenderness to palpation present (GI), No Guarding due to palpation present (GI) and Yes No hepatosplenomegaly present Extremity: COMMON NORMALS: normal to inspection, capillary refill normal, no clubbing, cyanosis or edema, no calf tenderness and no pedal edema Neuro: SENSORIUM/ORIENTATION: Yes oriented to person, Yes oriented to place and Yes oriented to time Skin: COMMON NORMALS: no rashes or lesions noted GENERAL SKIN EXAM: no rashes or lesions noted Course Vital Signs: Vital signs: Vital Signs Temperature 97.9 F 12/14/22 11:45 Pulse Rate 76 12/14/22 16:00 Respiratory Rate 18 12/14/22 11:45 Blood Pressure 119/64 12/14/22 16:00 Pulse Oximetry 99 12/14/22 16:00 Oxygen Delivery Me thod Room Air 12/14/22 14:18 MDM - Headache Medical Decision Making Neurologically intact. No focal neurologic deficit noted on exam. However anion gap is elevated her potassium is 6.4 creatinine is 6 which is higher than her norm. I do not believe she will be able to make it through till her next scheduled dialysis will place patient on observation for dialysis she is given Kayexalate sodium bicarb calcium chloride and albuterol nebs for her hyper kalemia nephrology consulted discussed Dr. Bennett orders written Medical Records I reviewed the patient's medical records. Lab Data I reviewed the patient's lab results. 12/14/22 14:20 12/14/22 14:20 Laboratory Results WBC 12.0 10^3/uL (4.0-10.0) H 12/14/22 14:20 RBC 3.80 10^6/uL (4.1-5.3) L 12/14/22 14:20 Hgb 10.9 g/dL (11.5-15.3) L 12/14/22 14:20 Hct 37.3 % (37.0-47.0) 12/14/22 14:20 MCV 98.2 fl (81-99) 12/14/22 14:20 MCH 28.7 pg (28.0-34.0) 12/14/22 14:20 MCHC 29.2 g/dL (30.0-36.0) L 12/14/22 14:20 RDW 15.8 % (12.1-15.1) H 12/14/22 14:20 Plt Count 302 10^3/cmm (130-400) 12/14/22 14:20 MPV 8.5 fL (7.4-10.4) 12/14/22 14:20 Neut % (Auto) 70.6 % 12/14/22 14:20 Lymph % (Auto) 14.4 % 12/14/22 14:20 Brooke % (Auto) 10.4 % 12/14/22 14:20 Eos % (Auto) 3.5 % 12/14/22 14:20 Baso % (Auto) 0.8 % 12/14/22 14:20 Neut # (Auto) 8.46 10^3/uL (1.8-7.7) H 12/14/22 14:20 Lymph # (Auto) 1.7 10^3/uL (0.8-4.8) 12/14/22 14:20 Brooke # (Auto) 1.3 10^3/uL (0.2-0.9) H 12/14/22 14:20 Eos # (Auto) 0.4 10^3/uL (0.0-0.8) 12/14/22 14:20 Baso # (Auto) 0.1 10^3/uL (0.0-0.1) 12/14/22 14:20 Nucleated RBC % (auto) 0 % 12/14/22 14:20 Nucleated RBCs # 0.0 /100WBC 12/14/22 14:20 Sodium 132 mmol/L (136-145) L 12/14/22 14:20 Potassium 6.4 mmol/L (3.5-5.1) H 12/14/22 14:20 Chloride 92 mmol/L (98-107) L 12/14/22 14:20 Carbon Dioxide 26 mmol/L (22-29) 12/14/22 14:20 Anion Gap 20.4 (5-19) H 12/14/22 14:20 BUN 47 mg/dL (6-20) H 12/14/22 14:20 Creatinine 6.0 mg/dL (0.5-0.9) H* 12/14/22 14:20 GFR Calculation 7.5 mL/min (90-130) L 12/14/22 14:20 Glucose 65 mg/dL (65-115) 12/14/22 14:20 Calculated Osmolality 284 mOsm/kg (285-295) L 12/14/22 14:20 Calcium 9.6 mg/dL (8.5-10.5) 12/14/22 14:20 Total Bilirubin 0.3 mg/dL (0.15-1.2) 12/14/22 14:20 AST 41 U/L (0-32) H 12/14/22 14:20 ALT 54 U/L (0-33) H 12/14/22 14:20 Alkaline Phosphatase 124 U/L (35-105) H 12/14/22 14:20 Total Protein 8.2 g/dL (6.6-8.7) 12/14/22 14:20 Albumin 4.1 g/dL (3.5-5.2) 12/14/22 14:20 Globulin 4.1 g/dL (1.3-4.6) 12/14/22 14:20 Discharge Plan Discharge Patient Disposition: Placed in Observation Clinical Impression: Acute hyperkalemia, Hypercalcemia, Hypertension, ESRD on dialysis, Rheumatoid arthritis Condition: Stable Prescriptions: No Action epoetin shania-epbx [Retacrit] 1 unit SUBCUT DIRECTED Rx Instructions: once a week clindamycin HCl 300 mg capsule 300 mg PO Q8H 10 Days Qty: 30 0RF mupirocin 2 % ointment 1 applic topical TID 10 Days Qty: 22 0RF gabapentin 100 mg capsule 100 mg PO DAILY Qty: 90 1RF Rx Instructions: take in morning (DME) accommodative custom orthotics See Rx Instructions .Route .MEDSUPPLY Qty: 1 0RF Rx Instructions: As directed by [facility] (DME) Articulating AFO right lower extremity See Rx Instructions .Route .MEDSUPPLY Qty: 1 0RF Rx Instructions: As directed BY [facility] Cimzia 400 mg/2 mL (200 mg/mL x 2) syringe kit See Rx Instructions .ROUTE .COMPLEX Qty: 2 3RF Dose Instruction: INJECT 200mg SUBCUTANEOUSLY every TWO WEEKS Rx Instructions: INJECT 200mg SUBCUTANEOUSLY every TWO WEEKS sodium bicarbonate 650 mg tablet 1,950 mg PO BID 30 Days Qty: 180 3RF albuterol sulfate [ProAir HFA] 90 mcg/actuation HFA aerosol inhaler 2 puff INHALATION Q4H PRN (Reason: Shortness Of Breath) Qty: 8.5 1RF Aygestin 5 mg tablet 5 mg PO DAILY Qty: 30 10RF ferrous sulfate [FeroSul] 325 mg (65 mg iron) tablet See Rx Instructions .ROUTE .COMPLEX Qty: 60 2RF Dose Instruction: TAKE ONE TABLET BY MOUTH TWICE DAILY Rx Instructions: TAKE ONE TABLET BY MOUTH TWICE DAILY amlodipine 2.5 mg tablet See Rx Instructions .ROUTE .COMPLEX Qty: 90 0RF Dose Instruction: TAKE ONE TABLET BY MOUTH AT BEDTIME Rx Instructions: TAKE ONE TABLET BY MOUTH AT BEDTIME famotidine 40 mg tablet See Rx Instructions .ROUTE .COMPLEX Qty: 180 0RF Dose Instruction: TAKE ONE TABLET BY MOUTH TWICE DAILY Rx Instructions: TAKE ONE TABLET BY MOUTH TWICE DAILY metoprolol tartrate 50 mg tablet See Rx Instructions .ROUTE .COMPLEX Qty: 180 0RF Dose Instruction: TAKE ONE TABLET BY MOUTH TWICE DAILY Rx Instructions: TAKE ONE TABLET BY MOUTH TWICE DAILY venlafaxine 75 mg capsule,extended release 24hr See Rx Instructions .ROUTE .COMPLEX Qty: 90 0RF Dose Instruction: TAKE ONE CAPSULE BY MOUTH EVERY MORNING Rx Instructions: TAKE ONE CAPSULE BY MOUTH EVERY MORNING gabapentin 400 mg capsule See Rx Instructions .ROUTE .COMPLEX Qty: 30 3RF Dose Instruction: TAKE ONE CAPSULE BY MOUTH EVERY NIGHT AT BEDTIME Rx Instructions: TAKE ONE CAPSULE BY MOUTH EVERY NIGHT AT BEDTIME hydrocodone-acetaminophen 5-325 mg tablet 1 tab PO Q8H PRN (Reason: pain) 5 Days Qty: 15 0RF desipramine 50 mg tablet See Rx Instructions .ROUTE .COMPLEX Qty: 30 5RF Dose Instruction: TAKE ONE TABLET BY MOUTH AT BEDTIME Rx Instructions: TAKE ONE TABLET BY MOUTH AT BEDTIME triamcinolone acetonide 0.1 % ointment 1 applic topical PRN Otezla 30 mg tablet 30 mg PO BID timolol maleate 0.5 % drops 1 drp ophthalmic (eye) BID Rx Instructions: EACH EYE Referrals: Hyacinth Fernández, GHADA [Primary Care Provider] - Coding Level of Care Code ED Public Welfare Director for Jori Beasley
[2022-12-14] MEDS: meclizine 25 mg tablet 50 MG PO (14:11)
[2022-12-14] MEDS: ketorolac 60 mg/2 mL INJ IM (14:12)
[2022-12-14 14:41] LABS: Basophils # 0.1 10^3/uL (0.0-0.1); Basophils % 0.8 %; Eosinophils # 0.4 10^3/uL (0.0-0.8); Eosinophils % 3.5 %; Hematocrit 37.3 % (37.0-47.0); Hemoglobin 10.9 g/dL (11.5-15.3); Lymphocytes # 1.7 10^3/uL (0.8-4.8); Lymphocytes % 14.4 %; Mean Corpuscular HGB Conc 29.2 g/dL (30.0-36.0); Mean Corpuscular Hemoglobin 28.7 pg (28.0-34.0); Mean Corpuscular Volume 98.2 fl (81-99); Mean Platelet Volume 8.5 fL (7.4-10.4); Monocytes # 1.3 10^3/uL (0.2-0.9); Monocytes % 10.4 %; Neutrophils # 8.46 10^3/uL (1.8-7.7); Neutrophils % 70.6 %; Nucleated Red Blood Cells % 0 %; Platelet Count 302 10^3/cmm (130-400); Red Cell Distribution Width 15.8 % (12.1-15.1)
[2022-12-14 14:57] LABS: Alanine Aminotransferase 54 U/L (0-33); Albumin Level 4.1 g/dL (3.5-5.2); Alkaline Phosphatase 124 U/L (35-105); Anion Gap 20.4 (5-19); Aspartate Amino Transferase 41 U/L (0-32); Blood Urea Nitrogen 47 mg/dL (6-20); Calcium 9.6 mg/dL (8.5-10.5); Carbon Dioxide 26 mmol/L (22-29); Chloride 92 mmol/L (98-107); Globulin 4.1 g/dL (1.3-4.6); Glomerular Filtration Rate 7.5 mL/min (90-130); Glucose 65 mg/dL (65-115); Osmolality Calculated 284 mOsm/kg (285-295); Potassium 6.4 mmol/L (3.5-5.1); Sodium 132 mmol/L (136-145); Total Bilirubin 0.3 mg/dL (0.15-1.2); Total Protein 8.2 g/dL (6.6-8.7)
[2022-12-14] MEDS: sodium polystyrene sulfonate 15 gm/60 mL Btl PO (16:30)
--- NOTE | 2022-12-14 16:35 | PC.PHAR ---
PT STATES SHE TAKES CARE OF HER OWN MEDICATIONS-PT STATES THE SODIUM BICARBONATE 650MG TAKE 1950MG TID WAS DCED EXT SHOWS LAST FILLED 07/16/22 -PT STATES SHE IS NO LONGER TAKING IRON BID,AYGESTIN 5MG DAILY FILLED 04/23/22 30D/S AND RETACRIT 4000U/ML 1ML Q7D FILLED 07/13/22-PT STATES SHE IS DUE TO GET CIMZIA 200MG EVERY 2 WEEKS ON Tue12/15/22-NOTES ARE MADE IN THE PHARMACY COMMENTS
[2022-12-14] MEDS: calcium chloride 10% Syr 10 mL 1 GM IVP (16:46)
[2022-12-14] MEDS: sodium bicarbonate 1 mEq/mL SDV 50mL 100 MEQ IVP (16:47)
--- NOTE | 2022-12-14 18:10 | PM.CONSULT ---
Providers/Reason For Consult Consulting Physician/Specialty*: [facility]/Nephrology Reason for Consult*: ESRD Attending Physician: Buck Bennett MD Primary Care Provider: GHADA Nam History of Present Illness History of Present Illness Dia Paredes is a 47 year old female with PMH of end-stage renal disease on dialysis per TTS schedule presented to the emergency department due to missing hemodialysis for 2 sessions due to weakness and fatigue. Patient was noted to have stable vital signs lab data is significant for hyperkalemia with a potassium of 6.4. Review of Systems Narrative: OTHER ros negative Medications/Allergies Home Medications Medication Instructions Recorded Confirmed Last Taken Type apremilast 30 mg tablet (Otezla) 30 mg PO BID 05/26/20 12/14/22 12/14/22 History timolol maleate 0.5 % eye drops 1 drp ophthalmic (eye) BID 05/26/20 12/14/22 12/14/22 History albuterol sulfate 90 mcg/actuation 2 puff inhalation Q4H PRN 12/01/21 12/14/22 07/20/22 Rx aerosol inhaler (ProAir HFA) Shortness Of Breath #8.5 grams accommodative custom orthotics #1 ea 02/16/22 12/14/22 07/20/22 Rx Articulating AFO right lower #1 ea 02/22/22 12/14/22 07/20/22 Rx extremity acetaminophen 500 mg tablet 1,000 mg PO Q6H PRN Pain 12/14/22 12/14/22 Unknown History amlodipine 2.5 mg tablet 2.5 mg PO BEDTIME 12/14/22 12/14/22 12/13/22 History certolizumab pegol 400 mg/2 mL 200 mg SUBCUT .EVERY 2 WEEKS 12/14/22 12/14/22 Unknown History (200 mg/mL x2) subcutaneous syringe kit (Cimzia) desipramine 50 mg tablet 50 mg PO BEDTIME 12/14/22 12/14/22 12/13/22 History famotidine 40 mg tablet 40 mg PO BID 12/14/22 12/14/22 12/14/22 History gabapentin 100 mg capsule 100 mg PO QAM 12/14/22 12/14/22 12/14/22 History gabapentin 400 mg capsule 400 mg PO BEDTIME 06/12/14/22 12/13/22 History lidocaine-prilocaine 2.5 %-2.5 % See Rx Instructions .Route .COMPLEX 12/14/22 12/14/22 Unknown History topical cream metoprolol tartrate 50 mg tablet 50 mg PO BID 12/14/22 12/14/22 12/14/22 History mupirocin 2 % topical ointment 1 applic topical TID PRN unknown 12/14/22 12/14/22 Unknown History sevelamer carbonate 800 mg tablet 800 mg PO TIDWM 12/14/22 12/14/22 12/14/22 History (Renvela) sodium zirconium cyclosilicate 5 See Rx Instructions .Route .COMPLEX 12/14/22 12/14/22 12/13/22 History gram oral powder packet (Lokelma) venlafaxine 75 mg capsule,extended 75 mg PO QAM 12/14/22 12/14/22 12/14/22 History release 24 hr vit B,C-folic ac 800 mcg-zinc 12.5 1 tab PO QAM 12/14/22 12/14/22 12/14/22 History mg-selen-D3 2,000 unit-vit E tablet (RenaPlex-D) Allergies Allergy/AdvReac Type Severity Reaction Status Date / Time Penicillins Allergy Intermediate swelling Verified 12/13/22 15:43 PFSH Acute PFSH: Medical History Anemia in chronic kidney disease (CKD) AV fistula Chronic anemia Chronic anterior uveitis of both eyes Chronic kidney disease Dr. Aquino in [place] ESRD on dialysis Hypermagnesemia Hypertension Migraine headache No pertinent past medical history neghx: dm,thyroid,dvt/pe PCP: Cookie Fernández Seropositive rheumatoid arthritis of multiple sites Surgical History H/O cataract extraction both eyes H/O esophagogastroduodenoscopy 08/02/2019: Normal H/O foot surgery H/O joint surgery Due to arthritis Neck, knees, shoulder, knuckle, wrists H/O wrist surgery Hx of total knee arthroplasty both Status post colonoscopy 08/02/2019: Poor prep, normal Family History Father Stroke Father had Parkinson's and a stroke Hypertension Hypercholesteremia Mother Hypertension Hypercholesteremia Family/Other Breast cancer Maternal Cousin-- dx age unknown Ovarian cancer Maternal aunt-- dx age unknown Diabetes Maternal Aunt/Uncle Denies family history of Colon cancer Uterine cancer Social History Smoking and tobacco status: never smoked Substance/Drug Use: never Additional social history: - Tobacco use: Denies Alcohol use: Denies Drug use: Denies Vitals/I&O/Wt Last Vital Signs Temp 97.9 F 12/14/22 11:45 Pulse 84 12/14/22 17:53 Resp 16 12/14/22 17:53 BP 156/77 12/14/22 17:53 Pulse Ox 98 12/14/22 17:53 O2 Del Method Room Air 12/14/22 14:18 Weight last 48 hrs Weight 49.895 kg Physical Exam Narrative: awake , alert no distress HEENT S1 S2 RRR per report lUNGS CLEAR PER REPORT nO EDEMA Data 12/15/22 05:51 12/15/22 05:51 A&P Assessment and plan (1) ESRD on dialysis: Plan 1. ESRD : ON TTS schedule as out pt , missed HD and presented to ED. Noted to have hyperkalemia. 2. HTN : Controlled 3.Hyperkalemia : hD as above and low K diet 4. Anemia : Hb 10.9 , monitor Pt evaluated using audiovisual cart. Time spent 30 min Coding Level of Care Code Acute Code for Chg Fwd Diagnoses ESRD on dialysis N18.6; Z99.2
--- NOTE | 2022-12-14 18:34 | P.HP_ITS ---
Providers/Chief Complaint Admitting Physician: Buck Bennett MD Primary Care Provider: GHADA Nam Chief Complaint: head pain, off balance History of Present Illness Dia Paredes is a 47 year old female who has history of end-stage renal disease, right arm AV fistula presented because she missed her dialysis on , she has been experiencing dizziness shortness of breath and fatigue, she also sustained a fall, patient stating that because of her weakness and lethargy she missed her dialysis because she mostly has to wake up around 4 AM to attend her dialysis session in the ER her creatinine is potassium is more than baseline, hyperacute T waves noted, she received treatment for hyperkalemia Review of Systems Const: Denies: fever(s) Eyes: Denies: change in vision ENMT: Denies: throat pain Card: Denies: chest pain Resp: Denies: dyspnea GI: Denies: abdominal pain : Denies: flank pain Musc: Denies: neck pain Skin/Breast: Denies: rash Neuro: Denies: headache(s) Psych: Reports: anxiety Medications/Allergies Home Medications Medication Instructions Recorded Confirmed Last Taken Type apremilast 30 mg tablet (Otezla) 30 mg PO BID 05/26/20 12/14/22 12/14/22 History timolol maleate 0.5 % eye drops 1 drp ophthalmic (eye) BID 05/26/20 12/14/22 12/14/22 History albuterol sulfate 90 mcg/actuation 2 puff inhalation Q4H PRN 12/01/21 12/14/22 07/20/22 Rx aerosol inhaler (ProAir HFA) Shortness Of Breath #8.5 grams accommodative custom orthotics #1 ea 02/16/22 12/14/22 07/20/22 Rx Articulating AFO right lower #1 ea 02/22/22 12/14/22 07/20/22 Rx extremity acetaminophen 500 mg tablet 1,000 mg PO Q6H PRN Pain 12/14/22 12/14/22 Unknown History amlodipine 2.5 mg tablet 2.5 mg PO BEDTIME 12/14/22 12/14/22 12/13/22 History certolizumab pegol 400 mg/2 mL 200 mg SUBCUT .EVERY 2 WEEKS 12/14/22 12/14/22 Unknown History (200 mg/mL x2) subcutaneous syringe kit (Cimzia) desipramine 50 mg tablet 50 mg PO BEDTIME 12/14/22 12/14/22 12/13/22 History famotidine 40 mg tablet 40 mg PO BID 12/14/22 12/14/22 12/14/22 History gabapentin 100 mg capsule 100 mg PO QAM 12/14/22 12/14/22 12/14/22 History gabapentin 400 mg capsule 400 mg PO BEDTIME 12/14/22 12/14/22 12/13/22 History lidocaine-prilocaine 2.5 %-2.5 % See Rx Instructions .Route .COMPLEX 12/14/22 12/14/22 Unknown History topical cream metoprolol tartrate 50 mg tablet 50 mg PO BID 12/14/22 12/14/22 12/14/22 History mupirocin 2 % topical ointment 1 applic topical TID PRN unknown 12/14/22 12/14/22 Unknown History sevelamer carbonate 800 mg tablet 800 mg PO TIDWM 12/14/22 12/14/22 12/14/22 History (Renvela) sodium zirconium cyclosilicate 5 See Rx Instructions .Route .COMPLEX 12/14/22 0 12/14/22 12/13/22 History gram oral powder packet (Lokelma) venlafaxine 75 mg capsule,extended 75 mg PO QAM 12/14/22 12/14/22 12/14/22 History release 24 hr vit B,C-folic ac 800 mcg-zinc 12.5 1 tab PO QAM 12/14/22 12/14/22 12/14/22 History mg-selen-D3 2,000 unit-vit E tablet (RenaPlex-D) Allergies Allergy/AdvReac Type Severity Reaction Status Date / Time Penicillins Allergy Intermediate swelling Verified 12/13/22 15:43 PFSH Acute PFSH: Medical History Anemia in chronic kidney disease (CKD) AV fistula Chronic anemia Chronic anterior uveitis of both eyes Chronic kidney disease Dr. Aquino in [place] ESRD on dialysis Hypermagnesemia Hypertension Migraine headache No pertinent past medical history neghx: dm,thyroid,dvt/pe PCP: Cookie Fernández Seropositive rheumatoid arthritis of multiple sites Surgical History H/O cataract extraction both eyes H/O esophagogastroduodenoscopy 08/02/2019: Normal H/O foot surgery H/O joint surgery Due to arthritis Neck, knees, shoulder, knuckle, wrists H/O wrist surgery Hx of total knee arthroplasty both Status post colonoscopy 08/02/2019: Poor prep, normal Family History Father Stroke Father had Parkinson's and a stroke Hypertension Hypercholesteremia Mother Hypertension Hypercholesteremia Family/Other Breast cancer Maternal Cousin-- dx age unknown Ovarian cancer Maternal aunt-- dx age unknown Diabetes Maternal Aunt/Uncle Denies family history of Colon cancer Uterine cancer Social History Smoking and tobacco status: never smoked Substance/Drug Use: never Additional social history: - Tobacco use: Denies Alcohol use: Denies Drug use: Denies Vitals/I&O/Wt Last Vital Signs Temp 97.9 F 12/14/22 11:45 Pulse 84 12/14/22 17:53 Resp 16 12/14/22 17:53 BP 156/77 12/14/22 17:53 Pulse Ox 98 12/14/22 17:53 O2 Del Method Room Air 12/14/22 14:18 Weight last 48 hrs Weight 49.895 kg Physical Exam Narrative: Patient is awake and alert Fluid overloaded No active chest pain Currently on room air No active chest pain S1, S2 Pleasant and cooperative GCS 15 Nonfocal neuro exam Right arm fistula Data 12/14/22 14:20 12/14/22 14:20 A&P Assessment and plan (1) Acute hyperkalemia: (2) Rheumatoid arthritis: (3) ESRD on dialysis: Plan End-stage disease Missed dialysis sessions Tuesday dialysis Nephro consulted Patient received treatment for hyperkalemia Awake and alert Hemodynamically stable Hyperacute T waves noted, patient received calcium gluconate Full code Renal dialysis diet Plan to discharge tomorrow Continue her antidepressants Attestations Medical Necessity Statement*: Discharge tomorrow anticipating discharge within 48 hours Diagnoses Acute hyperkalemia E87.5 Rheumatoid arthritis M06.9 ESRD on dialysis N18.6; Z99.2
[2022-12-14 20:47] LABS: Hepatitis B Core AB, Total Non-Reactive (Nonreactive); Hepatitis B Surface Antigen Non-Reactive (Nonreactive)
[2022-12-14 21:01] LABS: Hepatitis B Surface AB > 1000.0 (11.5-1000)
[2022-12-14] MEDS: amlodipine 5 mg Tablet 2.5 MG PO (22:22)
[2022-12-14] MEDS: gabapentin 400 mg Capsule PO (22:23)
[2022-12-15 03:48] VITALS: BP 125/73; PULSE 89; RESP 16; TEMP 36.6; O2SAT 95
[2022-12-15] MEDS: b-complex-vitamin c Tablet 1 EACH PO (05:46)
[2022-12-15] MEDS: venlafaxine ER (24HR) 75 mg Capsule PO (05:46)
[2022-12-15 06:07] LABS: Basophils # 0.1 10^3/uL (0.0-0.1); Basophils % 1.3 %; Eosinophils # 0.3 10^3/uL (0.0-0.8); Eosinophils % 3.6 %; Hematocrit 35.8 % (37.0-47.0); Hemoglobin 10.7 g/dL (11.5-15.3); Lymphocytes # 1.9 10^3/uL (0.8-4.8); Lymphocytes % 26.8 %; Mean Corpuscular HGB Conc 29.9 g/dL (30.0-36.0); Monocytes # 0.9 10^3/uL (0.2-0.9); Monocytes % 12.9 %; Neutrophils # 3.81 10^3/uL (1.8-7.7); Neutrophils % 55.1 %; Nucleated Red Blood Cells % 0 %; Platelet Count 274 10^3/cmm (130-400); Red Blood Count 3.69 10^6/uL (4.1-5.3); Red Cell Distribution Width 15.8 % (12.1-15.1); White Blood Count 6.9 10^3/uL (4.0-10.0)
[2022-12-15 06:27] LABS: Blood Urea Nitrogen 19 mg/dL (6-20); C Reactive Protein 5.4 mg/L (0.0-4.9); Calcium 9.2 mg/dL (8.5-10.5); Carbon Dioxide 30 mmol/L (22-29); Chloride 93 mmol/L (98-107); Glomerular Filtration Rate 14.9 mL/min (90-130); Glucose 77 mg/dL (65-115); Magnesium 2.8 mg/dL (1.7-2.3); Osmolality Calculated 283 mOsm/kg (285-295); Sodium 136 mmol/L (136-145)
[2022-12-15 06:32] LABS: Anion Gap 17.3 (5-19); Potassium 4.3 mmol/L (3.5-5.1)
[2022-12-15 06:42] LABS: Slide Review Slide Review Perform
[2022-12-15 07:06] VITALS: BP 148/75; PULSE 76; RESP 16; TEMP 36.8; O2SAT 99
[2022-12-15] MEDS: metoprolol tartrate 50 mg Tablet PO (08:44)
--- NOTE | 2022-12-15 10:04 | P.DS_ITS ---
Discharge Providers Date of Admission: 12/14/22 17:58 Date of Discharge: December 15, 2022 Attending Provider at Admission: Buck Bennett MD Attending Provider at Discharge: Buck Bennett MD Primary Care Provider: GHADA Nam Diagnoses at Discharge Discharge Diagnosis (1) ESRD on dialysis: Status: Acute Reason for Visit Reason for Visit: head pain, off balance Hospital Course Hospital Course 47-year-old female who present to the hospital after missing her dialysis she was feeling fatigued and lethargic she was hyperkalemic she was given hyperkalemic cocktail in the ER, nephro was consulted for urgent dialysis, after dialysis patient felt better she would be able to go home and continue her Tuesday, , Tuesday dialysis. Patient remained hemodynamically stable doing well on room air she is being discharged with stable hemodynamics Physical Exam Narrative: Awake and alert GCS 15 Nonfocal neuro exam currently on room air Right arm fistula Discharge Data Studies Completed and Pending Laboratory Results WBC 6.9 10^3/uL (4.0-10.0) 12/15/22 05:51 RBC 3.69 10^6/uL (4.1-5.3) L 12/15/22 05:51 Hgb 10.7 g/dL (11.5-15.3) L 12/15/22 05:51 Hct 35.8 % (37.0-47.0) L 12/15/22 05:51 MCV 97.0 fl (81-99) 12/15/22 05:51 MCH 29.0 pg (28.0-34.0) 12/15/22 05:51 MCHC 29.9 g/dL (30.0-36.0) L 12/15/22 05:51 RDW 15.8 % (12.1-15.1) H 12/15/22 05:51 Plt Count 274 10^3/cmm (130-400) 12/15/22 05:51 MPV 9.0 fL (7.4-10.4) 12/15/22 05:51 Neut % (Auto) 55.1 % 12/15/22 05:51 Lymph % (Auto) 26.8 % 12/15/22 05:51 Emanuel % (Auto) 12.9 % 12/15/22 05:51 Eos % (Auto) 3.6 % 12/15/22 05:51 Baso % (Auto) 1.3 % 12/15/22 05:51 Neut # (Auto) 3.81 10^3/uL (1.8-7.7) 12/15/22 05:51 Lymph # (Auto) 1.9 10^3/uL (0.8-4.8) 12/15/22 05:51 Emanuel # (Auto) 0.9 10^3/uL (0.2-0.9) 12/15/22 05:51 Eos # (Auto) 0.3 10^3/uL (0.0-0.8) 12/15/22 05:51 Baso # (Auto) 0.1 10^3/uL (0.0-0.1) 12/15/22 05:51 Nucleated RBC % (auto) 0 % 12/15/22 05:51 Nucleated RBCs # 0.0 /100WBC 12/15/22 05:51 Sodium 136 mmol/L (136-145) 12/15/22 05:51 Potassium 4.3 mmol/L (3.5-5.1) 12/15/22 05:51 Chloride 93 mmol/L (98-107) L 12/15/22 05:51 Carbon Dioxide 30 mmol/L (22-29) H 12/15/22 05:51 Anion Gap 17.3 (5-19) 12/15/22 05:51 BUN 19 mg/dL (6-20) 12/15/22 05:51 Creatinine 3.3 mg/dL (0.5-0.9) H 12/15/22 05:51 GFR Calculation 14.9 mL/min (90-130) L 12/15/22 05:51 Glucose 77 mg/dL (65-115) 12/15/22 05:51 Calculated Osmolality 283 mOsm/kg (285-295) L 12/15/22 05:51 Calcium 9.2 mg/dL (8.5-10.5) 12/15/22 05:51 Magnesium 2.8 mg/dL (1.7-2.3) H 12/15/22 05:51 Total Bilirubin 0.3 mg/dL (0.15-1.2) 12/14/22 14:20 AST 41 U/L (0-32) H 12/14/22 14:20 ALT 54 U/L (0-33) H 12/14/22 14:20 Alkaline Phosphatase 124 U/L (35-105) H 12/14/22 14:20 C-Reactive Protein 5.4 mg/L (0.0-4.9) H 12/15/22 05:51 Total Protein 8.2 g/dL (6.6-8.7) 12/14/22 14:20 Albumin 4.1 g/dL (3.5-5.2) 12/14/22 14:20 Globulin 4.1 g/dL (1.3-4.6) 12/14/22 14:20 Hep Bs Antigen Non-reactive (Nonreactive) 12/14/22 18:54 Hep Bs Antibody > 1000.0 (11.5-1000) H 12/14/22 18:54 Hep B Core Total Ab Non-reactive (Nonreactive) 12/14/22 18:54 Vitals Last Vital Signs Temp 98.3 F 12/15/22 07:06 Pulse 76 12/15/22 07:06 Resp 16 12/15/22 07:06 BP 148/75 12/15/22 07:06 Pulse Ox 99 12/15/22 07:06 O2 Del Method Room Air 12/15/22 07:06 Discharge Plan Discharge Patient Disposition: Home Condition: Stable Prescriptions: Continued (DME) accommodative custom orthotics See Rx Instructions .Route .MEDSUPPLY Qty: 1 0RF Rx Instructions: As directed by [facility] (DME) Articulating AFO right lower extremity See Rx Instructions .Route .MEDSUPPLY Qty: 1 0RF Rx Instructions: As directed BY [facility] albuterol sulfate [ProAir HFA] 90 mcg/actuation HFA aerosol inhaler 2 puff INHALATION Q4H PRN (Reason: Shortness Of Breath) Qty: 8.5 1RF Otezla 30 mg tablet 30 mg PO BID timolol maleate 0.5 % drops 1 drp ophthalmic (eye) BID Rx Instructions: EACH EYE famotidine 40 mg tablet 40 mg PO BID gabapentin 400 mg capsule 400 mg PO BEDTIME amlodipine 2.5 mg tablet 2.5 mg PO BEDTIME desipramine 50 mg tablet 50 mg PO BEDTIME gabapentin 100 mg capsule 100 mg PO QAM Cimzia 400 mg/2 mL (200 mg/mL x 2) syringe kit 200 mg SUBCUT .EVERY 2 WEEKS Tylenol Ex Str Rapid Release 500 mg Tablet 1,000 mg PO Q6H PRN (Reason: Pain) lidocaine-prilocaine 2.5-2.5 % cream See Rx Instructions .ROUTE .COMPLEX Rx Instructions: APPLY SMALL AMOUNT TO ACCESS SITE (AVF) 1 TO 2 HOURS BEFORE DIALYSIS. COVER WITH OCCLUSIVE DRESSING (SARAN WRAP) Renvela 800 mg tablet 800 mg PO TIDWM RenaPlex-D 800 mcg-12.5 mg -2,000 unit tablet 1 tab PO QAM Lokelma 5 gram powder in packet See Rx Instructions .ROUTE .COMPLEX Rx Instructions: EMPTY 1 PACKET IN 3 TABLESPOONSFUL OF WATER OR DIRECTED, STIR WELL, AND DRINK AT ONCE DIRECTED ON NON-DIALYSIS DAYS ON MON, WED, FRI AND SUN venlafaxine 75 mg capsule,extended release 24hr 75 mg PO QAM metoprolol tartrate 50 mg tablet 50 mg PO BID mupirocin 2 % ointment 1 applic topical TID PRN (Reason: unknown) Discharge Orders: Discharge Order (Routine); Ordered 12/15/22 Ordered By: Buck Bennett Referrals: Hyacinth Fernández FNP [Primary Care Provider] - Discharge Diet: Low Salt Discharge Activity: Increase activity as tolerated Patient Instructions: Opioid Safety Discharge Attestations Time Spent in Discharge Care*: less than 30 min Quality Metrics Clinical Quality Measures [ No reported AMI, CVA or VTE this stay] Coding Level of Care Code Acute Code for Chg Fwd Diagnoses ESRD on dialysis N18.6; Z99.2
[2022-12-15 11:04] VITALS: BP 148/75; PULSE 76; RESP 16; TEMP 36.8; O2SAT 99
== END 2022-12-15 10:50 | disposition home or self-care (01) ==
LOC: ER 16:24 → MEDSURG 17:58
PROVIDERS: Hospitalist; Admitting Provider Internal Medicine; Emergency Provider Family Medicine; PCP Nurse Practitioner Family; Visit Provider Internal Medicine
DX: I12.0 Hypertensive chronic kidney disease with stage 5 chronic kidney disease or end stage renal disease (principal); E83.52 Hypercalcemia; N18.6 End stage renal disease; Z99.2 Dependence on renal dialysis; E87.5 Hyperkalemia; Z91.158 Patient's noncompliance with renal dialysis for other reason; D63.1 Anemia in chronic kidney disease; M05.9 Rheumatoid arthritis with rheumatoid factor, unspecified
CPT/HCPCS: 12345; 36415; 80048; 80053; 83735; 85025; 86140; 86705; 86706; 87340; 90935; 96372; 96374; 96375; 99285; G0378; J1885; J3490; J8597

== ENCOUNTER → 2023-02-01 10:02 | Outpatient (BNVA) | payer MEDICARE, MEDICAID, SELFPAY | PROVIDERS: PCP Nurse Practitioner Family; Visit Provider Internal Medicine Cardiovascular Disease | DX: R94.39 Abnormal result of other cardiovascular function study (principal); I12.0 Hypertensive chronic kidney disease with stage 5 chronic kidney disease or end stage renal disease; N18.6 End stage renal disease; R01.1 Cardiac murmur, unspecified | CPT/HCPCS: 99204 ==

== ENCOUNTER → 2023-02-09 10:04 | Outpatient (BNVA) | payer MEDICARE, MEDICAID, SELFPAY | PROVIDERS: PCP Nurse Practitioner Family; Referring Provider Nurse Practitioner Family; Visit Provider Nurse Practitioner Family | DX: L40.0 Psoriasis vulgaris (principal); L82.1 Other seborrheic keratosis; L90.5 Scar conditions and fibrosis of skin; L81.1 Chloasma; L73.8 Other specified follicular disorders; D22.5 Melanocytic nevi of trunk; Z99.2 Dependence on renal dialysis | CPT/HCPCS: 99203 ==

== ENCOUNTER 2023-02-21 07:17 | Outpatient (CLI) | payer MEDICARE, MEDICAID, SELFPAY ==
[2023-02-21] VITALS (12 sets, daily range): BP systolic 108–149; BP diastolic 55–74; PULSE 62–91; RESP 13–22; TEMP 36.8–37.2; O2SAT 88–100; BMI 22.2
--- NOTE | 2023-02-21 07:30 | XACV_ITS ---
Exam Room: 2 Ht: 152 cm Wt: 52 kg BSA: 1.49 m2 Gender: Female : 1975 Any Known Allergies: Penicillins Exam Priority: Routine Procedure(s): Procedure Description: Diagnostic procedure Procedure Description: Left Heart Catheterization Procedure Description: Left ventriculography Procedure Description: Coronary Angiography Shar RUIZ; Diagnostic Cath Status: Elective Diagnostic Findings * The left main is a medium caliber vessel with no significant stenotic lesions. * The left anterior descending artery is a medium caliber vessel which was found to have around 30% eccentric narrowing near the ostium. The mid and the distal LAD was found mild diffuse intimal irregularities. No significant stenotic lesions were noted. * The left circumflex artery is a medium caliber nondominant vessel which also was found around 10 to 20% narrowing in the midsegment. No significant stenotic lesions were noted. * The right coronary artery is a medium caliber dominant vessel which was found to have around 20 to 30% irregular diffuse narrowing in the mid and distal segments. The PDA and the PLV branches are found to have minimal intimal irregularities. Conclusions 1. 47-year-old white female with history of hypertension, dyslipidemia, end-stage renal disease, is undergoing evaluation for renal transplant. She had a Myocardial perfusion imaging which revealed ischemia in the distribution of the diagonal/intermedius artery. To further evaluate her coronary status, a cardiac catheterization was recommended. Patient underwent left heart catheterization with left and right coronary angiogram and LV angiogram today. The findings are as follows.. 2. Normal left main. Mild eccentric narrowing of around 30% near the ostium of the left anterior descending artery. Mild diffuse disease in the other vessels. Normal LV ejection fraction 55%. LVEDP of 19 mmHg. Diagnostic RX Recommendation: medical therapy and/or counseling LV EDP: 19 mmHg Ventriculography Ejection Fraction: 55.0 % Left Ventriculography Findings: * The LV gram was performed in the FONSECA projection. The LV cavity appeared to be normal size. There was overall LV ejection fraction of 55%. No filling defects were noted. The LVEDP was 19 mmHg. Pressures Phase:Rest AO : 198 / 89 ( 134 ) @ 9:42:00 AM 154 / 131 ( 124 ) @ 9:43:00 AM 145 / 98 ( 121 ) @ 9:45:00 AM 184 / 85 ( 129 ) @ 9:47:00 AM 155 / 106 ( 130 ) @ 9:48:00 AM 145 / 100 ( 122 ) @ 9:48:00 AM 153 / 65 ( 106 ) @ 9:53:00 AM 152 / 67 ( 106 ) @ 9:53:00 AM LV : 162 / -14 / 19 @ 9:52:00 AM 149 / -12 / 21 @ 9:53:00 AM 148 / -11 / 21 @ 9:53:00 AM Valves Phase:DefaultPhase AV : 0.0 @ 8:59:56 AM 0.0 @ 8:59:56 AM AV Mean Gradient: 0.0 @ 8:59:56 AM Clinical Evaluation EBL: 5mL-10mL Procedural Details Procedure Consent Obtained. Pre-Procedure Time Out. Identified patient by full name and date of as verbalized by the patient/guarantor. Does the consent match the physician's order: Yes. Accurate & Complete Informed Consent: Yes. Inpatient/Outpatient History & Physical on Chart: Yes. If H&P is completed, is and addenduem needed: No; If yes, is the addendum complete: N/A. Visualize and Verify Site with Patient/Guarantor: N/A. Relevant Radiology Images available: Yes. Pre-op teaching completed and patient verbalized understanding. The risks, benefits, and alternatives of sedation and/or procedure were discussed by physician. The patient agrees to continue. Procedure started. Current Diagnosis : Chest Pain. [facility] Clinical Fraility Score: 4: Vulnerable. Case Worker Indications: Other. Chest Pain Symptom Assessment: Atypical Angina. Correct patient, site and procedure confirmed by cath team. PERRLA. Strong, equal hand director of sports medicine bilaterally. Lungs clear x 5 lobes. IV Site on Arrival: Left Chest Port Access. IV Fluids: 0.9% NaCl at KVO. 0 mL infused prior to matlab developer. Oxygen started at 2liters/min via nasal canula. Physician arrived. Pre Procedural Pulses: bilateral dorsalis pedis was 1+. Pre Procedural Pulses: bilateral posterior tibial was 1+. Pre Procedural Pulses: bilateral radial was 1+. bilateral groins was prepped with chloroprep then draped in the usual sterile fashion. Baseline sample Acquired. HR: 71 BPM. Physician scrubbed in. Immediate Pre-Procedure Time Out. Correct Patient: Yes; Correct Procedure: Yes; Correct Site: Yes; Correct Patient Position: Yes; Correct Supplies: Yes; Dried Flammable Prep: Yes; Blood Products Available: N/A;. Lidocaine 1% infiltrated to the right groin. Arterial access obtained with micropuncture set. A 5 croatian JL4 catheter in over wire. Multiple views taken of left coronary artery. Catheter removed over the standard wire. A 5 croatian JR4 catheter in over wire. Multiple views taken of right coronary artery. Catheter removed over the standard wire. A 5 croatian Angled Pig catheter in over wire. EDP Sample taken: LV 162/-15,19; HR: 86 BPM; SpO2: 100%. LV gram performed in FONSECA @ 10 mL/second for a total of 30 mL. EDP Sample taken: LV 149/-13,21; HR: 85 BPM; SpO2: 100%. Pullback taken: LV 148/-12,21; AO 153/65(106); Mean: 0mmHg, Peak to Peak: 0mmHg, SEP: 23sec/min; HR: 91 BPM; SpO2: 100%. Catheter removed over the standard wire. Physician review of cine films. Physician scrubbed out. Post Procedure: Pulses reassessed and unchanged. PERRLA. Strong, equal hand director of sports medicine bilaterally. No VTE prophylaxis required. Medication's Wasted: Other = Fentanyl 50mcg Versed 1 mg. Medication's Wasted: Heparin = 2500 units. Total IV fluids: 30 mL. A Suture was successful obtaining hemostatsis at the Right Femoral artery insertion site. Sheath(s) sutured into position with 2-0 silk and sterile 4x4's and Op-site applied over the site. No oozing or signs and symptoms of hematoma noted. Arterial sheath flushed and connected to tranducer and pressure bag with heparinized saline. Post-op diagnosis: Mild CAD. Complications: None. Estimated blood loss: 5mL-10mL. Responsiveness - Normal response to verbal stimuli; alert and oriented, PERRLA. Airway - Unaffected, no intervention required; spontaneous ventilation. Circulation: W/N/L, pulses unchanged. Nausea/Vomiting: No. Procedure completed. Patient transferred by bed to CPRU. Vital chart was stopped. Access Site Site: Right Femoral artery Sheath Size: 5 Fr Hemostasis Method: Suture Hemostasis Success: Successful Procedure Medications Start: 8:31 AM Stop: 8:31 AM Medication: Versed Amount: 1 mg Route: I.V. Start: 8:31 AM Stop: 8:31 AM Medication: Fentanyl Amount: 50 mcg Route: I.V. Start: 8:40 AM Stop: 8:40 AM Medication: Heparin Amount: 1500 units Route: I.V. Start: 8:42 AM Stop: 8:42 AM Medication: Hydralazine Amount: 10 mg Route: I.V. Start: 8:47 AM Stop: 8:47 AM Medication: Hydralazine Amount: 10 mg Route: I.V. I, the attending physician, have reviewed and verified all procedure medications. Yes, all medications given per verbal order History/Risk Factors Hypertension: Yes Dyslipidemia: No Peripheral Arterial Disease (PAD): No Myocardial Infarction ([place]): No Obesity: No Renal Disease: No Tobacco Use: Never Dialysis: Current Prior Interventions PCI: No CABG: No Valve Surgery: No Report Signatures Finalized by Dr Ariadna Myles MD [facility] on 02/21/2023 08:53 PM
[2023-02-21] MEDS: aspirin 325 mg Tablet PO (07:45)
[2023-02-21] MEDS: diphenhydrAMINE 50 mg Capsule PO (07:45)
[2023-02-21 07:58] LABS: Basophils # 0.1 10^3/uL (0.0-0.1); Basophils % 0.8 %; Eosinophils # 0.4 10^3/uL (0.0-0.8); Eosinophils % 4.6 %; Hematocrit 35.2 % (36-47); Lymphocytes # 1.7 10^3/uL (0.8-4.8); Lymphocytes % 19.5 %; Mean Corpuscular HGB Conc 30.1 g/dL (30-55); Mean Corpuscular Hemoglobin 29.8 pg (27-33); Mean Corpuscular Volume 98.9 fl (85-98); Mean Platelet Volume 8.4 fL (7.4-10.4); Monocytes # 0.8 10^3/uL (0.2-0.9); Monocytes % 9.2 %; Neutrophils # 5.63 10^3/uL (1.8-7.7); Neutrophils % 65.7 %; Nucleated Red Blood Cells % 0 %; Platelet Count 199 10^3/cmm (157-399); Red Blood Count 3.56 10^6/uL (3.85-5.65); Red Cell Distribution Width 16.4 % (12.1-15.1); White Blood Count 8.57 10^3/uL (3.29-11.43)
--- NOTE | 2023-02-21 08:12 | P.HPUD_ITS ---
Surgery/Procedure H&P Update DATE OF PROCEDURE: February 21, 2023 DATE H&P PERFORMED: 02/08/23 H&P UPDATE INFORMATION: I have reviewed H&P completed within last 30 days, I have examined patient prior to procedure and No changes to prior documentation PREOP DIAGNOSIS: ASHD PRIMARY INDICATION FOR PROCEDURE: abnormal stress test / ESRD/ pre transpalnt PLANNED PROCEDURE: Operation Date: 02/21/23 08:30 Proposed Procedures p [facility] w/-w/o 68025,R01.1,N18.6,R94.39(Left) - Ariadna Myles MD PATIENT REASSESSED PRIOR TO SEDATION, WITH NO CHANGE NOTED: Yes PHYSICAL EXAM: alert, oriented x 3, clear to auscultation bilaterally and regular rate & rhythm AIRWAY EVAL/ANESTHESIA PLAN: normal airway, see other exam findings, ASA IV, Monitored Anesthesia, Local Anesthesia, Risks, benefits & alternatives of sedation and/or procedure discussed and Patient agrees to continue as planned
[2023-02-21 08:14] LABS: Blood Urea Nitrogen 39 mg/dL (6-20); Calcium 9.3 mg/dL (8.5-10.5); Carbon Dioxide 28 mmol/L (22-29); Chloride 98 mmol/L (98-107); Glomerular Filtration Rate 7.3 mL/min (90-130); Glucose 84 mg/dL (65-115); Osmolality Calculated 295 mOsm/kg (285-295); Sodium 138 mmol/L (136-145)
--- NOTE | 2023-02-21 09:43 | PC.NURSE ---
cpru nurse received pt from [facility]. pt drowsy but can wake if prompted. right femoral access site with sheath sutured in place. no bruising or hematoma noted. pt placed on monitors and will be monitored per protocol. plan is to transfer to [facility] after aprox 30 of recovery here in CPRU.
[2023-02-21] MEDS: sevelamer 800 mg Tablet PO ×2 (10:49→17:33)
--- NOTE | 2023-02-21 12:32 | PC.NURSE ---
sheath removal 10:18Am explained procedure to pt. sheath removed to right groin femoral artery area. no hematoma, bleeding or swelling noted. pulses are palpable +3. call light provided to pt.
[2023-02-21] MEDS: metoprolol tartrate 50 mg Tablet PO (17:33)
[2023-02-21] MEDS: famotidine 20 mg Tablet 40 MG PO (17:33)
[2023-02-21] MEDS: gabapentin 400 mg Capsule PO (20:39)
[2023-02-22 03:30] VITALS: BP 126/66; PULSE 37; RESP 16; TEMP 36.8; O2SAT 96
[2023-02-22 04:56] VITALS: PULSE 37
--- NOTE | 2023-02-22 09:13 | PC.NURSE ---
Dr. Myles ordered hemodialysis for patient prior to discharge. Patient would like to have done at her normal place to avoid the the extra visit with nephrology that would be required to have the order place. Patient will call them to set up a time for dialysis. Her normal schedule is Tuesday, and Tuesday.
--- NOTE | 2023-02-22 09:36 | P.SS_ITS ---
Short Stay Summary Providers Date of Admit/Discharge: 02/22/23 Attending Provider: Ariadna Myles MD Consults: none Primary Care Provider: GHADA Nam Chief Complaint: R01.1 HPI History of Present Illness Dia Paredes is a 47 year old female with a history of end-stage renal disease, was admitted to the hospital following cardiac catheterization for close monitoring and hemodialysis in the morning. Patient is being evaluated for a kidney transplant. She had a Myocardial perfusion imaging, in preparation for this procedure. She was found to have areas of ischemia in the distribution of the left anterior descending artery, based on the study done in an outside hospital. She was recommended for a cardiac catheterization, for further evaluation. Patient underwent left heart catheterization with left and right coronary angiogram and LV angiogram yesterday. She was found to have mild diffuse coronary artery disease. Her LV ejection fraction was normal. LVEDP was 19 mmHg. Based on the findings, it was opted to treat her medically. She was admitted to hospital for close monitoring. She also wanted to have the dialysis done in this hospital-usually get the dialysis on Tuesdays, and Saturdays. She has no chest pain or chest tightness. No unusual shortness of breath. Most Recent Cardiac Tests: Chest X-Ray 03/08/21 Most Recent Cardiac Tests: Chest X-Ray 03/08/21 Pulmonary Results: No Data to Display Most Recent Cardiac Tests: Chest X-Ray 03/08/21 Review of Systems Narrative: CONSTITUTIONAL: No fever or chills. EYES: No blurring of vision or other visual disturbances lately. ENT: No hoarseness of voice, auditory disturbances or sore throat. CARDIOVASCULAR: As mentioned above. RESPIRATORY: No significant cough. GASTROINTESTINAL: No hematemesis or melena. GENITOURINARY: As mentioned above INTEGUMENTARY: No skin rashes or history of skin cancer. NEURO: No transient ischemic attacks or amaurosis. PSYCHIATRIC: No history of psychosis or major depression. HEMATOLOGIC: No bleeding disorders or significant anemia. ENDOCRINE: No history of polyuria or polydipsia. MUSCULOSKELETAL: No recent joint pain or swelling. ALLERGY/IMMUNOLOGY: As mentioned above. Home Meds/Allergies Home Medications and Allergies Home Medications Medication Instructions Recorded Confirmed Type apremilast 30 mg tablet (Otezla) 30 mg PO BID 05/26/20 02/21/23 History timolol maleate 0.5 % eye drops 1 drp ophthalmic (eye) BID 05/26/20 02/21/23 History acetaminophen 500 mg tablet 1,000 mg PO Q6H PRN Pain 12/14/22 02/21/23 History certolizumab pegol 400 mg/2 mL 200 mg SUBCUT .EVERY 2 WEEKS 12/14/22 02/21/23 History (200 mg/mL x2) subcutaneous syringe kit (Cimzia) desipramine 50 mg tablet 50 mg PO BEDTIME 12/14/22 02/21/23 History sevelamer carbonate 800 mg tablet 800 mg PO TIDWM 12/14/22 02/21/23 History (Renvela) sodium zirconium cyclosilicate 5 See Rx Instructions .Route .COMPLEX 12/14/22 02/21/23 History gram oral powder packet (Lokelma) vit B,C-folic ac 800 mcg-zinc 12.5 1 tab PO QAM 12/14/22 02/21/23 History mg-selen-D3 2,000 unit-vit E tablet (RenaPlex-D) amlodipine 2.5 mg tablet 2.5 mg PO BEDTIME 02/18/23 02/21/23 History famotidine 40 mg tablet 40 mg PO BID 02/18/23 02/21/23 History gabapentin 400 mg capsule 400 mg PO BEDTIME 02/18/23 02/21/23 History metoprolol tartrate 50 mg tablet 50 mg PO BID 02/18/23 02/21/23 History Allergies Allergy/AdvReac Type Severity Reaction Status Date / Time Penicillins Allergy Intermediate swelling Verified 02/01/23 09:28 PFSH Acute PFSH: Medical History Acute hyperkalemia Anemia in chronic kidney disease (CKD) AV fistula Chronic anemia Chronic anterior uveitis of both eyes Chronic kidney disease Dr. Aqu[place] in [place] ESRD on dialysis Hypercalcemia Hypermagnesemia Hypertension Migraine headache No pertinent past medical history neghx: dm,thyroid,dvt/pe PCP: Cookie Fernández Rheumatoid arthritis Seropositive rheumatoid arthritis of multiple sites Surgical History H/O cataract extraction both eyes H/O esophagogastroduodenoscopy 08/02/2019: Normal H/O foot surgery H/O joint surgery Due to arthritis Neck, knees, shoulder, knuckle, wrists H/O wrist surgery Hx of total knee arthroplasty both Status post colonoscopy 08/02/2019: Poor prep, normal Family History Father Stroke Father had Parkinson's and a stroke Hypertension Hypercholesteremia Mother Hypertension Hypercholesteremia Family/Other Breast cancer Maternal Cousin-- dx age unknown Ovarian cancer Maternal aunt-- dx age unknown Diabetes Maternal Aunt/Uncle Denies family history of Colon cancer Uterine cancer Social History Smoking and tobacco status: never smoked Substance/Drug Use: never Additional social history: - Tobacco use: Denies Alcohol use: Denies Drug use: Denies Vitals/I&O/Wt Last Vital Signs Temp 98.3 F 02/22/23 03:30 Pulse 37 L 02/22/23 04:56 Resp 16 02/22/23 03:30 BP 126/66 02/22/23 03:30 Pulse Ox 96 02/22/23 03:30 O2 Del Method Room Air 02/22/23 03:30 02/21/23 02/22/23 02/22/23 22:59 06:59 14:59 Intake Total 240 / 360 240 / 600 480 / 480 Balance 240 / 360 240 / 600 480 / 480 Weight last 48 hrs Weight 114 lb Physical Exam Narrative: GENERAL: The patient is alert and oriented times three. Not in any acute distress. HEENT: No significant pallor, icterus or lymphadenopathy.Oral cavity: There are no mucous membrane lesions. NECK: Trachea appears to be central. No masses noted. No JVD or thyromegaly appreciated. RESPIRATORY: Chest is symmetrical. No intercostals muscle retraction or any accessory muscle activation. There is no chest wall tenderness. Breath sounds are heard bilaterally. No rales or rhonchi heard. No evidence of any consolidation. BREASTS: Deferred. HEART: The heart sounds are normal. No S3 or S4. Short systolic murmur in the lower sternal border. No diastolic murmurs no pericardial rub ABDOMEN: No vessel pulsations or distention. No tenderness. No organomegaly appreciated. Bowel sounds are normally heard. : Deferred. RECTAL: Deferred. LYMPHATIC: No lymphadenopathy noted in the neck. EXTREMITIES: No edema or cyanosis. No clubbing. MUSCULOSKELETAL: No acute joint deformities or swelling SKIN: There are no significant rashes or ecchymosis NEUROPSYCHIATRIC: The patient is alert and oriented x3. Appears to be in a good mood. No tremors or rigidity noted. Hospital Course Admission Diagnoses As mentioned above Hospital Course Patient remained stable throughout the hospital course. She had a hemodialysis today. She tolerated the procedure very well. No complications. Discharge Summary Patient was admitted to the hospital following the cardiac catheterization for close monitoring. She was found to have mild coronary disease by angiogram. Because of the end-stage renal disease, she requires hemodialysis. Patient underwent hemodialysis today. Her vital signs remained stable. Since she remained stable with no new symptoms, he is being discharged home today. SSS Data Data Completed and Pending: Completed Studies During Hospitalization Category Date Time Status COOK HELPER JUICE request for service Routin e Exams 02/21/23 07:30 Completed Pending at discharge Category Date Time Status BMP [Basic Metabo lic Panel] Stat Lab 02/22/23 09:28 Received Hepatitis B Surfa ce Antigen Routine Lab 02/22/23 09:34 Ordered Procedures Performed: Left catheterization with a left and right coronary angiogram and LV angiogram. Further results, please refer to the report from yesterday for Diagnoses at Discharge Discharge Diagnosis (1) Atherosclerosis of coronary artery of bo[place]te heart without angina pectoris: Details from hospital stay: Patient had the cardiac catheterization and was found to have mild CAD Status: Acute (2) Benign essential HTN: Details from hospital stay: Currently normotensive. May continue on the current medications. Status: Acute (3) End stage renal disease: Details from hospital stay: Patient is on hemodialysis. She received the hemodialysis today in the hospital. Status: Acute (4) Juvenile rheumatoid arthritis: Details from hospital stay: Patient will keep her follow-up appointments at the rheumatology clinic. Status: Acute Discharge Plan Discharge Patient Disposition: Home Prescriptions: Continued venlafaxine 75 mg capsule,extended release 24hr See Rx Instructions .ROUTE .COMPLEX Qty: 90 1RF Dose Instruction: TAKE ONE CAPSULE BY MOUTH EVERY MORNING Rx Instructions: TAKE ONE CAPSULE BY MOUTH EVERY MORNING Otezla 30 mg tablet 30 mg PO BID timolol maleate 0.5 % drops 1 drp ophthalmic (eye) BID Rx Instructions: EACH EYE famotidine 40 mg tablet 40 mg PO BID Rx Instructions: TAKE ONE TABLET BY MOUTH TWICE DAILY gabapentin 400 mg capsule 400 mg PO BEDTIME Rx Instructions: TAKE ONE CAPSULE BY MOUTH EVERY NIGHT AT BEDTIME amlodipine 2.5 mg tablet 2.5 mg PO BEDTIME metoprolol tartrate 50 mg tablet 50 mg PO BID Rx Instructions: TAKE ONE TABLET BY MOUTH TWICE DAILY desipramine 50 mg tablet 50 mg PO BEDTIME Cimzia 400 mg/2 mL (200 mg/mL x 2) syringe kit 200 mg SUBCUT .EVERY 2 WEEKS acetaminophen 500 mg Tablet 1,000 mg PO Q6H PRN (Reason: Pain) sevelamer carbonate [Renvela] 800 mg tablet 800 mg PO TIDWM RenaPlex-D 800 mcg-12.5 mg -2,000 unit tablet 1 tab PO QAM Lokelma 5 gram powder in packet See Rx Instructions .ROUTE .COMPLEX Rx Instructions: EMPTY 1 PACKET IN 3 TABLESPOONSFUL OF WATER OR DIRECTED, STIR WELL, AND DRINK AT ONCE DIRECTED ON NON-DIALYSIS DAYS ON MON, WED, FRI AND SUN No Action (DME) accommodative custom orthotics See Rx Instructions .Route .MEDSUPPLY Qty: 1 0RF Rx Instructions: As directed by [facility] (DME) Articulating AFO right lower extremity See Rx Instructions .Route .MEDSUPPLY Qty: 1 0RF Rx Instructions: As directed BY [facility] Discharge Orders: Discharge Order (Routine); Ordered 02/22/23 Ordered By: Ariadna Myles Diet: Advance as tolerated Activity: Limit activity as instructed Patient Instructions: Dialysis Diet (DC), Hemodialysis (DC) Activity Restrictions/Additional Instructions: Avoid any weight lifting or climbing stairs for the next 3 days May continue on the medications as prescribed above. Appointment the [facility] to be seen by the nurse practitioner in 1 to 2 weeks Appointment with me in the office in 2-month Attestations Medical Necessity Statement*: Discharge home today Time Spent in Patient Care*: greater than 30 min Quality Metrics Clinical Quality Measures: [ No reported AMI, CVA or VTE this stay ] Coding Level of Care Code 48730 Diagnoses Atherosclerosis of coronary artery of bois [place]te heart without angina pectoris I25.10 Benign essential HTN I10 End stage renal disease N18.6 Juvenile rheumatoid arthritis M08.00
--- NOTE | 2023-02-22 09:43 | PC.CHAP ---
Pastoral Care Encounter/Spiritual Assessment Type of Contact [] Declined railroad car loader visit [] Patient/Family/Request visit [] Outpatient visit [] Follow-up visit [] Physician referral [] Code/Alert [x] Routine visit [] Staff referral [] Actively dying [] Patient sleeping [] Family support [] [] Out of room [] Palliative care [] [] Receiving care in room [] Pre-surgical visit [] Trauma [] Long length of stay [] ICU visit [] Other: Relational/Emotional Strength [x] Patient feels connected with others/family/visitors/staff [] Distress [] Loneliness/isolation [] Abandonment Spirituality of Patient [] Person of Carrie [] Attends Caodaism of their Carrie [x] Believes in Prayer [] Reads Bible or Islam materials [] There are Spiritual issues to be addressed Director Dental Services Interventions [x] Prayer [x] Active listening [] Non-anxious presence [x] Spiritual/emotional support [] Crisis/trauma care [] Spiritual counseling [] Bereavement support [] Provided bereavement packet [] Provided Bible/devotional materials [] Provided toy/stuffed animal, coloring book to patient or family member [] Provided Communion [] Anointing/[place] [] Salvation [x] Completed spiritual assessment [] Other: Impact on Illness or Injury [] Angry [] Fearful [] Anxious [] Often cries [] Exhaustion [] Unable to work [] Unable to attend cheondoism [] Unable to walk/stand [] Unable to read [] Unable to drive [] Unable to eat/drink [] Unable to sleep [] Unable to be with family [] Patient intubated [] Other: Summary Time spent with patient 5 min
[2023-02-22 09:57] LABS: Anion Gap 19.8 (5-19); Blood Urea Nitrogen 54 mg/dL (6-20); Calcium 8.7 mg/dL (8.5-10.5); Carbon Dioxide 22 mmol/L (22-29); Chloride 99 mmol/L (98-107); Glomerular Filtration Rate 5.7 mL/min (90-130); Glucose 205 mg/dL (65-115); Osmolality Calculated 301 mOsm/kg (285-295); Potassium 5.8 mmol/L (3.5-5.1); Sodium 135 mmol/L (136-145)
[2023-02-22 10:15] LABS: Creatinine Clr Calc Pharmacy 6.8574
--- NOTE | 2023-02-22 10:18 | PC.NURSE ---
Patient did decide to see nephrology and will be having dialysis today here.
[2023-02-22 11:05] LABS: Hepatitis B Surface Antigen Non-Reactive (Nonreactive)
[2023-02-22 12:08] VITALS: BP 118/66; PULSE 76; RESP 16; TEMP 37
--- NOTE | 2023-02-22 12:09 | PC.HD ---
HD orders written for a three hour treatment with 2500 mL fluid removal. Per patient, she still produced urine, and her clinic does not remove any fluid at all. In addition, her clinic treatments are 2:45. Patient requested adjustment to her current orders. Help Desk Coordinator notified and agreeable to these changes.
--- NOTE | 2023-02-22 13:48 | PM.CONSULT ---
Providers/Reason For Consult Consulting Physician/Specialty*: [facility]/nEPHROLOGY Reason for Consult*: ESRD Attending Physician: Ariadna Myles MD Primary Care Provider: GHADA Nam History of Present Illness History of Present Illness Dia Paredes is a 47 year old female with a history of end-stage renal disease, HTN , was admitted to the hospital following cardiac catheterization . pt has abnormal stress test and had LHC today . Pt due for her HD per TTS schedule today Review of Systems Narrative: negative Medications/Allergies Home Medications Medication Instructions Recorded Confirmed Last Taken Type apremilast 30 mg tablet (Otezla) 30 mg PO BID 05/26/20 02/21/23 12/14/22 History timolol maleate 0.5 % eye drops 1 drp ophthalmic (eye) BID 05/26/20 02/21/23 12/14/22 History accommodative custom orthotics #1 ea 02/16/22 02/21/23 07/20/22 Rx Articulating AFO right lower #1 ea 02/22/22 02/21/23 07/20/22 Rx extremity acetaminophen 500 mg tablet 1,000 mg PO Q6H PRN Pain 12/14/22 02/21/23 Unknown History certolizumab pegol 400 mg/2 mL 200 mg SUBCUT .EVERY 2 WEEKS 12/14/22 02/21/23 Unknown History (200 mg/mL x2) subcutaneous syringe kit (Cimzia) desipramine 50 mg tablet 50 mg PO BEDTIME 12/14/22 02/21/23 02/20/23 History sevelamer carbonate 800 mg tablet 800 mg PO TIDWM 12/14/22 02/21/23 12/14/22 History (Renvela) sodium zirconium cyclosilicate 5 See Rx Instructions .Route .COMPLEX 12/14/22 02/21/23 12/13/22 History gram oral powder packet (Lokelma) vit B,C-folic ac 800 mcg-zinc 12.5 1 tab PO QAM 12/14/22 02/21/23 12/14/22 History mg-selen-D3 2,000 unit-vit E tablet (RenaPlex-D) venlafaxine 75 mg capsule,extended See Rx Instructions .Route 01/05/23 02/21/23 02/21/23 06:00 Rx release 24 hr .COMPLEX #90 caps amlodipine 2.5 mg tablet 2.5 mg PO BEDTIME 02/18/23 02/21/23 02/20/23 History famotidine 40 mg tablet 40 mg PO BID 02/18/23 02/21/23 02/21/23 06:00 History gabapentin 400 mg capsule 400 mg PO BEDTIME 02/18/23 02/21/23 02/20/23 History metoprolol tartrate 50 mg tablet 50 mg PO BID 02/18/23 02/21/23 02/21/23 06:00 History Allergies Allergy/AdvReac Type Severity Reaction Status Date / Time Penicillins Allergy Intermediate swelling Verified 02/01/23 09:28 Current Medications Generic Name Dose Route Start Last Admin Trade Name Susan PRN Reason Stop Dose Admin Famotidine 40 mg 02/21/23 09:00 02/21/23 17:33 Famotidine 20 Mg Tablet PO 40 mg BID CHRISSY Administration Gabapentin 400 mg 02/21/23 21:00 02/21/23 20:39 Gabapentin 400 Mg Capsule PO 400 mg BEDTIME CHRISSY Administration Metoprolol Tartrate 50 mg 02/21/23 09:00 02/21/23 17:33 Metoprolol Tartrate 50 Mg Tablet PO 50 mg BID CHRISSY Administration Non-Formulary Medication 30 mg 02/21/23 09:00 02/21/23 17:24 Apremilast [Otezla] PO Not Given BID CHRISSY Non-Formulary Medication 50 mg 02/21/23 21:00 02/21/23 20:40 Desipramine PO Not Given BEDTIME CHRISSY Non-Formulary Medication 5 gm 02/21/23 09:00 02/21/23 11:49 Sodium Zirconium Cyclosilicate [Lokelma] PO Not Given SuMoWeFr CHRISSY Non-Formulary Medication 1 tab 02/22/23 06:00 02/22/23 05:49 Vit B,B-Ka-Tdhm-Selen-Vit D3-E [Renaplex-D] PO Not Given QAM CHRISSY Sevelamer Carbonate 800 mg 02/21/23 12:00 02/21/23 17:33 Sevelamer 800 Mg Tablet PO 800 mg TIDWM CHRISSY Administration Timolol Maleate 1 drop 02/21/23 09:00 02/21/23 18:03 Timolol 0.5% Op Soln 5 Ml Btl EYE-BOTH Not Given BID CHRISSY Venlafaxine HCl 75 mg 02/21/23 09:00 02/21/23 11:49 Venlafaxine Er (24hr) 75 Mg Capsule PO Not Given DAILY CHRISSY PFSH Acute PFSH: Medical History (Updated 02/22/23 @ 13:52 by Eva Wade MD) Acute hyperkalemia Anemia in chronic kidney disease (CKD) AV fistula Chronic anemia Chronic anterior uveitis of both eyes Chronic kidney disease Dr. Aquino in [place] ESRD on dialysis Hypercalcemia Hypermagnesemia Hypertension Migraine headache No pertinent past medical history neghx: dm,thyroid,dvt/pe PCP: Cookie Fernández Rheumatoid arthritis Seropositive rheumatoid arthritis of multiple sites Surgical History H/O cataract extraction both eyes H/O esophagogastroduodenoscopy 08/02/2019: Normal H/O foot surgery H/O joint surgery Due to arthritis Neck, knees, shoulder, knuckle, wrists H/O wrist surgery Hx of total knee arthroplasty both Status post colonoscopy 08/02/2019: Poor prep, normal Family History Father Stroke Father had Parkinson's and a stroke Hypertension Hypercholesteremia Mother Hypertension Hypercholesteremia Family/Other Breast cancer Maternal Cousin-- dx age unknown Ovarian cancer Maternal aunt-- dx age unknown Diabetes Maternal Aunt/Uncle Denies family history of Colon cancer Uterine cancer Social History Smoking and tobacco status: never smoked Substance/Drug Use: never Additional social history: - Tobacco use: Denies Alcohol use: Denies Drug use: Denies Vitals/I&O/Wt Last Vital Signs Temp 98.6 F 02/22/23 12:08 Pulse 76 02/22/23 12:08 Resp 16 02/22/23 12:08 BP 118/66 02/22/23 12:08 Pulse Ox 96 02/22/23 03:30 O2 Del Method Room Air 02/22/23 03:30 02/21/23 02/22/23 02/22/23 22:59 06:59 14:59 Intake Total 240 / 360 240 / 600 480 / 480 Balance 240 / 360 240 / 600 480 / 480 Weight last 48 hrs Weight 51.71 kg Physical Exam Narrative: awake , alert no distress S1S2 RRR per report lUNGS CLEAR PER REPORT NO edema Data 02/21/23 07:48 02/22/23 09:28 A&P Assessment and plan (1) ESRD on dialysis: Plan 1. ESRD : per TTS schedule , HD today , 2. HTN , controlled 3. Abnormal stress test , s/p LHC 4.Hyperkalemia pt evaluated using audiovisual cart tome spent 30 min Consult Attestations Medical Necessity Statement: per ,medicine Coding Level of Care Code Acute Code for Chg Fwd Diagnoses ESRD on dialysis N18.6; Z99.2
--- NOTE | 2023-02-22 15:10 | PC.NURSE ---
Patient just returned to [facility] at 1511.
[2023-02-22 15:12] VITALS: BP 144/78; PULSE 79; RESP 16; TEMP 39.1
--- NOTE | 2023-02-22 17:14 | PC.NURSE ---
Patient is discharged and given discharge instructions. Medications and follow up appoint information is given. Patient leaves via a wheelchair with family.
--- NOTE | 2023-02-22 17:16 | PC.NURSE ---
Port is deaccessed. Dressing is removed, cleaned with chlorhexidine swab, manual pressure is held, and dressing is applied.
== END 2023-02-22 17:25 | disposition home or self-care (01) ==
LOC: CCL 07:19 → CSU 10:15
PROVIDERS: Hospitalist; PCP Nurse Practitioner Family; Visit Provider Internal Medicine Cardiovascular Disease
DX: I12.0 Hypertensive chronic kidney disease with stage 5 chronic kidney disease or end stage renal disease (principal); N18.6 End stage renal disease; Z99.2 Dependence on renal dialysis; I25.10 Atherosclerotic heart disease of native coronary artery without angina pectoris; M08.00 Unspecified juvenile rheumatoid arthritis of unspecified site; R94.39 Abnormal result of other cardiovascular function study; E87.5 Hyperkalemia; E78.5 Hyperlipidemia, unspecified
CPT/HCPCS: 36591; 80048; 85025; 87340; 90935; 93458; 96361; 96365; 96367; 99152; 99153; C1769; C1887; C1894; J0360; J1644; J2250; J3010; J3490; J7030; Q0163; Q9967

== ENCOUNTER → 2023-03-02 12:46 | Outpatient (BNVA) | payer MEDICARE, MEDICAID, SELFPAY | PROVIDERS: PCP Nurse Practitioner Family; Visit Provider Internal Medicine Rheumatology | DX: M08.00 Unspecified juvenile rheumatoid arthritis of unspecified site (principal); L40.9 Psoriasis, unspecified; Z79.899 Other long term (current) drug therapy; N18.9 Chronic kidney disease, unspecified; D63.1 Anemia in chronic kidney disease | CPT/HCPCS: 99214 ==

== ENCOUNTER 2023-03-09 10:12 | Outpatient (CLI) | payer MEDICARE, MEDICAID, SELFPAY ==
[2023-03-09 11:13] LABS: Alkaline Phosphatase 94 U/L (35-105); Globulin 3.4 g/dL (1.3-4.6); Total Bilirubin 0.3 mg/dL (0.15-1.2); Total Protein 7.4 g/dL (6.6-8.7)
[2023-03-09 11:46] LABS: Alanine Aminotransferase 24 U/L (0-33); Aspartate Amino Transferase 30 U/L (0-32)
== END 2023-03-09 10:13 | disposition home or self-care (01) ==
LOC: LAB 10:15
PROVIDERS: PCP Nurse Practitioner Family; Visit Provider Internal Medicine Rheumatology
DX: Z79.899 Other long term (current) drug therapy (principal)
CPT/HCPCS: 36415; 80076

== ENCOUNTER → 2023-03-16 14:41 | Outpatient (BNVA) | payer MEDICARE, MEDICAID, SELFPAY | PROVIDERS: PCP Nurse Practitioner Family; Visit Provider Nurse Practitioner Family | DX: I25.10 Atherosclerotic heart disease of native coronary artery without angina pectoris (principal); I12.0 Hypertensive chronic kidney disease with stage 5 chronic kidney disease or end stage renal disease; N18.6 End stage renal disease; Z99.2 Dependence on renal dialysis | CPT/HCPCS: 99213 ==

== ENCOUNTER → 2023-03-30 10:42 | Outpatient (BNVA) | payer MEDICARE, MEDICAID, SELFPAY | PROVIDERS: PCP Nurse Practitioner Family; Visit Provider Internal Medicine Cardiovascular Disease | DX: I25.10 Atherosclerotic heart disease of native coronary artery without angina pectoris (principal); I12.0 Hypertensive chronic kidney disease with stage 5 chronic kidney disease or end stage renal disease; N18.6 End stage renal disease; Z99.2 Dependence on renal dialysis | CPT/HCPCS: 99213 ==

== ENCOUNTER 2023-04-28 09:53 | Outpatient (CLI) | payer MEDICARE, MEDICAID, SELFPAY ==
--- NOTE | 2023-04-28 09:57 | MM_ITS ---
WS: [id number] BILATERAL SCREENING DIGITAL TOMOSYNTHESIS MAMMOGRAM WITH CAD HISTORY: SCREENING COMPARISON: 03/08/2022 and 03/04/2021 Bilateral CC and MLO views with tomosynthesis and synthetic mammography submitted. Computer aided det ection analyzed. Breast composition: The breasts are heterogeneously dense, which may obscure small masses. No suspici ous masses, microcalcifications or architectural distortion. Benign calcifications in each breast. IMPRESSION: MM/[place] [id number] BI-RADS: 2-Benign FOLLOW UP: 1 Year Follow-up
== END 2023-04-28 09:54 | disposition home or self-care (01) ==
LOC: RAD 09:53
PROVIDERS: PCP Nurse Practitioner Family; Visit Provider Nurse Practitioner Women's Health
DX: Z12.31 Encounter for screening mammogram for malignant neoplasm of breast (principal)
CPT/HCPCS: 77063; 77067

== ENCOUNTER → 2023-08-03 12:19 | Outpatient (BNVA) | payer MEDICARE, MEDICAID, SELFPAY | PROVIDERS: PCP Nurse Practitioner Family; Visit Provider Internal Medicine Rheumatology | DX: M08.00 Unspecified juvenile rheumatoid arthritis of unspecified site (principal); Z79.899 Other long term (current) drug therapy; L40.9 Psoriasis, unspecified; N18.9 Chronic kidney disease, unspecified; D63.1 Anemia in chronic kidney disease; N18.6 End stage renal disease; Z99.2 Dependence on renal dialysis | CPT/HCPCS: 36415; 80076; 82565; 85025; 86140; 99214 ==

== ENCOUNTER → 2023-11-30 12:35 | Outpatient (BNVA) | payer MEDICARE, MEDICAID, SELFPAY | PROVIDERS: PCP Nurse Practitioner Family; Visit Provider Internal Medicine Rheumatology | DX: Z79.899 Other long term (current) drug therapy (principal); M08.00 Unspecified juvenile rheumatoid arthritis of unspecified site; L40.9 Psoriasis, unspecified; N18.9 Chronic kidney disease, unspecified; D63.1 Anemia in chronic kidney disease; N18.6 End stage renal disease; Z99.2 Dependence on renal dialysis | CPT/HCPCS: 80076; 82565; 85025; 86140; 99214 ==

== ENCOUNTER 2024-01-17 10:56 | Oncology outpatient (recurring) (ONCR) | payer MEDICARE, MEDICAID, SELFPAY ==
[2024-01-17 11:34] LABS: Basophils # 0.1 10^3/uL (0.0-0.1); Basophils % 0.8 %; Eosinophils # 0.2 10^3/uL (0.0-0.8); Eosinophils % 3.3 %; Hematocrit 33.9 % (36-47); Lymphocytes # 1.1 10^3/uL (0.8-4.8); Lymphocytes % 17.2 %; Mean Corpuscular HGB Conc 31.9 g/dL (30-55); Mean Corpuscular Hemoglobin 30.9 pg (27-33); Mean Corpuscular Volume 96.9 fl (85-98); Monocytes # 0.7 10^3/uL (0.2-0.9); Monocytes % 11.1 %; Neutrophils # 4.33 10^3/uL (1.8-7.7); Neutrophils % 67.4 %; Nucleated Red Blood Cells % 0 %; Platelet Count 208 10^3/cmm (157-399); Red Cell Distribution Width 16.7 % (12.1-15.1); White Blood Count 6.41 10^3/uL (3.29-11.43)
[2024-01-17 11:53] LABS: Alanine Aminotransferase 15 U/L (0-33); Albumin Level 4.2 g/dL (3.5-5.2); Alkaline Phosphatase 100 U/L (35-105); Anion Gap 20.1 (5-19); Aspartate Amino Transferase 11 U/L (0-32); Blood Urea Nitrogen 19 mg/dL (6-20); Calcium 8.7 mg/dL (8.5-10.5); Carbon Dioxide 31 mmol/L (22-29); Chloride 93 mmol/L (98-107); Chol HDL Ratio 2.88 mg/dL (0.0-4.40); Cholesterol 193 mg/dL (0-200); Globulin 3.8 g/dL (1.3-4.6); Glomerular Filtration Rate 13.9 mL/min (90-130); Glucose 91 mg/dL (65-115); HDL Cholesterol 67 mg/dL (60-100); LDL Cholesterol Calculated 84 mg/dL (50-129); LDL HDL Ratio 1.25 RATIO (0.00-3.22); Osmolality Calculated 292 mOsm/kg (285-295); Potassium 4.1 mmol/L (3.5-5.1); Sodium 140 mmol/L (136-145); Thyroid Stimulating Hormone 2.03 uIU/mL (0.27-4.20); Total Bilirubin 0.3 mg/dL (0.15-1.2); Triglycerides 210 mg/dL (0-150)
== END 2024-01-25 23:59 | disposition home or self-care (01) ==
PROVIDERS: PCP Nurse Practitioner Family; Visit Provider Internal Medicine Medical Oncology
DX: I12.0 Hypertensive chronic kidney disease with stage 5 chronic kidney disease or end stage renal disease (principal); N18.6 End stage renal disease; Z99.2 Dependence on renal dialysis; Z79.899 Other long term (current) drug therapy
CPT/HCPCS: 36591; 80053; 80061; 84443; 85025

== ENCOUNTER 2024-03-01 10:46 | Outpatient (CLI) | payer MEDICARE, MEDICAID, SELFPAY ==
--- NOTE | 2024-03-01 10:51 | XR_ITS ---
WS: [email or web address] Examination: XR cervical spine 3V* [id number] Reason for Exam: M54.2 - Cervicalgia Date: 03/01/2024 Comparison: 12/09/2022 Findings: Again surgical changes are noted with fusion of the occiput with the upper cervical spine extending t o C4. This appears similar to the previous study. The hardware is intact. Again the C1-2 deformity is identified. It is not well detailed on this study. There is calcification of the C2-3 disc. Dominant degenerative changes are again noted involving the C6-7 disc with narrowing and prominent an terior osteophyte formation. There is no dominant wedging or compression. The subtle anterior offset previously noted at C4-5 and C5-6 are less prominent There is no prevertebral swelling. XR/XR cervical spine 3V* [id number] Impression: Similar-appearing surgical changes with occipital to cervical fixation.
--- NOTE | 2024-03-01 10:51 | XR_ITS ---
WS: [email or web address] Examination: XR lumbar spine 2-3V* [id number] Reason for Exam: M54.50 - Low back pain, unspecified Date: 03/01/2024 Comparison: None. Findings: Radiopaque material is identified throughout the colon. The pedicles and the bone density appear maintained. There is no anterior wedging or compression. No subluxation is identified Diffuse disc space narrowing is identified. 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 Similar slightly less severe changes were noted on a CT abdomen pelvis date d 08/31/2020. XR/XR lumbar spine 2-3V* [id number] Impression: There is no compression or subluxation Diffuse degenerative disc disease is present. If radicular symptoms are present . Further evaluation MR is recommended.
== END 2024-03-01 10:47 | disposition home or self-care (01) ==
LOC: RAD 10:49
PROVIDERS: PCP Nurse Practitioner Family; Visit Provider Nurse Practitioner Family
DX: M48.061 Spinal stenosis, lumbar region without neurogenic claudication (principal); M51.36 Other intervertebral disc degeneration, lumbar region; M43.22 Fusion of spine, cervical region; M50.223 Other cervical disc displacement at C6-C7 level
CPT/HCPCS: 72040; 72100

== ENCOUNTER 2024-04-11 08:15 | Outpatient (CLI) | payer MEDICARE, MEDICAID, SELFPAY ==
--- NOTE | 2024-04-11 08:45 | MR_ITS ---
WS: [email or web address] MRI LUMBAR SPINE NONCONTRAST TECHNIQUE: Sagittal T1, T2 and STIR imaging. Axial T1 and T2 imaging. CLINICAL INFORMATION: M54.50 - Low back pain, unspecified COMPARISON: None. FINDINGS: Mild lumbar curve. No acute compression. No high-grade central canal stenosis. T12-L1: Mild annular bulging. Small annular fissure. Spinal canal and foramen are patent. L1-L2: Normal. L2-L3: Normal. L3-L4: Mild annular bulging. Mild facet arthropathy. Spinal canal and foramen are patent. L4-L5: Mild annular bulging. Mild facet arthropathy. Spinal canal and foramen are patent. L5-S1: Mild annular bulging. Mild facet arthropathy. Spinal canal and foramen are patent. Chronic renal cortical atrophy. Visualized pelvic bony structures: Normal. Paravertebral soft tissues: Normal. Small bilateral renal cysts. Partially visualized LEFT ovarian cyst measuring 2.1 cm. Retroflexed uterus. MR/MR lumbar spine wo con* [id number] IMPRESSION: 1. Mild lumbar curve. No acute compression. No high-grade central canal stenos is. 2. Mild annular bulging T12-L1 with a small annular fissure. 3. No significant spinal canal or foraminal narrowing. 4. Disc space narrowing worse at L4-L5 and L5-S1. 5. Mild facet arthropathy L3-L4 L4-L5 and L5-S1.
--- NOTE | 2024-04-11 09:30 | MR_ITS ---
WS: [email or web address] MRI CERVICAL SPINE NONCONTRAST TECHNIQUE: Sagittal T1, T2 and STIR imaging. Axial T2, gradient, and fiesta imaging. CLINICAL INFORMATION: M54.2 - Cervicalgia COMPARISON: None. FINDINGS: History of prior occipital to cervical fixation. Susceptibility artifact from hardware degrades image s in the upper cervical spine. C2-C3: Mild facet arthropathy. Spinal canal and foramen are patent. Posterior fusion. C3-C4: Mild facet arthropathy. Spinal canal and foramen are patent. C4-C5: Mild disc osteophyte complex with slight effacement of the ventral thecal sac. Moderate facet arthropathy. Mild LEFT foraminal narrowing. C5-C6: Disc osteophyte complex. Moderate facet arthropathy worse on the LEFT. Spinal canal and forame n are patent. C6-C7: Disc osteophyte complex with endplate ridging. Slight effacement of the ventral thecal sac. Mi ld LEFT and no significant RIGHT foraminal narrowing. C7-T1: Spinal canal and foramen are patent. Visualized brain stem structures: Normal. Prevertebral soft tissues: Normal. MR/MR cervical spin wo con* [id number] IMPRESSION: 1. Straightening of the normal cervical lordosis. Prior postoperative changes of occipital cervical fusion. Susceptibility artifact degrades some images. 2. No significant central canal stenosis. 3. Small disc osteophyte protrusion C5-C6 and C6-C7 worse at C6-C7 with slight contact of the cervical cord. Spinal canal remains patent. 4. Mild LEFT C6-7 bony foraminal narrowing. 5. Moderate facet arthropathy C3-C4 C4-C5 and LEFT C5-C6.
== END 2024-04-11 08:16 | disposition home or self-care (01) ==
LOC: RAD 08:15
PROVIDERS: PCP Nurse Practitioner Family; Visit Provider Nurse Practitioner Family
DX: M50.321 Other cervical disc degeneration at C4-C5 level (principal); M50.322 Other cervical disc degeneration at C5-C6 level; M50.323 Other cervical disc degeneration at C6-C7 level; M25.78 Osteophyte, vertebrae; M43.22 Fusion of spine, cervical region
CPT/HCPCS: 72141; 72148

== ENCOUNTER 2024-05-08 16:04 | Outpatient (CLI) | payer MEDICARE, MEDICAID, SELFPAY ==
--- NOTE | 2024-05-08 16:00 | MM_ITS ---
WS: [id number] BILATERAL 3D TOMOSYNTHESIS DIGITAL SCREENING MAMMOGRAPHY WITH CAD CLINICAL INFORMATION: SCREENING HISTORY: Screening mammogram. No current complaints. COMPARISON: 2022 TECHNIQUE: Bilateral CC and MLO views. FINDINGS: The breasts are composed of heterogeneous fibroglandular density tissue, which can limit the detectio n of small underlying mass lesions. No suspicious mass, asymmetry, calcifications, or architectural d istortion. No evidence of malignancy. Incidental benign calcifications bilaterally. MM/MM [facility] tomosynthesis [id number] IMPRESSION: DENSITY: The breasts are heterogeneously dense, which may obscure small masses. BI-RADS: 2 - Benign FOLLOW UP: 1 Year Follow-up Recommend return to annual screening mammography.
== END 2024-05-08 16:05 | disposition home or self-care (01) ==
LOC: MOBLMAM 16:07
PROVIDERS: PCP Nurse Practitioner Family; Visit Provider Nurse Practitioner Family
DX: Z12.31 Encounter for screening mammogram for malignant neoplasm of breast (principal); R92.333 Mammographic heterogeneous density, bilateral breasts
CPT/HCPCS: 77063; 77067

== ENCOUNTER → 2024-05-30 12:42 | Outpatient (BNVA) | payer MEDICARE, MEDICAID, SELFPAY | PROVIDERS: PCP Nurse Practitioner Family; Visit Provider Internal Medicine Rheumatology | DX: M08.00 Unspecified juvenile rheumatoid arthritis of unspecified site (principal); L40.9 Psoriasis, unspecified; D63.1 Anemia in chronic kidney disease; Z99.2 Dependence on renal dialysis; N18.5 Chronic kidney disease, stage 5; M19.012 Primary osteoarthritis, left shoulder; Z79.899 Other long term (current) drug therapy | CPT/HCPCS: 36415; 80076; 82565; 85025; 85651; 86140; 99214 ==

== ENCOUNTER → 2024-06-11 13:26 | Outpatient (BNVA) | payer MEDICARE, MEDICAID, SELFPAY | PROVIDERS: PCP Nurse Practitioner Family; Visit Provider Nurse Practitioner Family | DX: R05.8 Other specified cough (principal) | CPT/HCPCS: 71046 ==

== ENCOUNTER 2024-06-12 10:04 | Oncology outpatient (recurring) (ONCR) | payer MEDICARE, MEDICAID, SELFPAY | END 2024-06-26 23:59 | disposition home or self-care (01) | PROVIDERS: PCP Nurse Practitioner Family; Visit Provider Internal Medicine Medical Oncology | DX: Z45.2 Encounter for adjustment and management of vascular access device (principal) | CPT/HCPCS: 96523 ==

== ENCOUNTER → 2024-07-27 11:17 | Outpatient (BNVA) | payer MEDICARE, MEDICAID, SELFPAY | PROVIDERS: PCP Nurse Practitioner Family; Visit Provider Clinical Nurse Specialist Adult Health | DX: R50.9 Fever, unspecified (principal) | CPT/HCPCS: 87400 ==

== ENCOUNTER → 2024-09-13 13:38 | Outpatient (BNVA) | payer MEDICARE, MEDICAID, SELFPAY | PROVIDERS: PCP Nurse Practitioner Family; Visit Provider Internal Medicine Cardiovascular Disease | DX: Z01.818 Encounter for other preprocedural examination (principal); R06.02 Shortness of breath; I25.10 Atherosclerotic heart disease of native coronary artery without angina pectoris; I48.91 Unspecified atrial fibrillation; Z79.01 Long term (current) use of anticoagulants; I25.118 Atherosclerotic heart disease of native coronary artery with other forms of angina pectoris; N18.6 End stage renal disease; Z99.2 Dependence on renal dialysis; M06.9 Rheumatoid arthritis, unspecified | CPT/HCPCS: 99214 ==

== ENCOUNTER → 2024-11-06 12:38 | Outpatient (BNVA) | payer MEDICARE, MEDICAID, SELFPAY | PROVIDERS: PCP Nurse Practitioner Family; Visit Provider Nurse Practitioner Family | DX: L81.8 Other specified disorders of pigmentation (principal); L40.0 Psoriasis vulgaris; L82.1 Other seborrheic keratosis; L90.5 Scar conditions and fibrosis of skin; L81.1 Chloasma; D23.72 Other benign neoplasm of skin of left lower limb, including hip | CPT/HCPCS: 99214 ==

== ENCOUNTER → 2024-11-28 12:40 | Outpatient (BNVA) | payer MEDICARE, MEDICAID, SELFPAY | PROVIDERS: PCP Nurse Practitioner Family; Visit Provider Internal Medicine Rheumatology | DX: M08.00 Unspecified juvenile rheumatoid arthritis of unspecified site (principal); L40.9 Psoriasis, unspecified; Z79.899 Other long term (current) drug therapy; N18.9 Chronic kidney disease, unspecified; D63.1 Anemia in chronic kidney disease; N18.6 End stage renal disease; Z99.2 Dependence on renal dialysis | CPT/HCPCS: 36415; 80076; 82565; 85025; 85651; 86140; 86480; 99214 ==

== ENCOUNTER 2025-01-05 09:54 | Emergency (ER) | payer MEDICARE, MEDICAID, SELFPAY ==
[2025-01-05 09:56] VITALS: BP 120/70; PULSE 76; RESP 16; TEMP 36.6; O2SAT 99; BMI 25.0
--- NOTE | 2025-01-05 09:56 | ECG_ITS ---
[employer] Test Date: 2025-01-05 Pat Name: Dia Paredes Department: Room: Gender: Female Fish Bailer: : 1975 Requested By: Kiersten Spann Order Number: [id number] Lockhart MD: Ariadna Myles M.D. Measurements Intervals [place] Rate: 72 P: 43 NC: 178 QRS: 4 QRSD: 101 T: 12 QT: 364 QTc: 401 Interpretive Statements SINUS RHYTHM LOW QRS VOLTAGE IN PRECORDIAL LEADS [QRS DEFLECTION < 1.0 mV IN CHEST LEADS] Compared to ECG 02/04/2021 10:54:21 Low QRS voltage now present Electronically Signed On 01-08-2025 10:12:03 CDT by Ariadna Myles M.D. [email or web address]
--- NOTE | 2025-01-05 09:56 | XRR_ITS ---
PROCEDURE INFORMATION: Exam: XR Chest Exam date and time: 01/05/2025 10:02 AM Age: 49 years old Clinical indication: Pain; Chest pressure; Additional info: Chest pain TECHNIQUE: Imaging protocol: Radiologic exam of the chest. Views: 1 view. COMPARISON: CR XR chest 2V* [id number] 06/11/2024 1:30 PM FINDINGS: Tubes, catheters and devices: Left chest Port-A-Cath tip at cavoatrial junction. Lungs: Pulmonary vessels are within normal limits. The lungs are clear. Pleural spaces: No pneumothorax. Heart/Mediastinum: Cardiomediastinal silhouette is within normal limits. Bones/joints: Right shoulder replacement. XR/XR chest 1V portable [id number] IMPRESSION: No acute pulmonary finding.
--- OUTSIDE RECORDS SUMMARY | 2025-01-05 10:03 | XMS_ITS | Encounter Summary ---
Author Organization [facility] Address [address] [place]: [place] [address] Care Team Providers Care Tower Dragline Operator Name Role Phone Unavailable Primary Care Provider Unavailabl e Encounter Details Date Type Department Care Team (Late st Contact Info) Description 08/08/2000 Outpatient Historical Non-Staff, Physician NO ADDRESS ON FILE Social History Tobacco Use Types Packs/Day Years Used Date Smoking Tobacco: Never Assessed Comments Unknown Sex and Gender Information Value Date Recorded Sex Assigned at Not on file Legal Sex Female 4:14 AM FISHERIES DIRECTOR Gender Identity Not on file Sexual Orientation Not on file documented as of this encounter Plan of Treatment Not on file documented as of this encounter Visit Diagnoses Not on filedocumented in this encounter
--- OUTSIDE RECORDS SUMMARY | 2025-01-05 10:03 | XMS_ITS | Encounter Summary ---
Author Organization [facility] Address [address] [facility] Attn: [place] [address] Care Team Providers Care Acoustical Tile Drill Press Operator Name Role Phone Unavailable Primary Care Provider Unavailabl e Encounter Details Date Type Department Care Team (Late st Contact Info) Description 10/29/1992 Outpatient Historical Conversion, History Social History Tobacco Use Types Packs/Day Years Used Date Smoking Tobacco: Never Assessed Comments Unknown Sex and Gender Information Value Date Recorded Sex Assigned at Not on file Legal Sex Female 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
--- OUTSIDE RECORDS SUMMARY | 2025-01-05 10:03 | XMS_ITS | Encounter Summary ---
Author Organization [employer] Address [address] Attn: [place] [address] Care Team Providers Care Aircraft Painter Name Role Phone Unavailable Primary Care Provider Unavailabl e Encounter Details Date Type Department Care Team (Late st Contact Info) Description 12/10/1992 Outpatient Historical Conversion, History Social History Tobacco Use Types Packs/Day Years Used Date Smoking Tobacco: Never Assessed Comments Unknown Sex and Gender Information Value Date Recorded Sex Assigned at Not on file Legal Sex Female 3:30 AM RUBBLE PLACER Gender Identity Not on file Sexual Orientation Not on file documented as of this encounter Plan of Treatment Not on file documented as of this encounter Visit Diagnoses Not on filedocumented in this encounter
--- OUTSIDE RECORDS SUMMARY | 2025-01-05 10:03 | XMS_ITS | Encounter Summary ---
Author Organization [facility] Address [address] [address] Attn: [place] [address] Care Team Providers Care Cable Engineer Name Role Phone Unavailable Primary Care Provider Unavailabl e Encounter Details Date Type Department Care Team (Late st Contact Info) Description 1988 Outpatient Historical Jaleel Preciado MD [address] 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
--- OUTSIDE RECORDS SUMMARY | 2025-01-05 10:03 | XMS_ITS | Encounter Summary ---
Author Organization [facility] Address [address] [facility] [facility] Attn: [place] [address] Care Team Providers Care Acidizer Helper Name Role Phone Unavailable Primary Care Provider Unavailabl e Encounter Details Date Type Department Care Team (Late st Contact Info) Description 11/25/1992 Outpatient Historical Conversion, History Social History Tobacco Use Types Packs/Day Years Used Date Smoking Tobacco: Never Assessed Comments Unknown Sex and Gender Information Value Date Recorded Sex Assigned at Not on file Legal Sex Female 3:30 AM PAN OPERATOR Gender Identity Not on file Sexual Orientation Not on file documented as of this encounter Plan of Treatment Not on file documented as of this encounter Visit Diagnoses Not on filedocumented in this encounter
--- OUTSIDE RECORDS SUMMARY | 2025-01-05 10:03 | XMS_ITS | Clinical Summary ---
Author Organization [employer] Address [address] [place]: Epic Prelude [place] [address] Care Team Providers Care Coverage Specialist Rn Name Role Phone Unavailable Primary Care Provider Unavailabl e Social History Tobacco Use Types Packs/Day Years Used Date Smoking Tobacco: Never Assessed Comments Unknown Sex and Gender Information Value Date Recorded Sex Assigned at Not on file Legal Sex Female 4:14 AM WIND TURBINE MECHANICAL ENGINEER Gender Identity Not on file Sexual Orientation Not on file Plan of Treatment Health Maintenance Due Date Last Done Comments DTAP/TDAP/TD VACCINES (1 - Tdap) 1993 HEPATITIS B VACCINES (1 of 3 - 19+ 3-dose series) 10/1993 HPV/Cotest (21-29) 11/30/1995 CERVICAL CANCER SCREENING 2004 HPV/Cotest (30-65) 2004 PAP SMEAR 2004 BREAST CANCER SCREENING 2014 COLORECTAL SCREENING 11/30/2019 Colorectal Cancer Screening 11/30/2019 FIT-DNA Q 3 years 11/30/2019 FIT/FOBT Q 1 year 11/30/2019 Flex Sig/CT Colonography Q 5 years 11/30/2019 ZOSTER VACCINE (1 of 2) 2024 INFLUENZA VACCINE (#1) 2025
--- OUTSIDE RECORDS SUMMARY | 2025-01-05 10:03 | XMS_ITS | Clinical Summary ---
Author Organization [facility] Address [address] [place] [address] Phone Care Team Providers Care Armature [employer] Name Role Phone Unavailable Primary Care Provider Unavailabl e Allergies Active Allergy Reactions Criticality Noted Date Comments Penicillins Swelling High 09/24/2024 Medications multivitamin (DAILY-ИВАН) tablet Take 1 Tablet by mouth daily. Renal Plex Active metoprolol tartrate (LOPRESSOR) 50 mg tablet Take 50 mg by mouth 2 times daily. Active loratadine (CLARITIN) 10 mg tablet Take 10 mg by mouth daily. Active escitalopram oxalate (LEXAPRO) 10 mg tablet Take 10 mg by mouth daily. Active gabapentin (NEURONTIN) 400 mg capsule Take 400 mg by mouth. Active desipramine (NORPRAMIN) 50 mg tablet Take 50 mg by mouth daily. Active amLODIPine (NORVASC) 2.5 mg tablet Take 2.5 mg by mouth daily. Active famotidine (PEPCID) 40 mg tablet Take 40 mg by mouth 2 times daily. Active certolizumab pegol (CIMZIA) 200 mg/mL Syringe Kit Inject 200 mg by subcutaneous injection every 2 weeks. Active patiromer calcium sorbitex (Veltassa) 8.4 gram Powder in Packet powder Take 8.4 Grams by mouth daily with breakfast. Non-dialysis days Active traZODone (DESYREL) 50 mg tablet Take 50 mg by mouth daily at bedtime. Active rOPINIRole (REQUIP) 0.25 mg tablet Take 0.25 mg by mouth daily at bedtime. Active sevelamer carbonate (RENVELA) 800 mg Tablet Take 1,600 mg by mouth 3 times daily with meals. Active Encounters Date Type Department Care Team Description 12/11/2024 External Device Data ST[facility] ABSTRACTION Provider, Abstract 12/05/2024 10:38 AM CDT - 12/05/2024 11:59 PM CDT Hospital [facility] Interventional Radiology [address] [place] [id number] Domenica Ortega MD Hegg, Charanjit Farr MD Discharge Disposition: Home or Self Care 12/04/2024 Telephone [facility] Interventional Radiology [address] [place] [phone] Angeles Deleon RN Procedure 11/15/2024 External Device Data STL ABSTRACTION Provider, Abstract 11/14/2024 External Device Data STL ABSTRACTION Provider, Abstract 11/13/2024 External Device Data STL ABSTRACTION Provider, Abstract 10/09/2024 External Device Data ST[facility] ABSTRACTION Provider, Abstract from Last 3 Months Social History Tobacco Use Types Packs/Day Years Used Date Smoking Tobacco: Never Assessed Comments No Sex and Gender Information Value Date Recorded Sex Assigned at Not on file Legal Sex Female 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 Gender Identity Not on file Sexual Orientation Not on file Last Filed Vital Signs Vital Sign Reading Time Taken Comments Blood Pressure 114/72 12/05/2024 12:50 PM CDT Pulse 69 12/05/2024 12:40 PM CDT Temperature 36.5 C (97.7 F) 12/05/2024 12:50 PM CDT Respiratory Rate 16 12/05/2024 12:50 PM CDT Oxygen Saturation 98% 12/05/2024 12:50 PM CDT Inhaled Oxygen Concentration - - Weight 58.1 kg (128 lb) 12/05/2024 10:53 AM CDT Height 152.4 cm (5') 12/05/2024 10:53 AM CDT Body Mass Index 25 12/05/2024 10:53 AM CDT Plan of Treatment Health Maintenance Due Date Last Done Comments Pre-Diabetes and Diabetes Screening 1975 HEPATITIS B VACCINES (1 of 3 - 19+ 3-dose series) 1993 HPV/Cotest (21-29) 11/30/1995 CERVICAL CANCER SCREENING 2004 HPV/Cotest (30-65) 2004 PAP SMEAR 2004 BREAST CANCER SCREENING 2014 COLORECTAL SCREENING 11/30/2019 Colorectal Cancer Screening 11/30/2019 FIT-DNA Q 3 years 11/30/2019 FIT/FOBT Q 1 year 11/30/2019 Flex Sig/CT Colonography Q 5 years 11/30/2019 COVID-19 Vaccine (3 - season) 2024, 12/16/2020 ZOSTER VACCINE (1 of 2) 2024 INFLUENZA VACCINE (#1) 2025 04/14/2022 DTAP/TDAP/TD VACCINES (2 - Td or Tdap) 09/07/2032 Procedures Procedure Name Priority Date/Time Associated Diagnosis Comments IR FISTULOGRAM Routine 12/05/2024 11:42 AM CDT ESRD (end stage renal disease) ([facility]) from Last 3 Months Results * IR FISTULOGRAM (12/05/2024 11:42 AM CDT) Anatomical Region Laterality Modality X-Ray Angiograph y 12/05/2024 11:4 8 AM CDT Impressions 12/05/2024 1:31 PM CDT IMPRESSION: Moderate to high-grade right subclavian venous stenosis treated with angioplasty. I, Dr. Charanjit Khan, certify that I was present for the entire procedure. Narrative 12/05/2024 1:31 PM CDT PROCEDURES: Ultrasound guided access of the right upper extremity fistula. Right upper extremity fistulogram. Angioplasty of a right subclavian venous stenosis. Moderate conscious sedation. HISTORY: Arm swelling OPERATORS: Dr. Charanjit Khan. HAND HYGIENE: Soap and water. [employer]. BARRIER PRECAUTIONS: Maximum sterile barrier with operators fully gowned with mask, gowns and gloves. A full sterile drape was placed on the patient. Hand hygiene was performed with alcohol-based and rub antiseptic. Sterile single use ultrasound gel was used for the procedure during ultrasound guidance. CONSENT: The procedures as well as their risks, benefits, and alternatives were discussed in detail with the patient, and the patient given the opportunity to ask any questions. Written informed consent was then obtained. ESTIMATED BLOOD LOSS: 5 mL PROCEDURE DETAILS: Patient's right upper extremity dialysis fistula was prepped and draped in the usual sterile fashion with 2% chlorhexidine. Preprocedural timeout was performed. Versed and fentanyl were given IV by a radiology nurse who is a trained independent observer dedicated to patient monitoring during moderate sedation under my supervision. 1% lidocaine was infiltrated over the right upper extremity dialysis fistula for local anesthesia. Ultrasound was used and the right dialysis fistula was found to be patent. Next, under direct ultrasound visualization, the right upper extremity dialysis fistula was accessed with a 21 gauge micropuncture needle and a 0.018 wire was advanced into the venous outflow and a respective image was stored. The needle was exchanged for a micropuncture sheath. Fistulogram was performed through the micropuncture sheath. The indwelling 3 Fr dilator and 0.018 wire were removed and a 0.035 Glidewire was advanced through the micropuncture sheath into the venous outflow. Next, over a Glidewire the micropuncture sheath was exchanged for a 8 Jordanian vascular sheath. Next, over the Glidewire a 12 mm balloon was advanced across the left subclavian venous stenosis and angioplasty performed. Follow-up venogram was performed through the sheath. The access sheath was removed and hemostasis achieved with a pursestring suture. Sterile dressing was then applied to the access site. The patient tolerated the procedure well with no immediate complications and was in stable condition at the completion of the procedure. FINDINGS: Moderate to high-grade stenosis in the right subclavian vein where the vein crosses between the clavicle and first rib. Following angioplasty there was near resolution of the stenosis. No other central venous stenoses. No significant stenoses in the venous outflow in the arm. No arterial anastomotic stenosis. Procedure Note Charanjit Khan MD - 12/05/2024 PROCEDURES: Ultrasound guided access of the right upper extremity fistula. Right upper extremity fistulogram. Angioplasty of a right subclavian venous stenosis. Moderate conscious sedation. HISTORY: Arm swelling OPERATORS: Dr. Charanjit Khan. HAND HYGIENE: Soap and water. [employer]agard. BARRIER PRECAUTIONS: Maximum sterile barrier with operators fully gowned with mask, gowns and gloves. A full sterile drape was placed on the patient. Hand hygiene was performed with alcohol-based and rub antiseptic. Sterile single use ultrasound gel was used for the procedure during ultrasound guidance. CONSENT: The procedures as well as their risks, benefits, and alternatives were discussed in detail with the patient, and the patient given the opportunity to ask any questions. Written informed consent was then obtained. ESTIMATED BLOOD LOSS: 5 mL PROCEDURE DETAILS: Patient's right upper extremity dialysis fistula was prepped and draped in the usual sterile fashion with 2% chlorhexidine. Preprocedural timeout was performed. Versed and fentanyl were given IV by a radiology nurse who is a trained independent observer dedicated to patient monitoring during moderate sedation under my supervision. 1% lidocaine was infiltrated over the right upper extremity dialysis fistula for local anesthesia. Ultrasound was used and the right dialysis fistula was found to be patent. Next, under direct ultrasound visualization, the right upper extremity dialysis fistula was accessed with a 21 gauge micropuncture needle and a 0.018 wire was advanced into the venous outflow and a respective image was stored. The needle was exchanged for a micropuncture sheath. Fistulogram was performed through the micropuncture sheath. The indwelling 3 Fr dilator and 0.018 wire were removed and a 0.035 Glidewire was advanced through the micropuncture sheath into the venous outflow. Next, over a Glidewire the micropuncture sheath was exchanged for a 8 Jordanian vascular sheath. Next, over the Glidewire a 12 mm balloon was advanced across the left subclavian venous stenosis and angioplasty performed. Follow-up venogram was performed through the sheath. The access sheath was removed and hemostasis achieved with a pursestring suture. Sterile dressing was then applied to the access site. The patient tolerated the procedure well with no immediate complications and was in stable condition at the completion of the procedure. FINDINGS: Moderate to high-grade stenosis in the right subclavian vein where the vein crosses between the clavicle and first rib. Following angioplasty there was near resolution of the stenosis. No other central venous stenoses. No significant stenoses in the venous outflow in the arm. No arterial anastomotic stenosis. IMPRESSION: Moderate to high-grade right subclavian venous stenosis treated with angioplasty. I, Dr. Charanjit Khan, certify that I was present for the entire procedure. Domenica Ortega MD IR ORDERABLES Final Result from Last 3 Months Insurance MEDICARE PART A AND B [place]ICAID [place]
--- OUTSIDE RECORDS SUMMARY | 2025-01-05 10:03 | XMS_ITS | Encounter Summary ---
Author Organization [email or web address] [facility] Address [address] [place] [address] Care Team Providers Care Solar Energy Installation Manager Name Role Phone Unavailable Primary Care Provider Unavailabl e Encounter Details Date Type Department Care Team (Late st Contact Info) Description 08/08/2000 Outpatient Historical [facility] Social History Tobacco Use Types Packs/Day Years Used Date Smoking Tobacco: Never Assessed Comments Unknown Sex and Gender Information Value Date Recorded Sex Assigned at Not on file Legal Sex Female 4:14 AM PUPPET MASTER Gender Identity Not on file Sexual Orientation Not on file documented as of this encounter Plan of Treatment Not on file documented as of this encounter Visit Diagnoses Not on filedocumented in this encounter
--- OUTSIDE RECORDS SUMMARY | 2025-01-05 10:03 | XMS_ITS | Patient Health Record ---
Author Organization [facility] Address [address] [place] [address] Care Team Providers Care Hand Former Helper Name Role Phone Hyacinth Fernández APRN Primary Care Provider Ching isacc Thorpe, Ruben Unavailable [phone] Allergies Allergen (clinical drug ingredient) Drug/Non Drug Allergy documented on EMR Reaction Allergy Type Onset Date Status Penicillin Unknown Drug Allergy Active Reason For Referral No Information Medications Medication SIG (Take, Route, Frequency, Duration) Notes Start Date End Date Status predniSONE 10 MG Tablet 1 tablet Orally Once a day Active Otezla 30 MG Tablet 1 tablet Orally Twic e a day Active Norethindrone 0.35 MG Tablet 1 tablet Orally Once a day Active Metoprolol Tartrate 50 MG Tablet 1 tablet with food Orally Twice a day Active Lasix 20 MG Tablet 1/2 tablet Orally Once a day for 10 days started 8-12 Active Ketoconazole 2 % Shampoo 5 ml Externally Active Venlafaxine HCl ER 75 MG Capsule Extended Release 24 Hour 1 capsule with food Orally Once a day Active Triamcinolone Acetonide 0.1 % Cream 1 application Externally Two times a Week Active Iron (Ferrous Sulfate) 325 (65 Fe) MG Tablet 1 tablet Orally Twice a day Active Famotidine 40 MG Tablet 1 tablet Orally Twice a day Active Timolol Maleate 0.5 % Solution 1 drop into affected eye Ophthalmic Twice a day Active amLODIPine Besylate 2.5 MG Tablet 1 tablet Orally Once a day Active Sodium Bicarbonate 650 mg Tablet TAKE THREE TABLETS BY MOUTH THREE TIMES DAILY; Duration: 30 Active Retacrit 4000 UNIT/ML Solution INJECT ONE ML UNDER SKIN ONCE WEEKLY; Duration: 30 Active ProAir HFA 108 (90 Base) MCG/ACT Aerosol Solution 1 puff as needed Inhalation every 4 hrs Active Social History Tobacco Use: Social History Observation Description Date Details (start date - stop date) Never Smoker NA - NA Social History Tobacco Use: Social Info Question Answer Notes xTobacco Use/Smoking Are you a nonsmoker Additional Details Category Social Info Options Details Miscellaneous: Marital status: single Children: 0 : no serv ice Level of Education: Finished col lege Problems Problem Type SNOMED Code ICD Code Onset Dates Problem Status W/U Status Risk Notes Problem Anemia in chronic kidney disease (940347863) Anemia in chronic kidney disease (D63.1) Active confirmed Problem Hypoparathyroidism (75985633) Hypoparathyroidism, unspecified (E20.9) Active confirmed Problem Disorder of phosphorus metabolism (89552118) 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) Active confirmed Problem Hypercalcemia (58178242) Hypercalcemia (E83.52) Active confirmed Problem Hypertensive heart AND chronic kidney disease stage 5 (disorder) (93586330544420) Hypertensive chronic kidney disease with stage 5 chronic kidney disease or end stage renal disease (I12.0) Active confirmed Problem Chronic kidney disease stage 5 (314083675) Chronic kidney disease, stage 5 (N18.5) Active confirmed Problem Iron deficiency anemia (41216046) Iron deficiency anemia, unspecified iron deficiency anemia type (D50.9) Active confirmed Problem Chronic kidney disease stage 5 (162719701) CKD (chronic kidney disease), stage V (N18.5) Active confirmed Problem Hyperphosphatemia (23404662) Hyperphosphatemia (E83.39) Active confirmed Problem Benign hypertension (88260971) Hypertension, benign (I10) Active confirmed Problem Rheumatoid arthritis (10828257) Rheumatoid arthritis (M06.9) Active confirmed Plan Of Treatment Pending Test Test Name Order Date Potassium (B) 79012 02/19/2022 Insurance Providers Payer Name Payer Address Payer Phone Subscriber Number Group Number Insured Name Patient Relationship to Insured Coverage Start Date Coverage End Date [place] [address] [place] [phone] [id number] Dia Paredes Self - patient is the insured [place] Medicaid [address] [place] [id number] Dia Paredes Self - patient is the insured Medical (General) History Medical History History ICD Code hypertension rheumatoid arthritis Stage V CKD Anemia of CKD metabolic acidosis Proteinuria Surgical History Surgery Date(Month/Year) fistula placed knuckle surgery shoulder replacement knee replacement knee replacement Hospitalization History Reason Date(Month/Year) hypercalcemia, anemia 01/2021 see surgical
--- OUTSIDE RECORDS SUMMARY | 2025-01-05 10:03 | XMS_ITS | Encounter Summary ---
Author Organization [employer] [facility] Address [address] [place] [address] Care Team Providers Care Industrial Engineering Manager Name Role Phone Unavailable Primary Care Provider Unavailabl e Encounter Details Date Type Department Care Team (Latest Contact Info) Description 09/04/2002 Outpatient Historical [facility] [address], [address] [place] [address] Naomie Paredes MD [address] [place] [address] CLASS MIGRAIN W/O MENTN INTRACTABLE (Primary Dx) Social History Tobacco Use Types Packs/Day Years Used Date Smoking Tobacco: Never Assessed Comments Unknown Sex and Gender Information Value Date Recorded Sex Assigned at Not on file Legal Sex Female 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
--- NOTE | 2025-01-05 10:06 | W.ED.CHESTPA ---
HPI - Chest Pain General: Chief Complaint: Chest Pain Stated Complaint: chest pain Time Seen by Provider: 01/05/25 09:56 History of Present Illness: 49-year-old female with a history of end-stage renal disease on dialysis, this was secondary to methotrexate for severe rheumatoid arthritis, chronic anemia, hypertension and migraines who presents to the emergency room by ambulance from dialysis with chest pain that has been going on for few days now. Says the pain is worse when she lies flat. Almost nonexistent if she sits up. She is not short of breath. No fevers. No cough. No altered mental status. No abdominal pain. No nausea or vomiting. Pain was central initially and says now more on the right. Again is positional. Related Data Home Medications ?Medication ?Instructions ?Recorded ?Confirmed acetaminophen 500 mg tablet 1,000 mg PO Q6H PRN Pain 12/14/22 01/05/25 vit B,C-folic ac 800 mcg-zinc 12.5 1 tab PO QAM 12/14/22 01/05/25 mg-selen-D3 2,000 unit-vit E tablet (RenaPlex-D) sevelamer carbonate 800 mg tablet 1,600 mg PO TID 09/13/24 01/05/25 (Renvela) amlodipine 2.5 mg tablet 2.5 mg PO BEDTIME 01/05/25 01/05/25 desipramine 50 mg tablet 50 mg PO BEDTIME 01/05/25 01/05/25 dorzolamide 22.3 mg-timolol 6.8 1 drp ophthalmic (eye) BID 01/05/25 01/05/25 mg/mL eye drops escitalopram oxalate 10 mg tablet 10 mg PO DAILY 01/05/25 01/05/25 famotidine 40 mg tablet 40 mg PO BID 01/05/25 01/05/25 gabapentin 400 mg capsule 400 mg PO BEDTIME 01/05/25 01/05/25 loratadine 10 mg tablet 10 mg PO DAILY 01/05/25 01/05/25 metoprolol tartrate 50 mg tablet 50 mg PO BID 01/05/25 01/05/25 ropinirole 0.25 mg tablet 0.25 mg PO BEDTIME 01/05/25 01/05/25 trazodone 50 mg tablet 25 - 50 mg PO BEDTIME 01/05/25 01/05/25 Previous Rx's ?Medication ?Instructions ?Recorded accommodative custom orthotics #1 ea 02/16/22 Articulating AFO right lower #1 ea 02/22/22 extremity PORT FLUSH #1 ea 06/05/24 albuterol sulfate 90 mcg/actuation 2 puff inhalation QID PRN 06/11/24 aerosol inhaler shortness of breath or wheezing #6.7 grams certolizumab pegol 400 mg/2 mL 200 mg SUBCUT .EVERY 2 WEEKS #2 ea 11/28/24 (200 mg/mL x2) subcutaneous syringe kit (Cimzia) prednisone 20 mg tablet See Rx Instructions PO .COMPLEX 11/28/24 PRN joint pain flare #30 tabs Allergies Allergy/AdvReac Type Severity Reaction Status Date / Time Penicillins Allergy Intermediate swelling Verified 07/27/24 11:16 Review of Systems Narrative: Constitutional symptoms: Negative except as documented in HPI. Skin symptoms: Negative except as documented in HPI. Eye symptoms: Negative except as documented in HPI. ENMT symptoms: Negative except as documented in HPI. Respiratory symptoms: Negative except as documented in HPI. Cardiovascular symptoms: Negative except as documented in HPI. Gastrointestinal symptoms: Negative except as documented in HPI. Genitourinary symptoms: Negative except as documented in HPI. Musculoskeletal symptoms: Negative except as documented in HPI. Neurologic symptoms: Negative except as documented in HPI. Psychiatric symptoms: Negative except as documented in HPI. Endocrine symptoms: Negative except as documented in HPI. PFSH ED PFSH: Medical History (Updated 01/05/25 @ 11:29 by Kiersten Viramontes MD) Rheumatoid arthritis Acute hyperkalemia ESRD on dialysis No pertinent past medical history neghx: dm,thyroid,dvt/pe PCP: Cookie Fernández Hypermagnesemia Anemia in chronic kidney disease (CKD) AV fistula Seropositive rheumatoid arthritis of multiple sites Chronic anterior uveitis of both eyes Hypertension Chronic anemia Chronic kidney disease Dr. Aquino in [place] Migraine headache Hypercalcemia Surgical History H/O joint surgery Due to arthritis Neck, knees, shoulder, knuckle, wrists H/O cataract extraction both eyes Status post colonoscopy 08/02/2019: Poor prep, normal H/O esophagogastroduodenoscopy 08/02/2019: Normal Hx of total knee arthroplasty both H/O wrist surgery H/O foot surgery Family History Father Stroke Father had Parkinson's and a stroke Hypertension Hypercholesteremia Mother Hypertension Hypercholesteremia Family/Other Breast cancer Maternal Cousin-- dx age unknown Ovarian cancer Maternal aunt-- dx age unknown Diabetes Maternal Aunt/Uncle Denies family history of Colon cancer Uterine cancer Social History Smoking and tobacco/nicotine status: never used tobacco/nicotine Substance/Drug Use: never Additional social history: - Tobacco use: Denies Alcohol use: Denies Drug use: Denies Physical Exam Narrative: EXAM NARRATIVE: General: Alert, no acute distress. Skin: Warm, dry. Head: Normocephalic, atraumatic. Neck: Supple, trachea midline. Eye: Extraocular movements are intact. Ears, nose, mouth and throat: mucosa moist. Cardiovascular: Regular, Normal peripheral perfusion. Respiratory: Lungs are clear to auscultation, respirations are non-labored, breath sounds are equal, Symmetrical chest wall expansion. Gastrointestinal: Soft, Nontender, Non distended Musculoskeletal: No acute deformities. Right upper arm fistula. Extensive chronic rheumatoid deformities to the distal extremities Neurological: Alert and oriented, No focal neurological deficit observed. Psychiatric: Cooperative, appropriate mood & affect. Course Vital Signs: Vital signs: Vital Signs Temperature 97.8 F 01/05/25 09:56 Pulse Rate 67 01/05/25 10:55 Respiratory Rate 16 01/05/25 10:55 Blood Pressure 123/69 01/05/25 10:55 Pulse Oximetry 97 01/05/25 10:55 Oxygen Delivery Me thod Room Air 01/05/25 10:55 MDM - Chest Pain Medical Decision Making Differential diagnosis for patient with chest pain includes but is not limited to and based on the above HPI, review of systems and physical exam: Pneumonia. unstable angina. angina. Acute coronary syndrome / IA. Pulmonary embolism. Costochondritis / musculoskeletal. Pleurisy. Pericarditis. Esophageal spasm. Pancreatis. Cholecystitis. Orders placed to evaluate differential diagnosis based on the above differential, HPI and physical exam EKG: Time 10:01 AM. Rate 72. Normal sinus rhythm, No ST-T changes, no ectopy, normal UT & QRS intervals, This was reviewed and interpreted by myself the ER physician at 10:05 AM Chest x-ray: No acute process. No infiltrate. No pneumothorax. This was reviewed and interpreted by myself the emergency room physician. I also reviewed the radiology report. Lab Review: Laboratory results were reviewed and interpreted by myself the emergency room physician. No leukocytosis. Fairly stable chronic anemia. BUN and creatinine are 42 and 7.1 with a potassium of 5.6. This is expected in this patient who was supposed to get dialysis this morning. Troponin is negative. Patient is having right sided positional and movement chest pain so I do not believe this is cardiac. I reviewed the patient's medical record. Reexamination: Patient remained stable. No increased work of breathing. No altered mental status. No focal motor deficits. Arranging transport back to dialysis clinic to resume dialysis. Assessment and plan: Noncardiac chest pain Rheumatoid arthritis End-stage renal disease on dialysis - Discharged home - Discussed plan with patient. Answered any questions. - Evaluation and treatment of this problem were appropriate in the emergency setting. Lab Data 01/05/25 10:19 01/05/25 10:19 Radiology Impressions Chest X-Ray 01/05/25 09:56 IMPRESSION: No acute pulmonary finding. Laboratory Results WBC 5.21 10^3/uL (3.29-11.43) 01/05/25 10:19 RBC 3.02 10^6/uL (3.85-5.65) L 01/05/25 10:19 Hgb 9.10 g/dL (11.27-16.99) L 01/05/25 10:19 Hct 29.2 % (36-47) L 01/05/25 10:19 MCV 96.7 fl (85-98) 01/05/25 10:19 MCH 30.1 pg (27-33) 01/05/25 10:19 MCHC 31.2 g/dL (30-55) 01/05/25 10:19 RDW 16.1 % (12.1-15.1) H 01/05/25 10:19 Plt Count 170 10^3/cmm (157-399) 01/05/25 10:19 MPV 8.5 fL (7.4-10.4) 01/05/25 10:19 Neut % (Auto) 52.5 % 01/05/25 10:19 Lymph % (Auto) 17.9 % 01/05/25 10:19 Archuleta % (Auto) 24.2 % 01/05/25 10:19 Eos % (Auto) 4.2 % 01/05/25 10:19 Baso % (Auto) 1.0 % 01/05/25 10:19 Neut # (Auto) 2.74 10^3/uL (1.8-7.7) 01/05/25 10:19 Lymph # (Auto) 0.9 10^3/uL (0.8-4.8) 01/05/25 10:19 Archuleta # (Auto) 1.3 10^3/uL (0.2-0.9) H 01/05/25 10:19 Eos # (Auto) 0.2 10^3/uL (0.0-0.8) 01/05/25 10:19 Baso # (Auto) 0.1 10^3/uL (0.0-0.1) 01/05/25 10:19 Nucleated RBC % (auto) 0 % 01/05/25 10:19 Nucleated RBCs # 0.0 /100WBC 01/05/25 10:19 Sodium 134 mmol/L (136-145) L 01/05/25 10:19 Potassium 5.6 mmol/L (3.5-5.1) H 01/05/25 10:19 Chloride 91 mmol/L (98-107) L 01/05/25 10:19 Carbon Dioxide 30 mmol/L (22-29) H 01/05/25 10:19 Anion Gap 18.6 (5-19) 01/05/25 10:19 BUN 42 mg/dL (6-20) H 01/05/25 10:19 Creatinine 7.1 mg/dL (0.5-0.9) H* 01/05/25 10:19 GFR Calculation 6.1 mL/min (90-130) L 01/05/25 10:19 Glucose 100 mg/dL (65-115) 01/05/25 10:19 Calculated Osmolality 289 mOsm/kg (285-295) 01/05/25 10:19 Calcium 10.5 mg/dL (8.5-10.5) 01/05/25 10:19 Total Bilirubin 0.3 mg/dL (0.15-1.2) 01/05/25 10:19 AST 10 U/L (0-32) 01/05/25 10:19 ALT 15 U/L (0-33) 01/05/25 10:19 Alkaline Phosphatase 86 U/L (35-105) 01/05/25 10:19 Troponin T Baseline 12 ng/L (0-10) H 01/05/25 10:19 NT-Pro-B Natriuret Pep 3604 pg/mL (0-125) H 01/05/25 10:19 Total Protein 7.1 g/dL (6.6-8.7) 01/05/25 10:19 Albumin 3.8 g/dL (3.5-5.2) 01/05/25 10:19 Globulin 3.3 g/dL (1.3-4.6) 01/05/25 10:19 All radiology interpretation(s) finalized by discharge Discharge Plan Discharge Patient Disposition: Home Clinical Impression: Non-cardiac chest pain, End stage renal disease on dialysis, Rheumatic arteritis Condition: Stable Prescriptions: No Action albuterol sulfate 90 mcg/actuation HFA aerosol inhaler 2 puff inhalation QID PRN (Reason: shortness of breath or wheezing) Qty: 6.7 0RF (DME) accommodative custom orthotics See Rx Instructions .Route .MEDSUPPLY Qty: 1 0RF Rx Instructions: As directed by [facility] (DME) Articulating AFO right lower extremity See Rx Instructions .Route .MEDSUPPLY Qty: 1 0RF Rx Instructions: As directed BY [facility] prednisone 20 mg tablet See Rx Instructions PO .COMPLEX PRN (Reason: joint pain flare) Qty: 30 1RF Rx Instructions: Take 2 tablets by mouth daily for 7 days as needed for arthritis flare. Cimzia 400 mg/2 mL (200 mg/mL x 2) syringe kit 200 mg SUBCUT .EVERY 2 WEEKS Qty: 2 5RF sevelamer carbonate [Renvela] 800 mg tablet 1,600 mg PO TID Rx Instructions: must administer with a meal/food (DME) PORT FLUSH See Rx Instructions .Route .MEDSUPPLY Qty: 1 0RF Rx Instructions: FLUSH PORT EVERY 6-8 WEEKS. DX: N18.6, Z99.2 AUTHORIZED 06/05/2024- 06/04/2025 acetaminophen 500 mg Tablet 1,000 mg PO Q6H PRN (Reason: Pain) RenaPlex-D 800 mcg-12.5 mg -2,000 unit tablet 1 tab PO QAM dorzolamide-timolol 22.3-6.8 mg/mL drops 1 drp ophthalmic (eye) BID escitalopram oxalate 10 mg tablet 10 mg PO DAILY trazodone 50 mg tablet 25 - 50 mg PO BEDTIME famotidine 40 mg tablet 40 mg PO BID gabapentin 400 mg capsule 400 mg PO BEDTIME amlodipine 2.5 mg tablet 2.5 mg PO BEDTIME desipramine 50 mg tablet 50 mg PO BEDTIME ropinirole 0.25 mg tablet 0.25 mg PO BEDTIME metoprolol tartrate 50 mg tablet 50 mg PO BID loratadine 10 mg tablet 10 mg PO DAILY Discharge Orders: Discharge ED (Routine); Ordered 01/05/25 Ordered By: Kiersten Viramontes Referrals: Hyacinth Fernández FNP [Primary Care Provider, Family Practice] Discharge Diet: Usual diet Discharge Activity: Increase activity as tolerated Patient Instructions: Opioid Safety, Pain Management, Patient Portal & Carlos Instructions Activity Restrictions/Additional Instructions: Please return to dialysis and complete dialysis. Thank you for choosing [facility] for your healthcare needs today. You have been screened and evaluated and felt safe for discharge. Health conditions do change or evolve sometimes and as such it is important that you follow up with your Primary Doctor to be re checked, 3-5 days is a general good time frame for follow up. You are always welcome to return to the ED for re assessment if your symptoms are worsening or you have new concerns Print Language: Serbian Coding Level of Care Code ED Land Leasing Examiner for Jori Beasley
[2025-01-05 10:25] LABS: Hematocrit 29.2 % (36-47); Hemoglobin 9.10 g/dL (11.27-16.99); Mean Corpuscular HGB Conc 31.2 g/dL (30-55); Mean Corpuscular Hemoglobin 30.1 pg (27-33); Mean Corpuscular Volume 96.7 fl (85-98); Nucleated Red Blood Cells % 0 %; Platelet Count 170 10^3/cmm (157-399); Red Blood Count 3.02 10^6/uL (3.85-5.65); White Blood Count 5.21 10^3/uL (3.29-11.43)
[2025-01-05 10:41] LABS: Troponin(5th) Baseline 12 ng/L (0-10)
[2025-01-05 10:50] LABS: Alanine Aminotransferase 15 U/L (0-33); Albumin Level 3.8 g/dL (3.5-5.2); Alkaline Phosphatase 86 U/L (35-105); Anion Gap 18.6 (5-19); Aspartate Amino Transferase 10 U/L (0-32); Blood Urea Nitrogen 42 mg/dL (6-20); Calcium 10.5 mg/dL (8.5-10.5); Carbon Dioxide 30 mmol/L (22-29); Chloride 91 mmol/L (98-107); Globulin 3.3 g/dL (1.3-4.6); Glucose 100 mg/dL (65-115); NT Pro B Type Natriuretic Pept 3604 pg/mL (0-125); Osmolality Calculated 289 mOsm/kg (285-295); Potassium 5.6 mmol/L (3.5-5.1); Sodium 134 mmol/L (136-145); Total Protein 7.1 g/dL (6.6-8.7)
[2025-01-05 10:55] VITALS: BP 123/69; PULSE 67; RESP 16; O2SAT 97
[2025-01-05 10:58] LABS: Creatinine Clr Calc Pharmacy 7.5608
[2025-01-05 12:13] VITALS: BP 127/75; PULSE 68; O2SAT 97
== END 2025-01-05 12:03 | disposition home or self-care (01) ==
PROVIDERS: Emergency Provider Emergency Medicine; PCP Nurse Practitioner Family
DX: R07.89 Other chest pain (principal); I00 Rheumatic fever without heart involvement; I12.0 Hypertensive chronic kidney disease with stage 5 chronic kidney disease or end stage renal disease; N18.6 End stage renal disease; Z99.2 Dependence on renal dialysis
CPT/HCPCS: 71045; 80053; 83880; 84484; 85025; 93005; 99285

== ENCOUNTER → 2025-01-09 10:05 | Outpatient (BNVA) | payer MEDICARE, MEDICAID, SELFPAY | PROVIDERS: PCP Nurse Practitioner Family; Visit Provider Surgery | DX: Z12.11 Encounter for screening for malignant neoplasm of colon (principal) | CPT/HCPCS: 99024; 99204 ==

== ENCOUNTER → 2025-01-14 14:04 | Outpatient (BNVA) | payer MEDICARE, MEDICAID, SELFPAY | PROVIDERS: PCP Nurse Practitioner Family; Visit Provider Nurse Practitioner Family | DX: R05.9 Cough, unspecified (principal) | CPT/HCPCS: 71046 ==

== ENCOUNTER 2025-01-24 10:16 | Day surgery (SDC) | payer MEDICARE, MEDICAID, SELFPAY ==
[2025-01-24 10:38] VITALS: BP 145/75; PULSE 70; RESP 18; TEMP 36.9; O2SAT 100; BMI 25.0
--- NOTE | 2025-01-24 10:43 | W.PM.OPSUD ---
Surgery/Procedure H&P Update DATE OF PROCEDURE: January 24, 2025 DATE H&P PERFORMED: 01/09/25 H&P UPDATE INFORMATION: I have reviewed H&P completed within last 30 days, I have examined patient prior to procedure, No changes to prior documentation, Changes to prior documentation as noted here and Risks and benefits of the procedure reviewed PLANNED PROCEDURE: Operation Date: 01/24/25 11:45 Proposed Procedures p Colonoscopy 33738 G0121, Z12.11(Not Applicable) - Onel Galan MD
--- NOTE | 2025-01-24 11:51 | ANES.PREANE2 ---
Pre-Anesthetic Assessment Height/Weight: Height 5 ft Weight 128 lb Temp Pulse Resp BP Pulse Ox O2 Del Method 98.5 F 70 18 145/75 100 Room Air 01/24/25 10:38 01/24/25 10:38 01/24/25 10:38 01/24/25 10:38 01/24/25 10:38 01/24/25 10:38 Preop Diagnosis: Screening colonoscopy Operation Date: 01/24/25 11:45 Proposed Procedures p Colonoscopy 14728 G0121, Z12.11(Not Applicable) - Onel Galan MD Was Beta Merry taken within 24 hours: N/A Was Clonidine taken within 24 hours: N/A Last intake: Intake Last Liquid Date 01/23/25 Last Liquid Time 20:00 Last Solid Date 01/22/25 Last Solid Time 18:00 Social No alcohol and No tobacco Exam alert, oriented x 3, clear to auscultation bilaterally and regular rate & rhythm Airway Submandibular: within normal limits Cervical ROM: within normal limits Mallampati: Class III Dentition: full Comments: Comments: Overbite Anesthetic Plan ASA status: 3 Anesthesia: MAC Other: Patient states that she has a history of PONV, did well with her colonoscopy 5 years ago Completed bowel prep History of hypertension on amlodipine ESRD, dialysis Tuesday. Patient to receive dialysis on Tuesday. Checking BNP today Patient has an AV fistula on the right arm Rheumatoid arthritis noted Patient states that they placed a port in for lab draws only EKG sinus rhythm Plan for MAC anesthesia Medications/Allergies Home Medications ?Medication ?Instructions ?Recorded ?Confirmed ?Last Taken ?Type accommodative custom orthotics #1 ea 02/16/22 01/14/25 07/20/22 Rx Articulating AFO right lower #1 ea 02/22/22 01/14/25 07/20/22 Rx extremity acetaminophen 500 mg tablet 1,000 mg PO Q6H PRN Pain 12/14/22 01/21/25 01/19/25 History vit B,C-folic ac 800 mcg-zinc 12.5 1 tab PO QAM 12/14/22 01/21/25 01/23/25 History mg-selen-D3 2,000 unit-vit E tablet (RenaPlex-D) PORT FLUSH #1 ea 06/05/24 01/14/25 Unknown Rx albuterol sulfate 90 mcg/actuation 2 puff inhalation QID PRN 06/11/24 01/21/25 Unknown Rx aerosol inhaler shortness of breath or wheezing #6.7 grams sevelamer carbonate 800 mg tablet 1,600 mg PO TID 09/13/24 01/21/25 01/23/25 History (Renvela) certolizumab pegol 400 mg/2 mL 200 mg SUBCUT .EVERY 2 WEEKS #2 ea 11/28/24 01/21/25 01/09/25 Rx (200 mg/mL x2) subcutaneous syringe kit (Cimzia) prednisone 20 mg tablet See Rx Instructions PO .COMPLEX 11/28/24 01/21/25 Unknown Rx PRN joint pain flare #30 tabs amlodipine 2.5 mg tablet 2.5 mg PO BEDTIME 01/05/25 01/21/25 01/23/25 History desipramine 50 mg tablet 50 mg PO BEDTIME 01/05/25 01/21/25 01/23/25 History dorzolamide 22.3 mg-timolol 6.8 1 drp ophthalmic (eye) BID 01/05/25 01/21/25 01/23/25 History mg/mL eye drops escitalopram oxalate 10 mg tablet 10 mg PO DAILY 01/05/25 01/21/25 01/23/25 History famotidine 40 mg tablet 40 mg PO BID 01/05/25 01/21/25 01/23/25 History gabapentin 400 mg capsule 400 mg PO BEDTIME 01/05/25 01/21/25 01/23/25 History loratadine 10 mg tablet 10 mg PO DAILY 01/05/25 01/21/25 01/23/25 History metoprolol tartrate 50 mg tablet 50 mg PO BID 01/05/25 01/21/25 01/24/25 History doxycycline hyclate 100 mg capsule 100 mg PO BID 7 days #14 caps 01/14/25 01/21/25 01/23/25 Rx ropinirole 0.25 mg tablet 0.25 mg PO BEDTIME #90 tabs 01/16/25 01/21/25 01/20/25 20:00 Rx trazodone 50 mg tablet 25 - 50 mg (0.5 - 1 x 50 mg) PO 01/16/25 01/21/25 01/20/25 20:30 Rx BEDTIME #90 tabs Allergies Allergy/AdvReac Type Severity Reaction Status Date / Time Penicillins Allergy Intermediate swelling Verified 01/21/25 11:12 Current Medications Generic Name Dose Route Start Last Admin Trade Name Susan PRN Reason Stop Dose Admin Sodium Chloride 1,000 mls @ 15 mls/hr 01/24/25 10:28 01/24/25 10:54 Sodium Chloride 0.9% IV 01/25/25 10:27 15 mls/hr .Q24H PRN Administration COLONOSCOPY FLUIDS PFSH Anesthesia Medical History Rheumatoid arthritis Acute hyperkalemia ESRD on dialysis No pertinent past medical history neghx: dm,thyroid,dvt/pe PCP: Cookie Fernández Hypermagnesemia Anemia in chronic kidney disease (CKD) AV fistula Seropositive rheumatoid arthritis of multiple sites Chronic anterior uveitis of both eyes Hypertension Chronic anemia Chronic kidney disease Dr. Aquino in [place] Migraine headache Hypercalcemia Surgical History H/O joint surgery Due to arthritis Neck, knees, shoulder, knuckle, wrists H/O cataract extraction both eyes Status post colonoscopy 08/02/2019: Poor prep, normal H/O esophagogastroduodenoscopy 08/02/2019: Normal Hx of total knee arthroplasty both H/O wrist surgery H/O foot surgery Family History Father Stroke Father had Parkinson's and a stroke Hypertension Hypercholesteremia Mother Hypertension Hypercholesteremia Family/Other Breast cancer Maternal Cousin-- dx age unknown Ovarian cancer Maternal aunt-- dx age unknown Diabetes Maternal Aunt/Uncle Denies family history of Colon cancer Uterine cancer Social History Smoking and tobacco/nicotine status: never used tobacco/nicotine Substance/Drug Use: never Additional social history: - Tobacco use: Denies Alcohol use: Denies Drug use: Denies
[2025-01-24 12:15] LABS: Anion Gap 23.6 (5-19); Blood Urea Nitrogen 59 mg/dL (6-20); Calcium 10.5 mg/dL (8.5-10.5); Carbon Dioxide 22 mmol/L (22-29); Chloride 96 mmol/L (98-107); Creatinine Clr Calc Pharmacy 5.9646; Glucose 82 mg/dL (65-115); Osmolality Calculated 300 mOsm/kg (285-295); Potassium 4.6 mmol/L (3.5-5.1); Sodium 137 mmol/L (136-145)
--- NOTE | 2025-01-24 12:36 | PC.NURSE ---
Cecum time 1236
[2025-01-24 12:46] VITALS: BP 101/75; PULSE 73; RESP 20; TEMP 36.1; O2SAT 99
--- NOTE | 2025-01-24 13:16 | PC.NURSE ---
central line de-accessed at 4900 01/24/25
[2025-01-24 13:30] VITALS: BP 156/78; PULSE 70; RESP 16; O2SAT 95
== END 2025-01-24 13:46 | disposition home or self-care (01) ==
PROVIDERS: Student in an Organized Health Care Education/Training Program; PCP Nurse Practitioner Family; Visit Provider Surgery
PROC: 0DJD8ZZ Inspection of Lower Intestinal Tract, Via Natural or Artificial Opening Endoscopic (ICD-10-PCS; CPT 45378; principal; 2025-01-24 11:45)
DX: Z12.11 Encounter for screening for malignant neoplasm of colon (principal); D12.5 Benign neoplasm of sigmoid colon; I12.0 Hypertensive chronic kidney disease with stage 5 chronic kidney disease or end stage renal disease; N18.6 End stage renal disease; Z99.2 Dependence on renal dialysis; D64.9 Anemia, unspecified; E87.5 Hyperkalemia; E83.41 Hypermagnesemia
CPT/HCPCS: 45380; 80048; 88305; J2704; J7030; J9999

== ENCOUNTER → 2025-02-20 10:10 | Outpatient (BNVA) | payer MEDICARE, MEDICAID, SELFPAY | PROVIDERS: PCP Nurse Practitioner Family; Visit Provider Surgery | DX: Z09 Encounter for follow-up examination after completed treatment for conditions other than malignant neoplasm (principal) | CPT/HCPCS: 99213 ==

== ENCOUNTER 2025-02-22 06:00 | Oncology outpatient (recurring) (ONCR) | payer MEDICARE, MEDICAID, SELFPAY ==
--- NOTE | 2025-02-22 11:44 | CTR_ITS ---
PROCEDURE INFORMATION: Exam: CT Abdomen And Pelvis Without And With Contrast Exam date and time: 02/22/2025 12:08 PM Age: 49 years old Clinical indication: Abdominal pain; Generalized abdomen pain x 2 months; Additional info: R10.9 unspecified abdomen pain TECHNIQUE: Imaging protocol: Computed tomography of the abdomen and pelvis without and with contrast. Radiation optimization: All CT scans at this facility use at least one of these dose optimization techniques: automated exposure control; mA and/or kV adjustment per patient size (includes targeted exams where dose is matched to clinical indication); or iterative reconstruction. Contrast material: OMNI 350; Contrast volume: 100 ml; Contrast route: INTRAVENOUS (IV); COMPARISON: CT abdomen wo con [id number] 08/31/2020 9:17 PM RADIATION DOSE METRICS: Total DLP (mGy-cm): 381.99 FINDINGS: Liver: Normal. No mass. Gallbladder and biliary ducts: Normal. No calcified stones. No ductal dilation. Pancreas: Normal. No ductal dilation. Spleen: Normal. No splenomegaly. Adrenal glands: Normal. No mass. Kidneys and ureters: Small kidneys. Right renal cyst. Bilateral nonobstructing renal calculi. Stomach and bowel: Unremarkable. No obstruction. No mucosal thickening. Appendix: No evidence of appendicitis. Intraperitoneal space: Unremarkable. No free air. No significant fluid collection. Vasculature: Unremarkable. No abdominal aortic aneurysm. Lymph nodes: Unremarkable. No enlarged lymph nodes. Urinary bladder: Unremarkable as visualized. Reproductive: Incompletely imaged 2.8 cm left pelvic cyst, probably related to the left ovary. Bones/joints: Unremarkable. No acute fracture. Soft tissues: Unremarkable. CT/CT abdomen wo/w con [id number] IMPRESSION: No acute subdiaphragmatic pathology. COMMENTS: Consistent with the [employer]'s Incidental Findings Committee white paper (J Am Adam Radiol 2018): Any incidental renal lesion less than 1 cm or classified as too small to characterize, or any incidental cystic renal lesion characterized as simple-appearing, is likely benign. No follow-up imaging is recommended for these lesions per consensus recommendations based on imaging criteria.
== END 2025-02-24 23:59 | disposition home or self-care (01) ==
LOC: ONCMED 02-26 13:17
PROVIDERS: PCP Nurse Practitioner Family; Visit Provider Internal Medicine
DX: Z45.2 Encounter for adjustment and management of vascular access device (principal); Z95.828 Presence of other vascular implants and grafts; R10.9 Unspecified abdominal pain; N28.1 Cyst of kidney, acquired; N20.0 Calculus of kidney; N94.89 Other specified conditions associated with female genital organs and menstrual cycle
CPT/HCPCS: 74170

== ENCOUNTER → 2025-03-07 08:04 | Outpatient (BNVA) | payer MEDICARE, MEDICAID, SELFPAY | PROVIDERS: PCP Nurse Practitioner Family; Visit Provider Nurse Practitioner Family | DX: R39.9 Unspecified symptoms and signs involving the genitourinary system (principal) | CPT/HCPCS: 81000 ==

== ENCOUNTER → 2025-03-26 11:13 | Outpatient (BNVA) | payer MEDICARE, MEDICAID, SELFPAY | PROVIDERS: PCP Nurse Practitioner Family; Visit Provider Nurse Practitioner Women's Health | DX: Z12.4 Encounter for screening for malignant neoplasm of cervix (principal) | CPT/HCPCS: 87624 ==

== ENCOUNTER 2025-05-09 10:36 | Outpatient (CLI) | payer MEDICARE, MEDICAID, SELFPAY ==
--- NOTE | 2025-05-09 11:40 | MM_ITS ---
WS: [id number] BILATERAL SCREENING DIGITAL TOMOSYNTHESIS MAMMOGRAM WITH CAD HISTORY: Z12.39 - Encounter for other screening for malignant neop... COMPARISON: 05/08/2024, 04/28/2023 Bilateral CC and MLO views with tomosynthesis and synthetic mammography submitted. Computer aided detection analyzed. Breast composition: The breasts are extremely dense, which lowers the sensitivity of mammography. No suspicious masses, microcalcifications or architectural distortion. Dense calcifications in each breast. No suspicious mass. MM/MM scr BI tomosynthesis [id number] IMPRESSION: BI-RADS: 2 - Benign FOLLOW UP: 1 Year Follow-up
== END 2025-05-09 10:37 | disposition home or self-care (01) ==
LOC: RAD 10:37
PROVIDERS: PCP Nurse Practitioner Family; Visit Provider Nurse Practitioner Women's Health
DX: Z12.31 Encounter for screening mammogram for malignant neoplasm of breast (principal); R92.313 Mammographic fatty tissue density, bilateral breasts; R92.1 Mammographic calcification found on diagnostic imaging of breast
CPT/HCPCS: 77063; 77067

== ENCOUNTER 2025-05-24 10:27 | Outpatient (CLI) | payer MEDICARE, MEDICAID, SELFPAY ==
[2025-05-24 12:43] LABS: Alanine Aminotransferase 13 U/L (0-33); Albumin Level 4.0 g/dL (3.5-5.2); Alkaline Phosphatase 79 U/L (35-105); Aspartate Amino Transferase 10 U/L (0-32); Globulin 3.3 g/dL (1.3-4.6); Total Protein 7.3 g/dL (6.6-8.7)
[2025-05-24 15:09] LABS: Hematocrit 30.1 % (36-47); Hemoglobin 9.40 g/dL (11.27-16.99); Mean Corpuscular HGB Conc 31.2 g/dL (30-55); Mean Corpuscular Hemoglobin 29.4 pg (27-33); Mean Corpuscular Volume 94.1 fl (85-98); Nucleated Red Blood Cells % 0 %; Platelet Count 236 10^3/cmm (157-399); Red Blood Count 3.20 10^6/uL (3.85-5.65); White Blood Count 6.47 10^3/uL (3.29-11.43)
== END 2025-05-24 10:28 | disposition home or self-care (01) ==
LOC: LAB 10:29
PROVIDERS: PCP Nurse Practitioner Family; Visit Provider Internal Medicine Rheumatology
DX: Z79.899 Other long term (current) drug therapy (principal); M08.00 Unspecified juvenile rheumatoid arthritis of unspecified site
CPT/HCPCS: 36415; 80076; 82565; 85025; 85651; 86140

== ENCOUNTER → 2025-05-27 11:16 | Outpatient (BNVA) | payer MEDICARE, MEDICAID, SELFPAY | PROVIDERS: PCP Nurse Practitioner Family; Visit Provider Internal Medicine Rheumatology | DX: M08.00 Unspecified juvenile rheumatoid arthritis of unspecified site (principal); L40.9 Psoriasis, unspecified; Z79.899 Other long term (current) drug therapy; D63.1 Anemia in chronic kidney disease; N18.9 Chronic kidney disease, unspecified; M25.551 Pain in right hip; M16.11 Unilateral primary osteoarthritis, right hip | CPT/HCPCS: 73502; 99214 ==